=== PATIENT | male | born 1935 | race Caucasian/White ===

== ENCOUNTER 2020-04-08 16:01 | Inpatient (IN) ==
--- NOTE | 2020-04-08 16:33 | XRay Report ---
XR chest 1V portable CLINICAL HISTORY: tachycardia dyspnea COMPARISON STUDY: No previous studies for comparison. FINDINGS: Moderate cardiomegaly. Stent placement within the thoracic aorta. Prominent pulmonary vasculature. Diaphragms are smooth. IMPRESSION: Cardiomegaly with components of developing congestive heart failure. ACT 112: Negative or not required by law. The above report was generated using voice recognition software. It may contain grammatical, syntax or spelling errors. Electronically signed by: Juaquin Prince M.D. 04/08/2020 4:32 PM
[2020-04-08 16:35] LABS: Basophils # (auto) 0.02 K/uL (0-0.2); Basophils % (auto) 0.3 %; Eosinophils # (auto) 0.06 K/uL (0-0.5); Eosinophils % (auto) 0.8 %; Hematocrit (blood only) 44.4 % (42-52); Hemoglobin 14.3 g/dL (14.0-18.0); Immature Granulocytes # (auto) 0.01 K/uL (0.00-0.02); Immature Granulocytes % (auto) 0.1 %; Lymphocytes # (auto) 1.44 K/uL (1.2-3.4); Lymphocytes % (auto) 18.3 %; Mean Corpuscular Hemoglobin 32.9 pg (25-34); Mean Corpuscular Hgb Conc 32.2 g/dL (32-36); Mean Corpuscular Volume 102.1 fL (80-100); Mean Platelet Volume 11.4 fL (7.4-10.4); Monocytes # (auto) 0.68 K/uL (0.11-0.59); Monocytes % (auto) 8.6 %; Neutrophils # (auto) 5.68 K/uL (1.4-6.5); Neutrophils % (auto) 71.9 %; Platelet Count 195 K/uL (130-400); RDW Coefficient of Variation 13.9 % (11.5-14.5); RDW Standard Deviation 51.9 fL (36.4-46.3); Red Blood Count 4.35 M/uL (4.7-6.1); White Blood Count 7.89 K/uL (4.8-10.8)
[2020-04-08] MEDS ORDERED: METOPROLOL TARTRATE 1 MG/ML VIAL IV STA (16:52)
[2020-04-08 17:06] LABS: Alanine Aminotransferase 45 U/L (12-78); Albumin Level 3.6 gm/dl (3.4-5.0); BUN Creatinine Ratio 21.6 (10-20); Blood Urea Nitrogen 37 mg/dl (7-18); Calcium 8.9 mg/dl (8.5-10.1); Carbon Dioxide 22 mmol/L (21-32); Chloride 111 mmol/L (98-107); Est GFR (African American) 41.4; Est GFR (Non-African American) 35.7; Glucose 117 mg/dl (70-99)
[2020-04-08 17:10] LABS: Albumin Globulin Ratio 0.9 (0.9-2); Alkaline Phosphatase 102 U/L (45-117); Bilirubin,Total 1.5 mg/dl (0.2-1); Potassium 4.1 mmol/L (3.5-5.1); Sodium 144 mmol/L (136-145); Total Protein 7.6 gm/dl (6.4-8.2)
[2020-04-08 17:14] LABS: Aspartate Aminotransferase 27 U/L (15-37); Magnesium 2.3 mg/dl (1.8-2.4)
[2020-04-08 17:58] LABS: T4 Free Thyroxine 1.23 ng/dl (0.8-1.6)
[2020-04-08] MEDS ORDERED: METOPROLOL TARTRATE 25 MG TAB PO STA (18:13)
--- NOTE | 2020-04-08 18:49 | Emergency Department Note ---
Impression & Plan Atrial fibrillation with rapid ventricular response ED Provider Note NAME: SHANNON BURKS AGE: 84 SEX: M ARRIVES VIA: Walk-In INFORMANT: [Patient] patient's ED PROVIDER(S): Martin Malagon MD CHIEF COMPLAINT: Abnormal heartbeat PLAN: Disposition: Admitted Condition: [Good] MEDICAL DECISION MAKING: Patient presented from the cardiology office because of A. fib with RVR. He was found to have paroxysmal atrial fibrillation with rapid response frequently going up to 150 and then down into the 60s. He was given a gentle dose of IV Lopressor at 2.5 mg. This helped control the upper end of his heart rate. He did not become significantly bradycardic with this. Blood work was unremarkabl e. Chest x-ray shows some mild congestive change. I did consult cardiology who agreed with the IV Lopressor as needed but also recommended starting 12.5 with oral metoprolol. The patient will likely need a pacemaker and admission was recommended. [facility] The patient was admitted for further treatment. Triage Nursing notes reviewed and agree them. [Additional history obtained from] patient's [Prior medical records reviewed] office notes from last visit reviewed. Patient with extensive cardiac history. Vital Signs: reviewed and remarkable for significant tachycardia. Differential diagnosis: Premature contractions, electrolyte abnormality, cardiac dysrhythmia, thyroid dysfunction, pulmonary embolism, infection, gastrointestinal, as well as other pathologies. ER treatment provided: IV Lopressor Oral Lopressor 12.5 mg Diagnostics interpreted by me: ECG: Rate:137 Rhythm: Atrial fibrillation Girard: Left axis deviation QRS: Normal ST segements: Lateral ST segment depression Other: No PVCs Cardiac Monitoring: Cardiac monitoring ordered by me: The patient was placed on continuous cardiac monitoring and observed. It revealed atrial fibrillation with rapid ventricular response at 129 bpm. The patient would then have episodes of bradycardia with heart rates near 60 bpm. Laboratory studies: [See below] an unremarkable CBC and chemistry panel. Troponin negative. Imaging studies: Mild congestive change on chest x-ray. No infiltrates or pneumothorax. Consultation(s): Dr. Lencho Pino [facility] cardiology Adam Mello PA-C [facility] working with Dr. Fabián edwards HPI: 84/M arrives for evaluation of an abnormal heart rhythm. The patient was directed to the emergency department by [facility] cardiology after he was found to have A. fib with RVR. The patient is feeling generally tired and having some shortness of breath. That seems to be worse at night. He denies any palpitations or lightheadedness. He has had no new medication changes. He does note some mild leg swelling but states that is chronic. He does feel worse with exertion. No relieving factors noted. The medication was given prior to coming to the hospital. Pt denies LOC, headache, fevers, chills, diaphoresis, visual changes, neck pain, chest pain, nausea, vomiting, abdominal pain, back pain, melena, hematochezia, urinary symptoms, numbness, focal weakness, lymphadenopathy, rash, or other complaints. ROS: See above HPI for pertinent positives & negatives. A total of [10] systems reviewed and were otherwise negative. PAST MEDICAL HISTORY:[See Below] arthritis, coronary artery disease PAST SURGICAL HISTORY:[See Below]aortic stenting FAMILY HISTORY:[See Below] SOCIAL HISTORY:[See Below] HOME MEDICATIONS:[See Below] ALLERGIES:[See Below] VITALS:[See Below] PHYSICAL EXAMINATION: GENERAL: Awake, alert, tired-appearing, in no distress HENT: Normocephalic, atraumatic. Oropharynx unremarkable. EYES: Normal conjunctiva. Sclera non-icteric. NECK: Inspection normal. Non-tender. Supple. No nuchal rigidity. FROM. No masses. RESPIRATORY: Clear to auscultation. No wheezes. No rales. Normal respiratory effort. CARDIAC: Tachycardic rate. Irregular rhythm. No murmurs. No rubs. Extremities warm and well perfused. Pulses equal. No JVD. GI: Soft, non-distended. No tenderness to palpation. No rebound or guarding. No masses. RECTAL: Deferred. MUSCULOSKELETAL: Atraumatic. Chest examination reveals no tenderness. The back is symmetrical on inspection without obvious abnormality. There is no CVA tenderness to palpation. No joint edema. LOWER EXTREMITIES: Calves are equal size bilaterally and non-tender. 2+ edema. No discoloration. NEURO: Normal sensorium. No sensory or motor deficits noted. SKIN: No rash or jaundice noted. ED COURSE: [Critical Care:] I have personally spent greater than 30 minutes of critical care time in the direct management of this patient. This includes bedside care, interpretation of diagnostic studies, and testing, discussion with consultants, patient, and family members, and other required patient management activities. This 30 minutes is in excess of all separately billable procedures. Martin Malagon MD Past Med/Surg History Social History Feels Safe at Home: Yes Smoking Status: Never smoker Allergies Allergies Allergy/AdvReac Type Severity Reaction Status Date / Time No Known Allergies Allergy Verified 04/08/20 16:47 Home Meds Home Medications Medication Instructions Recorded Confirmed aspirin 81 mg PO QAM 04/08/20 04/08/20 atorvastatin 80 mg PO HS 04/08/20 04/08/20 calcium carbonate [Calcium 600] 600 mg PO QPM 04/08/20 04/08/20 clopidogrel [Plavix] 75 mg PO QAM 04/08/20 04/08/20 furosemide [Lasix] 40 mg PO QAM 04/08/20 04/08/20 lisinopril 10 mg PO HS 04/08/20 04/08/20 multivitamin 1 tab PO QPM 04/08/20 04/08/20 pantoprazole 40 mg PO QAM 04/08/20 04/08/20 vit C-E-zinc [id number]-[id number] 1 tab PO QPM 04/08/20 04/08/20 [facility] Results & Data (ED) Vital Signs Vital Signs - 24 hr 04/08/20 16:04 04/08/20 16:11 Temperature 36.5 C Temperature Source Oral Pulse Rate 150 H Respiratory Rate 18 Respiratory Effort / Characteristics Non-Labored Spontaneous Respiratory Depth Normal Blood Pressure 130/89 Blood Pressure Mean 102 Blood Pressure Position Sitting Pulse Oximetry 96 Oxygen Delivery Method Room Air Nasal Cannula Oxygen Flow Rate 2 Sepsis Recent Fever Within 48 Hours No Sepsis New/Unexplained Change in Mental Status No Sepsis Action Taken by Nursing No Action Required Laboratory Data Result diagrams: 04/08/20 16:25 04/08/20 16:25 Lab Results 04/08/20 04/08/20 Range/Units 16:25 16:25 WBC 7.89 (4.8-10.8) K/uL RBC 4.35 L (4.7-6.1) M/uL Hgb 14.3 (14.0-18.0) g/dL Hct 44.4 (42-52) % MCV 102.1 H (80-100) fL MCH 32.9 (25-34) pg MCHC 32.2 (32-36) g/dL RDW Std Deviation 51.9 H (36.4-46.3) fL RDW Coeff of Zakia 13.9 (11.5-14.5) % Plt Count 195 (130-400) K/uL MPV 11.4 H (7.4-10.4) fL Immature Gran % (Auto) 0.1 % Neut % (Auto) 71.9 % Lymph % (Auto) 18.3 % Glascock % (Auto) 8.6 % Eos % (Auto) 0.8 % Baso % (Auto) 0.3 % Immature Gran # (Auto) 0.01 (0.00-0.02) K/uL Neut # (Auto) 5.68 (1.4-6.5) K/uL Lymph # (Auto) 1.44 (1.2-3.4) K/uL Glascock # (Auto) 0.68 H (0.11-0.59) K/uL Eos # (Auto) 0.06 (0-0.5) K/uL Baso # (Auto) 0.02 (0-0.2) K/uL Sodium 144 (136-145) mmol/L Potassium 4.1 (3.5-5.1) mmol/L Chloride 111 H (98-107) mmol/L Carbon Dioxide 22 (21-32) mmol/L Anion Gap 11.0 (3-11) BUN 37 H (7-18) mg/dl Creatinine 1.72 H (0.6-1.4) mg/dl Est Cr Clr Drug Dosing Not Reportable Est GFR ( Amer) 41.4 Est GFR (Non-Af Amer) 35.7 BUN/Creatinine Ratio 21.6 H (10-20) Glucose 117 H (70-99) mg/dl Calcium 8.9 (8.5-10.1) mg/dl Magnesium 2.3 (1.8-2.4) mg/dl Total Bilirubin 1.5 H (0.2-1) mg/dl AST 27 (15-37) U/L ALT 45 (12-78) U/L Alkaline Phosphatase 102 (45-117) U/L Troponin I 0.020 (0-0.045) ng/ml Total Protein 7.6 (6.4-8.2) gm/dl Albumin 3.6 (3.4-5.0) gm/dl Globulin 4.0 (2.5-4.0) gm/dl Albumin/Globulin Ratio 0.9 (0.9-2) TSH 5.450 H (0.300-4.500) uIu/ml Free T4 1.23 (0.8-1.6) ng/dl Administered Medications Discontinued Medications Metoprolol Tartrate (Lopressor) 2.5 mg IV NOW STA Stop: 04/08/20 16:53 Last Admin: 04/08/20 16:56 Dose: 2.5 mg Documented by: [id number] Metoprolol Tartrate (Lopressor) 12.5 mg PO NOW STA Stop: 04/08/20 18:14 Last Admin: 04/08/20 18:27 Dose: 12.5 mg Documented by: [id number] Discharge Plan Visit Data Chief Complaint: Referred by Doctor Stated Complaint: SHORTNESS OF BREATH, WORRIED ABOUT STROKE ED Provider: Martin Malagon Discharge Problem: Atrial fibrillation with rapid ventricular response Forms Stand Alone Forms: [facility] Prescriptions Prescriptions: No Action multivitamin Tablet 1 tab PO QPM RF: 0 furosemide [Lasix] 40 mg Tablet 40 mg PO QAM RF: 0 atorvastatin 80 mg Tablet 80 mg PO HS RF: 0 clopidogrel [Plavix] 75 mg Tablet 75 mg PO QAM RF: 0 aspirin 81 mg Tablet,Delayed Release (Dr/Ec) 81 mg PO QAM RF: 0 calcium carbonate [Calcium 600] 600 mg calcium (1,500 mg) Tablet 600 mg PO QPM RF: 0 pantoprazole 40 mg Tablet,Delayed Release (Dr/Ec) 40 mg PO QAM RF: 0 lisinopril 10 mg Tablet 10 mg PO HS RF: 0 [facility] 50 mg-15 unit- 4.5 mg-2.5 mg Tablet,Chewable 1 tab PO QPM RF: 0
--- NOTE | 2020-04-08 19:45 | History & Physical Report ---
Date of Service April 08, 2020 Assessment & Plan (1) Tachy-manoj syndrome: This is an 84-year-old male with a PMH of ischemic cardiomyopathy, sinus bradycardia, CAD (s/p stent to LAD), PVD, aortic regurgitation, HTN, s/p repair of thoracic aortic aneurysm and other medical problems listed below who presents from clinic with dyspnea x1 week and was found to have A. fib with RVR with underlying sinus bradycardia as well as acute decompensated systolic CHF exacerbation. -Sent from cardiology clinic with concern for tachy-manoj syndrome. Known sinus bradycardia with pauses from outpatient monitoring. Had A Fib with RVR in clinic earlier today -Heart rate fluctuating from 70s-150s in ED. Given 2.5mg IV Lopressor with improvement of HR to 110s -ED provider discussed with Dr. Pino, on-call sports photographer, who recommended 12.5 mg p.o. Lopressor as well as small doses of PRN IV Lopressor overnight -Monitor on telemetry. N.p.o. after midnight for possible pacemaker placement tomorrow (2) Heart failure, systolic, with acute decompensation: -History of ischemic cardiomyopathy. Most recent echo from October 2019 with findings of an old SC with mildly reduced EF of 45-49%, moderate-severe AV regurgitation (unchanged) -Clinically appears overloaded. CXR with evidence of developing congestive heart failure -Took 20 mg p.o. Lasix this morning. Due to EDILSON on CKD, will only give another 20 mg Lasix p.o. now -Continue supplemental oxygen. Monitor on telemetry. Strict I&Os. (3) Acute kidney injury superimposed on CKD: Cr elevated at 1.7 (baseline 1.3-1.4) in setting of heart failure, on diuretics. Monitor daily BMP (4) CAD (coronary artery disease): H/o SC and PCI with bare metal stent to LAD. Continue aspirin, statin and plavix (5) Hypertension: Normotensive now. Holding PM dose of lisinopril while receiving Lopressor DVT Ppx: SCDs for now Code status: FULL per discussion with patient PCP: No PCP but follows with [facility] Dispo: Admitted to PCU. Discharge planning ordered. Patient seen in collaboration with Dr. Monreal. Please see addendum. History of Present Illness Chief Complaint: Shortness of breath Primary Care Provider: NO PCP This is an 84-year-old male with a PMH of ischemic cardiomyopathy, sinus adan ycardia, CAD (s/p stent to LAD), PVD, aortic regurgitation, HTN, s/p repair of thoracic aortic aneurysm and other medical problems listed below who presents from clinic with dyspnea x1 week. Patient states he has become short of breath with any type of movement for the past week and has become progressively more difficult to get a deep breath. Has been needing to sit upright in order to sleep. Denies weight gain and lower extremity edema. During clinic visit with [facility], patient was found to be in acute systolic heart failure exacerbation in the setting of A. fib with RVR. There is also concern for tachybradycardia syndrome due to underlying sinus bradycardia with pauses previously noted on outpatient monitor. Patient hesitant but ultimately agreeable to come to ED for further evaluation for possible pacemaker placement. Patient still feeling short of breath but improved on 2 L of nasal cannula oxygen. Does not require oxygen at baseline. Heart rates been fluctuating from 70s to 130s during time in ED. denies fever, chills, lightheadedness, headache, chest pain, palpitations, wheezing, nausea, vomiting, abdominal pain, dysuria, diarrhea or constipation. Most recent echo from October 2019 with findings of an old SC with mildly reduced EF of 45-49%, moderate-severe AV regurgitation (unchanged). Allergies Allergy/AdvReac Type Severity Reaction Status Date / Time No Known Allergies Allergy Verified 04/08/20 16:47 Home Medications Home Medications Medication Instructions Recorded Confirmed Type aspirin 81 mg PO QAM 04/08/20 04/08/20 History atorvastatin 80 mg PO HS 04/08/20 04/08/20 History calcium carbonate [Calcium 600] 600 mg PO QPM 04/08/20 04/08/20 History clopidogrel [Plavix] 75 mg PO QAM 04/08/20 04/08/20 History furosemide [Lasix] 20 mg PO QAM 04/08/20 04/08/20 History lisinopril 10 mg PO HS 04/08/20 04/08/20 History multivitamin 1 tab PO QPM 04/08/20 04/08/20 History pantoprazole 40 mg PO QAM 04/08/20 04/08/20 History vit C-E-zinc ppa-zjrwds-wxqrcq 1 tab PO QPM 04/08/20 04/08/20 History [[facility]] Past Med/Surg History Medical History (Updated 04/08/20 @ 20:37 by Nora Mello PA-C) Aortic valve regurgitation CAD (coronary artery disease) Degenerative arthritis of knee, bilateral GERD (gastroesophageal reflux disease) History of SC (myocardial infarction) Hypertension Ischemic cardiomyopathy Retinal disease Sinus bradycardia Surgical History History of heart artery stent History of thoracic aortic aneurysm repair Family History Other Heart disease Hypertension Stroke Social History Feels Safe at Home: Yes Smoking Status: Never smoker Hx Alcohol Use: No Hx Substance Use: No Review of Systems Review of Systems: At least ten systems reviewed and negative except as noted in the HPI. Physical Exam Physical Exam: General Appearance: WD/WN, vitals as above, NAD, sitting up in bed, pleasant, conversing easily Head: normocephalic, atraumatic Eyes: normal inspection, PERRL, conjunctivae normal, anicteric sclerae ENT: external ear and nose normal, oropharynx normal Neck: trachea midline, no thyromegaly, normal visual inspection Respiratory: normal respiratory effort, bibasilar crackles noted, no wheeze or rhonchi. Normal insp/exp effort, no accessory muscle use Cardiovascular: irregularly irregular, tachycardic, no murmur appreciated, normal peripheral pulses, 1+ BLE edema. Vessels: + JVD Chest: normal inspection of chest Abdomen/GI: normal bowel sounds, soft, nontender, no hepatosplenomegaly Extremities/Musculoskeletal: no cyanosis or clubbing, extremities motor strength 5/5 Neurologic: PERRL, EOMI, accommodation nl, no face palsy, no dysarthria, CN's II-XI intact bilaterally and moves all extremities Psychiatric: A+Ox3, euthymic affect Skin: no rashes, normal color, warm/dry Results & Data Results & Data ([facility]) Vital Signs (Past 12 Hours) Vital Signs Temp Pulse Resp BP Pulse Ox 04/08/20 18:45 135 H 21 122/94 04/08/20 18:40 134 H 25 H 127/93 06/04/20 18:35 128 H 29 H 126/98 96 04/08/20 18:30 80 24 125/92 97 04/08/20 18:25 127 H 18 124/98 96 04/08/20 18:20 124 H 25 H 118/93 96 04/08/20 18:15 122 H 21 120/92 97 04/08/20 18:10 125 H 23 121/93 96 04/08/20 18:05 125 H 25 H 118/91 97 04/08/20 18:00 73 22 130/84 97 04/08/20 17:55 123 H 26 H 119/92 97 04/08/20 17:50 122 H 29 H 126/98 96 04/08/20 17:45 124 H 19 111/77 97 04/08/20 17:40 68 24 113/84 96 04/08/20 17:35 124 H 22 112/79 96 04/08/20 17:30 85 22 116/86 96 04/08/20 17:25 124 H 24 108/80 96 04/08/20 17:20 74 20 116/84 96 04/08/20 17:15 70 21 115/91 97 04/08/20 17:10 73 25 H 116/88 97 04/08/20 17:05 76 27 H 114/89 97 04/08/20 17:00 128 H 31 H 126/88 96 04/08/20 16:59 128 H 27 H 123/92 97 04/08/20 16:58 136 H 24 117/98 98 04/08/20 16:33 134 H 26 H 137/101 H 97 04/08/20 16:30 142 H 29 H 137/101 H 99 04/08/20 16:04 36.5 C 150 H 18 130/89 96 Laboratory Results Short CBC 04/08/20 Range/Units 16:25 WBC 7.89 (4.8-10.8) K/uL Hgb 14.3 (14.0-18.0) g/dL Hct 44.4 (42-52) % Plt Count 195 (130-400) K/uL BMP 04/08/20 16:25 Sodium 144 Potassium 4.1 Chloride 111 H Carbon Dioxide 22 BUN 37 H Creatinine 1.72 H Glucose 117 H Calcium 8.9 Cardiac Enzymes 04/08/20 Range/Units 16:25 Troponin I 0.020 (0-0.045) ng/ml Liver Function 04/08/20 Range/Units 16:25 Total Bilirubin 1.5 H (0.2-1) mg/dl AST 27 (15-37) U/L ALT 45 (12-78) U/L Alkaline Phosphatase 102 (45-117) U/L Albumin 3.6 (3.4-5.0) gm/dl Diagnostic Findings CXR: IMPRESSION: Cardiomegaly with components of developing congestive heart failure. ECG Rhythm: atrial fibrillation Findings: + 1st degree AV block Supervising Physician Co-Signing Physician Notes Attending Addendum: care coordinated with ELYSSA Mello please refer to her notes for full details, I agree with her notes patient seen and examined, records reviewed by myself as well on exam, patient seen resting bed, comfortable, on 2 L of nasal cannula States he feels fine overall Denies shortness of breath, cough, fevers or chills No chest pain, palpitations, dizziness no other symptoms VS noted and reviewed oriented x 3not in distress, speaks in sentences with no effort nor accessory muscle use normal rate, regular rhythm, no murmurs Mild rales at the bases, no wheezing non distended, soft, nontender Lower extremity edema, erythema, warmth no neuro deficits WBC 7.8 Hg 14.3 Crea 1.7 ASSESSMENT AND PLAN Tachybradycardia syndrome Lopressor 2.5 mg IV every 6 hours as needed Plan for pacemaker in the morning Ischemic cardiomyopathy Positive mild volume overload noted Creatinine increased however at 1.7 usually 1.2-1.4 Lasix 20 mg p.o. given Continue to monitor other diagnoses and plan of care as per ELYSSA Mello's notes Fabián Monreal MD
[2020-04-08] MEDS ORDERED: FUROSEMIDE 20 MG TAB PO ONE (21:03)
[2020-04-08] MEDS ORDERED: METOPROLOL TARTRATE 1 MG/ML VIAL IV PRN (21:03)
[2020-04-08] MEDS ORDERED: POLYETHYLENE (MIRALAX) 17 GM PACK PO PRN (21:03)
[2020-04-08] MEDS ORDERED: ACETAMINOPHEN 325 MG TAB PO PRN (21:03)
[2020-04-08] MEDS: ATORVASTATIN 40 MG TAB PO SCH (22:11)
[2020-04-08] MEDS: CEROVITE ADV FORMULA TAB PO SCH (22:11)
[2020-04-08] MEDS: MULTIVITAMIN TAB PO SCH (22:11)
[2020-04-09 07:53] LABS: Basophils # (auto) 0.01 K/uL (0-0.2); Basophils % (auto) 0.1 %; Eosinophils # (auto) 0.02 K/uL (0-0.5); Eosinophils % (auto) 0.3 %; Hemoglobin 12.3 g/dL (14.0-18.0); Immature Granulocytes # (auto) 0.01 K/uL (0.00-0.02); Immature Granulocytes % (auto) 0.1 %; Lymphocytes # (auto) 1.15 K/uL (1.2-3.4); Lymphocytes % (auto) 16.9 %; Mean Corpuscular Hemoglobin 32.9 pg (25-34); Mean Corpuscular Hgb Conc 32.4 g/dL (32-36); Mean Corpuscular Volume 101.6 fL (80-100); Mean Platelet Volume 11.2 fL (7.4-10.4); Monocytes # (auto) 0.77 K/uL (0.11-0.59); Monocytes % (auto) 11.3 %; Neutrophils # (auto) 4.86 K/uL (1.4-6.5); Neutrophils % (auto) 71.3 %; Platelet Count 175 K/uL (130-400); RDW Standard Deviation 51.4 fL (36.4-46.3); Red Blood Count 3.74 M/uL (4.7-6.1); White Blood Count 6.82 K/uL (4.8-10.8)
[2020-04-09] MEDS: ASPIRIN 81 MG ECTAB PO SCH (08:28)
[2020-04-09] MEDS: PANTOprazole 40 MG TAB PO SCH (08:28)
[2020-04-09] MEDS: CLOPIDOGREL BISULFATE 75 MG TAB PO SCH (08:28)
[2020-04-09] MEDS ORDERED: METOPROLOL TARTRATE 25 MG TAB PO SCH ×2 (09:15→21:00)
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
--- NOTE | 2020-04-09 12:09 | Cardiology Consultation ---
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 It will be difficult to treat arrhythmia without bradycardia support with a pacemaker. I discussed the indications, procedure, risks alternatives of pacemaker implantation with him and he understands and agrees to proceed. Consent obtain ed. I also discussed sedation he agrees. Consent obtained. Will implant a dual-chamber device. (2) Atrial tachycardia: He has paroxysmal but very frequent episodes of atrial tachycardia. These will need to be treated due to their frequency and rate, despite relative lack of symptoms. Agree with the use of beta-blockade, if that does not work we can consider ablation although atrial arrhythmias are often difficult to ablate but it may be reasonable option if medications fail. (3) Ischemic cardiomyopathy: He has an ischemic cardiomyopathy, he does not have a lot of heart failure symptoms but should be on beta-blockade for his cardiomyopathy. Once the pacemaker is in place he can be started on beta-blockade which will serve the dual purpose of treating his arrhythmia and his cardiomyopathy. History of Present Illness Attending Physician: Abdi Sousa MD History of Present Illness This is an 84-year-old male with a history of coronary artery disease including stent placement in the past, and ischemic cardiomyopathy with ejection fraction which has been moderately reduced as well as a history of a thoracic aortic aneurysm repair from an accident. He has been struggling with tachybradycardia syndrome recently. He has very frequent episodes of atrial tachycardia with heart rates of 130 bpm and is outpatient, a little bit less her, but still in the 120 bpm range. Although relatively asymptomatic is in this rhythm the majority of the time and it needs to be treated. At the time of my evaluation he was feeling well, he has little awareness of his arrhythmia and denies lightheadedness, dizziness, presyncope or syncope. Allergies Allergy/AdvReac Type Severity Reaction Status Date / Time No Known Allergies Allergy Verified 04/08/20 16:47 Home Medications Home Medications Medication Instructions Recorded Confirmed Type aspirin 81 mg PO QAM 04/08/20 04/08/20 History atorvastatin 80 mg PO HS 04/08/20 04/08/20 History calcium carbonate [Calcium 600] 600 mg PO QPM 04/08/20 04/08/20 History clopidogrel [Plavix] 75 mg PO QAM 04/08/20 04/08/20 History furosemide [Lasix] 20 mg PO QAM 04/08/20 04/08/20 History lisinopril 10 mg PO HS 04/08/20 04/08/20 History multivitamin 1 tab PO QPM 04/08/20 04/08/20 History pantoprazole 40 mg PO QAM 04/08/20 04/08/20 History vit C-E-zinc [id number] 1 tab PO QPM 04/08/20 04/08/20 History [[facility]] Patient History Medical History Aortic valve regurgitation CAD (coronary artery disease) Degenerative arthritis of knee, bilateral GERD (gastroesophageal reflux disease) History of AR (myocardial infarction) Hypertension Ischemic cardiomyopathy Retinal disease Sinus bradycardia Surgical History History of heart artery stent History of thoracic aortic aneurysm repair Family History Other Heart disease Hypertension Stroke Social History Preferred Language: Macanese Communication Ability: Effective Client Operations Manager Required: No Beliefs That Will Affect Care: None Current Living Situation: Spouse Feels Safe at Home: Yes Smoking Status: Never smoker Hx Alcohol Use: No Hx Substance Use: No Physical Exam Physical Exam: Constitutional: Alert, cooperative and in no distress. HEENT: Unremarkable Neck: No jugular venous distention, carotid pulses are normal and equal bilaterally without bruits. Pulmonary: Clear to auscultation bilaterally. Cardiac: Regular rapid rhythm with no murmur, gallop or rub. Abdomen: Soft, nontender with normal bowel sounds. Extremities: No edema. Distal pulses intact. Neurologic: No focal findings. Gait is steady. Skin: No rash, ecchymoses or petechiae. Results & Data ([facility]) Vital Signs (Past 12 Hours) Vital Signs Temp Pulse Pulse Pulse Resp BP Pulse Ox 04/09/20 10:52 123 H 04/09/20 09:37 132 H 118/82 04/09/20 08:03 36.8 C 122 H 18 95/60 L 96 04/09/20 04:53 36.5 C 91 H 20 103/67 95 04/09/20 00:11 36.7 C 91 H 18 102/69 95 Diagnostic Findings Telemetry: Very frequent nonsustained runs of atrial tachycardia, he is in this rhythm perhaps the majority of the time, heart rates typically in the 120s. Evaluation of the onset and offset of these arrhythmias suggest that they are atrial tachycardia is not reentrant rhythms although that cannot be excluded. Electrocardiogram: His presenting electrocardiogram April 08, 2020 at 1613 shows a regular supraventricular rhythm, atrial activity is evident following the QRS and the RP interval is little bit shorter than the RI interval but longer than one would expect with typical AV joel reentry. There is also a slight irregularity suggesting if this is not AV joel reentry although it is possible. Another electrocardiogram done April 09, 2020 at 6:23 AM shows a very similar rhythm at 123 bpm. PG Care Time/CCT Total # of Minutes Spent Total Time Spent with Patient: Total time spent is greater than 50% in coordination of care (as documented) at patient's floor/unit and/or counseling patient: Coding Level of Care Code 71571 Initial Inpt Care Lvl 3 Diagnoses Tachycardia-bradycardia syndrome I49.5 Atrial tachycardia I47.1 Ischemic cardiomyopathy I25.5
[2020-04-09 12:45] LABS: BUN Creatinine Ratio 25.1 (10-20); Calcium 8.8 mg/dl (8.5-10.1); Creatinine Clr Calc Pharmacy 36.4 ml/min; Est GFR (African American) 48.5; Est GFR (Non-African American) 41.8
[2020-04-09] MEDS ORDERED: MIDAZOLAM HCL 5 MG/ML 1 ML VIAL ONE (14:55)
[2020-04-09] MEDS ORDERED: fentaNYL citrate 100 MCG/2 ML VIAL ONE (14:56)
[2020-04-09] MEDS ORDERED: CEFAZOLIN 250 MG/ML 1 GM VIAL ONE (14:56)
--- NOTE | 2020-04-09 15:10 | Pre Anesthesia Assessment ---
Date of Service April 09, 2020 Pre Sedation Assessment Vital Signs Temp Pulse Pulse Pulse Resp BP BP 04/09/20 12:11 36.5 C 118 H 18 118/85 04/09/20 10:52 123 H 04/09/20 09:37 132 H 118/82 04/09/20 08:03 36.8 C 122 H 18 95/60 L 04/09/20 04:53 36.5 C 91 H 20 103/67 04/09/20 00:11 36.7 C 91 H 18 102/69 04/08/20 23:30 36.6 C 104 H 128 H 16 127/94 04/08/20 21:05 127 H 04/08/20 19:55 118 H 18 122/95 04/08/20 18:45 135 H 21 122/94 04/08/20 18:40 134 H 25 H 127/93 04/08/20 18:35 128 H 29 H 126/98 04/08/20 18:30 80 24 125/92 04/08/20 18:25 127 H 18 124/98 04/08/20 18:20 124 H 25 H 118/93 04/08/20 18:15 122 H 21 120/92 04/08/20 18:10 125 H 23 121/93 04/08/20 18:05 125 H 25 H 118/91 04/08/20 18:00 73 22 130/84 04/08/20 17:55 123 H 26 H 119/92 04/08/20 17:50 122 H 29 H 126/98 04/08/20 17:45 124 H 19 111/77 04/08/20 17:40 68 24 113/84 04/08/20 17:35 124 H 22 112/79 04/08/20 17:30 85 22 116/86 04/08/20 17:25 124 H 24 108/80 04/08/20 17:20 74 20 116/84 04/08/20 17:15 70 21 115/91 04/08/20 17:10 73 25 H 116/88 04/08/20 17:05 76 27 H 114/89 04/08/20 17:00 128 H 31 H 126/88 04/08/20 16:59 128 H 27 H 123/92 04/08/20 16:58 136 H 24 117/98 04/08/20 16:33 134 H 26 H 137/101 H 04/08/20 16:30 142 H 29 H 137/101 H 04/08/20 16:04 36.5 C 150 H 18 130/89 Pulse Ox 04/09/20 12:11 96 04/09/20 10:52 04/09/20 09:37 04/09/20 08:03 96 04/09/20 04:53 95 04/09/20 00:11 95 04/08/20 23:30 94 04/08/20 21:05 04/08/20 19:55 96 04/08/20 18:45 04/08/20 18:40 04/08/20 18:35 96 04/08/20 18:30 97 04/08/20 18:25 96 04/08/20 18:20 96 04/08/20 18:15 97 04/08/20 18:10 96 04/08/20 18:05 97 04/08/20 18:00 97 04/08/20 17:55 97 04/08/20 17:50 96 04/08/20 17:45 97 04/08/20 17:40 96 04/08/20 17:35 96 04/08/20 17:30 96 04/08/20 17:25 96 04/08/20 17:20 96 04/08/20 17:15 97 04/08/20 17:10 97 04/08/20 17:05 97 04/08/20 17:00 96 04/08/20 16:59 97 04/08/20 16:58 98 04/08/20 16:33 97 04/08/20 16:30 99 04/08/20 16:04 96 Cardiovascular RRR, no murmur, no edema Respiratory normal respiratory effort, lungs clear to auscultation Pre-Sedation Airway Assessment Smoking Status: Never smoker Hx Sleep Apnea: No Hx Difficult Intubation: No Short, Thick Neck: No Thyromental Distance: > or= 3.5 Finger Breadths Oral Cavity: + Dentures Mallampati Class: III ASA: ASA3 NPO Status Date of Last Intake of Fluids: 04/08/20 Time of Last Intake of Fluids: 20:00 Date of Last Intake of Solid Food: 04/08/20 Time of Last Intake of Solid Foods: 20:00 Procedure Planning Contraindications for Sedation: none Current Medications Reviewed: Yes Notes The planned sedation has been discussed with the patient. Informed Consent was obtained. I have identified the patient, determined the appropriateness of sedation and have assessed the patient immediately prior to the procedure. All medicine(s) and interventions are by my order.
[2020-04-09] MEDS ORDERED: BACITRACIN INJ 50,000 UNIT VIAL ONE (15:13)
[2020-04-09] MEDS ORDERED: LIDOCAINE HCL 1% 20 ML VIAL ONE (15:13)
[2020-04-09] MEDS ORDERED: BACITRACIN OINT 0.9 GM PKT ONE ×2 (15:13→16:33)
[2020-04-09] MEDS ORDERED: METOPROLOL TARTRATE 1 MG/ML VIAL IV ONE (15:18)
[2020-04-09] MEDS ORDERED: ACETAMINOPHEN W/CODEINE #3 1 TAB PO PRN (16:33)
[2020-04-09] MEDS ORDERED: ACETAMINOPHEN 325 MG TAB PO PRN (16:33)
--- NOTE | 2020-04-09 16:33 | Electrophysiology Report ---
Date of Service April 09, 2020 Electrophysiology Procedure Electrophysiology Procedure Report Preoperative diagnosis: Tachybradycardia syndrome Postoperative diagnosis: Same Procedure: Dual-chamber pacemaker implantation Surgeon: Milton Hubbard MD Estimated blood loss: 30 cc Complications: None Disposition: Thermal Cutter Helper recovery Procedure details: After obtaining informed consent for the procedure, the patient was brought to the laboratory and prepped and draped in the standard s terile manner. The left prepectoral region was anesthetized with 1% lidocaine local anesthetic and left axillary venipuncture was performed by percutaneous technique and a guidewire placed through the left subclavian vein into the superior vena cava. The area was further infiltrated with 1% lidocaine local anesthetic and a 5 cm incision was made parallel to the left clavicle and 2 cm below it and carried down to the anterior pectoralis fascia. A pacemaker pocket was formed by blunt dissection anterior to the pectoralis fascia and a bacitracin-soaked sponge (50,000 units in 50 cc normal saline solution) was placed in the pocket. An 8 [place] Medtronic lead introducer was placed over the guidewire into the left subclavian vein, the dilator and guidewire were removed and a bipolar active fixation steroid tipped ventricular lead was advanced through the introducer into the superior vena cava. A guidewire was placed through the introducer and the introducer was stripped from the lead and guidewire. Another 8 [place] Medtronic lead introducer was placed over the guidewire into the left subclavian vein, the dilator and guidewire were removed and a bipolar active fixation steroid tipped atrial lead was advanced through the introducer into the superior vena cava. A guidewire was placed back through the introducer and the introducer was stripped from the lead and guidewire. Using a curved stylette the ventricular lead was advanced through the right ventricular outflow tract into the pulmonary artery and then using a straight stylette was positioned in the right ventricular apex. The screw was extended fixing the lead in position. Pacing and sensing thresholds were evaluated in bipolar configuration and are recorded on the implant data sheet. Using a curved stylette the atrial lead was positioned in the region of the atrial appendage and the screw extended fixing the lead in position. Pacing and sensing thresholds were evaluated in bipolar configuration and are recorded on the implant data sheet. Once the leads were in position they were attached to the anterior pectoralis fascia using 2 sutures of 2-0 silk around each lead collar. The bacitracin- soaked sponge was removed from the pocket, hemostasis was obtained, the pacemaker was attached to the leads and placed in the pocket with the leads coiled beneath it. The incision was closed with a running double subcutaneous closure of 3-0 Vicryl absorbable suture, followed by running subcuticular skin closure of 4-0 Vicryl absorbable suture. Bacitracin ointment was placed on the incision and a pressure dressing applied. [facility] [place]rophysiology codes Indication for Procedure (1) Tachycardia-bradycardia syndrome: Pacing Procedure 1: Pacin Insert/Replace Pacer A & V PG Moderate Sedation Codes Moderate Sedation Codes Procedure 1: Sedation/Anesthesia: 78409 Mod Sedation by the same physician;Init15 Min Child Age 5 & Up Procedure 2: Sedation/Anesthesia: 06875 Mod Sedation by the same physician; Ea [id number] Minutes
[2020-04-09] MEDS: MULTIVITAMIN TAB PO SCH (20:51)
[2020-04-09] MEDS: CALCIUM CARBONATE 1250MG TAB PO SCH (20:51)
[2020-04-09] MEDS: CEROVITE ADV FORMULA TAB PO SCH (20:51)
[2020-04-09] MEDS: ATORVASTATIN 40 MG TAB PO SCH (20:51)
--- NOTE | 2020-04-09 23:18 | Hospitalist Progress Note ---
Date of Service April 09, 2020 Assessment & Plan (1) Tachy-manoj syndrome: This is an 84-year-old male with a PMH of ischemic cardiomyopathy, sinus bradycardia, CAD (s/p stent to LAD), PVD, aortic regurgitation, HTN, s/p repair of thoracic aortic aneurysm and other medical problems listed below who presents from clinic with dyspnea x1 week and was found to have A. fib with RVR with underlying sinus bradycardia as well as acute decompensated systolic CHF exacerbation. -Sent from cardiology clinic with concern for tachy-manoj syndrome. Known sinus bradycardia with pauses from outpatient monitoring. Had A Fib with RVR in clinic earlier today -Heart rate fluctuating from 70s-150s in ED. Given 2.5mg IV Lopressor with improvement of HR to 110s -ED provider discussed with Dr. Pino, on-call sheriff sergeant, who recommended 12.5 mg p.o. Lopressor as well as small doses of PRN IV Lopressor overnight -Monitor on telemetry. Patient has been n.p.o. for possible pacemaker placement today Seen by Dr. Pino today 04/09, recommends metoprolol 12.5 mg twice a day -Plan for pacemaker placement later today 04/09 (2) Heart failure, systolic, with acute decompensation: -History of ischemic cardiomyopathy. Most recent echo from October 2019 with findings of an old CA with mildly reduced EF of 45-49%, moderate-severe AV regurgitation (unchanged) -Clinically appears overloaded. CXR with evidence of developing congestive heart failure -Took 20 mg p.o. Lasix this morning. Due to EDILSON on CKD, only received 20 mg Lasix p.o. on admission -Cardiology consulted, will defer to them for further management -Continue supplemental oxygen. Monitor on telemetry. Strict I&Os. (3) Acute kidney injury superimposed on CKD: Cr elevated at 1.7 (baseline 1.3-1.4) in setting of heart failure, on diuretics. Monitor daily BMP -Current creatinine down to 1.5 (4) CAD (coronary artery disease): H/o CA and PCI with bare metal stent to LAD. Continue aspirin, statin and plavix (5) Hypertension: Normotensive now. Holding PM dose of lisinopril while receiving Lopressor DVT Ppx: SCDs for now Code status: FULL per discussion with patient PCP: No PCP but follows with [facility] cardiolgy Dispo: Admitted to PCU. Discharge planning ordered. Admission and Anticipated Discharge Date Admission Date: April 08, 2020 Subjective Patient sitting in bed, in no acute distress, plan for pacemaker placement later today. Patient denies any fevers, chills, chest pain, shortness of breath, abdominal pain, nausea or vomiting. Update: Contacted by nursing staff, that patient had 15 beat of V. tach, patient asymptomatic. No complaints. Cardiology notified. Review of Systems Review of Systems: All systems reviewed & are unremarkable except as noted in HPI & below Constitutional: no fever and no chills Respiratory: no cough and no dyspnea Cardiovascular: no chest pain and no palpitations Gastrointestinal: no abdominal pain, no nausea and no vomiting Physical Exam Physical Exam: General Appearance: WD/WN, vitals as above, NAD, sitting up in bed, pleasant, conversing easily Head: normocephalic, atraumatic Eyes: normal inspection, PERRL, conjunctivae normal, anicteric sclerae ENT: external ear and nose normal, oropharynx normal Neck: trachea midline, no thyromegaly, normal visual inspection Respiratory: normal respiratory effort, mild bibasilar crackles noted, no wheeze or rhonchi. Normal insp/exp effort, no accessory muscle use Cardiovascular: irregularly irregular, tachycardic, no murmur appreciated, normal peripheral pulses, 1+ BLE edema Chest: normal inspection of chest Abdomen/GI: normal bowel sounds, soft, nontender, no hepatosplenomegaly Extremities/Musculoskeletal: no cyanosis or clubbing, extremities motor strength 5/5 Neurologic: PERRL, EOMI, accommodation nl, no face palsy, no dysarthria, CN's II-XI intact bilaterally and moves all extremities Psychiatric: A+Ox3, euthymic affect Skin: no rashes, normal color, warm/dry Results & Data Results & Data ([facility]) Vital Signs (Past 12 Hours) Vital Signs Temp Pulse Pulse Resp BP Pulse Ox 04/09/20 20:57 116 H 116/76 04/09/20 19:13 36.4 C L 114 H 22 94/65 L 94 04/09/20 18:30 115 H 16 111/88 94 04/09/20 18:18 120 H 17 107/71 95 04/09/20 17:48 123 H 17 115/83 95 04/09/20 17:47 113 H 04/09/20 17:18 114 H 16 113/70 95 04/09/20 17:03 113 H 18 111/68 94 04/09/20 16:50 36.4 C L 112 H 17 109/75 92 04/09/20 12:11 36.5 C 118 H 18 118/85 96 Laboratory Results 04/09/20 04/09/20 Range/Units 07:07 07:07 WBC 6.82 (4.8-10.8) K/uL RBC 3.74 L (4.7-6.1) M/uL Hgb 12.3 L (14.0-18.0) g/dL Hct 38.0 L (42-52) % MCV 101.6 H (80-100) fL MCH 32.9 (25-34) pg MCHC 32.4 (32-36) g/dL RDW Std Deviation 51.4 H (36.4-46.3) fL RDW Coeff of [place] 14.0 (11.5-14.5) % Plt Count 175 (130-400) K/uL MPV 11.2 H (7.4-10.4) fL Immature Gran % (Auto) 0.1 % Neut % (Auto) 71.3 % Lymph % (Auto) 16.9 % [place] % (Auto) 11.3 % Eos % (Auto) 0.3 % Baso % (Auto) 0.1 % Immature Gran # (Auto) 0.01 (0.00-0.02) K/uL Neut # (Auto) 4.86 (1.4-6.5) K/uL Lymph # (Auto) 1.15 L (1.2-3.4) K/uL [place] # (Auto) 0.77 H (0.11-0.59) K/uL Eos # (Auto) 0.02 (0-0.5) K/uL Baso # (Auto) 0.01 (0-0.2) K/uL Sodium 141 (136-145) mmol/L Potassium 4.0 (3.5-5.1) mmol/L Chloride 111 H (98-107) mmol/L Carbon Dioxide 25 (21-32) mmol/L Anion Gap 5.0 (3-11) BUN 38 H (7-18) mg/dl Creatinine 1.51 H (0.6-1.4) mg/dl Est Cr Clr Drug Dosing 36.4 ml/min Est GFR ( Amer) 48.5 Est GFR (Non-Af Amer) 41.8 BUN/Creatinine Ratio 25.1 H (10-20) Glucose 91 (70-99) mg/dl Calcium 8.8 (8.5-10.1) mg/dl Medications Administered Current Inpatient Medications Acetaminophen (Tylenol) 650 mg PO Q4H PRN PRN Reason: Pain or Fever Stop: 05/08/20 21:02 Acetaminophen/Codeine Phosphate (Tylenol W/Codeine #3) 1 - 2 tab PO Q4H PRN PRN Reason: Moderate-Severe Pain Stop: 05/09/20 16:32 Aspirin (Ecotrin Ectab) [facility] [place] Stop: 05/09/20 08:59 Last Admin: 04/09/20 08:28 Dose: 81 mg Documented by: Atorvastatin Calcium (Lipitor) 80 mg PO [facility] Stop: 05/08/20 21:02 Last Admin: 04/09/20 20:51 Dose: 80 mg Documented by: Calcium Carbonate (Os-Jan 500) 1,250 mg PO QPM [facility] Stop: 05/09/20 20:59 Last Admin: 04/09/20 20:51 Dose: 1,250 mg Documented by: Clopidogrel Bisulfate (Plavix) 75 mg PO QAM [facility] Stop: 05/09/20 08:59 Last Admin: 04/09/20 08:28 Dose: 75 mg Documented by: Metoprolol Tartrate (Lopressor) 25 mg PO TID [facility] Stop: 05/09/20 20:59 Last Admin: 04/09/20 20:53 Dose: 25 mg Documented by: Multivitamins (Multivitamin Tab) 1 tab PO QPM [facility] Stop: 05/08/20 21:02 Last Admin: 04/09/20 20:51 Dose: 1 tab Documented by: Multivitamins/Minerals (Multivitamin W/ Minerals Tab) 1 tab PO QPM [facility] Stop: 05/08/20 21:02 Last Admin: 04/09/20 20:51 Dose: 1 tab Documented by: Pantoprazole Sodium (Protonix) 40 [facility] [place] Stop: 05/09/20 08:59 Last Admin: 04/09/20 08:28 Dose: 40 mg Documented by: Polyethylene Glycol (Miralax Powder Packet) 17 gm PO DAILY PRN PRN Reason: Constipation Stop: 05/08/20 21:02
[2020-04-10 06:13] LABS: Basophils # (auto) 0.01 K/uL (0-0.2); Basophils % (auto) 0.1 %; Eosinophils # (auto) 0.02 K/uL (0-0.5); Eosinophils % (auto) 0.3 %; Hematocrit (blood only) 39.9 % (42-52); Hemoglobin 13.2 g/dL (14.0-18.0); Immature Granulocytes # (auto) 0.02 K/uL (0.00-0.02); Immature Granulocytes % (auto) 0.3 %; Lymphocytes # (auto) 1.01 K/uL (1.2-3.4); Mean Corpuscular Hemoglobin 33.6 pg (25-34); Mean Corpuscular Hgb Conc 33.1 g/dL (32-36); Mean Corpuscular Volume 101.5 fL (80-100); Mean Platelet Volume 11.2 fL (7.4-10.4); Monocytes # (auto) 0.84 K/uL (0.11-0.59); Monocytes % (auto) 10.9 %; Neutrophils # (auto) 5.84 K/uL (1.4-6.5); Neutrophils % (auto) 75.4 %; Platelet Count 174 K/uL (130-400); RDW Coefficient of Variation 14.1 % (11.5-14.5); RDW Standard Deviation 52.2 fL (36.4-46.3); Red Blood Count 3.93 M/uL (4.7-6.1); White Blood Count 7.74 K/uL (4.8-10.8)
[2020-04-10 06:44] LABS: BUN Creatinine Ratio 23.7 (10-20); Calcium 9.2 mg/dl (8.5-10.1); Creatinine Clr Calc Pharmacy 33.5 ml/min; Est GFR (African American) 43.9; Est GFR (Non-African American) 37.8; Magnesium 2.3 mg/dl (1.8-2.4); Phosphorus 3.6 mg/dl (2.5-4.9); Potassium 4.2 mmol/L (3.5-5.1)
[2020-04-10 06:45] LABS: Echinocytes 2+
--- NOTE | 2020-04-10 06:46 | Electrocardiogram Report ---
Test Reason : Blood Pressure : / mmHG Vent. Rate : 137 BPM Atrial Rate : 137 BPM P-R Int : 224 ms QRS Dur : 112 ms QT Int : 328 ms P-R-T Axes : 000 -38 176 degrees QTc Int : 495 ms Atrial tachycardia with 1st degree A-V block Left axis deviation Anterior infarct , age undetermined Abnormal ECG No previous ECGs available Confirmed by Milton Hubbard ([id number]) on 04/10/2020 6:46:00 AM Referred By: Confirmed By:Milton Hubbard
--- NOTE | 2020-04-10 06:54 | Electrocardiogram Report ---
Test Reason : Blood Pressure : / mmHG Vent. Rate : 123 BPM Atrial Rate : 123 BPM P-R Int : 000 ms QRS Dur : 106 ms QT Int : 380 ms P-R-T Axes : 000 -33 204 degrees QTc Int : 544 ms Probable atrial tachycardia with 1st degree AV block Left axis deviation Anteroseptal infarct (cited on or before 08-APR-2020) Abnormal ECG When compared with ECG of 08-APR-2020 16:13, (unconfirmed) T wave inversion now evident in Inferior leads T wave inversion less evident in Lateral leads Confirmed by Milton Hubbard ([id number]) on 04/10/2020 6:54:38 AM Referred By: Ramiro Castillo Confirmed By:Milton Hubbard
--- NOTE | 2020-04-10 08:08 | XRay Report ---
TWO VIEW CHEST CLINICAL HISTORY: Status post pacemaker placement. FINDINGS: PA and lateral chest radiographs are compared to study dated 04/08/2020. A 2-lead cardiac pac emaker partially obscures the left upper chest. Leads project over the right atrial appendage and the right ventricle. The heart is enlarged. A stent graft is noted in the thoracic aorta. There is mild pulmonary vascular congestion There are small pleural effusions with bibasilar consolidation. There i s no pneumothorax. The skeletal structures are osteopenic. The bony thorax appears intact. A stent is noted in the upper abdomen. IMPRESSION: 1. A 2-lead cardiac pacemaker has been implanted as above. No pneumothorax is seen post procedure. 2. Cardiomegaly with mild pulmonary vascular congestion. 3. There are small pleural effusions with bibasilar consolidation. This likely represents atelectasis and clinical correlation will be required. ACT 112: Negative or not required by law. Electronically signed by: Ba Peacock M.D. 04/10/2020 8:07 AM
--- NOTE | 2020-04-10 08:10 | Post Anesthesia Assessment ---
Date of Service April 09, 2020 Post Sedation Assessment Vital Signs Temp Pulse Pulse Resp BP Pulse Ox 04/10/20 07:49 36.5 C 74 18 120/87 93 04/10/20 03:55 36.5 C 129 H 20 120/88 92 04/10/20 00:09 108 H 04/09/20 23:45 36.5 C 75 20 108/63 95 04/09/20 20:57 116 H 116/76 04/09/20 19:13 36.4 C L 114 H 22 94/65 L 94 04/09/20 18:30 115 H 16 111/88 94 04/09/20 18:18 120 H 17 107/71 95 04/09/20 17:48 123 H 17 115/83 95 04/09/20 17:47 113 H 04/09/20 17:18 114 H 16 113/70 95 04/09/20 17:03 113 H 18 111/68 94 04/09/20 16:50 36.4 C L 112 H 17 109/75 92 04/09/20 12:11 36.5 C 118 H 18 118/85 96 04/09/20 10:52 123 H 04/09/20 09:37 132 H 118/82 Discharge Sedation Level of Care: Fast Track Phase II Post Sedation Plan On clinical assessment, the patient appears to have tolerated the sedation without complications. Patient is recovering as anticipated. Patient will continue to be monitored by nursing and may be discharged when sedation discharge criteria are met per below protocol. Upon Completions of procedure up to 15 minutes continue every 5 minute vital signs and the P.A.R. score; then discharge to a Phase I or Fast Track to Phase II per the following guidelines: * Discharge Patient to appropriate Phase II area if PAR is 8 or greater or return to pre- procedure baseline. The post - procedure orders will be as directed. * If PAR score is less than 8 or not return to pre-procedure baseline then patient will follow Phase I monitoring till PAR is reached for Phase II. The Phase I may be done in procedure room or may call to secure a Phase I area. * If naloxone or flumazenil are used for reversal, hold in Phase I for continued monitoring from when last reversal dose was given for a minimum of 60 minutes or longer pending the nurse and/or physician discretion of patient condition before discharge to Phase II. Please call the Sedation Physician to re-evaluate and complete post-note for discharge to Phase II area. Do NOT discharge from procedure sedation or Phase 1 until post- sedation evaluation note is complete by procedure /sedation MD Sedation Discharge Instructions to be given to the patient at discharge to home.
--- NOTE | 2020-04-10 08:12 | Cardiology Progress Note ---
Date of Service April 10, 2020 Assessment & Plan (1) Status post placement of cardiac pacemaker: He is doing well postop day #1. The pacemaker site looks good, chest x- ray shows good lead position, the device is working well. From the surgical standpoint he is stable for discharge although his rhythm may preclude it. 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 Now with the pacemaker we can treat his atrial arrhythmia, although currently that does not seem to be working very well. (3) Atrial tachycardia: He has paroxysmal but very frequent episodes of atrial tachycardia. These will need to be treated due to their frequency and rate, despite relative lack of symptoms. Agree with the use of beta-blockade, so far on relatively low-dose beta-blockade (metoprolol tartrate 25 mg 3 times daily) he has very frequent atrial tachycardia. I am going to increase the dose today, if that does not work we can consider antiarrhythmic therapy or ablation although atrial arrhythmias are often difficult to ablate but it may be reasonable option if me dications fail. (4) Ischemic cardiomyopathy: He has an ischemic cardiomyopathy, he does not have a lot of heart failure symptoms but should be on beta-blockade for his cardiomyopathy. He is now on metoprolol tartrate, this could be switched to a long-acting preparation when his rhythm stabilized, beta-blockade which serve the dual purpose of hopefully treating his arrhythmia and his cardiomyopathy. Admission and Anticipated Discharge Date Admission Date: April 08, 2020 Subjective He is feeling well today, he has no significant incisional discomfort, does not feel palpitations, has no chest discomfort or shortness of breath. Physical Exam Physical Exam: His incision is clean and dry, no bleeding or significant ecchymosis. No swelling or erythema. Dressing changed. Cardiac rhythm is regular with no rub Lungs have minor crackles, no tympany Results & Data ([facility]) Vital Signs (Past 12 Hours) Vital Signs Temp Pulse Pulse Resp BP Pulse Ox 04/10/20 07:49 36.5 C 74 18 120/87 93 04/10/20 03:55 36.5 C 129 H 20 120/88 92 04/10/20 00:09 108 H 04/09/20 23:45 36.5 C 75 20 108/63 95 04/09/20 20:57 116 H 116/76 Laboratory Results CBC 04/10/20 Range/Units 05:48 WBC 7.74 (4.8-10.8) K/uL RBC 3.93 L (4.7-6.1) M/uL Hgb 13.2 L (14.0-18.0) g/dL Hct 39.9 L (42-52) % Plt Count 174 (130-400) K/uL Neut # (Auto) 5.84 (1.4-6.5) K/uL Lymph # (Auto) 1.01 L (1.2-3.4) K/uL [place] # (Auto) 0.84 H (0.11-0.59) K/uL Eos # (Auto) 0.02 (0-0.5) K/uL Baso # (Auto) 0.01 (0-0.2) K/uL Comprehensive Metabolic Panel 04/09/20 04/10/20 Range/Units 07:07 05:48 Sodium 141 140 (136-145) mmol/L Potassium 4.0 4.2 (3.5-5.1) mmol/L Chloride 111 H 109 H (98-107) mmol/L Carbon Dioxide 25 23 (21-32) mmol/L BUN 38 H 39 H (7-18) mg/dl Creatinine 1.51 H 1.64 H (0.6-1.4) mg/dl Glucose 91 100 H (70-99) mg/dl Calcium 8.8 9.2 (8.5-10.1) mg/dl Intake and Output 04/09/20 04/10/20 04/10/20 22:59 06:59 14:59 Intake Total 100 / 100 240 / 240 Output Total 100 / 700 100 / 700 125 / 125 Balance 0 / -600 -100 / -600 115 / 115 Intake: Oral 100 / 100 240 / 240 Output: Urine 100 / 700 100 / 700 125 / 125 Other: Weight 74.4 kg Patient Weight 04/11/20 06:59 Weight 74.4 kg Diagnostic Findings His electrocardiogram this morning shows his atrial tachycardia at 130 bpm, no pacing. Telemetry: Atrial pacing to some extent, predominantly atrial tachycardia at a rate of about 120 to 130 bpm. Chest x-ray: Good lead position, no pneumothorax Pacemaker evaluation: Excellent pacing and sensing characteristics in both chambers. PG Care Time/CCT Total # of Minutes Spent Total Time Spent with Patient: Total time spent is greater than 50% in coordination of care (as documented) at patient's floor/unit and/or counseling patient: Coding Level of Care Code 08705 Post Operative Follow-Up Diagnoses Status post placement of cardiac pacemaker Z95.0 Tachycardia-bradycardia syndrome I49.5 Atrial tachycardia I47.1 Ischemic cardiomyopathy I25.5 CPT Codes Dual Lead Pacemaker System - [id number] ([id number])
[2020-04-10] MEDS: ASPIRIN 81 MG ECTAB PO SCH (09:16)
[2020-04-10] MEDS: PANTOprazole 40 MG TAB PO SCH (09:16)
[2020-04-10] MEDS: CLOPIDOGREL BISULFATE 75 MG TAB PO SCH (09:16)
[2020-04-10] MEDS: METOPROLOL TARTRATE 50 MG TAB PO SCH ×2 (09:16→20:36)
--- NOTE | 2020-04-10 10:37 | Hospitalist Progress Note ---
Date of Service April 10, 2020 Assessment & Plan (1) Tachy-manoj syndrome: This is an 84-year-old male with a PMH of ischemic cardiomyopathy, sinus bradycardia, CAD (s/p stent to LAD), PVD, aortic regurgitation, HTN, s/p repair of thoracic aortic aneurysm and other medical problems listed below who presents from clinic with dyspnea x1 week and was found to have A. fib with RVR with underlying sinus bradycardia as well as acute decompensated systolic CHF exacerbation. -Sent from cardiology clinic with concern for tachy-manoj syndrome. Known sinus bradycardia with pauses from outpatient monitoring. Had A Fib with RVR in clinic earlier today -Heart rate fluctuating from 70s-150s in ED. Given 2.5mg IV Lopressor with improvement of HR to 110s -ED provider discussed with Dr. Pino, on-call supervisor power reactor, who recommended 12.5 mg p.o. Lopressor as well as small doses of PRN IV Lopressor overnight -Monitor on telemetry. Patient has been n.p.o. for possible pacemaker placement Seen by Dr. Pino on 04/09, recommends metoprolol 12.5 mg twice a day -Now s/p pacemaker placement on 04/09 -Patient continues to be quite tachycardic (HR in 120s), cardiology plans to increase beta-joshua -Continue to monitor on telemetry (2) Heart failure, systolic, with acute decompensation: -History of ischemic cardiomyopathy. Most recent echo from October 2019 with findings of an old ND with mildly reduced EF of 45-49%, moderate-severe AV regurgitation (unchanged) -Clinically appears overloaded. CXR with evidence of developing congestive heart failure -Took 20 mg p.o. Lasix in the morning of admission. Due to EDILSON on CKD, only received 20 mg Lasix p.o. on admission -Cardiology consulted, will defer to them for further management --Now s/p pacemaker placement on 04/09 - Patient continues to be quite tachycardic, cardiology plans to increase beta- joshua -Continue to monitor on telemetry -Continue supplemental oxygen as needed. Strict I&Os. (3) Acute kidney injury superimposed on CKD: Cr elevated at 1.7 (baseline 1.3-1.4) in setting of heart failure, on diuretics. Monitor daily BMP - creatinine down to 1.5, now up to 1.6 - KARISHMA inhibitor held, continue to monitor (4) CAD (coronary artery disease): H/o ND and PCI with bare metal stent to LAD. Continue aspirin, statin and plavix (5) Hypertension: Normotensive now. Holding lisinopril while receiving Lopressor DVT Ppx: SCDs for now Code status: FULL per discussion with patient PCP: No PCP but follows with [facility] Dispo: Admitted to PCU. Discharge planning ordered. Admission and Anticipated Discharge Date Admission Date: April 08, 2020 Subjective Patient is postop pacemaker placement yesterday. Tolerated procedure well. However remains mostly tachycardic, heart rates in 110s- 120s. Plan to increase metoprolol by cardiology. Cr. 1.6 Patient reports occasionally getting short of breath, even when resting. Otherwise denies any fevers, chills, cough, chest pain, palpitations, abdominal pain, nausea or vomiting. Review of Systems Review of Systems: All systems reviewed & are unremarkable except as noted in HPI & below Constitutional: no fever and no chills Respiratory: + dyspnea (Occasionally patient becomes short of breath at rest); no cough Cardiovascular: + dyspnea at rest (Occasionally); no chest pain and no palpitations Gastrointestinal: no abdominal pain, no nausea and no vomiting Physical Exam Physical Exam: General Appearance: WD/WN, vitals as above, NAD, sitting up in bed, pleasant, conversing easily Head: normocephalic, atraumatic Eyes: normal inspection, PERRL, conjunctivae normal, anicteric sclerae ENT: external ear and nose normal, oropharynx normal Neck: trachea midline, no thyromegaly, normal visual inspection Respiratory: normal respiratory effort, mild bibasilar crackles noted, no wheeze or rhonchi. Normal insp/exp effort, no accessory muscle use Cardiovascular: tachycardic (HR 120s), no murmur appreciated, normal peripheral pulses,trace BLE edema Chest: normal inspection of chest Abdomen/GI: normal bowel sounds, soft, nontender, nondistended Extremities/Musculoskeletal: no cyanosis or clubbing, extremities motor strength 5/5, moves extremities spontaneously Neurologic: PERRL, EOMI, accommodation nl, no face palsy, no dysarthria, CN's II-XI intact bilaterally and moves all extremities Psychiatric: A+Ox3, euthymic affect Skin: no rashes, normal color, warm/dry Results & Data Results & Data ([facility]) Vital Signs (Past 12 Hours) Vital Signs Temp Pulse Pulse Resp BP Pulse Ox 04/10/20 07:49 36.5 C 74 18 120/87 93 04/10/20 03:55 36.5 C 129 H 20 120/88 92 04/10/20 00:09 108 H 04/09/20 23:45 36.5 C 75 20 108/63 95 Laboratory Results 04/10/20 04/10/20 04/09/20 Range/Units 05:48 05:48 07:07 WBC 7.74 (4.8-10.8) K/uL RBC 3.93 L (4.7-6.1) M/uL Hgb 13.2 L (14.0-18.0) g/dL Hct 39.9 L (42-52) % MCV 101.5 H (80-100) fL MCH 33.6 (25-34) pg MCHC 33.1 (32-36) g/dL RDW Std Deviation 52.2 H (36.4-46.3) fL RDW Coeff of [place] 14.1 (11.5-14.5) % Plt Count 174 (130-400) K/uL MPV 11.2 H (7.4-10.4) fL Immature Gran % (Auto) 0.3 % Neut % (Auto) 75.4 % Lymph % (Auto) 13.0 % [place] % (Auto) 10.9 % Eos % (Auto) 0.3 % Baso % (Auto) 0.1 % Immature Gran # (Auto) 0.02 (0.00-0.02) K/uL Neut # (Auto) 5.84 (1.4-6.5) K/uL Lymph # (Auto) 1.01 L (1.2-3.4) K/uL [place] # (Auto) 0.84 H (0.11-0.59) K/uL Eos # (Auto) 0.02 (0-0.5) K/uL Baso # (Auto) 0.01 (0-0.2) K/uL Echinocytes 2+ Sodium 140 141 (136-145) mmol/L Potassium 4.2 4.0 (3.5-5.1) mmol/L Chloride 109 H 111 H (98-107) mmol/L Carbon Dioxide 23 25 (21-32) mmol/L Anion Gap 7.0 5.0 (3-11) BUN 39 H 38 H (7-18) mg/dl Creatinine 1.64 H 1.51 H (0.6-1.4) mg/dl Est Cr Clr Drug Dosing 33.5 36.4 ml/min Est GFR ( Amer) 43.9 48.5 Est GFR (Non-Af Amer) 37.8 41.8 BUN/Creatinine Ratio 23.7 H 25.1 H (10-20) Glucose 100 H 91 (70-99) mg/dl Calcium 9.2 8.8 (8.5-10.1) mg/dl Phosphorus 3.6 (2.5-4.9) mg/dl Magnesium 2.3 (1.8-2.4) mg/dl
--- NOTE | 2020-04-10 11:03 | Cardiology Progress Note ---
Date of Service April 10, 2020 Assessment & Plan (1) Atrial tachycardia: Patient status post pacemaker insertion with pacemaker functioning appropriately. Patient is continuing to have runs of atrial tachycardia with relatively elevated heart rate response Metoprolol increased this morning. Would maintain telemetry additional 24 hours Anticipate change to metoprolol succinate in a.m. Continue all other therapy Gradually increase activity (2) Tachycardia-bradycardia syndrome: Pacemaker functioning appropriately (3) Ischemic cardiomyopathy: (4) Aortic valve regurgitation: (5) Acute kidney injury superimposed on CKD: Subjective Patient seen and examined, chart, medications, telemetry reviewed Patient without focal complaints this morning other than tenderness over pacemaker site Patient is anxious to be discharged however telemetry is continued demonstrated frequent runs of atrial tachycardia Appreciate EP input Physical Exam Constitutional: WD/WN, vitals as above Eyes: PERRL, conjunctivae normal, anicteric sclerae ENMT: external ear and nose normal, oropharynx normal Neck: trachea midline, no thyromegaly Respiratory: normal respiratory effort, lungs clear to auscultation Cardiovascular: Rate/Rhythm: regular rate and regular rhythm Heart Sounds: normal S1 and normal S2; no gallop and no murmur Palpation: normal PMI Vessels: normal carotid upstroke and radial pulses present; no JVD and no carotid bruit Extremities: no edema Chest (Breasts): Chest: + pacemaker (Site bandaged without hematoma) Gastrointestinal (Abdomen): normal bowel sounds, soft, nontender, no hepatosplenomegaly Musculoskeletal: no cyanosis or clubbing, extremities motor strength 5/5 Skin: no rashes, warm and dry Neurologic: PERRL, EOMI, accommodation nl, no face palsy, no dysarthria Psychiatric: A+Ox3, euthymic affect Results & Data Vital Signs (Past 12 Hours) Vital Signs Temp Pulse Pulse Resp BP Pulse Ox 04/10/20 10:27 123 H 04/10/20 07:49 36.5 C 74 18 120/87 93 04/10/20 03:55 36.5 C 129 H 20 120/88 92 04/10/20 00:09 108 H 04/09/20 23:45 36.5 C 75 20 108/63 95 Laboratory Results Laboratory Results - last 24 hr 04/09/20 04/10/20 04/10/20 07:07 05:48 05:48 WBC 7.74 RBC 3.93 L Hgb 13.2 L Hct 39.9 L MCV 101.5 H MCH 33.6 MCHC 33.1 RDW Std Deviation 52.2 H RDW Coeff of Zakia 14.1 Plt Count 174 MPV 11.2 H Immature Gran % (Auto) 0.3 Neut % (Auto) 75.4 Lymph % (Auto) 13.0 Preble % (Auto) 10.9 Eos % (Auto) 0.3 Baso % (Auto) 0.1 Immature Gran # (Auto) 0.02 Neut # (Auto) 5.84 Lymph # (Auto) 1.01 L Preble # (Auto) 0.84 H Eos # (Auto) 0.02 Baso # (Auto) 0.01 Echinocytes 2+ Sodium 141 140 Potassium 4.0 4.2 Chloride 111 H 109 H Carbon Dioxide 25 23 Anion Gap 5.0 7.0 BUN 38 H 39 H Creatinine 1.51 H 1.64 H Est Cr Clr Drug Dosing 36.4 33.5 Est GFR ( Amer) 48.5 43.9 Est GFR (Non-Af Amer) 41.8 37.8 BUN/Creatinine Ratio 25.1 H 23.7 H Glucose 91 100 H Calcium 8.8 9.2 Phosphorus 3.6 Magnesium 2.3 (1) Aortic valve regurgitation Cardiac valve disease etiology: nonrheumatic Qualified Code(s): I35.1 - Nonrheumatic aortic (valve) insufficiency
[2020-04-10] MEDS: ATORVASTATIN 40 MG TAB PO SCH (20:36)
[2020-04-10] MEDS: MULTIVITAMIN TAB PO SCH (20:37)
[2020-04-10] MEDS: CEROVITE ADV FORMULA TAB PO SCH (20:37)
[2020-04-10] MEDS: CALCIUM CARBONATE 1250MG TAB PO SCH (20:37)
--- NOTE | 2020-04-10 22:50 | Electrocardiogram Report ---
Test Reason : Blood Pressure : / mmHG Vent. Rate : 129 BPM Atrial Rate : 129 BPM P-R Int : 272 ms QRS Dur : 104 ms QT Int : 358 ms P-R-T Axes : 000 -29 230 degrees QTc Int : 524 ms Possible Atrial tachycardia Septal infarct (cited on or before 08-APR-2020) Prolonged QT Abnormal ECG When compared with ECG of 09-APR-2020 06:23, No significant change Confirmed by Jake iJ ([id number] on 04/10/2020 10:50:40 PM Referred By: Ramiro Castillo Confirmed By:Jake Ji
[2020-04-11 06:12] LABS: Hematocrit (blood only) 41.1 % (42-52); Hemoglobin 13.5 g/dL (14.0-18.0); Mean Corpuscular Hemoglobin 33.2 pg (25-34); Mean Corpuscular Hgb Conc 32.8 g/dL (32-36); Mean Platelet Volume 11.6 fL (7.4-10.4); Platelet Count 162 K/uL (130-400); RDW Coefficient of Variation 14.2 % (11.5-14.5); Red Blood Count 4.07 M/uL (4.7-6.1); White Blood Count 9.89 K/uL (4.8-10.8)
[2020-04-11 06:46] LABS: Calcium 8.8 mg/dl (8.5-10.1); Creatinine Clr Calc Pharmacy 32.2 ml/min; Est GFR (African American) 41.7; Magnesium 2.3 mg/dl (1.8-2.4); Potassium 4.1 mmol/L (3.5-5.1)
[2020-04-11 06:47] LABS: Phosphorus 3.5 mg/dl (2.5-4.9)
[2020-04-11] MEDS: PANTOprazole 40 MG TAB PO SCH (08:27)
[2020-04-11] MEDS: ASPIRIN 81 MG ECTAB PO SCH (08:27)
[2020-04-11] MEDS: CLOPIDOGREL BISULFATE 75 MG TAB PO SCH (08:28)
[2020-04-11] MEDS: METOPROLOL SUCC 25MG EXT REL TAB PO SCH ×3 (09:34→21:19)
--- NOTE | 2020-04-11 10:15 | Cardiology Progress Note ---
Date of Service April 11, 2020 Assessment & Plan (1) Atrial tachycardia: Patient status post pacemaker insertion with pacemaker functioning appropriately. Patient is continuing to have runs of atrial tachycardia with relatively elevated heart rate response Atrial arrhythmias continue to be uncontrolled. Metoprolol tartrate switched to metoprolol succinate today at increased dose of 75 mg twice per day If not controlled may need to consider ablation will maintain telemetry (2) Tachycardia-bradycardia syndrome: Pacemaker functioning appropriately (3) Ischemic cardiomyopathy: (4) Aortic valve regurgitation: (5) Acute kidney injury superimposed on CKD: Chronicity of renal insufficiency uncertain creatinines usually approximately 1.5. Lisinopril and furosemide currently on hold though likely need to be resumed Will follow renal insufficiency Subjective With elevated ventricular response rates Patient seen and examined, chart, medications, telemetry reviewed Patient without focal complaints this morning other than tenderness over pacemaker site Telemetry is continued demonstrated frequent runs of atrial tachycardia with elevated ventricular response rate Physical Exam Constitutional: WD/WN, vitals as above Eyes: PERRL, conjunctivae normal, anicteric sclerae ENMT: external ear and nose normal, oropharynx normal Neck: trachea midline, no thyromegaly Respiratory: normal respiratory effort, lungs clear to auscultation Cardiovascular: Rate/Rhythm: regular rate and regular rhythm Heart Sounds: normal S1 and normal S2; no gallop and no murmur Palpation: normal PMI Vessels: normal carotid upstroke and radial pulses present; no JVD and no carotid bruit Extremities: no edema Chest (Breasts): Chest: + pacemaker (Site bandaged without hematoma) Gastrointestinal (Abdomen): normal bowel sounds, soft, nontender, no hepatosplenomegaly Musculoskeletal: no cyanosis or clubbing, extremities motor strength 5/5 Skin: no rashes, warm and dry Neurologic: PERRL, EOMI, accommodation nl, no face palsy, no dysarthria Psychiatric: A+Ox3, euthymic affect Results & Data Vital Signs (Past 12 Hours) Vital Signs Temp Pulse Pulse Resp BP Pulse Ox 04/11/20 09:59 122 H 04/11/20 08:03 36.6 C 132 H 20 129/94 92 04/11/20 03:18 36.6 C 60 18 101/62 93 04/10/20 23:50 129 H 04/10/20 23:47 36.4 C L 112 H 19 108/76 93 Laboratory Results Laboratory Results - last 24 hr 04/11/20 04/11/20 05:39 05:39 WBC 9.89 RBC 4.07 L Hgb 13.5 L Hct 41.1 L MCV 101.0 H MCH 33.2 MCHC 32.8 RDW Std Deviation 52.0 H RDW Coeff of Zakia 14.2 Plt Count 162 MPV 11.6 H Sodium 140 Potassium 4.1 Chloride 109 H Carbon Dioxide 22 Anion Gap 9.0 BUN 43 H Creatinine 1.71 H Est Cr Clr Drug Dosing 32.2 Est GFR ( Amer) 41.7 Est GFR (Non-Af Amer) 36.0 BUN/Creatinine Ratio 25.0 H Glucose 104 H Calcium 8.8 Phosphorus 3.5 Magnesium 2.3 (1) Aortic valve regurgitation Cardiac valve disease etiology: nonrheumatic Qualified Code(s): I35.1 - Nonrheumatic aortic (valve) insufficiency
[2020-04-11] MEDS: CEROVITE ADV FORMULA TAB PO SCH (21:18)
[2020-04-11] MEDS: CALCIUM CARBONATE 1250MG TAB PO SCH (21:18)
[2020-04-11] MEDS: MULTIVITAMIN TAB PO SCH (21:18)
[2020-04-11] MEDS: ATORVASTATIN 40 MG TAB PO SCH (21:18)
[2020-04-12 06:43] LABS: BUN Creatinine Ratio 25.4 (10-20); Calcium 8.4 mg/dl (8.5-10.1); Creatinine Clr Calc Pharmacy 30.9 ml/min; Est GFR (African American) 39.7; Est GFR (Non-African American) 34.3; Potassium 4.1 mmol/L (3.5-5.1)
[2020-04-12 07:53] LABS: Magnesium 2.4 mg/dl (1.8-2.4); Phosphorus 3.6 mg/dl (2.5-4.9)
[2020-04-12] MEDS: METOPROLOL SUCC 25MG EXT REL TAB PO SCH (08:06)
[2020-04-12] MEDS: CLOPIDOGREL BISULFATE 75 MG TAB PO SCH (08:07)
[2020-04-12] MEDS: PANTOprazole 40 MG TAB PO SCH (08:07)
[2020-04-12] MEDS: ASPIRIN 81 MG ECTAB PO SCH (08:07)
--- NOTE | 2020-04-12 09:20 | Hospitalist Progress Note ---
Date of Service April 11, 2020 Assessment & Plan (1) Tachy-manoj syndrome: This is an 84-year-old male with a PMH of ischemic cardiomyopathy, sinus bradycardia, CAD (s/p stent to LAD), PVD, aortic regurgitation, HTN, s/p repair of thoracic aortic aneurysm and other medical problems listed below who presents from clinic with dyspnea x1 week and was found to have A. fib with RVR with underlying sinus bradycardia as well as acute decompensated systolic CHF exacerbation. -Sent from cardiology clinic with concern for tachy-manoj syndrome. Known sinus bradycardia with pauses from outpatient monitoring. Had A Fib with RVR in clinic earlier today -Heart rate fluctuating from 70s-150s in ED. Given 2.5mg IV Lopressor with improvement of HR to 110s -ED provider discussed with Dr. Pino, on-call odd jobs day worker, who recommended 12.5 mg p.o. Lopressor as well as small doses of PRN IV Lopressor overnight -Monitor on telemetry. Patient has been n.p.o. for possible pacemaker placement Seen by Dr. Pino on 04/09, recommended metoprolol 12.5 mg twice a day -Now s/p pacemaker placement on 04/09, pacemaker functioning appropriately -Patient continues to be quite tachycardic. Cardiology continues to follow for atrial tachycardia with elevated ventricular response, plan to switch metoprolol tartrate to metoprolol succinate at increased dose of 75 mg twice daily. If not controlled may need to consider ablation. -Continue to monitor on telemetry (2) Heart failure, systolic, with acute decompensation: -History of ischemic cardiomyopathy. Most recent echo from October 2019 with findings of an old [place] with mildly reduced EF of 45-49%, moderate-severe AV regurgitation (unchanged) -Clinically appears overloaded. CXR with evidence of developing congestive heart failure -Took 20 mg p.o. Lasix in the morning of admission. Due to EDILSON on CKD, only received 20 mg Lasix p.o. on admission -Cardiology consulted, will defer to them for further management --Now s/p pacemaker placement on 04/09 -Patient continues to be quite tachycardic. Cardiology continues to follow for atrial tachycardia with elevated ventricular response, plan to switch metoprolol tartrate to metoprolol succinate at increased dose of 75 mg twice daily. If not controlled may need to consider ablation. -Continue to monitor on telemetry -weaned off supplemental oxygen as needed. Strict I&Os. (3) Acute kidney injury superimposed on CKD: Cr elevated at 1.7 (baseline 1.3-1.4) in setting of heart failure, on diuretics. Monitor daily BMP - creatinine down to 1.5, now back up to 1.7 - KARISHMA inhibitor held, continue to monitor (4) CAD (coronary artery disease): H/o [place] and PCI with bare metal stent to LAD. Continue aspirin, statin and plavix (5) Hypertension: Normotensive now. Holding lisinopril while receiving Lopressor DVT Ppx: SCDs for now Code status: FULL per discussion with patient PCP: No PCP but follows with [facility] cardiolgy Dispo: Admitted to PCU. Discharge planning ordered. Admission and Anticipated Discharge Date Admission Date: April 08, 2020 Subjective Pt continues to remain mostly tachycardic, heart rates in 110s- 120s. Cardiology continues to follow for atrial tachycardia with elevated ventricular response, plan to switch metoprolol tartrate to metoprolol succinate at increased dose of 75 mg twice daily. If not controlled may need to consider ablation. Patient reports occasionally getting short of breath, even when only resting. Otherwise denies any fevers, chills, cough, chest pain, palpitations, abdominal pain, nausea or vomiting. Review of Systems Review of Systems: All systems reviewed & are unremarkable except as noted in HPI & below At least ten systems reviewed and negative except as noted in the HPI. Constitutional: no fever and no chills Respiratory: + dyspnea (Occasionally patient becomes short of breath at rest); no cough Cardiovascular: + dyspnea at rest (Occasionally); no chest pain and no palpitations Gastrointestinal: no abdominal pain, no nausea and no vomiting Physical Exam Physical Exam: General Appearance: WD/WN, vitals as above, NAD, sitting up in bed, pleasant, conversing easily Head: normocephalic, atraumatic Eyes: normal inspection, PERRL, conjunctivae normal, anicteric sclerae ENT: external ear and nose normal, oropharynx normal Neck: trachea midline, no thyromegaly, normal visual inspection Respiratory: normal respiratory effort, mild bibasilar crackles noted, no wheeze or rhonchi. Normal insp/exp effort, no accessory muscle use Cardiovascular: tachycardic, no murmur appreciated, normal peripheral pulses,trace BLE edema Chest: + pacemaker (dressings applied, no hematoma), only slight tenderness to palpation Abdomen/GI: normal bowel sounds, soft, nontender, nondistended Extremities/Musculoskeletal: no cyanosis or clubbing, extremities motor strength 5/5, moves extremities spontaneously Neurologic: PERRL, EOMI, accommodation nl, no face palsy, no dysarthria, CN's II-XI intact bilaterally and moves all extremities Psychiatric: A+Ox3, euthymic affect Skin: no rashes, normal color, warm/dry Results & Data Results & Data ([facility]) Vital Signs (Past 12 Hours) Vital Signs Temperature 36.4 C, pulse 112, respiratory rate 19, blood pressure 117/71, pulse ox 95% on room air
--- NOTE | 2020-04-12 09:43 | Hospitalist Progress Note ---
Date of Service April 12, 2020 Assessment & Plan (1) Tachy-manoj syndrome: This is an 84-year-old male with a PMH of ischemic cardiomyopathy, sinus bradycardia, CAD (s/p stent to LAD), PVD, aortic regurgitation, HTN, s/p repair of thoracic aortic aneurysm and other medical problems listed below who presents from clinic with dyspnea x1 week and was found to have A. fib with RVR with underlying sinus bradycardia -Sent from cardiology clinic with concern for tachy-manoj syndrome. Known sinus bradycardia with pauses from outpatient monitoring. Had A Fib with RVR in clinic earlier today -Heart rate fluctuating from 70s-150s in ED. Given 2.5mg IV Lopressor with imp rovement of HR to 110s -ED provider discussed with Dr. Pino, on-call heat engineering teacher, who recommended 12.5 mg p.o. Lopressor as well as small doses of PRN IV Lopressor overnight -Monitor on telemetry. Patient has been n.p.o. for possible pacemaker placement Seen by Dr. Pino on 04/09, recommended metoprolol 12.5 mg twice a day -Now s/p pacemaker placement on 04/09, pacemaker functioning appropriately -Patient continues to be quite tachycardic. Cardiology continues to follow for atrial tachycardia with elevated ventricular response, switched to metoprolol tartrate to metoprolol succinate at increased dose of 75 mg twice daily. However HR still not quite controlled. - Pt started on amiodarone by cardiology, metoprolol dose was decreased, Follow up w/ cardiology as outpt arranged. (2) Heart failure, systolic, with acute decompensation: -History of ischemic cardiomyopathy. Most recent echo from October 2019 with findings of an old PA with mildly reduced EF of 45-49%, moderate-severe AV regurgitation (unchanged) -Clinically appears overloaded. CXR with evidence of developing congestive heart failure -Took 20 mg p.o. Lasix in the morning of admission. Due to EDILSON on CKD, only received 20 mg Lasix p.o. on admission -Cardiology consulted, will defer to them for further management --Now s/p pacemaker placement on 04/09 -Patient continues to be quite tachycardic. Cardiology continues to follow for atrial tachycardia with elevated ventricular response -weaned off supplemental oxygen as needed. Strict I&Os. -Pt was started on amiodarone by cardiology, metoprolol dose was decreased. Plan to follow up as outpt. - Cont. to hold diuretics d/t EDILSON (3) Acute kidney injury superimposed on CKD: Cr elevated at 1.7 (baseline 1.3-1.4) in setting of heart failure, on diuretics. Monitor daily BMP - creatinine down to 1.5, now back up to 1.7 - KARISHMA inhibitor held, continue to monitor - follow up as outpt (4) CAD (coronary artery disease): H/o [place] and PCI with bare metal stent to LAD. Continue aspirin, statin and plavix (5) Hypertension: Normotensive now. Holding lisinopril DVT Ppx: SCDs for now Code status: FULL per discussion with patient PCP: No PCP but follows with [facility] cardi[facility]gy. Will arrange new PCP follow up. Dispo: Admitted to PCU. Plan to discharge home. Admission and Anticipated Discharge Date Admission Date: April 08, 2020 Subjective Heart rate now much better controlled, yesterday metoprolol tartrate was switched to metoprolol succinate at increased dose of 75 mg twice daily. Cr now 1.78 Blood pressure on the lower side, had episode of hypotension with systolic blood pressure below 100 last evening. Seen by cardiology, started on amiodarone. Plan for cardiology follow up as outpt. Review of Systems Review of Systems: All systems reviewed & are unremarkable except as noted in HPI & below Constitutional: no fever and no chills Respiratory: no cough and no dyspnea Cardiovascular: no chest pain and no palpitations Gastrointestinal: no abdominal pain, no nausea and no vomiting Physical Exam Physical Exam: General Appearance: WD/WN, vitals as above, NAD, sitting up in bed, pleasant, conversing easily Head: normocephalic, atraumatic Eyes: normal inspection, PERRL, conjunctivae normal, anicteric sclerae ENT: external ear and nose normal, oropharynx normal Neck: trachea midline, no thyromegaly, normal visual inspection Respiratory: normal respiratory effort, mild bibasilar crackles noted, no wheeze or rhonchi. Normal insp/exp effort, no accessory muscle use Cardiovascular: RRR, no murmur appreciated, normal peripheral pulses,trace BLE edema Chest: + pacemaker (dressings applied, no hematoma), only slight tenderness to palpation Abdomen/GI: normal bowel sounds, soft, nontender, nondistended Extremities/Musculoskeletal: no cyanosis or clubbing, extremities motor strength 5/5, moves extremities spontaneously Neurologic: PERRL, EOMI, accommodation nl, no face palsy, no dysarthria, CN's II-XI intact bilaterally and moves all extremities Psychiatric: A+Ox3, euthymic affect Skin: no rashes, normal color, warm/dry Results & Data Results & Data ([facility]) Vital Signs (Past 12 Hours) Vital Signs Temp Pulse Pulse Resp BP Pulse Ox 04/12/20 06:48 36.4 C L 60 20 113/74 96 04/12/20 04:20 36.5 C 68 18 108/68 95 04/12/20 00:00 64 04/11/20 22:50 36.6 C 64 16 106/70 96 Laboratory Results 04/12/20 04/12/20 Range/Units 05:38 05:38 Sodium 140 (136-145) mmol/L Potassium 4.1 (3.5-5.1) mmol/L Chloride 110 H (98-107) mmol/L Carbon Dioxide 22 (21-32) mmol/L Anion Gap 8.0 (3-11) BUN 45 H (7-18) mg/dl Creatinine 1.78 H (0.6-1.4) mg/dl Est Cr Clr Drug Dosing 30.9 ml/min Est GFR ( Amer) 39.7 Est GFR (Non-Af Amer) 34.3 BUN/Creatinine Ratio 25.4 H (10-20) Glucose 103 H (70-99) mg/dl Calcium 8.4 L (8.5-10.1) mg/dl Phosphorus 3.6 (2.5-4.9) mg/dl Magnesium 2.4 (1.8-2.4) mg/dl Medications Administered Current Inpatient Medications Acetaminophen (Tylenol) 650 mg PO Q4H PRN PRN Reason: Pain or Fever Stop: 05/08/20 21:02 Acetaminophen/Codeine Phosphate (Tylenol W/Codeine #3) 1 - 2 tab PO Q4H PRN PRN Reason: Moderate-Severe Pain Stop: 05/09/20 16:32 Aspirin (Ecotrin Ectab) 81 mg PO [facility] Stop: 05/09/20 08:59 Last Admin: 04/12/20 08:07 Dose: 81 mg Documented by: Atorvastatin Calcium (Lipitor) 80 mg PO HS [facility] Stop: 05/08/20 21:02 Last Admin: 04/11/20 21:18 Dose: 80 mg Documented by: Calcium Carbonate (Os-Jan 500) 1,250 mg PO QPM [facility] Stop: 05/09/20 20:59 Last Admin: 04/11/20 21:18 Dose: 1,250 mg Documented by: Clopidogrel Bisulfate (Plavix) 75 mg PO QAM [facility] Stop: 05/09/20 08:59 Last Admin: 04/12/20 08:07 Dose: 75 mg Documented by: Metoprolol Succinate (Toprol Xl) 75 mg PO BID [facility] Stop: 05/11/20 08:59 Last Admin: 04/12/20 08:06 Dose: 75 mg Documented by: Multivitamins (Multivitamin Tab) 1 tab PO QPM [facility] Stop: 05/08/20 21:02 Last Admin: 04/11/20 21:18 Dose: 1 tab Documented by: Multivitamins/Minerals (Multivitamin W/ Minerals Tab) 1 tab PO QPM [facility] Stop: 05/08/20 21:02 Last Admin: 04/11/20 21:18 Dose: 1 tab Documented by: Pantoprazole Sodium (Protonix) 40 mg PO QAM [facility] Stop: 05/09/20 08:59 Last Admin: 04/12/20 08:07 Dose: 40 mg Documented by: Polyethylene Glycol (Miralax Powder Packet) 17 gm PO DAILY PRN PRN Reason: Constipation Stop: 05/08/20 21:02
[2020-04-12] MEDS ORDERED: 0.2 MICRON FILTER SET 1 EA IV ONE (10:25)
[2020-04-12] MEDS ORDERED: AMIODARONE / D5W 150 MG/100 ML BAG IV ONE (10:25)
[2020-04-12] MEDS: AMIODARONE 200 MG TAB PO SCH ×2 (11:15→17:13)
--- NOTE | 2020-04-12 14:16 | Discharge Summary ---
Date of Service April 12, 2020 Admission HPI Per Admitting Provider This is an 84-year-old male with a PMH of ischemic cardiomyopathy, sinus bradycardia, CAD (s/p stent to LAD), PVD, aortic regurgitation, HTN, s/p repair of thoracic aortic aneurysm and other medical problems listed below who presents from clinic with dyspnea x1 week. Patient states he has become short of breath with any type of movement for the past week and has become progressively more difficult to get a deep breath. Has been needing to sit upright in order to sleep. Denies weight gain and lower extremity edema. During clinic visit with PARK Miranda, patient was found to be in acute systolic heart failure exacerbation in the setting of A. fib with RVR. There is also concern for tachybradycardia syndrome due to underlying sinus bradycardia with pauses previously noted on outpatient monitor. Patient hesitant but ultimately agreeable to come to ED for further evaluation for possible pacemaker placement. Patient still feeling short of breath but improved on 2 L of nasal cannula oxygen. Does not require oxygen at baseline. Heart rates been fluctuating from 70s to 130s during time in ED. denies fever, chills, lightheadedness, headache, chest pain, palpitations, wheezing, nausea, vomiting, abdominal pain, dysuria, diarrhea or constipation. Most recent echo from October 2019 with findings of an old SC with mildly reduced EF of 45-49%, moderate-severe AV regurgitation (unchanged). Admission Exam Per Admitting Provider General Appearance: WD/WN, vitals as above, NAD, sitting up in bed, pleasant, conversing easily Head: normocephalic, atraumatic Eyes: normal inspection, PERRL, conjunctivae normal, anicteric sclerae ENT: external ear and nose normal, oropharynx normal Neck: trachea midline, no thyromegaly, normal visual inspection Respiratory: normal respiratory effort, bibasilar crackles noted, no wheeze or rhonchi. Normal insp/exp effort, no accessory muscle use Cardiovascular: irregularly irregular, tachycardic, no murmur appreciated, normal peripheral pulses, 1+ BLE edema. 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 Normal insp/exp effort, no accessory muscle use Cardiovascular: RRR, no murmur appreciated, normal peripheral pulses,trace BLE edema Chest: + pacemaker (dressings applied, no hematoma), only slight tenderness to palpation Abdomen/GI: normal bowel sounds, soft, nontender, nondistended Extremities/Musculoskeletal: no cyanosis or clubbing, extremities motor strength 5/5, moves extremities spontaneously Neurologic: PERRL, EOMI, accommodation nl, no face palsy, no dysarthria, CN's II-XI intact bilaterally and moves all extremities Psychiatric: A+Ox3, euthymic affect Skin: no rashes, normal color, warm/dry Discharge Data Allergies Allergy/AdvReac Type Severity Reaction Status Date / Time No Known Allergies Allergy Verified 04/08/20 16:47 Consultations 04/08/20 18:01 ED Decision to Admit Stat 04/08/20 21:03 Consult Cardiology Routine 04/09/20 08:53 Consult Cardiac Electrophysiology Routine Procedures Performed Operation Date: 04/09/20 14:30 Actual Procedures p Pacer with A/V Leads (Dual) - Milton Hubbard MD Ordered Studies 04/09/20 14:56 CL Cath Imgs for PACS use only Routine Hospital Course (1) Tachy-manoj syndrome: This is an 84-year-old male with a PMH of ischemic cardiomyopathy, sinus bradycardia, CAD (s/p stent to LAD), PVD, aortic regurgitation, HTN, s/p repair of thoracic aortic aneurysm and other medical problems listed below who presents from clinic with dyspnea x1 week and was found to have A. fib with RVR with underlying sinus bradycardia -Sent from cardiology clinic with concern for tachy-manoj syndrome. Known sinus bradycardia with pauses from outpatient monitoring. Had A Fib with RVR in clinic earlier today -Heart rate fluctuating from 70s-150s in ED. Given 2.5mg IV Lopressor with improvement of HR to 110s -ED provider discussed with Dr. Pino, on-call metal inspector, who recommended 12.5 mg p.o. Lopressor as well as small doses of PRN IV Lopressor overnight -Monitor on telemetry. Patient has been n.p.o. for possible pacemaker placement Seen by Dr. Pino on 04/09, recommended metoprolol 12.5 mg twice a day -Now s/p pacemaker placement on 04/09, pacemaker functioning appropriately -Patient continued to be quite tachycardic. Cardiology continued to follow for atrial tachycardia with elevated ventricular response. - Pt started on amiodarone by cardiology, metoprolol dose was decreased. - Now on amiodarone 200 mg 3 times a day and metoprolol succinate 25 mg twice a day. - Follow up w/ cardiology as outpt arranged. (2) Heart failure, systolic, with acute decompensation: -History of ischemic cardiomyopathy. Most recent echo from October 2019 with findings of an old SC with mildly reduced EF of 45-49%, moderate-severe AV regurgitation (unchanged) -Clinically appears overloaded. CXR with evidence of developing congestive heart failure -Took 20 mg p.o. Lasix in the morning of admission. Due to EDILSON on CKD, only received 20 mg Lasix p.o. on admission -Cardiology consulted, will defer to them for further management --Now s/p pacemaker placement on 04/09 -Patient continued to be quite tachycardic. Cardiology continued to follow for atrial tachycardia with elevated ventricular response -weaned off supplemental oxygen as needed. Strict I&Os. -Pt was started on amiodarone by cardiology, metoprolol dose was decreased. Plan to follow up as outpt. - Cont. to hold diuretics d/t EDILSON (3) Acute kidney injury superimposed on CKD: Cr elevated at 1.7 (baseline 1.3-1.4) in setting of heart failure, on diuretics. Monitor daily BMP - creatinine down to 1.5, now back up to 1.7 - KARISHMA inhibitor held, continue to monitor - cont. to hold diuretics until seen by PCP/ or cardiology - follow up BMP as outpt (4) CAD (coronary artery disease): H/o SC and PCI with bare metal stent to LAD. Continue aspirin, statin and plavix (5) Hypertension: Normotensive now. Holding lisinopril PCP: No PCP but follows with Karen cardiolgy. Will arrange new PCP follow up. Dispo: Admitted to PCU. Plan to discharge home. 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 Atrial tachycardia EDILSON on CKD Activity: Per Instructions section Non-emergency contact: Primary Care Provider and Machine Set Up Operator [employer] Call non-emergency contact if: you have any medication questions and your symptoms worsen Follow-up/Referrals: Moises Carter MD [Outside Practitioners] - 04/16/20 10:40 am (04/16/2020 10:40 AM Provider Moises Carter MD Department [facility] ) PCP,NO [Primary Care Provider] - Diet: Heart Healthy Addtl Attending Provider Instructions: You will need to follow-up with primary care doctor and metal inspector. We will set you up with new primary care physician as you currently do not have one. You need to obtain blood work, BMP, at that time to check on your kidney function. Do not take your furosemide/Lasix, or lisinopril until you are seen by your PCP doctor this week/or your metal inspector. You were also started on new medication while in the hospital, called amiodarone, please take it as prescribed, 200 mg 3 times a day. You also need to take metoprolol succinate 25 mg twice a day. You will need to see cardiology/hand printed circuit board assembler, in about 1 week. You will be contacted about this appointment. Pending Studies at Discharge: No Stand-Alone Forms: My [employer]Us, Smoking Cessation Medications and DC Order Prescriptions: New amiodarone 200 mg Tablet 200 mg PO TIDM 30 Days Qty: 30 RF: 0 metoprolol succinate 25 mg Tablet Extended Release 24 Hr 25 mg PO BID 30 Days Qty: 60 RF: 0 Continued multivitamin Tablet 1 tab PO QPM RF: 0 atorvastatin 80 mg Tablet 80 mg PO HS RF: 0 clopidogrel [Plavix] 75 mg Tablet 75 mg PO QAM RF: 0 aspirin 81 mg Tablet,Delayed Release (Dr/Ec) 81 mg PO QAM RF: 0 calcium carbonate [Calcium 600] 600 mg calcium (1,500 mg) Tablet 600 mg PO QPM RF: 0 pantoprazole 40 mg Tablet,Delayed Release (Dr/Ec) 40 mg PO QAM RF: 0 Ocuvite Eye Health 50 mg-15 unit- 4.5 mg-2.5 mg Tablet,Chewable 1 tab PO QPM RF: 0 Discontinued furosemide [Lasix] 40 mg Tablet 20 mg PO QAM RF: 0 lisinopril 10 mg Tablet 10 mg PO HS RF: 0 Discharge Orders: Discharge Order (Routine); Ordered 04/12/20 Ordered By: Abdi Sousa Admission Data Admit Date/Time: 04/08/20 18:52 Attending Provider: Abdi Souas Admit Provider: Fabián Monreal Primary Care Provider: PCP,NO Other Providers: Fabián Monreal ; Milton Hubbard ; Lencho Pino Other Interventions: Discharge Summary Assessment (RN) Last Done: 04/12/20 17:01 DC Date/Time DO NOT enter until pt leaves facility: 04/12/20 17:54
--- NOTE | 2020-04-12 15:06 | Cardiology Progress Note ---
Date of Service April 12, 2020 Assessment & Plan (1) Atrial tachycardia: Patient status post pacemaker insertion with pacemaker functioning appropriately. Patient is continuing to have runs of atrial tachycardia despite adequate dose [id number] Plan: Add amiodarone with IV infusion 150 mg then 200 mg 3 times daily. Reduce Toprol-XL to 25 mg twice per day If ambulatory and clinically stable may be discharged later this afternoon anticipated follow-up in cardiology clinic/EP next week Lab work reflects mild hypothyroidism and likely warrant treatment after amiodarone begun (2) Tachycardia-bradycardia syndrome: Pacemaker functioning appropriately (3) Ischemic cardiomyopathy: (4) Aortic valve regurgitation: (5) Acute kidney injury superimposed on CKD: Chronicity of renal insufficiency uncertain creatinines usually approximately 1.5. Lisinopril and furosemide currently on hold Will not resume lisinopril on discharge Restart furosemide 20 mg every other day basis Subjective Patient seen and examined, chart, medications, telemetry reviewed. No focal complaints with patient ambulating in the hallway however remains in intermittent atrial tachycardia No signs or symptoms of heart failure No bleeding or tenderness at pacemaker site healing well Physical Exam Constitutional: WD/WN, vitals as above Eyes: PERRL, conjunctivae normal, anicteric sclerae ENMT: external ear and nose normal, oropharynx normal Neck: trachea midline, no thyromegaly Respiratory: normal respiratory effort, lungs clear to auscultation Cardiovascular: Rate/Rhythm: regular rate and regular rhythm Heart Sounds: normal S1 and normal S2; no gallop and no murmur Palpation: normal PMI Vessels: normal carotid upstroke and radial pulses present; no JVD and no carotid bruit Extremities: no edema Chest (Breasts): Chest: + pacemaker (Site bandaged without hematoma) Gastrointestinal (Abdomen): normal bowel sounds, soft, nontender, no hepatosplenomegaly Musculoskeletal: no cyanosis or clubbing, extremities motor strength 5/5 Skin: no rashes, warm and dry Neurologic: PERRL, EOMI, accommodation nl, no face palsy, no dysarthria Psychiatric: A+Ox3, euthymic affect Results & Data Vital Signs (Past 12 Hours) Vital Signs Temp Pulse Pulse Resp BP Pulse Ox 04/12/20 14:20 114/82 04/12/20 11:52 36.4 C L 61 17 98/66 L 95 04/12/20 06:48 36.4 C L 60 20 113/74 96 04/12/20 04:20 36.5 C 68 18 108/68 95 Laboratory Results Laboratory Results - last 24 hr 04/12/20 04/12/20 05:38 05:38 Sodium 140 Potassium 4.1 Chloride 110 H Carbon Dioxide 22 Anion Gap 8.0 BUN 45 H Creatinine 1.78 H Est Cr Clr Drug Dosing 30.9 Est GFR ( Amer) 39.7 Est GFR (Non-Af Amer) 34.3 BUN/Creatinine Ratio 25.4 H Glucose 103 H Calcium 8.4 L Phosphorus 3.6 Magnesium 2.4 (1) Aortic valve regurgitation Cardiac valve disease etiology: nonrheumatic Qualified Code(s): I35.1 - Nonrheumatic aortic (valve) insufficiency
[2020-04-12] MEDS ORDERED: METOPROLOL SUCC 25MG EXT REL TAB PO SCH (21:00)
== END 2020-04-12 17:54 | disposition home or self-care (01) | DRG 242 ==
LOC: ED 16:01 → 2S 18:52 → SUATTDRO 18:52 → 2S 19:55

== ENCOUNTER 2020-04-21 14:10 | Observation (INO) ==
--- NOTE | 2020-04-21 15:43 | Emergency Department Note ---
Impression & Plan CHF (congestive heart failure), Cardiac volume overload, EDILSON (acute kidney injury) ED Provider Note NAME: SHANNON BURKS AGE: 84 SEX: M : 1935 ARRIVES VIA: Walk-In INFORMANT: Patient, ED PROVIDER(S): Kris Silverman MD Chief Complaint: Shortness of breath, abnormal labs HPI: Patient does relate that he has had worsening shortness of breath and associated dyspnea on exertion. The patient has noticed swelling in his legs as well as weight gain. The patient recently underwent pacemaker placement and had been off his diuretic for approximately 1 week and time. The patient does not complain of any cough. Non-smoker. No history of DVT or PE. The patient denies any chest pains or nausea or vomiting. Patient does not present with cough, fevers, chills, coronavirus contacts, coronavirus testing, or recent travel. Patient states rest does improve his symptoms somewhat. The patient also does relate that his recent seen his cardiology office yesterday and he did have repeat blood work and his repeat blood work showed a change in his kidney function and so he was referred here by his family intervention specialist. The patient's primary family intervention specialist is Dr. Castillo. ROS: See HPI for pertinent positives and negatives. A total of 10 systems were reviewed and otherwise negative. Past medical history: See below Surgical history: See below Social history: See below Physical Exam: GENERAL: Mild distress, tachypnea noted. EYE EXAM: Normal conjunctiva. PERRL, no anisocoria and EOM's grossly intact w/o pain. NECK: Supple, no nuchal rigidity, no adenopathy, non-tender. No signs of meningismus. Chest: Bruising to the left chest without crepitus, device in left chest noted. LUNGS: Tachypnea noted. No obvious wheezing. HEART: NSR, no MRG. ABDOMEN: Abdomen soft, non-tender, normo-active bowel sounds, no masses, no rebound or guarding. BACK: No CVA TTP. SKIN: No rashes and no bruising. UPPER EXTREMITIES: Upper extremities are grossly normal. LOWER EXTREMITIES: Grossly normal, 3+ bilateral lower extremity edema bilaterally. NEURO EXAM: A&O x3, cranial nerves II-XII grossly intact, normal speech, moves all 4 extremities on command w/o issue. Differential diagnoses: Reactive airway disease, pneumonia, pneumothorax, COPD, CHF, infections, cardiac ischemia, pulmonary embolism, musculoskeletal, gastr ointestinal, as well as other pathologies. Course: Patient was seen and evaluated the bedside. Full history physical exam was performed. EKG: Indication: Shortness of breath Sinus versus paced rhythm ventricular rate of 89, wide QRS, left bundle branch block pattern, T wave inversions in the high lateral leads and Q waves anteriorly. Imaging Studies: Radiology results as stated below per my review in the radiologist's interpretation: XR chest 1V portable CLINICAL HISTORY: weakness COMPARISON STUDY: Chest radiograph April 10, 2020. FINDINGS: Dual lead left clavicle pacemaker is in place. Moderate cardiomegaly is noted. There is a trace right pleural effusion. There is no pneumothorax. There is pulmonary vascular congestion with possible mild pulmonary edema. Stent graft within the thoracic aorta is noted. Mediastinal contours are stable. IMPRESSION: 1. Pulmonary vascular congestion with possible mild pulmonary edema. 2. Trace right pleural effusion. ACT 112: Negative or not required by law. Electronically signed by: Dmitriy Joseph M.D. 04/21/2020 4:34 PM Dictated: 04/21/20 1625 Transcribed: 04/21/20 1625 Cardiac monitoring: An order was placed for continuous cardiac monitoring. The monitor shows a rate of 93 with regular rhythm. MDM: Patient does present with concern for shortness of breath. The patient is noticed that he is not been on his diuretic with associated weight gain and lower extremity swelling. Patient did have a recent pacemaker placement. The patient was also told that he had some kidney dysfunction. The patient states that he has been urinating well does take a baby aspirin but no NSAIDs. The patient's blood work does show an elevated BNP with pulmonary vascular congestion was chest x-ray. Given this along with his recent pacemaker placement I believe he would benefit from inpatient treatment. Patient does have a normal white count H&H. The patient does have some worsening kidney dysfunction with a creatinine of 3. I did order some additional Lasix as I believe his congestion and is associated AK I is likely related to volume overload. BNP is elevated troponin is detectable but not elevated. Patient was admitted to the medicine service. I did speak the on-call hospitalist who agreed to further evaluate and treat the patient. Upon reassessment the patient does look more comfortable and is no longer tachypneic. Past Med/Surg History Medical History Aortic valve regurgitation CAD (coronary artery disease) Degenerative arthritis of knee, bilateral GERD (gastroesophageal reflux disease) History of LA (myocardial infarction) Hypertension Ischemic cardiomyopathy Retinal disease Sinus bradycardia Surgical History History of heart artery stent 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 Family History Other Heart disease Hypertension Stroke Social History Preferred Language: Korean Communication Ability: Effective Copy Manager Required: No Beliefs That Will Affect Care: None Current Living Situation: Spouse Other Information That Helps Us Care for You: No Feels Safe at Home: Yes Smoking Status: Never smoker Hx Alcohol Use: No Hx Substance Use: No Allergies Allergies Allergy/AdvReac Type Severity Reaction Status Date / Time No Known Allergies Allergy Verified 04/21/20 16:24 Home Meds Home Medications Medication Instructions Recorded Confirmed Ocuvite Eye Health 1 tab PO QPM 04/08/20 04/21/20 aspirin 81 mg PO QAM 04/08/20 04/21/20 atorvastatin 80 mg PO HS 04/08/20 04/21/20 calcium carbonate [Calcium 600] 600 mg PO QPM 04/08/20 04/21/20 clopidogrel [Plavix] 75 mg PO QAM 04/08/20 04/21/20 multivitamin 1 tab PO QPM 04/08/20 04/21/20 pantoprazole 40 mg PO QAM 04/08/20 04/21/20 amiodarone 200 mg PO BID 04/21/20 04/21/20 furosemide [Lasix] 20 mg PO DAILY 04/21/20 04/21/20 Previous Rx's Medication Instructions Recorded metoprolol succinate 25 mg PO BID 30 Days #60 tab 04/12/20 Results & Data (ED) Vital Signs Vital Signs - 24 hr 04/21/20 14:35 04/21/20 16:20 04/21/20 16:29 Temperature 37 C Temperature Source Oral Pulse Rate 89 87 87 Pulse Rate [Apical] Pulse Rate from SpO2 Sensor 87 87 Pulse Rhythm Regular Pulse Strength Normal Respiratory Rate 17 Respiratory Effort / Characteristics Non-Labored Spontaneous Respiratory Depth Normal Respiratory Pattern Regular Blood Pressure 118/82 121/89 Blood Pressure [Left Arm] Blood Pressure Mean 94 103 Blood Pressure Mean [Left Arm] Blood Pressure Position Sitting Pulse Oximetry 98 96 96 Oxygen Delivery Method Room Air Sepsis Recent Fever Within 48 Hours No Sepsis Action Taken by Nursing No Action Required 04/21/20 16:30 04/21/20 16:40 04/21/20 16:50 Temperature Temperature Source Pulse Rate 87 86 86 Pulse Rate [Apical] 88 Pulse Rate from SpO2 Sensor 87 86 86 Pulse Rhythm Pulse Strength Respiratory Rate 17 24 19 Respiratory Effort / Characteristics Respiratory Depth Respiratory Pattern Blood Pressure Blood Pressure [Left Arm] 120/88 Blood Pressure Mean Blood Pressure Mean [Left Arm] 98 Blood Pressure Position Pulse Oximetry 95 97 97 Oxygen Delivery Method Room Air Sepsis Recent Fever Within 48 Hours Sepsis Action Taken by Nursing 04/21/20 17:00 04/21/20 17:01 04/21/20 17:10 Temperature Temperature Source Pulse Rate 86 86 88 Pulse Rate [Apical] Pulse Rate from SpO2 Sensor 86 87 88 Pulse Rhythm Pulse Strength Respiratory Rate 22 20 27 H Respiratory Effort / Characteristics Respiratory Depth Respiratory Pattern Blood Pressure 120/88 Blood Pressure [Left Arm] Blood Pressure Mean 99 Blood Pressure Mean [Left Arm] Blood Pressure Position Pulse Oximetry 97 96 97 Oxygen Delivery Method Sepsis Recent Fever Within 48 Hours Sepsis Action Taken by Nursing 04/21/20 17:20 Temperature Temperature Source Pulse Rate 90 Pulse Rate [Apical] Pulse Rate from SpO2 Sensor 90 Pulse Rhythm Pulse Strength Respiratory Rate 30 H Respiratory Effort / Characteristics Respiratory Depth Respiratory Pattern Blood Pressure Blood Pressure [Left Arm] Blood Pressure Mean Blood Pressure Mean [Left Arm] Blood Pressure Position Pulse Oximetry 97 Oxygen Delivery Method Sepsis Recent Fever Within 48 Hours Sepsis Action Taken by Correction Medications Current Medication List: was personally reviewed by me Laboratory Data Attestation: I reviewed the patient's lab results. Result diagrams: 04/21/20 15:58 04/21/20 15:58 Lab Results 04/21/20 04/21/20 Range/Units 15:58 15:58 WBC 8.78 (4.8-10.8) K/uL RBC 4.19 L (4.7-6.1) M/uL Hgb 14.0 (14.0-18.0) g/dL Hct 42.5 (42-52) % MCV 101.4 H (80-100) fL MCH 33.4 (25-34) pg MCHC 32.9 (32-36) g/dL RDW Std Deviation 53.1 H (36.4-46.3) fL RDW Coeff of Z[place] 14.6 H (11.5-14.5) % Plt Count 177 (130-400) K/uL MPV 11.1 H (7.4-10.4) fL Immature Gran % (Auto) 0.2 % Neut % (Auto) 80.6 % Lymph % (Auto) 9.6 % [place] % (Auto) 9.2 % Eos % (Auto) 0.3 % Baso % (Auto) 0.1 % Immature Gran # (Auto) 0.02 (0.00-0.02) K/uL Neut # (Auto) 7.07 H (1.4-6.5) K/uL Lymph # (Auto) 0.84 L (1.2-3.4) K/uL [place] # (Auto) 0.81 H (0.11-0.59) K/uL Eos # (Auto) 0.03 (0-0.5) K/uL Baso # (Auto) 0.01 (0-0.2) K/uL Sodium 137 (136-145) mmol/L Potassium 4.9 (3.5-5.1) mmol/L Chloride 105 (98-107) mmol/L Carbon Dioxide 20 L (21-32) mmol/L Anion Gap 12.0 H (3-11) BUN 81 H (7-18) mg/dl Creatinine 3.04 H (0.6-1.4) mg/dl Est Cr Clr Drug Dosing 18.4 ml/min Est GFR ( Amer) 20.8 Est GFR (Non-Af Amer) 17.9 BUN/Creatinine Ratio 26.6 H (10-20) Glucose 108 H (70-99) mg/dl Calcium 9.0 (8.5-10.1) mg/dl Magnesium 2.9 H (1.8-2.4) mg/dl Total Bilirubin 1.7 H (0.2-1) mg/dl AST 38 H (15-37) U/L ALT 62 (12-78) U/L Alkaline Phosphatase 135 H (45-117) U/L Troponin I 0.033 (0-0.045) ng/ml NT-Pro-B Natriuret Pep 43597 H (0-1800) pg/ml Total Protein 7.3 (6.4-8.2) gm/dl Albumin 3.8 (3.4-5.0) gm/dl Globulin 3.5 (2.5-4.0) gm/dl Albumin/Globulin Ratio 1.1 (0.9-2) TSH 6.880 H (0.300-4.500) uIu/ml Free T4 1.43 (0.8-1.6) ng/dl Administered Medications Discontinued Medications Furosemide (Lasix) 20 mg IV NOW STA Stop: 04/21/20 16:50 Last Admin: 04/21/20 17:10 Dose: 20 mg Documented by: [id number] Discharge Plan Visit Data *Final* Discharge Date/Time: 04/21/20 18:15 Chief Complaint: Abnormal Labs/Diagnostic Testing Stated Complaint: ABNORMAL KIDNEY FUNCTION,SWELLING ED Provider: Kris Silverman Discharge Problem: CHF (congestive heart failure), Cardiac volume overload, EDILSON (acute kidney injury) Patient Disposition: Admitted As Inpatient Discharge Instructions Interventions: ED Discharge Assessment Last Done: 04/21/20 18:15 Discharge Problem: CHF (congestive heart failure) Qualifiers: Heart failure type: unspecified Heart failure chronicity: acute Qualified Cod e(s): I50.9 - Heart failure, unspecified
[2020-04-21 16:08] LABS: Basophils # (auto) 0.01 K/uL (0-0.2); Basophils % (auto) 0.1 %; Eosinophils # (auto) 0.03 K/uL (0-0.5); Eosinophils % (auto) 0.3 %; Hematocrit (blood only) 42.5 % (42-52); Immature Granulocytes # (auto) 0.02 K/uL (0.00-0.02); Immature Granulocytes % (auto) 0.2 %; Lymphocytes # (auto) 0.84 K/uL (1.2-3.4); Lymphocytes % (auto) 9.6 %; Mean Corpuscular Hemoglobin 33.4 pg (25-34); Mean Corpuscular Hgb Conc 32.9 g/dL (32-36); Mean Corpuscular Volume 101.4 fL (80-100); Mean Platelet Volume 11.1 fL (7.4-10.4); Monocytes # (auto) 0.81 K/uL (0.11-0.59); Monocytes % (auto) 9.2 %; Neutrophils # (auto) 7.07 K/uL (1.4-6.5); Neutrophils % (auto) 80.6 %; Platelet Count 177 K/uL (130-400); RDW Coefficient of Variation 14.6 % (11.5-14.5); RDW Standard Deviation 53.1 fL (36.4-46.3); Red Blood Count 4.19 M/uL (4.7-6.1); White Blood Count 8.78 K/uL (4.8-10.8)
[2020-04-21 16:34] LABS: Albumin Level 3.8 gm/dl (3.4-5.0); BUN Creatinine Ratio 26.6 (10-20); Creatinine Clr Calc Pharmacy 18.4 ml/min; Est GFR (African American) 20.8; Est GFR (Non-African American) 17.9; Magnesium 2.9 mg/dl (1.8-2.4); Potassium 4.9 mmol/L (3.5-5.1)
--- NOTE | 2020-04-21 16:35 | XRay Report ---
XR chest 1V portable CLINICAL HISTORY: weakness COMPARISON STUDY: Chest radiograph April 10, 2020. FINDINGS: Dual lead left clavicle pacemaker is in place. Moderate cardiomegaly is noted. There is a t race right pleural effusion. There is no pneumothorax. There is pulmonary vascular congestion with po ssible mild pulmonary edema. Stent graft within the thoracic aorta is noted. Mediastinal contours are stable. IMPRESSION: 1. Pulmonary vascular congestion with possible mild pulmonary edema. 2. Trace right pleural effusion. ACT 112: Negative or not required by law. Electronically signed by: Dmitriy Joseph M.D. 04/21/2020 4:34 PM
[2020-04-21 16:44] LABS: Albumin Globulin Ratio 1.1 (0.9-2); Bilirubin,Total 1.7 mg/dl (0.2-1); Globulin 3.5 gm/dl (2.5-4.0); Thyroid Stimulating Hormone 6.88 uIu/ml (0.300-4.500); Total Protein 7.3 gm/dl (6.4-8.2); Troponin I 0.033 ng/ml (0-0.045)
[2020-04-21] MEDS ORDERED: FUROSEMIDE 40 MG/4 ML VIAL IV STA (16:49)
[2020-04-21 17:13] LABS: T4 Free Thyroxine 1.43 ng/dl (0.8-1.6)
--- NOTE | 2020-04-21 17:35 | History & Physical Report ---
Date of Service April 21, 2020 Assessment & Plan (1) Ischemic cardiomyopathy: (2) Acute systolic (congestive) heart failure: Patient presents after worsening dyspnea, weight gain, lower extremity edema. BNP elevated in the ED and chest x-ray suggestive of pulmonary congestion. 20 mg IV Lasix given in ED Follow weight closely, standing weights Closely follow I's and O's Fluid restricted and sodium restricted diet Will reassess in the morning Follow BMP Routine cardiology consult (3) CAD (coronary artery disease): H/o NC and PCI with bare metal stent to LAD. 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 during last admission Pacemaker was recently checked in cardiology clinic, seems to be working appropriately While inpatient patient was treated for atrial tachycardia and started on amiodarone Amiodarone decreased to 200 mg twice a day per cardiology (outpt), metoprolol 25 twice daily continued Appreciate cardiology input DVT ppx : SCDs Code: Full History of Present Illness Chief Complaint: abnormal labs, dyspnea Primary Care Provider: Moises Carter MD This is an 84-year-old male with a PMH of ischemic cardiomyopathy, sinus bradycardia, CAD (s/p stent to LAD), PVD, aortic regurgitation, HTN, s/p repair of thoracic aortic aneurysm who was recently admitted to the hospital for tachycardiabradycardia syndrome and underwent pacemaker placement. At that time he was also treated for atrial tachycardia, and started on amiodarone. He was also treated for EDILSON on CKD, creatinine on discharge was 1.7. Patient at that time did not have a PCP, and therefore new PCP appointment was arranged for the patient, patient also followed up with cardiology. Due to low blood pressures and EDILSON, diuretics were held during last admission, and were supposed to be restarted per PCP/cardiology. Patient followed-up with cardiology and had his BMP rechecked, and found to have creatinine elevated at 3. Patient also continues to have dyspnea, and somewhat increased lower extremity edema. Due to abnormal labs he was sent to emergency room for further evaluation and treatment. In ED, BNP was elevated and chest x- ray suggestive of pulmonary congestion, patient received 20 mg of IV Lasix. Patient has been having dyspnea for past several weeks however since he left the hospital, he says that he was having trouble sleeping as well. Seems as laying down was more difficult for the patient/having orthopnea symptoms. When I asked him about checking his weight, patient says that he does not check his weight on daily basis. Patient did have his pacemaker checked as outpt, and that seems to be working properly. Currently patient is sitting up in bed, in no acute distress, breathing on room air. Denies any chest pain, fevers, chills, cough, abdominal pain, nausea or vomiting. He also denies any headache, dizziness or lightheadedness. Allergies Allergy/AdvReac Type Severity Reaction Status Date / Time No Known Allergies Allergy Verified 04/21/20 16:24 Home Medications Home Medications Medication Instructions Recorded Confirmed Type Ocuvite Eye Health 1 tab PO QPM 04/08/20 04/21/20 History aspirin 81 mg PO QAM 04/08/20 04/21/20 History atorvastatin 80 mg PO HS 04/08/20 04/21/20 History calcium carbonate [Calcium 600] 600 mg PO QPM 04/08/20 04/21/20 History clopidogrel [Plavix] 75 mg PO QAM 04/08/20 04/21/20 History multivitamin 1 tab PO QPM 04/08/20 04/21/20 History pantoprazole 40 mg PO QAM 04/08/20 04/21/20 History metoprolol succinate 25 mg PO BID 30 Days #60 tab 04/12/20 04/21/20 Rx amiodarone 200 mg PO BID 04/21/20 04/21/20 History furosemide [Lasix] 20 mg PO DAILY 04/21/20 04/21/20 History Past Med/Surg History Medical History Aortic valve regurgitation CAD (coronary artery disease) Degenerative arthritis of knee, bilateral GERD (gastroesophageal reflux disease) History of NC (myocardial infarction) Hypertension Ischemic cardiomyopathy Retinal disease Sinus bradycardia Surgical History History of heart artery stent 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 Family History Other Heart disease Hypertension Stroke Social History Preferred Language: [place] Communication Ability: Effective Hearing Consultant Required: No Beliefs That Will Affect Care: None Current Living Situation: Spouse Other Information That Helps Us Care for You: No Feels Safe at Home: Yes Smoking Status: Never smoker Hx Alcohol Use: No Hx Substance Use: No Review of Systems Review of Systems: All systems reviewed & are unremarkable except as noted in HPI & below Constitutional: no fever and no chills Respiratory: + dyspnea; no cough Cardiovascular: + edema (1+ b/l LE ); no chest pain and no palpitations Gastrointestinal: no abdominal pain, no nausea and no vomiting Physical Exam Physical Exam: General Appearance: WD/WN, vitals as above, NAD, sitting up in bed, pleasant, conversing easily Head: normocephalic, atraumatic Eyes: normal inspection, PERRL, EOMI, conjunctivae normal, anicteric sclerae ENT: external ear and nose normal, oropharynx normal Neck: trachea midline, no thyromegaly, normal visual inspection Respiratory: normal respiratory effort, mild bibasilar crackles noted, no wheeze or rhonchi. Normal insp/exp effort, no accessory muscle use Cardiovascular: RRR, no murmur appreciated, normal peripheral pulses,1-2+ b/l LE edema Chest: + pacemaker (incision is clean and dry) Abdomen/GI: normal bowel sounds, soft, nontender, nondistended Extremities/Musculoskeletal: no cyanosis or clubbing, extremities motor strength 5/5, moves extremities spontaneously Neurologic: PERRL, EOMI,no face palsy, no dysarthria, CN's II-XI intact bilaterally and moves all extremities Psychiatric: A+Ox3, euthymic affect Skin: no rashes, normal color, warm/dry Results & Data Results & Data ([facility]) Vital Signs (Past 12 Hours) Vital Signs Temp Pulse Pulse Resp BP BP Pulse Ox 04/21/20 16:30 88 18 120/88 100 04/21/20 14:35 37 C 89 20 118/82 98 Laboratory Results 04/21/20 04/21/20 Range/Units 15:58 15:58 WBC 8.78 (4.8-10.8) K/uL RBC 4.19 L (4.7-6.1) M/uL Hgb 14.0 (14.0-18.0) g/dL Hct 42.5 (42-52) % MCV 101.4 H (80-100) fL MCH 33.4 (25-34) pg MCHC 32.9 (32-36) g/dL RDW Std Deviation 53.1 H (36.4-46.3) fL RDW Coeff of [place] 14.6 H (11.5-14.5) % Plt Count 177 (130-400) K/uL MPV 11.1 H (7.4-10.4) fL Immature Gran % (Auto) 0.2 % Neut % (Auto) 80.6 % Lymph % (Auto) 9.6 % [place] % (Auto) 9.2 % Eos % (Auto) 0.3 % Baso % (Auto) 0.1 % Immature Gran # (Auto) 0.02 (0.00-0.02) K/uL Neut # (Auto) 7.07 H (1.4-6.5) K/uL Lymph # (Auto) 0.84 L (1.2-3.4) K/uL [place] # (Auto) 0.81 H (0.11-0.59) K/uL Eos # (Auto) 0.03 (0-0.5) K/uL Baso # (Auto) 0.01 (0-0.2) K/uL Sodium 137 (136-145) mmol/L Potassium 4.9 (3.5-5.1) mmol/L Chloride 105 (98-107) mmol/L Carbon Dioxide 20 L (21-32) mmol/L Anion Gap 12.0 H (3-11) BUN 81 H (7-18) mg/dl Creatinine 3.04 H (0.6-1.4) mg/dl Est Cr Clr Drug Dosing 18.4 ml/min Est GFR ( Amer) 20.8 Est GFR (Non-Af Amer) 17.9 BUN/Creatinine Ratio 26.6 H (10-20) Glucose 108 H (70-99) mg/dl Calcium 9.0 (8.5-10.1) mg/dl Magnesium 2.9 H (1.8-2.4) mg/dl Total Bilirubin 1.7 H (0.2-1) mg/dl AST 38 H (15-37) U/L ALT 62 (12-78) U/L Alkaline Phosphatase 135 H (45-117) U/L Troponin I 0.033 (0-0.045) ng/ml NT-Pro-B Natriuret Pep 07038 H (0-1800) pg/ml Total Protein 7.3 (6.4-8.2) gm/dl Albumin 3.8 (3.4-5.0) gm/dl Globulin 3.5 (2.5-4.0) gm/dl Albumin/Globulin Ratio 1.1 (0.9-2) TSH 6.880 H (0.300-4.500) uIu/ml Free T4 1.43 (0.8-1.6) ng/dl Diagnostic Findings CXR 04/21/20 IMPRESSION: 1. Pulmonary vascular congestion with possible mild pulmonary edema. 2. Trace right pleural effusion. Code Status & VTE Plan VTE Prophylaxis Plan VTE Prophylaxis will be ordered: Yes
[2020-04-21] MEDS: ATORVASTATIN 40 MG TAB PO SCH (20:23)
[2020-04-21] MEDS: AMIODARONE 200 MG TAB PO SCH (20:23)
[2020-04-21] MEDS: METOPROLOL SUCC 25MG EXT REL TAB PO SCH (20:24)
[2020-04-21] MEDS: CALCIUM CARBONATE 1250MG TAB PO SCH (20:24)
[2020-04-21] MEDS: CEROVITE ADV FORMULA TAB PO SCH (20:24)
[2020-04-21] MEDS ORDERED: MULTIVITAMIN TAB PO SCH (21:00)
[2020-04-22 06:58] LABS: Hematocrit (blood only) 37.7 % (42-52); Hemoglobin 12.2 g/dL (14.0-18.0); Mean Corpuscular Hemoglobin 32.9 pg (25-34); Mean Corpuscular Hgb Conc 32.4 g/dL (32-36); Mean Corpuscular Volume 101.6 fL (80-100); Mean Platelet Volume 11.2 fL (7.4-10.4); Platelet Count 163 K/uL (130-400); RDW Coefficient of Variation 14.7 % (11.5-14.5); RDW Standard Deviation 53.6 fL (36.4-46.3); Red Blood Count 3.71 M/uL (4.7-6.1); White Blood Count 7.41 K/uL (4.8-10.8)
--- NOTE | 2020-04-22 07:22 | Hospitalist Progress Note ---
Date of Service April 22, 2020 Assessment & Plan (1) Ischemic cardiomyopathy: (2) Acute systolic (congestive) heart failure: Patient presents after worsening dyspnea, weight gain, lower extremity edema. BNP elevated in the ED and chest x-ray suggestive of pulmonary congestion. 20 mg IV Lasix given in ED Follow weight closely, standing weights Closely follow I's and O's Fluid restricted and sodium restricted diet Start lasix 80 IV bid Follow BMP Cardiology input appreciated (3) CAD (coronary artery disease): H/o MA and PCI with bare metal stent to LAD. 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 Patient is sitting up in bed, in no acute distress. Breathing comfortably on room air. Says that he feels better than yesterday. He states that he continues to have troubles sleeping/orthopnea. Denies any fevers, chills, chest pain, abdominal pain, cough, nausea or vomiting. Review of Systems Review of Systems: All systems reviewed & are unremarkable except as noted in HPI & below Constitutional: no fever and no chills Respiratory: + dyspnea (improved); no cough Cardiovascular: + edema (1+ b/l LE (slightly improved)); no chest pain and no palpitations Gastrointestinal: no abdominal pain, no nausea and no vomiting Physical Exam Physical Exam: General Appearance: WD/WN, vitals as above, NAD, sitting up in bed, pleasant, conversing easily Head: normocephalic, atraumatic Eyes: normal inspection, PERRL, EOMI, conjunctivae normal, anicteric sclerae ENT: external ear and nose normal, oropharynx normal Neck: trachea midline, no thyromegaly, normal visual inspection Respiratory: normal respiratory effort, mild bibasilar crackles noted, no wheeze or rhonchi. Normal insp/exp effort, no accessory muscle use Cardiovascular: RRR, soft murmur appreciated, normal peripheral pulses,1+ b/l LE edema Chest: + pacemaker (incision is clean and dry) Abdomen/GI: normal bowel sounds, soft, nontender, nondistended Extremities/Musculoskeletal: no cyanosis or clubbing, extremities motor strength 5/5, moves extremities spontaneously Neurologic: PERRL, EOMI,no face palsy, no dysarthria, CN's II-XI intact bilaterally and moves all extremities Psychiatric: A+Ox3, euthymic affect Skin: no rashes, normal color, warm/dry Results & Data Results & Data ([facility]) Vital Signs (Past 12 Hours) Vital Signs Temp Pulse Pulse Resp BP BP Pulse Ox 04/22/20 07:13 36.4 C L 85 18 102/67 95 04/22/20 04:05 86 04/22/20 03:13 36.4 C L 85 20 114/80 96 04/21/20 23:54 36.4 C L 16 110/75 95 04/21/20 21:33 90 Laboratory Results 04/22/20 04/22/20 04/21/20 Range/Units 06:24 06:24 15:58 WBC 7.41 (4.8-10.8) K/uL RBC 3.71 L (4.7-6.1) M/uL Hgb 12.2 L (14.0-18.0) g/dL Hct 37.7 L (42-52) % MCV 101.6 H (80-100) fL MCH 32.9 (25-34) pg MCHC 32.4 (32-36) g/dL RDW Std Deviation 53.6 H (36.4-46.3) fL RDW Coeff of [place] 14.7 H (11.5-14.5) % Plt Count 163 (130-400) K/uL MPV 11.2 H (7.4-10.4) fL Immature Gran % (Auto) % Neut % (Auto) % Lymph % (Auto) % [place] % (Auto) % Eos % (Auto) % Baso % (Auto) % Immature Gran # (Auto) (0.00-0.02) K/uL Neut # (Auto) (1.4-6.5) K/uL Lymph # (Auto) (1.2-3.4) K/uL [place] # (Auto) (0.11-0.59) K/uL Eos # (Auto) (0-0.5) K/uL Baso # (Auto) (0-0.2) K/uL Sodium 139 137 (136-145) mmol/L Potassium 4.6 4.9 (3.5-5.1) mmol/L Chloride 108 H 105 (98-107) mmol/L Carbon Dioxide 22 20 L (21-32) mmol/L Anion Gap 10.0 12.0 H (3-11) BUN 85 H 81 H (7-18) mg/dl Creatinine 3.13 H 3.04 H (0.6-1.4) mg/dl Est Cr Clr Drug Dosing 17.9 18.4 ml/min Est GFR ( Amer) 20.1 20.8 Est GFR (Non-Af Amer) 17.3 17.9 BUN/Creatinine Ratio 27.1 H 26.6 H (10-20) Glucose 95 108 H (70-99) mg/dl Calcium 8.5 9.0 (8.5-10.1) mg/dl Phosphorus 4.9 (2.5-4.9) mg/dl Magnesium 2.7 H 2.9 H (1.8-2.4) mg/dl Total Bilirubin 1.7 H (0.2-1) mg/dl AST 38 H (15-37) U/L ALT 62 (12-78) U/L Alkaline Phosphatase 135 H (45-117) U/L Troponin I 0.033 (0-0.045) ng/ml NT-Pro-B Natriuret Pep 66002 H (0-1800) pg/ml Total Protein 7.3 (6.4-8.2) gm/dl Albumin 3.8 (3.4-5.0) gm/dl Globulin 3.5 (2.5-4.0) gm/dl Albumin/Globulin Ratio 1.1 (0.9-2) TSH 6.880 H (0.300-4.500) uIu/ml Free T4 1.43 (0.8-1.6) ng/dl 04/21/20 Range/Units 15:58 WBC 8.78 (4.8-10.8) K/uL RBC 4.19 L (4.7-6.1) M/uL Hgb 14.0 (14.0-18.0) g/dL Hct 42.5 (42-52) % MCV 101.4 H (80-100) fL MCH 33.4 (25-34) pg MCHC 32.9 (32-36) g/dL RDW Std Deviation 53.1 H (36.4-46.3) fL RDW Coeff of [place] 14.6 H (11.5-14.5) % Plt Count 177 (130-400) K/uL MPV 11.1 H (7.4-10.4) fL Immature Gran % (Auto) 0.2 % Neut % (Auto) 80.6 % Lymph % (Auto) 9.6 % [place] % (Auto) 9.2 % Eos % (Auto) 0.3 % Baso % (Auto) 0.1 % Immature Gran # (Auto) 0.02 (0.00-0.02) K/uL Neut # (Auto) 7.07 H (1.4-6.5) K/uL Lymph # (Auto) 0.84 L (1.2-3.4) K/uL [place] # (Auto) 0.81 H (0.11-0.59) K/uL Eos # (Auto) 0.03 (0-0.5) K/uL Baso # (Auto) 0.01 (0-0.2) K/uL Sodium (136-145) mmol/L Potassium (3.5-5.1) mmol/L Chloride (98-107) mmol/L Carbon Dioxide (21-32) mmol/L Anion Gap (3-11) BUN (7-18) mg/dl Creatinine (0.6-1.4) mg/dl Est Cr Clr Drug Dosing ml/min Est GFR ( Amer) Est GFR (Non-Af Amer) BUN/Creatinine Ratio (10-20) Glucose (70-99) mg/dl Calcium (8.5-10.1) mg/dl Phosphorus (2.5-4.9) mg/dl Magnesium (1.8-2.4) mg/dl Total Bilirubin (0.2-1) mg/dl AST (15-37) U/L ALT (12-78) U/L Alkaline Phosphatase (45-117) U/L Troponin I (0-0.045) ng/ml NT-Pro-B Natriuret Pep (0-1800) pg/ml Total Protein (6.4-8.2) gm/dl Albumin (3.4-5.0) gm/dl Globulin (2.5-4.0) gm/dl Albumin/Globulin Ratio (0.9-2) TSH (0.300-4.500) uIu/ml Free T4 (0.8-1.6) ng/dl Medications Administered Current Inpatient Medications Amiodarone HCl (Cordarone) 200 mg PO BID [facility] Stop: 05/21/20 20:59 Last Admin: 04/21/20 20:23 Dose: 200 mg Documented by: Aspirin (Ecotrin Ectab) 81 mg PO QAM [facility] Stop: 05/22/20 08:59 Atorvastatin Calcium (Lipitor) 80 mg PO HS [facility] Stop: 05/21/20 20:59 Last Admin: 04/21/20 20:23 Dose: 80 mg Documented by: Calcium Carbonate (Os-Jan 500) 1,250 mg PO QPM [facility] Stop: 05/21/20 20:59 Last Admin: 04/21/20 20:24 Dose: 1,250 mg Documented by: Clopidogrel Bisulfate (Plavix) 75 mg PO QAM [facility] Stop: 05/22/20 08:59 Metoprolol Succinate (Toprol Xl) 25 mg PO BID [facility] Stop: 05/21/20 20:59 Last Admin: 04/21/20 20:24 Dose: 25 mg Documented by: Multivitamins/Minerals (Multivitamin W/ Minerals Tab) 1 tab PO QPM [facility] Stop: 05/21/20 20:59 Last Admin: 04/21/20 20:24 Dose: 1 tab Documented by: Pantoprazole Sodium (Protonix) 40 mg PO QAM [facility] Stop: 05/22/20 08:59
[2020-04-22 07:30] LABS: BUN Creatinine Ratio 27.1 (10-20); Calcium 8.5 mg/dl (8.5-10.1); Creatinine Clr Calc Pharmacy 17.9 ml/min; Est GFR (African American) 20.1; Est GFR (Non-African American) 17.3; Magnesium 2.7 mg/dl (1.8-2.4); Phosphorus 4.9 mg/dl (2.5-4.9); Potassium 4.6 mmol/L (3.5-5.1)
[2020-04-22] MEDS: AMIODARONE 200 MG TAB PO SCH ×2 (08:32→20:20)
[2020-04-22] MEDS: PANTOprazole 40 MG TAB PO SCH (08:32)
[2020-04-22] MEDS: METOPROLOL SUCC 25MG EXT REL TAB PO SCH ×2 (08:32→20:20)
[2020-04-22] MEDS: ASPIRIN 81 MG ECTAB PO SCH (08:32)
[2020-04-22] MEDS: CLOPIDOGREL BISULFATE 75 MG TAB PO SCH (08:32)
[2020-04-22] MEDS ORDERED: FUROSEMIDE 80 MG in SYRINGE 0 ML IV SCH (13:15)
--- NOTE | 2020-04-22 13:17 | Cardiology Consultation ---
Date of Consultation April 22, 2020 Assessment & Plan (1) Acute systolic (congestive) heart failure: (2) Status post placement of cardiac pacemaker: (3) Ischemic cardiomyopathy: (4) Tachycardia-bradycardia syndrome: (5) Atrial tachycardia: (6) Acute kidney injury superimposed on CKD: (7) Aortic valve regurgitation: (8) CAD (coronary artery disease): Mr. Padilla is significantly volume overloaded on presentation with reported 8 pound weight gain since discharge. His kidney function is significantly impaired, however, on questioning whether or not this might be his new baseline. We will diurese with Lasix 80 mg twice daily and follow renal function closely. If there is no improvement with his renal function then consideration may be given to evaluation by our nephrology colleagues but again, this may be his new baseline Electrolytes should be followed and repleted as necessary. Continue outpatient doses of amiodarone, metoprolol, atorvastatin, aspirin and Plavix. History of Present Illness Reason for Consultation: Acute decompensated systolic heart failure Requesting Physician: Dr. Sousa Attending Physician: Abdi Sousa MD History of Present Illness It was my pleasure to see Mr. Padilla in consultation today April 22, 2020. He is a very pleasant 84-year-old gentleman who is very well-known to our cardiology practice. He presents to [facility] emergency department at the direction of our office after he presented for hospital follow-up and found to be volume overloaded. Patient was recently mid to [facility] where he underwent permanent pacemaker placement for treatment of tachybradycardia syndrome. During that hospitalization his renal function declined and he was discharged with instructions by the cardiology service for him to resume lower dose diuretics, unfortunately, his discharge paperwork indicated for him to stop the Lasix.. Unfortunately he started becoming short of breath and developing lower extremity edema. Upon evaluation his weight was up 8 pounds and he was dyspneic walking in to the office from the waiting room. Past medical history as per most recent outpatient office note: 1. Ischemic cardiomyopathy, EF 40-49% 2. EDILSON during recent hospitalization with creatinine at 1.7. Lisinopril and diuretics held on discharge 3. Atrial tachycardia - now on amiodarone. Prolonged QT noted on EKG today. Maintaining NSR per device check and EKG today 4. Tachybrady syndrome s/p dual chamber pacemaker implantation. Stable findings. 5. Chronic coronary heart disease, ischemic cardiomyopathy, remote LAD territory [place] with history of CAD, non-STEMI presenting with cardiac arrest in May 2012 secondary to acute anterior/atypical wall OK receive CPR, bare metal stent to LAD 6. Moderate to severe aortic valve regurgitation 7. Mild aortic root, proximal ascending aorta dilatation 8. 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, 01/28/2009, left subclavian artery to left carotid artery transposition 01/2009 Allergies Allergy/AdvReac Type Severity Reaction Status Date / Time No Known Allergies Allergy Verified 04/21/20 16:24 Home Medications Home Medications Medication Instructions Recorded Confirmed Type [facility] 1 tab PO QPM 04/08/20 04/21/20 History aspirin 81 mg PO QAM 04/08/20 04/21/20 History atorvastatin 80 mg PO HS 04/08/20 04/21/20 History calcium carbonate [Calcium 600] 600 mg PO QPM 04/08/20 04/21/20 History clopidogrel [Plavix] 75 mg PO QAM 04/08/20 04/21/20 History multivitamin 1 tab PO QPM 04/08/20 04/21/20 History pantoprazole 40 mg PO QAM 04/08/20 04/21/20 History metoprolol succinate 25 mg PO BID 30 Days #60 tab 04/12/20 04/21/20 Rx amiodarone 200 mg PO BID 04/21/20 04/21/20 History furosemide [Lasix] 20 mg PO DAILY 04/21/20 04/21/20 History Patient History Medical History Aortic valve regurgitation CAD (coronary artery disease) Degenerative arthritis of knee, bilateral GERD (gastroesophageal reflux disease) History of [place] (myocardial infarction) Hypertension Ischemic cardiomyopathy Retinal disease Sinus bradycardia Surgical History History of heart artery stent 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 Family History Other Heart disease Hypertension Stroke Social History Preferred Language: Ethiopian Communication Ability: Effective Design Draftsman Required: No Beliefs That Will Affect Care: None marital status: Current Living Situation: Spouse Other Information That Helps Us Care for You: No Feels Safe at Home: Yes Smoking Status: Never smoker Hx Alcohol Use: No Hx Substance Use: No Review of Systems Review of Systems: All systems reviewed & are unremarkable except as noted in HPI & below Physical Exam Physical Exam: General: Awake, alert and oriented x 3. No acute distress. HEENT: Normocephalic, atraumatic. Pupils equal, round and reactive to light and accommodation. Extraocular muscles are intact. Anicteric sclera. Moist mucous membranes. Neck: No JVD. No bruit. Cardiovascular: Regular. Positive S-4. Normal S-1 and S-2. No S-3. 3/6 diastolic murmur, left sternal border, mid-clavicular line with radiation to the axilla. No rubs. Pulmonary: Diffuse crackles in the bilateral bases. Abdomen: Bowel sounds x 4, soft. No rebound, guarding or tenderness. No organomegaly. Extremities: No clubbing, cyanosis. +1 bilateral lower extremity pitting edema. +2 pedal pulses bilaterally. Skin: Warm and dry. Results & Data ([facility]) Vital Signs (Past 12 Hours) Vital Signs Temp Pulse Pulse Resp BP BP Pulse Ox 04/22/20 11:21 36.3 C L 88 18 120/81 94 04/22/20 11:11 60 04/22/20 07:13 36.4 C L 85 18 102/67 95 04/22/20 04:05 86 04/22/20 03:13 36.4 C L 85 20 114/80 96 Laboratory Results Laboratory Results - last 24 hr 04/21/20 04/21/20 04/22/20 15:58 15:58 06:24 WBC 8.78 7.41 RBC 4.19 L 3.71 L Hgb 14.0 12.2 L Hct 42.5 37.7 L MCV 101.4 H 101.6 H MCH 33.4 32.9 MCHC 32.9 32.4 RDW Std Deviation 53.1 H 53.6 H RDW Coeff of [place] 14.6 H 14.7 H Plt Count 177 163 MPV 11.1 H 11.2 H Immature Gran % (Auto) 0.2 Neut % (Auto) 80.6 Lymph % (Auto) 9.6 Bailey % (Auto) 9.2 Eos % (Auto) 0.3 Baso % (Auto) 0.1 Immature Gran # (Auto) 0.02 Neut # (Auto) 7.07 H Lymph # (Auto) 0.84 L Bailey # (Auto) 0.81 H Eos # (Auto) 0.03 Baso # (Auto) 0.01 Sodium 137 Potassium 4.9 Chloride 105 Carbon Dioxide 20 L Anion Gap 12.0 H BUN 81 H Creatinine 3.04 H Est Cr Clr Drug Dosing 18.4 Est GFR ( Amer) 20.8 Est GFR (Non-Af Amer) 17.9 BUN/Creatinine Ratio 26.6 H Glucose 108 H Calcium 9.0 Phosphorus Magnesium 2.9 H Total Bilirubin 1.7 H AST 38 H ALT 62 Alkaline Phosphatase 135 H Troponin I 0.033 NT-Pro-B Natriuret Pep 33346 H Total Protein 7.3 Albumin 3.8 Globulin 3.5 Albumin/Globulin Ratio 1.1 TSH 6.880 H Free T4 1.43 04/22/20 04/22/20 06:24 06:24 WBC RBC Hgb Hct MCV MCH MCHC RDW Std Deviation RDW Coeff of [place] Plt Count MPV Immature Gran % (Auto) Neut % (Auto) Lymph % (Auto) Bailey % (Auto) Eos % (Auto) Baso % (Auto) Immature Gran # (Auto) Neut # (Auto) Lymph # (Auto) Bailey # (Auto) Eos # (Auto) Baso # (Auto) Sodium 139 Potassium 4.6 Chloride 108 H Carbon Dioxide 22 Anion Gap 10.0 BUN 85 H Creatinine 3.13 H Est Cr Clr Drug Dosing 17.9 Est GFR ( Amer) 20.1 Est GFR (Non-Af Amer) 17.3 BUN/Creatinine Ratio 27.1 H Glucose 95 Calcium 8.5 Phosphorus 4.9 Magnesium 2.7 H Total Bilirubin AST ALT Alkaline Phosphatase Troponin I NT-Pro-B Natriuret Pep 97731 H Total Protein Albumin Globulin Albumin/Globulin Ratio TSH Free T4 Medications Administered Current Inpatient Medications Amiodarone HCl (Cordarone) 200 mg PO BID DEBBY Stop: 05/21/20 20:59 Last Admin: 04/22/20 08:32 Dose: 200 mg Documented by: Aspirin (Ecotrin Ectab) 81 mg PO QAM DEBBY Stop: 05/22/20 08:59 Last Admin: 04/22/20 08:32 Dose: 81 mg Documented by: Atorvastatin Calcium (Lipitor) 80 mg PO HS DEBBY Stop: 05/21/20 20:59 Last Admin: 04/21/20 20:23 Dose: 80 mg Documented by: Calcium Carbonate (Os-Jan 500) 1,250 mg PO QPM DEBBY Stop: 05/21/20 20:59 Last Admin: 04/21/20 20:24 Dose: 1,250 mg Documented by: Clopidogrel Bisulfate (Plavix) 75 mg PO QAM DEBBY Stop: 05/22/20 08:59 Last Admin: 04/22/20 08:32 Dose: 75 mg Documented by: Furosemide 80 mg/ Syringe 8 mls @ 4 mls/min IV BID DEBBY Stop: 05/22/20 13:14 Metoprolol Succinate (Toprol Xl) 25 mg PO BID DEBBY Stop: 05/21/20 20:59 Last Admin: 04/22/20 08:32 Dose: 25 mg Documented by: Multivitamins/Minerals (Multivitamin W/ Minerals Tab) 1 tab PO QPM DEBBY Stop: 05/21/20 20:59 Last Admin: 04/21/20 20:24 Dose: 1 tab Documented by: Pantoprazole Sodium (Protonix) 40 mg PO QAM DEBBY Stop: 05/22/20 08:59 Last Admin: 04/22/20 08:32 Dose: 40 mg Documented by: (1) Aortic valve regurgitation Cardiac valve disease etiology: nonrheumatic Qualified Code(s): I35.1 - Nonrheumatic aortic (valve) insufficiency
--- NOTE | 2020-04-22 16:01 | Nephrology Consultation ---
Date of Consultation April 22, 2020 Assessment & Plan (1) Acute kidney injury superimposed on CKD: His baseline creatinine prior to early April admission was 1.4, last known value 08/2019. Creatinine during earlier April admission ran 1.5 through 1.7. Now presenting with creatinine 3.0 on April 21 after a few weeks with no diuretics and no KARISHMA inhibitor's and with florid volume overload. Standing weight April 22 is 81.2 kg. -Agree with Lasix 80 mg IV twice daily to start > retimed evening dose to 1845; starting tomorrow will be bid17 per my order Continue 1.8 L fluid restriction, may need to tighten this depending on progress Continue low-sodium diet and daily standing weights -Urinalysis ordered as well as renal u/s, latter mostly for completeness Present on Admission?: Yes (2) Cardiac volume overload: Now on standing Lasix along with fluid and sodium limits, daily standing weight -Monitor Present on Admission?: Yes History of Present Illness Reason for Consultation: Acute on chronic renal failure Requesting Physician: Dr Sousa Attending Physician: Abdi Sousa MD History of Present Illness 84-year-old male whom I am asked to evaluate for acute on chronic renal failure after he was admitted today from cardiology clinic for management of volume overload and acute decompensated systolic heart failure. History includes hemic cardiomyopathy with an ejection fraction mid 40s, tachybradycardia syndrome status post pacemaker, status post remote cardiac arrest, moderate to severe aortic regurgitation status post 2009 Endo vascular repair thoracic aortic aneurysm dissection with subclavian involvement. He was admitted here from April 08 through April 12 for tachybradycardia syndrome and underwent pacemaker placement. His baseline creatinine prior to that admission was reported at 1.3- 1.4. Creatinine during earlier April admission ran 1.5 through 1.7. Diuretics and lisinopril were held at hospital discharge and had not been resumed. He was sent yesterday from clinic after presenting with 8 pound weight gain and p ronounced exertional dyspnea. He had 20 mg IV Lasix in the ER yesterday. His presenting creatinine was 3.0, up to 3.1 today. Potassium has been running in the high fours. He tolerated 80 mg IV Lasix twice daily this afternoon. He is on a low-sodium diet with a 1.8 L fluid restriction. His standing weight this morning was 81.2 kg. 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 Allergies Allergy/AdvReac Type Severity Reaction Status Date / Time No Known Allergies Allergy Verified 04/21/20 16:24 Home Medications Home Medications Medication Instructions Recorded Confirmed Type [facility] 1 tab PO QPM 04/08/20 04/21/20 History aspirin 81 mg PO QAM 04/08/20 04/21/20 History atorvastatin 80 mg PO HS 04/08/20 04/21/20 History calcium carbonate [Calcium 600] 600 mg PO QPM 04/08/20 04/21/20 History clopidogrel [Plavix] 75 mg PO QAM 04/08/20 04/21/20 History multivitamin 1 tab PO QPM 04/08/20 04/21/20 History pantoprazole 40 mg PO QAM 04/08/20 04/21/20 History metoprolol succinate 25 mg PO BID 30 Days #60 tab 04/12/20 04/21/20 Rx amiodarone 200 mg PO BID 04/21/20 04/21/20 History furosemide [Lasix] 20 mg PO DAILY 04/21/20 04/21/20 History Patient History Medical History Aortic valve regurgitation CAD (coronary artery disease) Degenerative arthritis of knee, bilateral GERD (gastroesophageal reflux disease) History of [place] (myocardial infarction) Hypertension Ischemic cardiomyopathy Retinal disease Sinus bradycardia Surgical History History of heart artery stent 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 Family History Other Heart disease Hypertension Stroke Social History Preferred Language: Malay Communication Ability: Effective Account Manager B2B Required: No Beliefs That Will Affect Care: None marital status: Current Living Situation: Spouse Other Information That Helps Us Care for You: No Feels Safe at Home: Yes Smoking Status: Never smoker Hx Alcohol Use: No Hx Substance Use: No Review of Systems Review of Systems: All systems reviewed & are unremarkable except as noted in HPI & below Cardiovascular: + dyspnea on exertion, + paroxysmal nocturnal dyspnea and + edema Physical Exam Constitutional: well developed, well nourished and cooperative; no acute distress on RA; relatively muscular build for his age Eyes: EOM intact bilaterally ENMT: Ears: no external ear abnormality Nose: no external nose abnormality Mouth: + dry oral mucous membranes Neck: no nuchal rigidity Respiratory: normal respiratory effort, + labored breathing (slight) and able to speak in complete sentences (but not much more); does not use accessory muscles, no cough and expiratory phase not prolonged Auscultation: + diminished lung sounds and + crackles (bilateral posterior maria > R) Cardiovascular: Rate/Rhythm: regular rate and regular rhythm Extremities: + edema (2+ pretibial) Gastrointestinal (Abdomen): Inspection/Auscultation: normal bowel sounds Percussion/Palpation: abdomen soft; abdomen nontender Musculoskeletal: Extremities: strength 5/5 throughout Skin: no rashes, warm and dry Neurologic: rosa, fluent speech, no tremor Psychiatric: A+Ox3, euthymic affect Genitourinary: no mims Results & Data Vital Signs (Past 12 Hours) Vital Signs Temp Pulse Pulse Resp BP Pulse Ox 04/22/20 15:29 76 04/22/20 15:09 36.5 C 87 13 120/78 95 04/22/20 11:21 36.3 C L 88 18 120/81 94 04/22/20 11:11 60 04/22/20 07:13 36.4 C L 85 18 102/67 95 04/22/20 04:05 86 Laboratory Results 04/22/20 06:24 04/22/20 06:24 Diagnostic Findings Chest x-ray 1. Pulmonary vascular congestion with possible mild pulmonary edema. 2. Trace right pleural effusion. no renal imaging on file
--- NOTE | 2020-04-22 17:00 | Electrocardiogram Report ---
Test Reason : Blood Pressure : / mmHG Vent. Rate : 089 BPM Atrial Rate : 089 BPM P-R Int : 000 ms QRS Dur : 130 ms QT Int : 422 ms P-R-T Axes : 000 -37 145 degrees QTc Int : 513 ms Wide QRS rhythm Left axis deviation Non-specific intra-ventricular conduction block Poor R wave progression, consider anterior PR vs. lead placement vs. LVH T wave abnormality, consider lateral ischemia Abnormal ECG Confirmed by Mina Castañeda ([id number]) on 04/22/2020 5:00:14 PM Referred By: REFERRED SELF Confirmed By:Jm Castañeda
[2020-04-22 17:52] LABS: Appearance Urine Clear (Clear); Bilirubin Urine Negative (Negative); Blood Urine Negative (Negative); Color Urine Yellow; Glucose Urine UA Negative (Negative); Ketones Urine Negative (Negative); Leukocyte Esterase Urine Negative (Negative); Nitrite Urine Negative (Negative); Protein Urine Negative (Negative); Specific Gravity Urine 1.014 (1.000-1.030); Urobilinogen Urine Negative (Negative)
--- NOTE | 2020-04-22 18:18 | Ultrasound Report ---
US renal/blad retro comp HISTORY: Renal insufficiency acute on chronic renal failure COMPARISON: None. FINDINGS: Right kidney: Maximum dimension 8.6 cm. No evidence for hydronephrosis. Mild renal cortical scarring. Left kidney: Maximum linear dimension is 9.0 cm. No evidence for hydronephrosis. Mild cortical scarr ing Bladder: No bladder wall thickening. The bilateral ureteral jets were identified. IMPRESSION: 1. No evidence for hydronephrosis. 2. Mild renal cortical scarring bilaterally. ACT 112: Negative or not required by law. The above report was generated using voice recognition software. It may contain grammatical, syntax or spelling errors. Electronically signed by: Juaquin Prince M.D. 04/22/2020 6:17 PM
[2020-04-22] MEDS ORDERED: FUROSEMIDE 80 MG in SYRINGE 0 ML IV ONE (19:30)
[2020-04-22] MEDS: CEROVITE ADV FORMULA TAB PO SCH (20:19)
[2020-04-22] MEDS: CALCIUM CARBONATE 1250MG TAB PO SCH (20:20)
[2020-04-22] MEDS: ATORVASTATIN 40 MG TAB PO SCH (20:20)
[2020-04-23 08:01] LABS: Hematocrit (blood only) 37.1 % (42-52); Hemoglobin 12.2 g/dL (14.0-18.0); Mean Corpuscular Hemoglobin 33.1 pg (25-34); Mean Corpuscular Hgb Conc 32.9 g/dL (32-36); Mean Corpuscular Volume 100.5 fL (80-100); Mean Platelet Volume 11.1 fL (7.4-10.4); Platelet Count 154 K/uL (130-400); RDW Coefficient of Variation 14.8 % (11.5-14.5); RDW Standard Deviation 52.9 fL (36.4-46.3); Red Blood Count 3.69 M/uL (4.7-6.1); White Blood Count 8.07 K/uL (4.8-10.8)
[2020-04-23] MEDS: ASPIRIN 81 MG ECTAB PO SCH (08:07)
[2020-04-23] MEDS: METOPROLOL SUCC 25MG EXT REL TAB PO SCH ×2 (08:07→20:09)
[2020-04-23] MEDS: AMIODARONE 200 MG TAB PO SCH ×2 (08:07→20:09)
[2020-04-23] MEDS: CLOPIDOGREL BISULFATE 75 MG TAB PO SCH (08:08)
[2020-04-23 08:35] LABS: BUN Creatinine Ratio 28.2 (10-20); Calcium 8.4 mg/dl (8.5-10.1); Creatinine Clr Calc Pharmacy 19.2 ml/min; Est GFR (African American) 24.2; Est GFR (Non-African American) 20.9; Magnesium 2.3 mg/dl (1.8-2.4); Potassium 3.5 mmol/L (3.5-5.1)
[2020-04-23] MEDS ORDERED: FUROSEMIDE 80 MG in SYRINGE 0 ML IV SCH (09:00)
[2020-04-23] MEDS: PANTOprazole 40 MG TAB PO SCH (09:14)
[2020-04-23] MEDS ORDERED: POTASSIUM CHLORIDE 20 MEQ TABCR PO STA (09:30)
--- NOTE | 2020-04-23 09:33 | Hospitalist Progress Note ---
Date of Service April 23, 2020 Assessment & Plan (1) Ischemic cardiomyopathy: (2) Acute systolic (congestive) heart failure: Patient presents after worsening dyspnea, weight gain, lower extremity edema. BNP elevated in the ED and chest x-ray suggestive of pulmonary congestion. 20 mg IV Lasix given in ED Follow weight closely, standing weights Closely follow I's and O's Fluid restricted and sodium restricted diet Started lasix 80 IV bid, patient diuresed well, and clinically much improved. Will decrease Lasix to 40 IV twice daily. Follow BMP Replete electrolytes as needed Cardiology and nephrology input appreciated (3) CAD (coronary artery disease): H/o MT and PCI with bare metal stent to LAD. 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 Currently he is sitting up in bed, in no acute distress, breathing is much improved. Continues to have lower extremity edema. Plan to decrease diuretic to 40 mg IV twice daily. Creatinine improved today. Patient says that he has been eating salty [employer] sandwiches, and is wondering if that could trigger this. Discussed in detail sodium and fluid intake. Discussed in detail to monitor weight at home daily. Patient understands. Patient denies any fevers, chills, chest pain, shortness of breath, abdominal pain, nausea or vomiting. Review of Systems Review of Systems: All systems reviewed & are unremarkable except as noted in HPI & below Constitutional: no fever and no chills Respiratory: + dyspnea (much improved); no cough Cardiovascular: + edema (1+ b/l LE (improved)); no chest pain and no palpitations Gastrointestinal: no abdominal pain, no nausea and no vomiting Physical Exam Physical Exam: General Appearance: WD/WN, vitals as above, NAD, sitting up in bed, pleasant, conversing easily Head: normocephalic, atraumatic Eyes: normal inspection, PERRL, EOMI, conjunctivae normal, anicteric sclerae ENT: external ear and nose normal, oropharynx normal Neck: trachea midline, no thyromegaly, normal visual inspection Respiratory: normal respiratory effort, mild bibasilar crackles noted, no wheeze or rhonchi. Normal insp/exp effort, no accessory muscle use Cardiovascular: RRR, soft murmur appreciated, normal peripheral pulses,1+ b/l LE edema Chest: + pacemaker (incision is clean and dry) Abdomen/GI: normal bowel sounds, soft, nontender, nondistended Extremities/Musculoskeletal: no cyanosis or clubbing, extremities motor strength 5/5, moves extremities spontaneously Neurologic: PERRL, EOMI,no face palsy, no dysarthria, CN's II-XI intact bilaterally and moves all extremities Psychiatric: A+Ox3, euthymic affect Skin: no rashes, normal color, warm/dry Results & Data Results & Data ([facility]) Vital Signs (Past 12 Hours) Vital Signs Temp Pulse Pulse Resp BP BP Pulse Ox 04/23/20 07:25 36.4 C L 63 18 102/60 92 04/23/20 03:03 36.4 C L 60 18 96/61 L 94 04/22/20 23:47 61 04/22/20 23:31 36.3 C L 87 18 108/67 96 Laboratory Results 04/23/20 04/23/20 04/22/20 Range/Units 07:02 07:02 Unknown WBC 8.07 (4.8-10.8) K/uL RBC 3.69 L (4.7-6.1) M/uL Hgb 12.2 L (14.0-18.0) g/dL Hct 37.1 L (42-52) % MCV 100.5 H (80-100) fL MCH 33.1 (25-34) pg MCHC 32.9 (32-36) g/dL RDW Std Deviation 52.9 H (36.4-46.3) fL RDW Coeff of Zakia 14.8 H (11.5-14.5) % Plt Count 154 (130-400) K/uL MPV 11.1 H (7.4-10.4) fL Sodium 143 (136-145) mmol/L Potassium 3.5 D (3.5-5.1) mmol/L Chloride 110 H (98-107) mmol/L Carbon Dioxide 22 (21-32) mmol/L Anion Gap 11.0 (3-11) BUN 76 H (7-18) mg/dl Creatinine 2.68 H D (0.6-1.4) mg/dl Est Cr Clr Drug Dosing 19.2 ml/min Est GFR ( Amer) 24.2 Est GFR (Non-Af Amer) 20.9 BUN/Creatinine Ratio 28.2 H (10-20) Glucose 90 (70-99) mg/dl Calcium 8.4 L (8.5-10.1) mg/dl Magnesium 2.3 (1.8-2.4) mg/dl Urine Color Yellow Urine Appearance Clear (Clear) Urine pH 5.0 (4.5-7.5) Ur Specific [place] 1.014 (1.000-1.030) Urine Protein Negative (Negative) Urine Glucose (UA) Negative (Negative) Urine Ketones Negative (Negative) Urine Blood Negative (Negative) Urine Nitrite Negative (Negative) Urine Bilirubin Negative (Negative) Urine Urobilinogen Negative (Negative) Ur Leukocyte Esterase Negative (Negative) Medications Administered Current Inpatient Medications Amiodarone HCl (Cordarone) 200 mg PO BID [facility] Stop: 05/21/20 20:59 Last Admin: 04/23/20 08:07 Dose: 200 mg Documented by: Aspirin (Ecotrin Ectab) 81 mg PO QAM DEBBY Stop: 05/22/20 08:59 Last Admin: 04/23/20 08:07 Dose: 81 mg Documented by: Atorvastatin Calcium (Lipitor) 80 mg PO HS [facility] Stop: 05/21/20 20:59 Last Admin: 04/22/20 20:20 Dose: 80 mg Documented by: Calcium Carbonate (Os-Jan 500) 1,250 mg PO QPM DEBBY Stop: 05/21/20 20:59 Last Admin: 04/22/20 20:20 Dose: 1,250 mg Documented by: Clopidogrel Bisulfate (Plavix) 75 mg PO QAM DEBBY Stop: 05/22/20 08:59 Last Admin: 04/23/20 08:08 Dose: 75 mg Documented by: Furosemide 80 mg/ Syringe 8 mls @ 4 mls/min IV BID17 DEBBY Stop: 05/23/20 08:59 Last Admin: 04/23/20 09:14 Dose: 4 mls/min Documented by: Metoprolol Succinate (Toprol Xl) 25 mg PO BID [facility] Stop: 05/21/20 20:59 Last Admin: 04/23/20 08:07 Dose: 25 mg Documented by: Multivitamins/Minerals (Multivitamin W/ Minerals Tab) 1 tab PO QPM DEBBY Stop: 05/21/20 20:59 Last Admin: 04/22/20 20:19 Dose: 1 tab Documented by: Pantoprazole Sodium (Protonix) 40 mg PO QAM DEBBY Stop: 05/22/20 08:59 Last Admin: 04/23/20 09:14 Dose: 40 mg Documented by: Potassium Chloride (Klor-Con M20) 40 meq PO NOW STA Stop: 04/23/20 09:31
--- NOTE | 2020-04-23 14:28 | Nephrology Progress Note ---
Date of Service April 23, 2020 Assessment & Plan (1) Acute kidney injury superimposed on CKD: His baseline creatinine prior to early April admission was 1.4, last known value 08/2019. Creatinine during earlier April admission ran 1.5 through 1.7. Now presenting with creatinine 3.0 on April 21 after a few weeks with no diuretics and no KARISHMA inhibitor's and with florid volume overload. Standing weight April 22 is 79.7 kg. Down to 76.7 kg on April 23. -Agree with Lasix 80 mg IV twice daily to start: He had 3 doses of this. Today I lowered for evening dose to 40 mg IV twice daily 17 Continue 1.8 L fluid restriction Continue low-sodium diet and daily standing weights -Urinalysis bland; renal u/s with mild bilateral cortical scarring and no hydronephrosis (2) Cardiac volume overload: Now on standing Lasix along with fluid and sodium limits, daily standing weight -Monitor; clinically improving Care coordinated with Doctors Jaya and Merry Admission and Anticipated Discharge Date Admission Date: April 21, 2020 Subjective Thinks he is breathing better and that edema is improved. Voiding without issue. No p.o. intake worries Review of Systems Review of Systems: All systems reviewed & are unremarkable except as noted in HPI & below Physical Exam Constitutional: well developed, well nourished and cooperative; no acute distress On room air, maneuvers readily for exam Eyes: EOM intact bilaterally ENMT: Ears: no external ear abnormality Nose: no external nose abnormality Mouth: + dry oral mucous membranes Neck: no nuchal rigidity Respiratory: normal respiratory effort and able to speak in complete sentences; no labored breathing, does not use accessory muscles, no cough and expiratory phase not prolonged Auscultation: lungs clear to auscultation bilaterally and + diminished lung sounds Cardiovascular: Rate/Rhythm: regular rate and regular rhythm Extremities: + edema (2+ pretibial) Gastrointestinal (Abdomen): Inspection/Auscultation: normal bowel sounds Percussion/Palpation: abdomen soft; abdomen nontender Musculoskeletal: Extremities: strength 5/5 throughout Skin: no rashes, warm and dry Neurologic: Moves all extremities, fluent speech, no tremor Psychiatric: A+Ox3, euthymic affect Results & Data ([facility]) Vital Signs (Past 12 Hours) Vital Signs Temp Pulse Resp BP BP Pulse Ox 04/23/20 07:25 36.4 C L 63 18 102/60 92 04/23/20 03:03 36.4 C L 60 18 96/61 L 94 Laboratory Results 04/23/20 07:02 04/23/20 07:02
--- NOTE | 2020-04-23 16:04 | Cardiology Progress Note ---
Date of Service April 23, 2020 Assessment & Plan (1) Acute systolic (congestive) heart failure: (2) Status post placement of cardiac pacemaker: (3) Ischemic cardiomyopathy: (4) Tachycardia-bradycardia syndrome: (5) Atrial tachycardia: (6) Acute kidney injury superimposed on CKD: (7) Aortic valve regurgitation: (8) CAD (coronary artery disease): At this point, I could not be happier with his progress. He has diuresed over 4 L and his renal function is actually improved. Will defer further diuretic management to our nephrology colleagues. Electrolytes should be followed and repleted as necessary. Continue outpatient doses of amiodarone, metoprolol, atorvastatin, aspirin and Plavix. Okay to DC telemetry from a cardiac standpoint. Subjective Patient seen and examined, chart reviewed. He states he is feeling better today. He notes that his breathing has improved and his lower extremity edema has improved as well. Denies any chest pain, palpitations, lightheadedness, dizziness or syncope. Has diuresed over 4 L at this point. Review of Systems Review of Systems: All systems reviewed & are unremarkable except as noted in HPI & below Physical Exam Physical Exam: General: Awake, alert and oriented x 3. No acute distress. HEENT: Normocephalic, atraumatic. Pupils equal, round and reactive to light and accommodation. Extraocular muscles are intact. Anicteric sclera. Moist mucous membranes. Neck: No JVD. No bruit. Cardiovascular: Regular. Positive S-4. Normal S-1 and S-2. No S-3. 3/6 mid to late systolic ejection murmur, greatest at the right sternal border, second intercostal space with radiation to the bilateral carotids. No rubs. Pulmonary: Clear to auscultation bilaterally. No rales, rhonchi, or wheezing. Abdomen: Bowel sounds x 4, soft. No rebound, guarding or tenderness. No organomegaly. Extremities: No clubbing, cyanosis or edema. +2 pedal pulses bilaterally. Skin: Warm and dry. Results & Data Vital Signs (Past 12 Hours) Vital Signs Temp Pulse Pulse Resp BP Pulse Ox 04/23/20 15:53 60 04/23/20 07:25 36.4 C L 63 18 102/60 92 (1) Aortic valve regurgitation Cardiac valve disease etiology: nonrheumatic Qualified Code(s): I35.1 - Nonrheumatic aortic (valve) insufficiency
[2020-04-23] MEDS: FUROSEMIDE 40 MG in SYRINGE 0 ML IV SCH (17:58)
[2020-04-23 19:13] LABS: BUN Creatinine Ratio 26.2 (10-20); Calcium 8.3 mg/dl (8.5-10.1); Creatinine Clr Calc Pharmacy 18.8 ml/min; Est GFR (African American) 23.6; Est GFR (Non-African American) 20.3; Potassium 3.8 mmol/L (3.5-5.1)
[2020-04-23] MEDS: CALCIUM CARBONATE 1250MG TAB PO SCH (20:08)
[2020-04-23] MEDS: ATORVASTATIN 40 MG TAB PO SCH (20:08)
[2020-04-23] MEDS: CEROVITE ADV FORMULA TAB PO SCH (20:09)
--- NOTE | 2020-04-24 06:50 | Hospitalist Progress Note ---
Date of Service April 24, 2020 Assessment & Plan (1) Ischemic cardiomyopathy: (2) Acute systolic (congestive) heart failure: Patient presents after worsening dyspnea, weight gain, lower extremity edema. BNP elevated in the ED and chest x-ray suggestive of pulmonary congestion. 20 mg IV Lasix given in ED Follow weight closely, standing weights Closely follow I's and O's Fluid restricted and sodium restricted diet Started lasix 80 IV bid, patient diuresed well, and clinically much improved. Now decreased to Lasix to 40 IV twice daily. Follow BMP Patient diuresing well, current weight 74 kg, clinically much improved Replete electrolytes as needed Cardiology and nephrology input appreciated (3) CAD (coronary artery disease): H/o DC and PCI with bare metal stent to LAD. 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 Diuresing well. Creatinine down. Shortness of breath significantly improved. Patient continues to have some lower extremity edema. Denies fevers, chills, chest pain, abdominal pain, nausea or vomiting. He is inquiring about going home for Father's Day. Review of Systems Review of Systems: All systems reviewed & are unremarkable except as noted in HPI & below Constitutional: no fever and no chills Respiratory: no cough and no dyspnea Cardiovascular: + edema (LE b/l 1+ edema); no chest pain and no palpitations Gastrointestinal: no abdominal pain, no nausea and no vomiting Physical Exam Physical Exam: General Appearance: WD/WN, vitals as above, NAD, sitting up in bed, pleasant, conversing easily Head: normocephalic, atraumatic Eyes: normal inspection, PERRL, EOMI, conjunctivae normal, anicteric sclerae ENT: external ear and nose normal, oropharynx normal Neck: trachea midline, no thyromegaly, normal visual inspection Respiratory: normal respiratory effort, mild bibasilar crackles noted, no wheeze or rhonchi. Normal insp/exp effort, no accessory muscle use Cardiovascular: RRR, soft murmur appreciated, normal peripheral pulses,1+ b/l LE edema Chest: + pacemaker (incision is clean and dry) Abdomen/GI: normal bowel sounds, soft, nontender, nondistended Extremities/Musculoskeletal: no cyanosis or clubbing, extremities motor strength 5/5, moves extremities spontaneously Neurologic: PERRL, EOMI,no face palsy, no dysarthria, CN's II-XI intact bilaterally and moves all extremities Psychiatric: A+Ox3, euthymic affect Skin: no rashes, normal color, warm/dry Results & Data Results & Data ([facility]) Vital Signs (Past 12 Hours) Vital Signs Temp Pulse Pulse Pulse Resp BP BP 04/24/20 04:07 36.4 C L 66 18 104/60 04/24/20 00:00 63 04/23/20 23:43 36.5 C 63 19 112/72 Pulse Ox 04/24/20 04:07 91 04/24/20 00:00 04/23/20 23:43 93 Laboratory Results 04/24/20 04/23/20 Range/Units 06:20 18:25 Sodium 144 140 (136-145) mmol/L Potassium 3.5 3.8 (3.5-5.1) mmol/L Chloride 109 H 109 H (98-107) mmol/L Carbon Dioxide 28 22 (21-32) mmol/L Anion Gap 7.0 9.0 (3-11) BUN 72 H 72 H (7-18) mg/dl Creatinine 2.45 H 2.74 H (0.6-1.4) mg/dl Est Cr Clr Drug Dosing 21.0 18.8 ml/min Est GFR ( Amer) 27.0 23.6 Est GFR (Non-Af Amer) 23.3 20.3 BUN/Creatinine Ratio 29.3 H 26.2 H (10-20) Glucose 91 136 H (70-99) mg/dl Calcium 8.3 L 8.3 L (8.5-10.1) mg/dl Phosphorus 3.9 D (2.5-4.9) mg/dl Magnesium 2.4 (1.8-2.4) mg/dl NT-Pro-B Natriuret Pep 8019 H (0-1800) pg/ml Medications Administered Current Inpatient Medications Amiodarone HCl (Cordarone) 200 mg PO BID [facility] Stop: 05/21/20 20:59 Last Admin: 04/24/20 08:09 Dose: 200 mg Documented by: Aspirin (Ecotrin Ectab) 81 mg PO QAM [facility] Stop: 05/22/20 08:59 Last Admin: 04/24/20 08:10 Dose: 81 mg Documented by: Atorvastatin Calcium (Lipitor) 80 mg PO HS [facility] Stop: 05/21/20 20:59 Last Admin: 04/23/20 20:08 Dose: 80 mg Documented by: Calcium Carbonate (Os-Jan 500) 1,250 mg PO QPM [facility] Stop: 05/21/20 20:59 Last Admin: 04/23/20 20:08 Dose: 1,250 mg Documented by: Clopidogrel Bisulfate (Plavix) 75 mg PO QAM [facility] Stop: 05/22/20 08:59 Last Admin: 04/24/20 08:10 Dose: 75 mg Documented by: Furosemide 40 mg/ Syringe 4 mls @ 4 mls/min IV BID17 [facility] Stop: 05/23/20 16:59 Last Admin: 04/23/20 17:58 Dose: 4 mls/min Documented by: Metoprolol Succinate (Toprol Xl) 25 mg PO BID [facility] Stop: 05/21/20 20:59 Last Admin: 04/24/20 08:09 Dose: 25 mg Documented by: Multivitamins/Minerals (Multivitamin W/ Minerals Tab) 1 tab PO QPM [facility] Stop: 05/21/20 20:59 Last Admin: 04/23/20 20:09 Dose: 1 tab Documented by: Pantoprazole Sodium (Protonix) 40 mg PO QAM [facility] Stop: 05/22/20 08:59 Last Admin: 04/24/20 08:10 Dose: 40 mg Documented by: Potassium Chloride (Klor-Con M20) 40 meq PO NOW STA Stop: 04/24/20 09:30
[2020-04-24 07:22] LABS: BUN Creatinine Ratio 29.3 (10-20); Calcium 8.3 mg/dl (8.5-10.1); Est GFR (Non-African American) 23.3; Magnesium 2.4 mg/dl (1.8-2.4); Potassium 3.5 mmol/L (3.5-5.1)
[2020-04-24 07:29] LABS: Phosphorus 3.9 mg/dl (2.5-4.9)
[2020-04-24] MEDS: AMIODARONE 200 MG TAB PO SCH ×2 (08:09→21:37)
[2020-04-24] MEDS: METOPROLOL SUCC 25MG EXT REL TAB PO SCH ×2 (08:09→21:35)
[2020-04-24] MEDS: CLOPIDOGREL BISULFATE 75 MG TAB PO SCH (08:10)
[2020-04-24] MEDS: PANTOprazole 40 MG TAB PO SCH (08:10)
[2020-04-24] MEDS: ASPIRIN 81 MG ECTAB PO SCH (08:10)
--- NOTE | 2020-04-24 08:54 | Nephrology Progress Note ---
Date of Service April 24, 2020 Assessment & Plan (1) Acute kidney injury superimposed on CKD: His baseline creatinine prior to early April admission was 1.4, last known value 08/2019. Creatinine during earlier April admission ran 1.5 through 1.7. Presented 04/22 w/ creatinine 3.0 on April 21 after a few weeks with no diuretics and no KARISHMA inhibitor's and with florid volume overload. Standing weight April 22 is 79.7 kg. Down to 74 kg on April 24 w/ continued improvement in creatinine to 2.5. Urinalysis bland; renal u/s with mild bilateral cortical scarring and no hydronephrosis -continue 40 mg IV twice daily 17 -started bid K 20 mEq as well -daily bmp -would continue diuresis/in house monitoring until sCreat at least at about 2 if feasible Continue 1.8 L fluid restriction Continue low-sodium diet and daily standing weights (2) Cardiac volume overload: Now on standing Lasix along with fluid and sodium limits, daily standing weight -Monitor; clinically improving Admission and Anticipated Discharge Date Admission Date: April 21, 2020 Subjective feels a bit improved >> edema less tight; breathing unchanged but slept better; eating well; no voiding c/o; Review of Systems Review of Systems: All systems reviewed & are unremarkable except as noted in HPI & below Physical Exam Constitutional: well developed, well nourished and cooperative; no acute distress sitting in bed eating on Ra Eyes: EOM intact bilaterally ENMT: Ears: no external ear abnormality Nose: no external nose abnormality Mouth: + dry oral mucous membranes Neck: no nuchal rigidity Respiratory: normal respiratory effort and able to speak in complete sentences; no labored breathing, does not use accessory muscles, no cough and expiratory phase not prolonged Auscultation: + diminished lung sounds and + crackles (R basilar) Cardiovascular: Rate/Rhythm: regular rate and regular rhythm Extremities: + edema (2+ pretibial) Gastrointestinal (Abdomen): Inspection/Auscultation: normal bowel sounds Percussion/Palpation: abdomen soft; abdomen nontender Musculoskeletal: Extremities: strength 5/5 throughout Skin: no rashes, warm and dry Neurologic: rosa, fluent speech, no tremor Psychiatric: A+Ox3, euthymic affect Results & Data ([facility]) Vital Signs (Past 12 Hours) Vital Signs Temp Pulse Pulse Pulse Resp BP BP 06/20/20 08:24 60 04/24/20 07:33 36.9 C 60 18 104/62 04/24/20 04:07 36.4 C L 66 18 104/60 04/24/20 00:00 63 04/23/20 23:43 36.5 C 63 19 112/72 Pulse Ox 04/24/20 08:24 04/24/20 07:33 91 04/24/20 04:07 91 04/24/20 00:00 04/23/20 23:43 93 Laboratory Results 04/23/20 07:02 04/24/20 06:20
[2020-04-24] MEDS ORDERED: POTASSIUM CHLORIDE 20 MEQ TABCR PO STA (09:29)
[2020-04-24] MEDS: FUROSEMIDE 40 MG in SYRINGE 0 ML IV SCH ×2 (09:35→16:37)
--- NOTE | 2020-04-24 12:44 | Cardiology Progress Note ---
Date of Service April 24, 2020 Assessment & Plan (1) Acute systolic (congestive) heart failure: (2) Status post placement of cardiac pacemaker: (3) Ischemic cardiomyopathy: (4) Tachycardia-bradycardia syndrome: (5) Atrial tachycardia: (6) Acute kidney injury superimposed on CKD: (7) Aortic valve regurgitation: (8) CAD (coronary artery disease): The patient continues to do well. Still has some fluid on board and needs additional diuresis. Subjective No new cardiac complaints today. Review of Systems Review of Systems: All systems reviewed & are unremarkable except as noted in HPI & below Nothing additional to add. Physical Exam Physical Exam: General: no acute distress and stated age Head: normocephalic, no masses, lesions, tenderness or abnormalities Eyes: conjunctiva are pink and non-injected, sclera clear Neck: supple, no adenopathy, no bruits, normal jugular venous pulse, no hepatojugular reflux Chest: normal shape and normal respiratory effort Lungs: clear to auscultation and percussion Cardiac Exam: - regular rate & rhythm, no murmurs gallops or rubs - normal S1, normal S2 Pulses: 2(+) throughout Abdomen: abdomen soft, non-tender, no abnormal masses and no hepatosplenomegaly Musculoskeletal: no gait disturbance, no joint inflammation, no deforming arthritis Extremities: Still has some edema of the calves bilaterally. Neuro: grossly normal exam Results & Data Vital Signs (Past 12 Hours) Vital Signs Temp Pulse Pulse Resp BP BP Pulse Ox 04/24/20 11:22 36.6 C 90 18 104/71 92 04/24/20 08:24 60 04/24/20 07:33 36.9 C 60 18 104/62 91 04/24/20 04:07 36.4 C L 66 18 104/60 91 Laboratory Results Laboratory Results - last 24 hr 04/23/20 04/24/20 18:25 06:20 Sodium 140 144 Potassium 3.8 3.5 Chloride 109 H 109 H Carbon Dioxide 22 28 Anion Gap 9.0 7.0 BUN 72 H 72 H Creatinine 2.74 H 2.45 H Est Cr Clr Drug Dosing 18.8 21.0 Est GFR ( Amer) 23.6 27.0 Est GFR (Non-Af Amer) 20.3 23.3 BUN/Creatinine Ratio 26.2 H 29.3 H Glucose 136 H 91 Calcium 8.3 L 8.3 L Phosphorus 3.9 D Magnesium 2.4 NT-Pro-B Natriuret Pep 8019 H Medications Administered Current Inpatient Medications Amiodarone HCl (Cordarone) 200 mg PO BID [facility] Stop: 05/21/20 20:59 Last Admin: 04/24/20 08:09 Dose: 200 mg Documented by: Aspirin (Ecotrin Ectab) 81 mg PO QAM [facility] Stop: 05/22/20 08:59 Last Admin: 04/24/20 08:10 Dose: 81 mg Documented by: Atorvastatin Calcium (Lipitor) [address] [facility] Stop: 05/21/20 20:59 Last Admin: 04/23/20 20:08 Dose: 80 mg Documented by: Calcium Carbonate (Os-Jan 500) 1,250 mg PO QPM [facility] Stop: 05/21/20 20:59 Last Admin: 04/23/20 20:08 Dose: 1,250 mg Documented by: Clopidogrel Bisulfate (Plavix) [address] [facility] Stop: 05/22/20 08:59 Last Admin: 04/24/20 08:10 Dose: 75 mg Documented by: Furosemide 40 mg/ Syringe 4 mls @ 4 mls/min IV BID17 [facility] Stop: 05/23/20 16:59 Last Admin: 04/24/20 09:35 Dose: 4 mls/min Documented by: Metoprolol Succinate (Toprol Xl) 25 mg PO BID [facility] Stop: 05/21/20 20:59 Last Admin: 04/24/20 08:09 Dose: 25 mg Documented by: Multivitamins/Minerals (Multivitamin W/ Minerals Tab) 1 tab PO QPM [facility] Stop: 05/21/20 20:59 Last Admin: 04/23/20 20:09 Dose: 1 tab Documented by: Pantoprazole Sodium (Protonix) [address] [facility] Stop: 05/22/20 08:59 Last Admin: 04/24/20 08:10 Dose: 40 mg Documented by: (1) Aortic valve regurgitation Cardiac valve disease etiology: nonrheumatic Qualified Code(s): I35.1 - Nonrheumatic aortic (valve) insufficiency
[2020-04-24] MEDS: POTASSIUM CHLORIDE 20 MEQ TABCR PO SCH (21:34)
[2020-04-24] MEDS: CEROVITE ADV FORMULA TAB PO SCH (21:35)
[2020-04-24] MEDS: ATORVASTATIN 40 MG TAB PO SCH (21:36)
[2020-04-24] MEDS: CALCIUM CARBONATE 1250MG TAB PO SCH (21:36)
[2020-04-25 07:20] LABS: BUN Creatinine Ratio 27.6 (10-20); Calcium 8.5 mg/dl (8.5-10.1); Creatinine Clr Calc Pharmacy 23.3 ml/min; Est GFR (African American) 30.6; Est GFR (Non-African American) 26.4; Magnesium 2.2 mg/dl (1.8-2.4); Potassium 3.8 mmol/L (3.5-5.1)
[2020-04-25 07:21] LABS: Phosphorus 3.7 mg/dl (2.5-4.9)
[2020-04-25] MEDS ORDERED: POTASSIUM CHLORIDE 20 MEQ TABCR PO STA (08:01)
--- NOTE | 2020-04-25 08:03 | Hospitalist Progress Note ---
Date of Service April 25, 2020 Assessment & Plan (1) Ischemic cardiomyopathy: (2) Acute systolic (congestive) heart failure: Patient presents after worsening dyspnea, weight gain, lower extremity edema. BNP elevated in the ED and chest x-ray suggestive of pulmonary congestion. 20 mg IV Lasix given in ED Follow weight closely, standing weights Closely follow I's and O's Fluid restricted and sodium restricted diet Started lasix 80 IV bid, patient diuresed well, and clinically much improved. Now decreased to Lasix to 40 IV twice daily. Patient continues to respond well to diuresis. Will continue for now, plan to switch to p.o. diuresis in the next 24 to 48 hours. Follow BMP Replete electrolytes as needed Cardiology and nephrology input appreciated (3) CAD (coronary artery disease): H/o [place] and PCI with bare metal stent to LAD. 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 Diuresing well. Creatinine down. Shortness of breath resolved. Patient continues to have some lower extremity edema. Denies fevers, chills, chest pain, abdominal pain, nausea or vomiting. Review of Systems Review of Systems: All systems reviewed & are unremarkable except as noted in HPI & below Constitutional: no fever and no chills Respiratory: no cough and no dyspnea Cardiovascular: + edema (LE b/l trace + edema); no chest pain and no palpitations Gastrointestinal: no abdominal pain, no nausea and no vomiting Physical Exam Physical Exam: General Appearance: WD/WN, vitals as above, NAD, sitting up in bed, pleasant, conversing easily Head: normocephalic, atraumatic Eyes: normal inspection, PERRL, EOMI, conjunctivae normal, anicteric sclerae ENT: external ear and nose normal, oropharynx normal Neck: trachea midline, no thyromegaly, normal visual inspection Respiratory: normal respiratory effort, mild bibasilar crackles noted, no wheeze or rhonchi. Normal insp/exp effort, no accessory muscle use Cardiovascular: RRR, soft murmur appreciated, normal peripheral pulses, + trace b/l LE edema Chest: + pacemaker (incision is clean and dry) Abdomen/GI: normal bowel sounds, soft, nontender, nondistended Extremities/Musculoskeletal: no cyanosis or clubbing, extremities motor strength 5/5, moves extremities spontaneously Neurologic: PERRL, EOMI,no face palsy, no dysarthria, CN's II-XI intact bilaterally and moves all extremities Psychiatric: A+Ox3, euthymic affect Skin: no rashes, normal color, warm/dry Results & Data Results & Data ([facility]) Vital Signs (Past 12 Hours) Vital Signs Temp Pulse Resp BP BP Pulse Ox 04/25/20 07:24 37.0 C 78 18 117/73 94 04/25/20 03:34 36.8 C 64 18 118/77 95 04/25/20 00:25 36.5 C 62 18 94/57 L 93 Laboratory Results 04/25/20 Range/Units 06:13 Sodium 144 (136-145) mmol/L Potassium 3.8 (3.5-5.1) mmol/L Chloride 108 H (98-107) mmol/L Carbon Dioxide 29 (21-32) mmol/L Anion Gap 6.0 (3-11) BUN 61 H (7-18) mg/dl Creatinine 2.21 H (0.6-1.4) mg/dl Est Cr Clr Drug Dosing 23.3 ml/min Est GFR ( Amer) 30.6 Est GFR (Non-Af Amer) 26.4 BUN/Creatinine Ratio 27.6 H (10-20) Glucose 95 (70-99) mg/dl Calcium 8.5 (8.5-10.1) mg/dl Phosphorus 3.7 (2.5-4.9) mg/dl Magnesium 2.2 (1.8-2.4) mg/dl Medications Administered Current Inpatient Medications Amiodarone HCl (Cordarone) 200 mg PO BID [facility] Stop: 05/21/20 20:59 Last Admin: 04/24/20 21:37 Dose: 200 mg Documented by: Aspirin (Ecotrin Ectab) 81 mg PO QAM [facility] Stop: 05/22/20 08:59 Last Admin: 04/24/20 08:10 Dose: 81 mg Documented by: Atorvastatin Calcium (Lipitor) 80 mg PO HS [facility] Stop: 05/21/20 20:59 Last Admin: 04/24/20 21:36 Dose: 80 mg Documented by: Calcium Carbonate (Os-Jan 500) 1,250 mg PO QPM [facility] Stop: 05/21/20 20:59 Last Admin: 04/24/20 21:36 Dose: 1,250 mg Documented by: Clopidogrel Bisulfate (Plavix) 75 mg PO QAM [facility] Stop: 05/22/20 08:59 Last Admin: 04/24/20 08:10 Dose: 75 mg Documented by: Furosemide 40 mg/ Syringe 4 mls @ 4 mls/min IV BID17 [facility] Stop: 05/24/20 16:59 Last Admin: 04/24/20 16:37 Dose: 4 mls/min Documented by: Metoprolol Succinate (Toprol Xl) 25 mg PO BID [facility] Stop: 05/21/20 20:59 Last Admin: 04/24/20 21:35 Dose: 25 mg Documented by: Multivitamins/Minerals (Multivitamin W/ Minerals Tab) 1 tab PO QPM [facility] Stop: 05/21/20 20:59 Last Admin: 04/24/20 21:35 Dose: 1 tab Documented by: Pantoprazole Sodium (Protonix) 40 mg PO QAM [facility] Stop: 05/22/20 08:59 Last Admin: 04/24/20 08:10 Dose: 40 mg Documented by: Potassium Chloride (Klor-Con M20) 20 meq PO BID [facility] Stop: 05/24/20 20:59 Last Admin: 04/24/20 21:34 Dose: 20 meq Documented by:
[2020-04-25] MEDS: CLOPIDOGREL BISULFATE 75 MG TAB PO SCH (08:24)
[2020-04-25] MEDS: ASPIRIN 81 MG ECTAB PO SCH (08:24)
[2020-04-25] MEDS: FUROSEMIDE 40 MG in SYRINGE 0 ML IV SCH ×2 (08:25→16:26)
[2020-04-25] MEDS: AMIODARONE 200 MG TAB PO SCH ×2 (08:25→20:36)
[2020-04-25] MEDS: PANTOprazole 40 MG TAB PO SCH (08:25)
[2020-04-25] MEDS: METOPROLOL SUCC 25MG EXT REL TAB PO SCH ×2 (08:25→20:37)
[2020-04-25] MEDS: POTASSIUM CHLORIDE 20 MEQ TABCR PO SCH ×2 (08:25→20:37)
--- NOTE | 2020-04-25 11:22 | Nephrology Progress Note ---
Date of Service April 25, 2020 Assessment & Plan (1) Acute kidney injury superimposed on CKD: His baseline creatinine prior to early April admission was 1.4, last known value 08/2019. Creatinine during earlier April admission ran 1.5 through 1.7. Presented 04/22 w/ creatinine 3.0 on April 21 after a few weeks with no diuretics and no KARISHMA inhibitor's and with florid volume overload. Standing weight April 22 is 79.7 kg. Down to 73.4 kg on April 25 w/ continued improvement in creatinine to 2.2. Urinalysis bland; renal u/s with mild bilateral cortical scarring and no hydronephrosis -continue 40 mg IV twice daily 17 > may be able to transition to po diuretics next 24-48 hr >> recommend trial at that time of torsemide 10 mg daily if cardiology agrees -started bid K 20 mEq as well -daily bmp -would continue IV diuresis/in house monitoring until sCreat at least at about 2 if feasible Continue 1.8 L fluid restriction Continue low-sodium diet and daily standing weights (2) Cardiac volume overload: Now on standing Lasix along with fluid and sodium limits, daily standing weight -Monitor; clinically improving Care coordinated w/ Dr Sousa Admission and Anticipated Discharge Date Admission Date: April 21, 2020 Subjective eating well; edema furthe rimproved; no voiding c/o; anxious for d/c and for family update Review of Systems Review of Systems: All systems reviewed & are unremarkable except as noted in HPI & below Physical Exam Constitutional: well developed, well nourished and cooperative; no acute distress on RA maneuvers readily for exam Eyes: EOM intact bilaterally ENMT: Ears: no external ear abnormality Nose: no external nose abnormality Mouth: + dry oral mucous membranes Neck: no nuchal rigidity Respiratory: normal respiratory effort and able to speak in complete sentences; no labored breathing, does not use accessory muscles, no cough and expiratory phase not prolonged Auscultation: lungs clear to auscultation bilaterally and + diminished lung sounds Cardiovascular: Rate/Rhythm: regular rate and regular rhythm Extremities: + edema (2+ pretibial but less taut) Gastrointestinal (Abdomen): Inspection/Auscultation: normal bowel sounds Percussion/Palpation: abdomen soft; abdomen nontender Musculoskeletal: Extremities: strength 5/5 throughout Skin: no rashes, warm and dry Neurologic: rosa, fluent speech, no tremor Psychiatric: A+Ox3, euthymic affect Results & Data ([facility]) Vital Signs (Past 12 Hours) Vital Signs Temp Pulse Pulse Resp BP BP Pulse Ox 04/25/20 08:45 62 04/25/20 07:24 37.0 C 78 18 117/73 94 04/25/20 03:34 36.8 C 64 18 118/77 95 04/25/20 00:25 36.5 C 62 18 94/57 L 93 Laboratory Results 04/23/20 07:02 04/25/20 06:13
[2020-04-25] MEDS: ATORVASTATIN 40 MG TAB PO SCH (20:38)
[2020-04-25] MEDS: CEROVITE ADV FORMULA TAB PO SCH (20:38)
[2020-04-25] MEDS: CALCIUM CARBONATE 1250MG TAB PO SCH (20:39)
[2020-04-26] MEDS: CLOPIDOGREL BISULFATE 75 MG TAB PO SCH (08:20)
[2020-04-26] MEDS: ASPIRIN 81 MG ECTAB PO SCH (08:20)
[2020-04-26] MEDS: FUROSEMIDE 40 MG in SYRINGE 0 ML IV SCH ×2 (08:20→16:53)
[2020-04-26] MEDS: PANTOprazole 40 MG TAB PO SCH (08:21)
[2020-04-26] MEDS: POTASSIUM CHLORIDE 20 MEQ TABCR PO SCH ×2 (08:21→20:14)
[2020-04-26] MEDS: METOPROLOL SUCC 25MG EXT REL TAB PO SCH ×2 (08:21→20:14)
[2020-04-26] MEDS: AMIODARONE 200 MG TAB PO SCH ×2 (08:21→20:14)
[2020-04-26 08:36] LABS: BUN Creatinine Ratio 25.3 (10-20); Calcium 8.7 mg/dl (8.5-10.1); Creatinine Clr Calc Pharmacy 24.4 ml/min; Est GFR (African American) 32.3; Est GFR (Non-African American) 27.9; Magnesium 2.4 mg/dl (1.8-2.4); Potassium 4.1 mmol/L (3.5-5.1)
--- NOTE | 2020-04-26 09:46 | Hospitalist Progress Note ---
Date of Service April 26, 2020 Assessment & Plan (1) Ischemic cardiomyopathy: (2) Acute systolic (congestive) heart failure: Patient presents after worsening dyspnea, weight gain, lower extremity edema. BNP elevated in the ED and chest x-ray suggestive of pulmonary congestion. 20 mg IV Lasix given in ED Follow weight closely, standing weights Closely follow I's and O's Fluid restricted and sodium restricted diet Started lasix 80 IV bid, patient diuresed well, and clinically much improved. Now decreased to Lasix to 40 IV twice daily. Patient continues to respond well to diuresis. Will continue for now, plan to switch to p.o. diuresis in the next 24 to 48 hours. Follow BMP Replete electrolytes as needed Cardiology and nephrology input appreciated (3) CAD (coronary artery disease): H/o [place] and PCI with bare metal stent to LAD. 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 Diuresing well. Creatinine continues to improve. Shortness of breath resolved. Patient continues to have only trace lower extremity edema, improved. Denies fevers, chills, chest pain, abdominal pain, nausea or vomiting. Patient ambulating in hallways, PT eval recommends return to home. Review of Systems Review of Systems: All systems reviewed & are unremarkable except as noted in HPI & below Constitutional: no fever and no chills Respiratory: no cough and no dyspnea Cardiovascular: + edema (LE b/l trace + edema (much improved)); no chest pain and no palpitations Gastrointestinal: no abdominal pain, no nausea and no vomiting Physical Exam Physical Exam: General Appearance: Elderly male, WD/WN, vitals as above, NAD, sitting up in bed, pleasant, conversing easily Head: normocephalic, atraumatic Eyes: normal inspection, PERRL, EOMI, conjunctivae normal, anicteric sclerae ENT: external ear and nose normal, oropharynx normal Neck: trachea midline, no thyromegaly, normal visual inspection Respiratory: normal respiratory effort, good air movement, mild bibasilar crackles noted, no wheeze or rhonchi. Normal insp/exp effort, no accessory muscle use Cardiovascular: RRR, soft murmur appreciated, normal peripheral pulses, + trace b/l LE edema (much improved) Chest: + pacemaker (incision is clean and dry) Abdomen/GI: normal bowel sounds, soft, nontender, nondistended Extremities/Musculoskeletal: no cyanosis or clubbing, extremities motor strength 5/5, moves extremities spontaneously Neurologic: PERRL, EOMI,no face palsy, no dysarthria, CN's II-XI intact bilaterally and moves all extremities Psychiatric: A+Ox3, euthymic affect Skin: no rashes, normal color, warm/dry Results & Data Results & Data ([facility]) Vital Signs (Past 12 Hours) Vital Signs Temp Pulse Pulse Resp BP Pulse Ox 04/26/20 07:54 60 04/26/20 07:13 36.7 C 58 L 18 112/69 94 04/26/20 03:05 36.7 C 62 18 99/65 L 94 04/25/20 23:38 36.4 C L 65 20 103/68 94 Laboratory Results 04/26/20 Range/Units 07:59 Sodium 143 (136-145) mmol/L Potassium 4.1 (3.5-5.1) mmol/L Chloride 109 H (98-107) mmol/L Carbon Dioxide 27 (21-32) mmol/L Anion Gap 6.0 (3-11) BUN 53 H (7-18) mg/dl Creatinine 2.11 H (0.6-1.4) mg/dl Est Cr Clr Drug Dosing 24.4 ml/min Est GFR ( Amer) 32.3 Est GFR (Non-Af Amer) 27.9 BUN/Creatinine Ratio 25.3 H (10-20) Glucose 99 (70-99) mg/dl Calcium 8.7 (8.5-10.1) mg/dl Magnesium 2.4 (1.8-2.4) mg/dl NT-Pro-B Natriuret Pep 7453 H (0-1800) pg/ml Medications Administered Current Inpatient Medications Amiodarone HCl (Cordarone) 200 mg PO BID [facility] Stop: 05/21/20 20:59 Last Admin: 04/26/20 08:21 Dose: 200 mg Documented by: Aspirin (Ecotrin Ectab) 81 mg PO QAM [facility] Stop: 05/22/20 08:59 Last Admin: 04/26/20 08:20 Dose: 81 mg Documented by: Atorvastatin Calcium (Lipitor) 80 mg PO HS [facility] Stop: 05/21/20 20:59 Last Admin: 04/25/20 20:38 Dose: 80 mg Documented by: Calcium Carbonate (Os-Jan 500) 1,250 mg PO QPM [facility] Stop: 05/21/20 20:59 Last Admin: 04/25/20 20:39 Dose: 1,250 mg Documented by: Clopidogrel Bisulfate (Plavix) 75 mg PO QAM [facility] Stop: 05/22/20 08:59 Last Admin: 04/26/20 08:20 Dose: 75 mg Documented by: Furosemide 40 mg/ Syringe 4 mls @ 4 mls/min IV BID17 [facility] Stop: 05/24/20 16:59 Last Admin: 04/26/20 08:20 Dose: 4 mls/min Documented by: Metoprolol Succinate (Toprol Xl) 25 mg PO BID [facility] Stop: 05/21/20 20:59 Last Admin: 04/26/20 08:21 Dose: 25 mg Documented by: Multivitamins/Minerals (Multivitamin W/ Minerals Tab) 1 tab PO QPM [facility] Stop: 05/21/20 20:59 Last Admin: 04/25/20 20:38 Dose: 1 tab Documented by: Pantoprazole Sodium (Protonix) 40 mg PO QAM [facility] Stop: 05/22/20 08:59 Last Admin: 04/26/20 08:21 Dose: 40 mg Documented by: Potassium Chloride (Klor-Con M20) 20 meq PO BID [facility] Stop: 05/24/20 20:59 Last Admin: 04/26/20 08:21 Dose: 20 meq Documented by:
--- NOTE | 2020-04-26 12:50 | Progress Notes ---
DATE: 04/26/2020 NEPHROLOGY PROGRESS NOTE SUBJECTIVE: Overnight, the patient continues to diurese well. His breathing is improving, but he still has some edema. Urine output was 2800 mL yesterday. No other symptoms noted. PHYSICAL EXAMINATION: GENERAL: Elderly white male who actually looks fairly good for his age and looks younger than his age. VITAL SIGNS: Blood pressure 102/66, pulse rate 57, temperature 36.4, 90% on room air. HEENT: Mucous membranes moist. NECK: Supple. No jugular venous distention. CHEST: Bilaterally clear to auscultation. CARDIOVASCULAR: S1, S2 regular. ABDOMEN: Soft, nontender. EXTREMITIES: Show 1+ edema, pitting type. LABORATORY TEST: From this morning was reviewed in detail. Sodium 143, potassium 4.1, chloride 109, BUN 53, creatinine is 2.11, calcium 8.7, magnesium 2.4. BNP 7453. ASSESSMENT AND PLAN: Acute kidney injury on superimposed chronic kidney disease. His baseline creatinine prior to few months ago was 1.4 but that was almost a year ago. He may have a new baseline at this time. The goal of the treatment going forward should be strictly to make him edema free, which I think can be achieved. Renal function has remained stable to slightly better despite very good diuresis. We can continue the IV Lasix today and change to Lasix 40 twice daily from tomorrow and can be continued as an outpatient. I would rather see him with a slightly higher creatinine and better volume status than otherwise. Thank you very much. Case was discussed with primary team.
[2020-04-26] MEDS: ATORVASTATIN 40 MG TAB PO SCH (20:14)
[2020-04-26] MEDS: CALCIUM CARBONATE 1250MG TAB PO SCH (20:14)
[2020-04-26] MEDS: CEROVITE ADV FORMULA TAB PO SCH (20:14)
[2020-04-27 07:30] LABS: BUN Creatinine Ratio 24.3 (10-20); Calcium 8.3 mg/dl (8.5-10.1); Creatinine Clr Calc Pharmacy 25.8 ml/min; Est GFR (African American) 34.7; Est GFR (Non-African American) 29.9; Potassium 4.1 mmol/L (3.5-5.1)
--- NOTE | 2020-04-27 07:37 | Hospitalist Progress Note ---
Date of Service April 27, 2020 Assessment & Plan (1) Ischemic cardiomyopathy: (2) Acute systolic (congestive) heart failure: Patient presents after worsening dyspnea, weight gain, lower extremity edema. BNP elevated in the ED and chest x-ray suggestive of pulmonary congestion. 20 mg IV Lasix given in ED Follow weight closely, standing weights Closely follow I's and O's Fluid restricted and sodium restricted diet Started lasix 80 IV bid, patient diuresed well, and clinically much improved. Now decreased to Lasix to 40 IV twice daily. Patient continues to respond well to diuresis. Will continue for now, plan to switch to p.o. diuretics -discharged on 40 mg twice a day. Follow BMP Replete electrolytes as needed Cardiology and nephrology input appreciated We will discharge patient on 40 mg of furosemide twice a day. Cardiology appointment rescheduled to May 04. Patient should follow-up with PCP on April 30, at that time BMP should be obtained. Cardiology PA ordered BMP for the patient. (3) CAD (coronary artery disease): H/o [place] and PCI with bare metal stent to LAD. 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 Diuresing well. Creatinine continues to improve. Shortness of breath resolved. Patient continues to have only trace lower extremity edema, improved. Denies fevers, chills, chest pain, abdominal pain, nausea or vomiting. Patient ambulating in hallways, PT eval recommends return to home. Review of Systems Review of Systems: All systems reviewed & are unremarkable except as noted in HPI & below Constitutional: no fever and no chills Respiratory: no cough and no dyspnea Cardiovascular: + edema (LE b/l trace + edema (much improved)); no chest pain and no palpitations Gastrointestinal: no abdominal pain, no nausea and no vomiting Physical Exam Physical Exam: General Appearance: Elderly male, WD/WN, vitals as above, NAD, sitting up in bed, pleasant, conversing easily Head: normocephalic, atraumatic Eyes: normal inspection, PERRL, EOMI, conjunctivae normal, anicteric sclerae ENT: external ear and nose normal, oropharynx normal Neck: trachea midline, no thyromegaly, normal visual inspection Respiratory: normal respiratory effort, good air movement, mild bibasilar crackles noted, no wheeze or rhonchi. Normal insp/exp effort, no accessory muscle use Cardiovascular: RRR, soft murmur appreciated, normal peripheral pulses, + trace b/l LE edema (much improved) Chest: + pacemaker (incision is clean and dry) Abdomen/GI: normal bowel sounds, soft, nontender, nondistended Extremities/Musculoskeletal: no cyanosis or clubbing, extremities motor strength 5/5, moves extremities spontaneously Neurologic: PERRL, EOMI,no face palsy, no dysarthria, CN's II-XI intact bilaterally and moves all extremities Psychiatric: A+Ox3, euthymic affect Skin: no rashes, normal color, warm/dry Results & Data Results & Data ([facility]) Vital Signs (Past 12 Hours) Vital Signs Temp Pulse Pulse Resp BP BP Pulse Ox 04/27/20 07:27 60 04/27/20 07:05 36.5 C 62 20 119/65 95 04/27/20 03:09 36.5 C 73 18 116/64 95 04/26/20 23:51 91 H 04/26/20 23:21 36.4 C L 94 H 18 112/75 96 04/26/20 19:37 36.5 C 66 19 110/65 91 Laboratory Results 04/27/20 04/26/20 Range/Units 06:48 07:59 Sodium 145 143 (136-145) mmol/L Potassium 4.1 4.1 (3.5-5.1) mmol/L Chloride 109 H 109 H (98-107) mmol/L Carbon Dioxide 30 27 (21-32) mmol/L Anion Gap 5.0 6.0 (3-11) BUN 48 H 53 H (7-18) mg/dl Creatinine 1.99 H 2.11 H (0.6-1.4) mg/dl Est Cr Clr Drug Dosing 25.8 24.4 ml/min Est GFR ( Amer) 34.7 32.3 Est GFR (Non-Af Amer) 29.9 27.9 BUN/Creatinine Ratio 24.3 H 25.3 H (10-20) Glucose 92 99 (70-99) mg/dl Calcium 8.3 L 8.7 (8.5-10.1) mg/dl Magnesium 2.4 (1.8-2.4) mg/dl NT-Pro-B Natriuret Pep 7453 H (0-1800) pg/ml Medications Administered Current Inpatient Medications Amiodarone HCl (Cordarone) 200 mg PO BID [facility] Stop: 05/21/20 20:59 Last Admin: 04/26/20 20:14 Dose: 200 mg Documented by: Aspirin (Ecotrin Ectab) 81 mg PO QAM [facility] Stop: 05/22/20 08:59 Last Admin: 04/26/20 08:20 Dose: 81 mg Documented by: Atorvastatin Calcium (Lipitor) 80 mg PO [facility] Stop: 05/21/20 20:59 Last Admin: 04/26/20 20:14 Dose: 80 mg Documented by: Calcium Carbonate (Os-Jan 500) 1,250 mg PO QPM [facility] Stop: 05/21/20 20:59 Last Admin: 04/26/20 20:14 Dose: 1,250 mg Documented by: Clopidogrel Bisulfate (Plavix) 75 mg PO QAM [facility] Stop: 05/22/20 08:59 Last Admin: 04/26/20 08:20 Dose: 75 mg Documented by: Furosemide 40 mg/ Syringe 4 mls @ 4 mls/min IV BID17 [facility] Stop: 05/24/20 16:59 Last Admin: 04/26/20 16:53 Dose: 4 mls/min Documented by: Metoprolol Succinate (Toprol Xl) 25 mg PO BID [facility] Stop: 05/21/20 20:59 Last Admin: 04/26/20 20:14 Dose: 25 mg Documented by: Multivitamins/Minerals (Multivitamin W/ Minerals Tab) 1 tab PO QPM [facility] Stop: 05/21/20 20:59 Last Admin: 04/26/20 20:14 Dose: 1 tab Documented by: Pantoprazole Sodium (Protonix) 40 mg PO QAM [facility] Stop: 05/22/20 08:59 Last Admin: 04/26/20 08:21 Dose: 40 mg Documented by: Potassium Chloride (Klor-Con M20) 20 meq PO BID [facility] Stop: 05/24/20 20:59 Last Admin: 04/26/20 20:14 Dose: 20 meq Documented by:
[2020-04-27] MEDS: FUROSEMIDE 40 MG in SYRINGE 0 ML IV SCH ×2 (09:18→16:18)
[2020-04-27] MEDS: ASPIRIN 81 MG ECTAB PO SCH (09:19)
[2020-04-27] MEDS: AMIODARONE 200 MG TAB PO SCH (09:19)
[2020-04-27] MEDS: POTASSIUM CHLORIDE 20 MEQ TABCR PO SCH (09:19)
[2020-04-27] MEDS: PANTOprazole 40 MG TAB PO SCH (09:19)
[2020-04-27] MEDS: METOPROLOL SUCC 25MG EXT REL TAB PO SCH (09:19)
[2020-04-27] MEDS: CLOPIDOGREL BISULFATE 75 MG TAB PO SCH (09:19)
--- NOTE | 2020-04-27 11:31 | Progress Notes ---
DATE: 04/27/2020 SUBJECTIVE: The patient continues to get better. His edema is even less than yesterday. He is making urine and very eager to go home. OBJECTIVE: VITAL SIGNS: Blood pressure 119/65, temperature 36.5 degrees Celsius, 95% on room air, pulse rate 60. HEENT: Mucous membrane moist. NECK: Supple. No jugular venous distention. CHEST: Bilateral clear to auscultation. CARDIOVASCULAR: S1, S2, regular. ABDOMEN: Soft, nontender. EXTREMITIES: Shows trace edema. LABORATORY TESTS: From this morning was reviewed in detail. Creatinine is even better than yesterday and is now down to 1.99, BUN is down to 48. Sodium 145, potassium 4.1. Hemoglobin was 12.2. ASSESSMENT AND PLAN: Acute kidney injury on superimposed chronic kidney disease. His baseline creatinine few months ago was 1.4, but that was almost a year ago. He may have a new baseline at this time. Given that creatinine is still trending down, we do not know how much improvement he will have in the coming days. He has had good diuresis and with that he feels dramatically better. We can stop the IV Lasix today and change to Lasix 40 mg twice daily oral and this can be continued for discharge. He will need to be seen by PCP/Cardiology/Nephrology and should have a blood work done within the next few days to further adjust the dose of diuretics. I would rather see him on the dry side even at the expense of slightly higher creatinine.
--- NOTE | 2020-04-27 15:49 | Discharge Summary ---
Date of Service April 27, 2020 Admission HPI Per Admitting Provider This is an 84-year-old male with a PMH of ischemic cardiomyopathy, sinus bradycardia, CAD (s/p stent to LAD), PVD, aortic regurgitation, HTN, s/p repair of thoracic aortic aneurysm who was recently admitted to the hospital for tachycardiabradycardia syndrome and underwent pacemaker placement. At that time he was also treated for atrial tachycardia, and started on amiodarone. He was also treated for EDILSON on CKD, creatinine on discharge was 1.7. Patient at that time did not have a PCP, and therefore new PCP appointment was arranged for the patient, patient also followed up with cardiology. Due to low blood pres sures and EDILSON, diuretics were held during last admission, and were supposed to be restarted per PCP/cardiology. Patient followed-up with cardiology and had his BMP rechecked, and found to have creatinine elevated at 3. Patient also continues to have dyspnea, and somewhat increased lower extremity edema. Due to abnormal labs he was sent to emergency room for further evaluation and treatment. In ED, BNP was elevated and chest x- ray suggestive of pulmonary congestion, patient received 20 mg of IV Lasix. Patient has been having dyspnea for past several weeks however since he left the hospital, he says that he was having trouble sleeping as well. Seems as laying down was more difficult for the patient/having orthopnea symptoms. When I asked him about checking his weight, patient says that he does not check his weight on daily basis. Patient did have his pacemaker checked as outpt, and that seems to be working properly. Currently patient is sitting up in bed, in no acute distress, breathing on room air. Denies any chest pain, fevers, chills, cough, abdominal pain, nausea or vomiting. He also denies any headache, dizziness or lightheadedness. Admission Exam Per Admitting Provider General Appearance: WD/WN, vitals as above, NAD, sitting up in bed, pleasant, conversing easily Head: normocephalic, atraumatic Eyes: normal inspection, PERRL, EOMI, conjunctivae normal, anicteric sclerae ENT: external ear and nose normal, oropharynx normal Neck: trachea midline, no thyromegaly, normal visual inspection Respiratory: normal respiratory effort, mild bibasilar crackles noted, no wheeze or rhonchi. Normal insp/exp effort, no accessory muscle use Cardiovascular: RRR, no murmur appreciated, normal peripheral pulses,1-2+ b/l LE edema Chest: + pacemaker (incision is clean and dry) Abdomen/GI: normal bowel sounds, soft, nontender, nondistended Extremities/Musculoskeletal: no cyanosis or clubbing, extremities motor strength 5/5, moves extremities spontaneously Neurologic: PERRL, EOMI,no face palsy, no dysarthria, CN's II-XI intact bilaterally and moves all extremities Psychiatric: A+Ox3, euthymic affect Skin: no rashes, normal color, warm/dry Principal Diagnosis Acute systolic congestive heart failure Ischemic cardiomyopathy EDILSON on CKD Discharge Exam General Appearance: Elderly male, WD/WN, vitals as above, NAD, sitting up in bed, pleasant, conversing easily Head: normocephalic, atraumatic Eyes: normal inspection, PERRL, EOMI, conjunctivae normal, anicteric sclerae ENT: external ear and nose normal, oropharynx normal Neck: trachea midline, no thyromegaly, normal visual inspection Respiratory: normal respiratory effort, good air movement (much improved), mild bibasilar crackles noted, no wheeze or rhonchi. Normal insp/exp effort, no accessory muscle use Cardiovascular: RRR, soft murmur appreciated, normal peripheral pulses, + trace b/l LE edema (much improved) Chest: + pacemaker (incision is clean and dry) Abdomen/GI: normal bowel sounds, soft, nontender, nondistended Extremities/Musculoskeletal: no cyanosis or clubbing, extremities motor strength 5/5, moves extremities spontaneously Neurologic: PERRL, EOMI,no face palsy, no dysarthria, CN's II-XI intact bilaterally and moves all extremities Psychiatric: A+Ox3, euthymic affect Skin: no rashes, normal color, warm/dry Discharge Data Allergies Allergy/AdvReac Type Severity Reaction Status Date / Time No Known Allergies Allergy Verified 04/21/20 16:24 Consultations 04/21/20 17:23 ED Decision to Admit Stat 04/22/20 08:00 Consult Cardiology Routine 04/23/20 08:00 Consult Nephrology Routine Ordered Studies 04/22/20 16:23 US renal/blad retro comp Routine IMPRESSION: 1. No evidence for hydronephrosis. 2. Mild renal cortical scarring bilaterally. Hospital Course (1) Ischemic cardiomyopathy: (2) Acute systolic (congestive) heart failure: Patient presents after worsening dyspnea, weight gain, lower extremity edema. BNP elevated in the ED and chest x-ray suggestive of pulmonary congestion. 20 mg IV Lasix given in ED Follow weight closely, standing weights Closely follow I's and O's Fluid restricted and sodium restricted diet Started lasix 80 IV bid, patient diuresed well, and clinically much improved. Now decreased to Lasix to 40 IV twice daily. Patient continues to respond well to diuresis. Will continue for now, plan to switch to p.o. diuretics -discharged on 40 mg twice a day. Follow BMP Replete electrolytes as needed Cardiology and nephrology input appreciated We will discharge patient on 40 mg of furosemide twice a day. Cardiology appointment rescheduled to May 04. Patient should follow-up with PCP on April 30, at that time BMP should be obtained. Cardiology PA ordered BMP for the patient. (3) CAD (coronary artery disease): H/o MD and PCI with bare metal stent to LAD. Continue aspirin, statin and plavix (4) Acute kidney injury superimposed on CKD: CKD stage 3 Patient has history of CKD, recently discharged with creatinine elevated at 1.7 Now presents with creatinine of 3 Likely secondary to acute systolic heart failure, and progressing CKD We will follow closely BMP during diuresis Creatinine down to 1.99 Nephrology consulted, appreciate their input (5) Hypertension: Monitor blood pressure closely during diuresis (6) Atrial tachycardia: (7) Status post placement of cardiac pacemaker: (8) Tachycardia-bradycardia syndrome: Status post cardiac pacemaker placement during last admission Pacemaker was recently checked in cardiology clinic, seems to be working appropriately While inpatient patient was treated for atrial tachycardia and started on amiodarone Amiodarone decreased to 200 mg twice a day per cardiology (outpt), metoprolol 25 twice daily continued Appreciate cardiology input Total Time Total Time Spent Total Time Spent (In Minutes): 40 Total Time Includes: Examination of the Patient, Discharge Planning, Medication Reconciliation and Communication With Other Providers Discharge Plan Discharge Items Patient Disposition: Home - Self-Care Reason For Visit: CHF Discharge Diagnosis: Acute systolic congestive heart failure Ischemic cardiomyopathy EDILSON on CKD Activity: Per Instructions section Non-emergency contact: Primary Care Provider and [employer]ographer[employer] Model Call non-emergency contact if: you have any medication questions and your symptoms worsen Follow-up/Referrals: Jaimee Miranda PA-C [Physician National Business Director] - 05/04/20 11:00 am (05/04/2020 11:00 AM Provider Jaimee Miranda PA-C Department Cardiology, [facility] ) Moises Carter MD [Primary Care Provider] - 04/30/20 11:00 am (04/30/2020 11:00 AM Provider Moises Carter MD Department Family Practice [facility] ) Diet: Low Sodium (2gm) Fluids: 1800ml (7 cups) Addtl Attending Provider Instructions: Follow-up with primary care doctor on April 30. At that time have a blood work done, BMP. Follow-up with cardiology, on May 04. Take furosemide/Lasix 40 mg twice a day. Also take potassium supplement 20 mEq twice a day. You should not have high fluid intake, max 1800 mL a day. You should also stay away from salt. Max sodium amount a day should be no more than 2 g / 2000 mg. Make sure to check your weight every morning and write down your numbers. Discuss these numbers with your primary care doctor and vp customer service at your appointments. It was a pleasure taking care of you! Wishing you a speedy recovery. Rand Sousa MD Addtl [employer] Provider Instructions: Call your Primary Care doctor if any of the following symptoms or problems start or get worse: * Shortness of breath or difficulty breathing * Wake up at night short of breath * Chest pain * Cough * Swelling of your hands, feet, or legs * More fatigued or tired with your normal activity * Palpitations - sudden fast heart beats WEIGHT * Weigh yourself every morning after using the bathroom. * Use the same scale. * Wear the same amount of clothing. * Write your weight down on a chart. * Call your Primary Care doctor if you gain more than 2-3 pounds in 1-2 days. MEDICATIONS * Use this discharge instruction sheet for medication instructions. * Take your medications at the time your doctor ordered. * Do not skip a dose of your medicines. * If you miss a dose of medicine, take it as soon as possible, but DO NOT DOUBLE A DOSE. * Read your medicine information when you get home. * Know all of the side effects of your medicine. If in doubt, ask your pharmacist * Call your Primary Care doctor's office if you have any side effects. * Be sure all of your doctors know what medicine and herbs you take (including cold, flu, and herbal medicine). Take the following with you to your follow-up doctor appointments: * Weight Chart * Medication List * List of questions Do not drink excessive alcohol, beer or wine. Pending Studies at Discharge: No Stand-Alone Forms: [facility], Smoking Cessation Medications and DC Order Prescriptions: New potassium chloride [Klor-Con M20] 20 mEq Tablet,Er Particles/Crystals 20 meq PO BID 30 Days Qty: 60 RF: 0 furosemide 40 mg tablet 40 mg PO BID Qty: 60 RF: 0 Continued multivitamin Tablet 1 tab PO QPM RF: 0 atorvastatin 80 mg Tablet 80 mg PO HS RF: 0 clopidogrel [Plavix] 75 mg Tablet 75 mg PO QAM RF: 0 aspirin 81 mg Tablet,Delayed Release (Dr/Ec) 81 mg PO QAM RF: 0 calcium carbonate [Calcium 600] 600 mg calcium (1,500 mg) Tablet 600 mg PO QPM RF: 0 pantoprazole 40 mg Tablet,Delayed Release (Dr/Ec) 40 mg PO QAM RF: 0 [facility] 50 mg-15 unit- 4.5 mg-2.5 mg Tablet,Chewable 1 tab PO QPM RF: 0 metoprolol succinate 25 mg Tablet Extended Release 24 Hr 25 mg PO BID 30 Days Qty: 60 RF: 0 amiodarone 200 mg tablet 200 mg PO BID RF: 0 Changed furosemide [Lasix] 40 mg tablet 40 mg PO BID Qty: 0 RF: 0 Discharge Orders: Discharge Order (Routine); Ordered 04/27/20 Ordered By: Abdi Flood/Other Patient Handouts: What Is Heart Failure, Low-Salt Choices, Heart Failure Signs of Flare-Up, Heart Failure: Tracking Your Weight, Heart Failure: Being Active, Coping with Heart Failure, Heart Failure Making Changes to Your Diet, Acute Kidney Injury Dc, Heart Failure Dc, Heart Failure: Know Your Baselines, Heart Failure Admission Data Admit Date/Time: 04/21/20 17:25 Attending Provider: Abdi Sousa Admit Provider: Abdi Sousa Primary Care Provider: Moises Carter Other Providers: Abdi Sousa ; Boni Lake ; Shilpa Almazan
== END 2020-04-27 16:47 | disposition home or self-care (01) ==
LOC: ED 14:10 → 2N 17:25 → INTOOBSV 17:25 → 2N 18:15

== ENCOUNTER 2020-08-19 16:28 | Inpatient (IN) ==
[2020-08-19] MEDS ORDERED: FUROSEMIDE 40 MG/4 ML VIAL IV STA (16:36)
--- NOTE | 2020-08-19 17:42 | Emergency Department Note ---
Impression & Plan Pulmonary edema, Ischemic cardiomyopathy ED Provider Note NAME: SHANNON BURKS AGE: 84 SEX: M : 1935 ARRIVES VIA: Walk-In INFORMANT: Patient, ED PROVIDER(S): Mo Licea DO CHIEF COMPLAINT: Difficulty breathing HPI: The patient is an 84-year-old male who presented to the emergency department with difficulty breathing. The patient has a history of coronary artery disease. He also has valvular heart disease. He also has chronic renal insufficiency. The patient normally has an ejection fraction around 45%. He was seen by his primary combat systems operator mine warfare today. At that time he had an echo which showed the patient's ejection fraction was between 15 and 20%. She was also noted to have worsening valvular heart disease and increase of her regurgitation. He was having worsening shortness of breath as well as edema. For this reason he was sent to the emergency department for further evaluation. The patient's combat systems operator mine warfare, Dr. Lake did call and discussed the case with me. He does recommend the patient be admitted and also recommended IV Lasix. The patient denies any chest pain. He denies having any abdominal pain. He has no cough or fever. He denies any exposure to COVID-19. The patient states that he has been compliant with his outpatient medication regimen. ROS: See above HPI for pertinent positives & negatives. A total of 10 systems reviewed and were otherwise negative. PAST MEDICAL HISTORY: See Below PAST SURGICAL HISTORY: See Below FAMILY HISTORY: See Below SOCIAL HISTORY: See Below HOME MEDICATIONS: See Below ALLERGIES: See Below VITALS: See Below PHYSICAL EXAMINATION: GENERAL: Patient is awake alert in no acute distress patient is resting comfortably and showing no signs of anxiety EYES: The conjunctivae are clear. The pupils are round and reactive. EARS, NOSE, MOUTH AND THROAT: The nose is without any evidence of any deformity. NECK: The neck is nontender and supple. RESPIRATORY: Diminished breath sounds are noted at the left lung field. There were rales throughout the right lung field. There was mild pursed lip breathing. CARDIOVASCULAR: Regular rate and rhythm noted there no murmurs rubs or gallops normal S1 normal S2. GASTROINTESTINAL: The abdomen is soft. Abdomen is nontender. MUSCULOSKELETAL/EXTREMITIES: There is no evidence of gross deformity full range of motion is noted in the hips and shoulders. SKIN: Pedal edema was noted bilaterally. Skin was warm and dry. NEUROLOGIC: Patient is awake alert and oriented x3. MEDICAL DECISION MAKING: The patient is an 84-year-old male who has a history of ischemic cardiomyopathy as well as valvular heart disease. He presents to the emergency department today for an evaluation of worsening shortness of breath as well as weight gain. The patient was evaluated by his primary cardiology group. An outpatient echo revealed worsening ejection fraction. The patient was referred to the emergency department for further evaluation. He was treated with Lasix. He was reevaluated multiple times. He appeared comfortable at rest. I discussed the patient[facility] They have agreed to evaluate the patient in the emergency department for further management and disposition. Triage Nursing notes reviewed. Prior medical records reviewed Vital Signs: reviewed and remarkable for no significant abnormalities Differential diagnosis: Reactive airway disease, pneumonia, pneumothorax, COPD, CHF, infections, cardiac ischemia, pulmonary embolism, musculoskeletal, gastrointestinal, as well as other pathologies. ER treatment provided: See below Diagnostics interpreted by me: ECG: EKG was obtained in the emergency department. My interpretation is atrial paced rhythm. Ventricular beats appear to be [place]. PVCs were noted. Left bundle branch block pattern was favored. This was compared to a tracing from April 21, 2020. Atrial fibrillation has been replaced with paced rhythm. Otherwise no specific changes were noted. Cardiac Monitoring: An order was placed for continuous cardiac monitoring. The monitor shows a rate of 95 bpm with paced rhythm. Laboratory studies: As stated above and show below. Imaging studies: See below Consultation(s): 1900: I discussed this case with Mahsa who is [facility]. Past Med/Surg History Medical History Aortic valve regurgitation Bilateral primary osteoarthritis of knee CAD (coronary artery disease) Degenerative arthritis of knee, bilateral GERD (gastroesophageal reflux disease) History of [place] (myocardial infarction) Hypertension Ischemic cardiomyopathy Retinal disease Sinus bradycardia Surgical History History of heart artery stent 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 Family History Other Heart disease Hypertension Stroke Social History Smoking Status: Never smoker Hx Alcohol Use: No Hx Substance Use: No Preferred Language: Croatian Communication Ability: Effective 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 Beliefs That Will Affect Care: None marital status: Current Living Situation: Spouse Feels Safe at Home: Yes Assistive Devices: Glasses Allergies Allergies Allergy/AdvReac Type Severity Reaction Status Date / Time No Known Allergies Allergy Verified 08/19/20 19:26 Home Meds Home Medications Medication Instructions Recorded Confirmed Ocuvite Eye Health 1 tab PO QPM 04/08/20 08/19/20 aspirin 81 mg PO QAM 04/08/20 08/19/20 atorvastatin 80 mg PO HS 04/08/20 08/19/20 calcium carbonate [Calcium 600] 600 mg PO QPM 04/08/20 08/19/20 clopidogrel [Plavix] 75 mg PO QAM 04/08/20 08/19/20 multivitamin 1 tab PO QPM 04/08/20 08/19/20 pantoprazole 40 mg PO QAM 04/08/20 08/19/20 amiodarone [Pacerone] 200 mg PO DAILY 08/19/20 08/19/20 fluticasone propionate [Flonase 2 spray INTRANASAL DAILY 08/19/20 08/19/20 Allergy Relief] metoprolol succinate [Toprol XL] 25 mg PO BID 08/19/20 08/19/20 potassium chloride [K-Tab] 20 meq PO DAILY 08/19/20 08/19/20 torsemide 20 mg PO DAILY 08/19/20 08/19/20 torsemide 20 mg PO DAILY PRN 08/19/20 08/19/20 Results & Data (ED) Vital Signs Vital Signs - 24 hr 08/19/20 16:59 08/19/20 18:30 08/19/20 19:07 Temperature 36.8 C Temperature Source Oral Pulse Rate 95 H Pulse Rate [Left Finger] 92 H 96 H Pulse Rhythm [Left Finger] Regular Pulse Strength [Left Finger] Normal Respiratory Rate 20 22 22 Respiratory Effort / Characteristics Non-Labored Spontaneous Respiratory Depth Normal Blood Pressure 120/84 Blood Pressure [Left Arm] 129/86 129/87 Blood Pressure Mean 96 Blood Pressure Mean [Left Arm] 100 101 Pulse Oximetry 95 96 96 Oxygen Delivery Method Room Air Room Air Sepsis Recent Fever Within 48 Hours No Sepsis New/Unexplained Change in Mental Status No Sepsis Action Taken by Nursing No Action Required 08/19/20 19:08 08/19/20 20:01 08/19/20 20:30 Temperature Temperature Source Pulse Rate Pulse Rate [Left Finger] 99 H 99 H Pulse Rhythm [Left Finger] Regular Regular Pulse Strength [Left Finger] Normal Normal Respiratory Rate 20 20 Respiratory Effort / Characteristics Non-Labored Spontaneous Respiratory Depth Normal Blood Pressure Blood Pressure [Left Arm] 127/94 112/83 Blood Pressure Mean Blood Pressure Mean [Left Arm] 105 92 Pulse Oximetry 96 96 93 Oxygen Delivery Method Room Air Room Air Sepsis Recent Fever Within 48 Hours Sepsis New/Unexplained Change in Mental Status Sepsis Action Taken by [facility] Medications Current Medication List: was personally reviewed by me Laboratory Data Attestation: I reviewed the patient's lab results. Result diagrams: 08/19/20 17:27 08/19/20 17:27 Lab Results 08/19/20 08/19/20 08/19/20 Range/Units 17:27 17:27 17:27 WBC 7.23 (4.8-10.8) K/uL RBC 3.98 L (4.7-6.1) M/uL Hgb 13.4 L (14.0-18.0) g/dL Hct 41.0 L (42-52) % MCV 103.0 H (80-100) fL MCH 33.7 (25-34) pg MCHC 32.7 (32-36) g/dL RDW Std Deviation 61.1 H (36.4-46.3) fL RDW Coeff of Z[place] 16.2 H (11.5-14.5) % Plt Count 216 (130-400) K/uL MPV 10.1 (7.4-10.4) fL Immature Gran % (Auto) 0.3 % Neut % (Auto) 79.6 % Lymph % (Auto) 9.7 % Noble % (Auto) 9.3 % Eos % (Auto) 0.8 % Baso % (Auto) 0.3 % Neut # (Auto) 5.76 (1.4-6.5) K/uL Lymph # (Auto) 0.70 L (1.2-3.4) K/uL Noble # (Auto) 0.67 H (0.11-0.59) K/uL Eos # (Auto) 0.06 (0-0.5) K/uL Baso # (Auto) 0.02 (0-0.2) K/uL Immature Gran # (Auto) 0.02 (0.00-0.02) K/uL PT 12.0 (9.0-12.0) Seconds INR 1.1 (0.9-1.1) APTT 26.2 (21.0-31.0) Seconds PTT Ratio 0.9 Sodium 138 (136-145) mmol/L Potassium 4.1 (3.5-5.1) mmol/L Chloride 103 (98-107) mmol/L Carbon Dioxide 26 (21-32) mmol/L Anion Gap 9.0 (3-11) BUN 60 H (7-18) mg/dl Creatinine 2.48 H (0.6-1.4) mg/dl Est Cr Clr Drug Dosing 21.5 ml/min Est GFR ( Amer) 26.6 Est GFR (Non-Af Amer) 22.9 BUN/Creatinine Ratio 24.3 H (10-20) Glucose 121 H (70-99) mg/dl Calcium 9.7 (8.5-10.1) mg/dl Total Bilirubin 1.5 H (0.2-1) mg/dl AST 28 (15-37) U/L ALT 36 (12-78) U/L Alkaline Phosphatase 125 H (45-117) U/L Troponin I 0.015 (0-0.045) ng/ml NT-Pro-B Natriuret Pep 79330 H (0-1800) pg/ml Total Protein 7.3 (6.4-8.2) gm/dl Albumin 3.3 L (3.4-5.0) gm/dl Globulin 4.0 (2.5-4.0) gm/dl Albumin/Globulin Ratio 0.8 L (0.9-2) Urine Color Urine Appearance (Clear) Urine pH (4.5-7.5) Ur Specific Lancing (1.000-1.030) Urine Protein (Negative) Urine Glucose (UA) (Negative) Urine Ketones (Negative) Urine Blood (Negative) Urine Nitrite (Negative) Urine Bilirubin (Negative) Urine Urobilinogen (Negative) Ur Leukocyte Esterase (Negative) 10/15/20 Range/Units 18:15 WBC (4.8-10.8) K/uL RBC (4.7-6.1) M/uL Hgb (14.0-18.0) g/dL Hct (42-52) % MCV (80-100) fL MCH (25-34) pg MCHC (32-36) g/dL RDW Std Deviation (36.4-46.3) fL RDW Coeff of Zakia (11.5-14.5) % Plt Count (130-400) K/uL MPV (7.4-10.4) fL Immature Gran % (Auto) % Neut % (Auto) % Lymph % (Auto) % Noble % (Auto) % Eos % (Auto) % Baso % (Auto) % Neut # (Auto) (1.4-6.5) K/uL Lymph # (Auto) (1.2-3.4) K/uL Noble # (Auto) (0.11-0.59) K/uL Eos # (Auto) (0-0.5) K/uL Baso # (Auto) (0-0.2) K/uL Immature Gran # (Auto) (0.00-0.02) K/uL PT (9.0-12.0) Seconds INR (0.9-1.1) APTT (21.0-31.0) Seconds PTT Ratio Sodium (136-145) mmol/L Potassium (3.5-5.1) mmol/L Chloride (98-107) mmol/L Carbon Dioxide (21-32) mmol/L Anion Gap (3-11) BUN (7-18) mg/dl Creatinine (0.6-1.4) mg/dl Est Cr Clr Drug Dosing ml/min Est GFR ( Amer) Est GFR (Non-Af Amer) BUN/Creatinine Ratio (10-20) Glucose (70-99) mg/dl Calcium (8.5-10.1) mg/dl Total Bilirubin (0.2-1) mg/dl AST (15-37) U/L ALT (12-78) U/L Alkaline Phosphatase (45-117) U/L Troponin I (0-0.045) ng/ml NT-Pro-B Natriuret Pep (0-1800) pg/ml Total Protein (6.4-8.2) gm/dl Albumin (3.4-5.0) gm/dl Globulin (2.5-4.0) gm/dl Albumin/Globulin Ratio (0.9-2) Urine Color Yellow Urine Appearance Clear (Clear) Urine pH 7.5 (4.5-7.5) Ur Specific Lancing 1.010 (1.000-1.030) Urine Protein Negative (Negative) Urine Glucose (UA) Negative (Negative) Urine Ketones Negative (Negative) Urine Blood Negative (Negative) Urine Nitrite Negative (Negative) Urine Bilirubin Negative (Negative) Urine Urobilinogen Negative (Negative) Ur Leukocyte Esterase Negative (Negative) Administered Medications Discontinued Medications Furosemide (Furosemide 40 Mg/4 Ml Vial) 80 mg IV NOW STA Stop: 08/19/20 16:37 Last Admin: 08/19/20 17:35 Dose: 80 mg Documented by: [id number] Imaging Data Radiologist's Impression: Patient: SHANNON BURKS Admit Date: 08/19/20 MR#: [id number] Address1: [address] MAGALLANES Acct ID:[id number] Address2: Date: 1935 [facility] Zip: [place] [address] Age: 84 Location: ED Sex: M Room/Bed: Att Phy: Diagnosis: sob, abnormal ekg [place] Phy: Moises Carter MD Service Date: 08/19/20 [facility] Phy: Moises Carter MD Interpreting Phy: Олег Kurtz MD Admit Phy: Ordering Phy: Mo Licea DO cc: ~ XR chest 1V portable HISTORY: Dyspnea COMPARISON: Chest 04/21/2020. FINDINGS: There is left-sided dual-chamber pacemaker. The heart remains mode rately enlarged. There is diffuse interstitial and vascular thickening which is slightly progressed. This suggests mild developing pulmonary edema. No pleural effusions. No pneumothorax. No new focal lung consolidations. A thoracic aortic stent remains unchanged in position. IMPRESSION: Cardiomegaly with interval development of mild interstitial pulmonary edema. ACT 112: Negative or not required by law. Electronically signed by: Олег Kurtz M.D. 08/19/2020 6:04 PM Dictated: 08/19/201802 Transcribed: 08/19/201802 Blood Pressure Blood Pressure Findings: Normal blood pressure Discharge Plan Visit Data Chief Complaint: Abnormal Labs/Diagnostic Testing Stated Complaint: sob, abnormal ekg ED Provider: Mo Licea Discharge Problem: Pulmonary edema, Ischemic cardiomyopathy Patient Disposition: Being Evaluated by Hospitalist Condition: Good Forms Stand Alone Forms: [facility] Prescriptions Prescriptions: No Action multivitamin Tablet 1 tab PO QPM RF: 0 atorvastatin 80 mg Tablet 80 mg PO HS RF: 0 clopidogrel [Plavix] 75 mg Tablet 75 mg PO QAM RF: 0 aspirin 81 mg Tablet,Delayed Release (Dr/Ec) 81 mg PO QAM RF: 0 calcium carbonate [Calcium 600] 600 mg calcium (1,500 mg) Tablet 600 mg PO QPM RF: 0 pantoprazole 40 mg Tablet,Delayed Release (Dr/Ec) 40 mg PO QAM RF: 0 Ocuvite Eye Health 50 mg-15 unit- 4.5 mg-2.5 mg Tablet,Chewable 1 tab PO QPM RF: 0 torsemide 20 mg tablet 20 mg PO DAILY RF: 0 torsemide 20 mg tablet 20 mg PO DAILY PRN (Reason: SWELLING) RF: 0 amiodarone [Pacerone] 200 mg tablet 200 mg PO DAILY RF: 0 metoprolol succinate [Toprol XL] 25 mg tablet extended release 24 hr 25 mg PO BID RF: 0 fluticasone propionate [Flonase Allergy Relief] 50 mcg/actuation spray,suspension 2 spray INTRANASAL DAILY RF: 0 potassium chloride [K-Tab] 20 mEq tablet extended release 20 meq PO DAILY RF: 0 Referrals Referrals: Moises Carter MD [Primary Care Provider] -
[2020-08-19 17:43] LABS: Basophils # (auto) 0.02 K/uL (0-0.2); Basophils % (auto) 0.3 %; Eosinophils # (auto) 0.06 K/uL (0-0.5); Eosinophils % (auto) 0.8 %; Hemoglobin 13.4 g/dL (14.0-18.0); Immature Granulocytes # (auto) 0.02 K/uL (0.00-0.02); Immature Granulocytes % (auto) 0.3 %; Lymphocytes % (auto) 9.7 %; Mean Corpuscular Hemoglobin 33.7 pg (25-34); Mean Corpuscular Hgb Conc 32.7 g/dL (32-36); Mean Platelet Volume 10.1 fL (7.4-10.4); Monocytes # (auto) 0.67 K/uL (0.11-0.59); Monocytes % (auto) 9.3 %; Neutrophils # (auto) 5.76 K/uL (1.4-6.5); Neutrophils % (auto) 79.6 %; Platelet Count 216 K/uL (130-400); RDW Coefficient of Variation 16.2 % (11.5-14.5); RDW Standard Deviation 61.1 fL (36.4-46.3); Red Blood Count 3.98 M/uL (4.7-6.1); White Blood Count 7.23 K/uL (4.8-10.8)
[2020-08-19 17:56] LABS: INR 1.1 (0.9-1.1); Partial Thromboplastin Ratio 0.9; Partial Thromboplastin Time 26.2 Seconds (21.0-31.0)
[2020-08-19 18:00] LABS: Albumin Level 3.3 gm/dl (3.4-5.0); BUN Creatinine Ratio 24.3 (10-20); Calcium 9.7 mg/dl (8.5-10.1); Creatinine Clr Calc Pharmacy 21.5 ml/min; Est GFR (African American) 26.6; Est GFR (Non-African American) 22.9; Potassium 4.1 mmol/L (3.5-5.1)
[2020-08-19 18:05] LABS: Albumin Globulin Ratio 0.8 (0.9-2); Bilirubin,Total 1.5 mg/dl (0.2-1); Total Protein 7.3 gm/dl (6.4-8.2); Troponin I 0.015 ng/ml (0-0.045)
--- NOTE | 2020-08-19 18:05 | XRay Report ---
XR chest 1V portable HISTORY: Dyspnea COMPARISON: Chest 04/21/2020. FINDINGS: There is left-sided dual-chamber pacemaker. The heart remains moderately enlarged. There is diffuse interstitial and vascular thickening which is slightly progressed. This suggests mild develo ping pulmonary edema. No pleural effusions. No pneumothorax. No new focal lung consolidations. A thor acic aortic stent remains unchanged in position. IMPRESSION: Cardiomegaly with interval development of mild interstitial pulmonary edema. ACT 112: Negative or not required by law. Electronically signed by: Олег Kurtz M.D. 08/19/2020 6:04 PM
[2020-08-19 18:47] LABS: Appearance Urine Clear (Clear); Bilirubin Urine Negative (Negative); Blood Urine Negative (Negative); Color Urine Yellow; Glucose Urine UA Negative (Negative); Ketones Urine Negative (Negative); Leukocyte Esterase Urine Negative (Negative); Nitrite Urine Negative (Negative); Protein Urine Negative (Negative); Urobilinogen Urine Negative (Negative); pH Urine 7.5 (4.5-7.5)
[2020-08-19] MEDS ORDERED: ACETAMINOPHEN 325 MG TAB PO PRN (21:45)
[2020-08-19] MEDS ORDERED: NITROGLYCERIN SL 0.4 MG/TAB TAB SL PRN (21:45)
[2020-08-19] MEDS ORDERED: ONDANSETRON INJ 2 MG/ML 2 ML VIAL IV PRN (21:45)
--- NOTE | 2020-08-19 22:11 | History and Physical Report ---
DATE OF ADMISSION: 08/19/2020 CHIEF COMPLAINT: Shortness of breath. HISTORY OF PRESENT ILLNESS: This is an 84-year-old male with past medical history significant for tachybrady syndrome, status post pacemaker; Atrial tachycardia hypertension; CAD; GERD; chronic kidney disease stage III; macular degeneration; hyperlipidemia; chronic systolic CHF. Was sent in by cardiology because of low EF. The patient says his lower extremity edema is slightly worse, but he checks his weight and his weight is almost same, 1 pound here and there, but almost remains stable. Before he used to have difficulty lying flat, but he is able to lie flat okay now. He says he is ambulating okay, but once in a while with no reason he feels short of breath. Denies any chest pain. No nausea, no vomiting, no cough, no dysphagia. No fever, chills. Appetite is okay. No headache, no blurred vision. Somewhat hard of hearing. Has runny nose from his sinusitis. No sore throat. No fevers, no nausea, no abdominal pain. Normal bowel and bladder movements. Denies any blood in the stool or black stools. He was in the cardiology office today. An echo was done. His EF previously was around 40%, today his EF is 17%. Also severe aortic regurgitation and also severe mitral and tricuspid regurgitation with grade 3 diastolic congestive heart failure and he was advised to come to the ER and he was given a dose of IV Lasix 80 mg in the ER . Currently resting comfortably. He is hemodynamically stable, saturating 96% on room air. ALLERGIES: No known drug allergies. PAST MEDICAL HISTORY: As mentioned above. PAST SURGICAL HISTORY: Injection of the left thigh, status post left renal artery stenting, left lasering of the cataract surgery, tonsillectomy, bilateral cataract surgery, endovascular repair of the thoracic aortic aneurysm involving the left subclavian artery in 2008, left subclavian artery to left carotid artery transposition in 2008. MEDICATIONS: The patient is on torsemide 20 mg daily with extra tablet as needed, potassium chloride 20 mEq p.o. daily, metoprolol succinate 25 mg p.o. b.i.d., amiodarone 200 mg p.o. daily, Flonase 2 sprays into each nostril daily, atorvastatin 80 mg p.o. daily, Protonix 40 mg p.o. daily, calcium citrate 630 mg daily, Plavix 75 mg p.o. daily, Ocuvite Lutein 1 tablet daily, multivitamins 1 tablet daily, aspirin 81 mg p.o. daily. FAMILY HISTORY: Significant for father of AR in 60s, mother of CVA in 70s, sister had sudden cardiac at age of 62. SOCIAL HISTORY: and lives with his . No smoking. Alcohol occasional. No drug use. REVIEW OF SYSTEMS: As per HPI. Rest of the review of systems negative. PHYSICAL EXAMINATION: GENERAL: The patient is of moderate build, not in acute distress. VITAL SIGNS: Temperature 36.8, pulse 99, respiratory rate 20, blood pressure 127/94, oxygen 96% on room air. HEENT: No pallor, no icterus. Pupils equal, round, and reactive to light. Extraocular muscles intact. Oral mucosa moist. NECK: No JVD, no neck masses. CARDIOVASCULAR: S1, S2 heard, regular rate and rhythm. No murmur, no gallop. RESPIRATORY SYSTEM: Normal AP diameter. No accessory muscle use. Bilateral fine crackles heard. No wheezing. ABDOMEN: Soft, bowel sounds present, nontender. No distention. CENTRAL NERVOUS SYSTEM: Cranial nerves II-XII grossly intact. Nonfocal. EXTREMITIES: Bilateral lower extremity +2 edema present, no erythema seen. LABORATORY DATA: WBC 7.2, hemoglobin 13.4, hematocrit 41, platelets 216. PT 12, INR 1.1, APTT 26.2. Sodium 138, potassium 4.1, chloride 103, bicarbonate 26, BUN 60, creatinine 2.4, serum glucose 121, calcium 9.7, total bilirubin 1.5, AST 28, ALT 36, alkaline phosphatase 125. BNP 11,285. Urinalysis negative. IMAGING DATA: Chest x-ray shows cardiomegaly with interval development of mild interstitial pulmonary edema. EKG: Atrial paced rhythm with prolonged AV conduction at 95, left ventricular hypertrophy, QT prolongation of 510. T-wave abnormality seen. ASSESSMENT AND PLAN: This is an 84-year-old male who presents with on and off shortness of breath and echo done in cardiology office shows EF of 17%, which is new, which was 40% in the previous, and also significant valvular disease. 1. [id number] systolic and diastolic congestive heart failure. New change in echocardiogram with EF of 17%, down from 40% in the past and also some severe aortic regurgitation and severe mitral and tricuspid regurgitation, and grade 3 diastolic congestive heart failure, The patient says at home he is on 20 mg of torsemide daily and to takes 20 extra, but over the last more than 1 week he is taking 20 mg b.i.d., but his lower extremity swelling is not getting better. Received a dose of IV Lasix 80 mg in the ER. Will continue with IV Lasix 40 b.i.d. Daily weights, I's and O's. Closely monitor in the tele floor. Cardiology consult in the a.m. for further recommendations. 2. chronic kidney disease stage III. Presents with a creatinine of 2.4, but seems to be this is new baseline as per the outpatient records. We will follow the labs while on IV diuretics.Nephrology consult. 3. History of tachybrady syndrome, history of atrial tachycardia, status post pacemaker, on amiodarone and Toprol-XL. We will monitor. 4. History of coronary artery disease, on aspirin, Plavix, statin, and beta joshua. 5. History of hyperlipidemia, on statin. 6. Gastroesophageal reflux disease, on Protonix. 7. Deep venous thrombosis prophylaxis. Heparin subQ. DISPOSITION: Closely monitor in the tele floor. Level 1 full code as per my discussion with the patient. PT and OT prior to discharge. Social service to help with discharge planning. Expect to discharge home and follow with his family doctor and cardiology. AYESHA
[2020-08-19] MEDS: MULTIVITAMIN TAB PO SCH (22:27)
[2020-08-19] MEDS: ATORVASTATIN 40 MG TAB PO SCH (22:27)
[2020-08-19] MEDS: CEROVITE ADV FORMULA TAB PO SCH (22:28)
[2020-08-19] MEDS: CALCIUM 600MG + VIT D 400 IU TAB PO SCH (22:28)
[2020-08-19] MEDS: METOPROLOL SUCC 25MG EXT REL TAB PO SCH (22:28)
[2020-08-19] MEDS: HEPARIN SOD 5,000 UNIT/0.5 ML VIAL SQ SCH (22:29)
[2020-08-20 04:55] LABS: Basophils # (auto) 0.01 K/uL (0-0.2); Basophils % (auto) 0.2 %; Eosinophils # (auto) 0.06 K/uL (0-0.5); Hematocrit (blood only) 37.6 % (42-52); Hemoglobin 12.1 g/dL (14.0-18.0); Immature Granulocytes # (auto) 0.02 K/uL (0.00-0.02); Immature Granulocytes % (auto) 0.3 %; Lymphocytes # (auto) 0.84 K/uL (1.2-3.4); Lymphocytes % (auto) 13.7 %; Mean Corpuscular Hemoglobin 32.9 pg (25-34); Mean Corpuscular Hgb Conc 32.2 g/dL (32-36); Mean Corpuscular Volume 102.2 fL (80-100); Monocytes # (auto) 0.63 K/uL (0.11-0.59); Monocytes % (auto) 10.3 %; Neutrophils # (auto) 4.57 K/uL (1.4-6.5); Neutrophils % (auto) 74.5 %; Platelet Count 196 K/uL (130-400); RDW Coefficient of Variation 16.2 % (11.5-14.5); RDW Standard Deviation 59.7 fL (36.4-46.3); Red Blood Count 3.68 M/uL (4.7-6.1); White Blood Count 6.13 K/uL (4.8-10.8)
[2020-08-20] MEDS: HEPARIN SOD 5,000 UNIT/0.5 ML VIAL SQ SCH ×3 (05:40→21:11)
[2020-08-20 05:54] LABS: BUN Creatinine Ratio 23.4 (10-20); Calcium 8.5 mg/dl (8.5-10.1); Creatinine Clr Calc Pharmacy 23.4 ml/min; Est GFR (African American) 29.6; Est GFR (Non-African American) 25.5; Magnesium 2.7 mg/dl (1.8-2.4); Potassium 3.4 mmol/L (3.5-5.1)
[2020-08-20] MEDS: FUROSEMIDE 40 MG in SYRINGE 0 ML IV SCH ×2 (08:52→19:18)
[2020-08-20] MEDS: PANTOprazole 40 MG TAB PO SCH (08:53)
[2020-08-20] MEDS: ASPIRIN 81 MG ECTAB PO SCH (08:53)
[2020-08-20] MEDS: CLOPIDOGREL BISULFATE 75 MG TAB PO SCH (08:53)
[2020-08-20] MEDS: POTASSIUM CHLORIDE 20 MEQ TABCR PO SCH (08:53)
[2020-08-20] MEDS: AMIODARONE 200 MG TAB PO SCH (08:53)
[2020-08-20] MEDS: METOPROLOL SUCC 25MG EXT REL TAB PO SCH ×2 (08:53→21:11)
[2020-08-20] MEDS: FLUTICASONE PROPIONATE NA SPR 16 GM BTL SCH (08:54)
[2020-08-20] MEDS ORDERED: FUROSEMIDE 40 MG/4 ML VIAL IV SCH (09:00)
--- NOTE | 2020-08-20 10:04 | Nephrology Consultation ---
Date of Consultation August 20, 2020 Assessment & Plan (1) Chronic kidney disease (CKD) stage G4/A1, severely decreased glomerular filtration rate (GFR) between 15-29 mL/min/1.73 square meter and albuminuria creatinine ratio less than 30 mg/g: new baseline creatinien summer 2019 is low to mid 2's, last one 2.5 late June 2020. no EDILSON at this time -no indication for acute dialysis -cont current diuresis -follow up cardiology recs >agree with plan for metolazone 2.5 mg daily -check proteinuria status formally with restrictive HF and edema; likelihood of nephrotic syndrome low though given dipstick ff and clinical hx -recheck renal u/s given change in function ordered Present on Admission?: Yes (2) Pulmonary edema: agree w/ lasix 40 mg IV bid Present on Admission?: Yes (3) Cardiac volume overload: presumed; though worsened renal function can easily make him more prone to OL >gave 20 mEq K x 1; else cont standing K dose currently >ordered 1.5L FR, <2 gm daily Na diet Present on Admission?: Yes History of Present Illness Reason for Consultation: EDILSON on CKD Requesting Physician: Dr Ye Attending Physician: Martin Galindo MD History of Present Illness 84 y/o M whom I'm asked to see for EDILSON on CKD3 after he was sent for admission after acute cardiology eval b/c TTE yesterday showed worsening valvular and systolic HF. EF from 40% > 17% and severe aortic rgg, severe mitral and tricuspid rgg w/ restrictive HF. 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 Pt endorsed at admission worsened LE edema but stable OP wts and per him to me this am rare exertional dyspnea w/ occasional sudden OTTO exacerbation and no PND like he'd been having prior to last admission. denies new/worsening voiding sx though expresses passing concern that he voids less w/ torsemide than lasix po. he had a dose of 80 mg IV lasix in ER then started on 40 mg IV bid; presenting creatinine 2.4, unchanged this am. Creatinine has been running low to mid 2s, a new baseline since second April 2020 [facility] discharge. Last seen in CKD clinic early May >> planned Jul follow up not scheduled on chart review. Followed closely by cardiology; lasix transitioned to torsemide late June. Admitted early 04/2020 [facility] for pacer placement. Creatinine ran 1.5-1.7 that admission. D/c home w/o acei or diuretic d/t improved BP and concern for worsened renal function w/ plans for close f/u by PCP, cardiology. Presented to cardiology clinic 04/21 w/ vol OL: Admitted [facility] 04/21-04/27 for IV diuresis and EDILSON. Presenting creatinine 3.0; d/c creatinine 2.0. Weighed 81.2 kg on presen tation (about 187 lb). Wt in clinic [facility] late Jul 162-164 lb. Allergies Allergy/AdvReac Type Severity Reaction Status Date / Time No Known Allergies Allergy Verified 08/19/20 19:26 Home Medications Home Medications Medication Instructions Recorded Confirmed Type [facility] 1 tab PO QPM 04/08/20 08/19/20 History aspirin 81 mg PO QAM 04/08/20 08/19/20 History atorvastatin 80 mg PO HS 04/08/20 08/19/20 History calcium carbonate [Calcium 600] 600 mg PO QPM 04/08/20 08/19/20 History clopidogrel [Plavix] 75 mg PO QAM 04/08/20 08/19/20 History multivitamin 1 tab PO QPM 04/08/20 08/19/20 History pantoprazole 40 mg PO QAM 04/08/20 08/19/20 History amiodarone [Pacerone] 200 mg PO DAILY 08/19/20 08/19/20 History fluticasone propionate [Flonase 2 spray INTRANASAL DAILY 08/19/20 08/19/20 History Allergy Relief] metoprolol succinate [Toprol XL] 25 mg PO BID 08/19/20 08/19/20 History potassium chloride [K-Tab] 20 meq PO DAILY 08/19/20 08/19/20 History torsemide 20 mg PO DAILY 08/19/20 08/19/20 History torsemide 20 mg PO DAILY PRN 08/19/20 08/19/20 History Patient History Medical History Aortic valve regurgitation Bilateral primary osteoarthritis of knee CAD (coronary artery disease) Chronic kidney disease (CKD) stage G4/A1, severely decreased glomerular filtration rate (GFR) between 15-29 mL/min/1.73 square meter and albuminuria creatinine ratio less than 30 mg/g Degenerative arthritis of knee, bilateral GERD (gastroesophageal reflux disease) History of [place] (myocardial infarction) Hypertension Ischemic cardiomyopathy Retinal disease Sinus bradycardia Surgical History History of heart artery stent 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 Family History Other Heart disease Hypertension Stroke Social History Smoking Status: Never smoker Second Hand Exposure: No; Do You Dip or Chew Tobacco: No; Hx Alcohol Use: Yes Alcohol type: wine Hx Substance Use: No Preferred Language: Kazakh Communication Ability: Effective Cardiothoracic Icu Rn Required: No Beliefs That Will Affect Care: None marital status: Current Living Situation: Spouse Other Information That Helps Us Care for You: No Feels Safe at Home: Yes Safety Concerns: Feels Safe At This Time Assistive Devices: None Review of Systems Review of Systems: All systems reviewed & are unremarkable except as noted in HPI & below Physical Exam Constitutional: well developed and well nourished; no acute distress sitting in bed HOB elevated on RA Eyes: EOM intact bilaterally ENMT: Ears: no external ear abnormality Nose: no external nose abnormality Mouth: + dry oral mucous membranes Neck: no nuchal rigidity Respiratory: normal respiratory effort Auscultation: + diminished lung sounds and + crackles (bibasilar) Cardiovascular: Rate/Rhythm: regular rate and regular rhythm Extremities: + edema (2+ BL pitting) Gastrointestinal (Abdomen): Inspection/Auscultation: normal bowel sounds Percussion/Palpation: abdomen soft; abdomen nontender Musculoskeletal: Extremities: strength 5/5 throughout Skin: no rashes, warm and dry Neurologic: rosa, fluent speech, no tremor Psychiatric: A+Ox3, euthymic affect Speech: normal rate/rhythm/volume of speech Results & Data ([facility]) Vital Signs (Past 12 Hours) Vital Signs Temp Pulse Pulse Resp BP Pulse Ox 08/20/20 07:12 36.4 C L 69 18 118/74 92 08/20/20 03:58 36.6 C 76 18 114/68 96 08/20/20 00:07 36.9 C 88 18 103/70 95 08/20/20 00:00 105 H Laboratory Results 08/20/20 04:26 08/20/20 04:26 UA dipstick in April, > bland; sg 1010 in August Diagnostic Findings CXR Cardiomegaly with interval development of mild interstitial pulmonary edema. Renal u/s April 2020 Right kidney: Maximum dimension 8.6 cm. No evidence for hydronephrosis. Mild renal cortical scarring. Left kidney: Maximum linear dimension is 9.0 cm. No evidence for hy dronephrosis. Mild cortical scarring Bladder: No bladder wall thickening. The bilateral ureteral jets were identified. IMPRESSION: 1. No evidence for hydronephrosis. 2. Mild renal cortical scarring bilaterally. TTE 08/19/20 Moderately dilated LV chamber size with mild concentric LVH. Severely reduced LV systolic function with abnormal septal wall motion consistent with RV pacemaker activation, otherwise, severe hypokinesis Calculated LV ejection Fraction = 17% (bi-plane method of discs). Grade 3 diastolic dysfunction consistent with restrictive physiology. Severe aortic valve regurgitation is present. Mildly dilated mitral annulus with severe mitral regurgitation. Severe tricuspid regurgitation. Pulmonary hypertension is present with a dilated IVC assuming a RA pressure of 15 mm of mercury. The estimated pulmonary artery systolic pressure is 51mm Hg. Severe biatrial enlargement. Mild enlargement of the ascending aorta. (1) Pulmonary edema Chronicity: acute Qualified Code(s): J81.0 - Acute pulmonary edema
--- NOTE | 2020-08-20 10:13 | Electrocardiogram Report ---
Test Reason : Blood Pressure : / mmHG Vent. Rate : 095 BPM Atrial Rate : 093 BPM P-R Int : 308 ms QRS Dur : 120 ms QT Int : 406 ms P-R-T Axes : 000 -39 142 degrees QTc Int : 510 ms Atrial-paced rhythm with prolonged AV conduction Left axis deviation T wave abnormality, consider lateral ischemia Abnormal ECG When compared with ECG of 21-APR-2020 15:55, Electronic atrial pacemaker has replaced Sinus rhythm Confirmed by Mo Moore ([id number]) on 08/20/2020 10:12:57 AM Referred By: Boni [place] Confirmed By:Mo Moore
[2020-08-20] MEDS ORDERED: POTASSIUM CHLORIDE 20 MEQ TABCR PO ONE ×2 (11:00)
[2020-08-20 13:01] LABS: Creatinine Urine Random 46.2 mg/dl; Protein Creatinine Ratio Urine 0.2 (0-0.2); Total Protein Urine Random 10.8 mg/dl (0-11.9)
--- NOTE | 2020-08-20 15:10 | Ultrasound Report ---
ULTRASOUND KIDNEYS AND BLADDER CLINICAL HISTORY: Acute on chronic renal insufficiency. COMPARISON STUDY: Renal ultrasound dated 04/22/2020. TECHNIQUE: Real-time, grayscale, and color flow sonography of the kidneys and bladder is performed. I mages are reviewed in the transverse and longitudinal planes. FINDINGS: Kidneys: The kidneys demonstrate cortical atrophy and slightly increased cortical echotexture. The ri ght kidney measures 8.6 cm in length and the left kidney measures 8.4 cm in length. There is no hydro nephrosis. No shadowing renal calculi are identified. There is no sonographic evidence of contour def orming renal mass lesion. No perinephric fluid is identified. Bladder: The bladder is normal in appearance. Ureteral jets were not seen. IMPRESSION: 1. The kidneys demonstrate cortical atrophy and there is evidence of medical renal disease. 2. There is no hydronephrosis. 3. The bladder is normal as visualized. ACT 112: Negative or not required by law. Electronically signed by: Ba Peacock M.D. 08/20/2020 3:08 PM
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
[2020-08-20] MEDS: MULTIVITAMIN TAB PO SCH (21:12)
[2020-08-20] MEDS: ATORVASTATIN 40 MG TAB PO SCH (21:12)
[2020-08-20] MEDS: CEROVITE ADV FORMULA TAB PO SCH (21:12)
[2020-08-20] MEDS: CALCIUM 600MG + VIT D 400 IU TAB PO SCH (21:13)
--- NOTE | 2020-08-20 22:34 | Hospitalist Progress Note ---
Date of Service August 20, 2020 Assessment & Plan (1) CHF (congestive heart failure): History of chronic left ventricular systolic heart failure. Worsening CHF. Echo in clinic showed LVEF of 17%, significantly worse than previous determination of 40%. Acute on chronic left ventricular systolic heart failure. Cardiology consulted. Management of CHF per protocol. 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 Creatinine at time of admission 2.48. Acute kidney injury superimposed on CKD IV. Nephrology consulted. Creatinine today = 2.27. Follow. (3) Hypokalemia: Replace. Follow. (4) CAD (coronary artery disease): S/P PCI. No anginal symptoms. Continue ASA, clopidogrel, metoprolol, statin. (5) Hypertension: Continue metoprolol and diuretics. (6) Chronic kidney disease (CKD) stage G4/A1, severely decreased glomerular filtration rate (GFR) between 15-29 mL/min/1.73 square meter and albuminuria creatinine ratio less than 30 mg/g: As noted above. (7) DVT prophylaxis: SQ heparin. Ambulate. (8) Discharge planning issues: Anticipated discharge to home. Family Medicine follow-up with Dr. Carter. Admission and Anticipated Discharge Date Admission Date: August 19, 2020 Subjective Recheck for CHF and other problems. Patient seen in their room around 1630. Intermittent SOB. Less dependent edema. No chest pain. Review of Systems: Constitutional- no fever. Cardiac- as noted above. Pulmonary- no cough or SOB. GI- no nausea, vomiting, diarrhea, melena, hematochezia. - no urinary symptoms. Otherwise, as noted above. Physical Exam Constitutional: no acute distress Respiratory: no respiratory distress Auscultation: + rales Cardiovascular: Rate/Rhythm: regular rate and regular rhythm Heart Sounds: + gallop (S3) Vessels: + JVD Extremities: + edema (2+); no calf tenderness Gastrointestinal (Abdomen): normal bowel sounds, soft, nontender, no hepatosplenomegaly Musculoskeletal: Extremities: no cyanosis Skin: no rashes, warm and dry Psychiatric: Orientation: alert and oriented x 3 Results & Data Results & Data ([facility]) Vital Signs (Past 12 Hours) Vital Signs Temp Pulse Resp BP Pulse Ox 08/20/20 20:00 36.3 C L 77 18 100/71 92 08/20/20 15:39 36.5 C 90 18 106/75 97 08/20/20 11:51 36.5 C 90 19 113/76 91 Diagnostic Findings 08/20/20 04:26 08/20/20 04:26 (1) CHF (congestive heart failure) Heart failure chronicity: acute Heart failure type: unspecified Qualified Code(s): I50.9 - Heart failure, unspecified
[2020-08-21] MEDS: HEPARIN SOD 5,000 UNIT/0.5 ML VIAL SQ SCH ×3 (06:34→20:43)
[2020-08-21 07:53] LABS: BUN Creatinine Ratio 22.5 (10-20); Calcium 9.3 mg/dl (8.5-10.1); Creatinine Clr Calc Pharmacy 21.7 ml/min; Est GFR (Non-African American) 23.3; Potassium 3.8 mmol/L (3.5-5.1)
[2020-08-21] MEDS: FUROSEMIDE 40 MG in SYRINGE 0 ML IV SCH ×2 (08:28→16:24)
[2020-08-21] MEDS: FLUTICASONE PROPIONATE NA SPR 16 GM BTL SCH (08:28)
[2020-08-21] MEDS: CLOPIDOGREL BISULFATE 75 MG TAB PO SCH (08:29)
[2020-08-21] MEDS: AMIODARONE 200 MG TAB PO SCH (08:29)
[2020-08-21] MEDS: METOPROLOL SUCC 25MG EXT REL TAB PO SCH ×2 (08:29→20:42)
[2020-08-21] MEDS: ASPIRIN 81 MG ECTAB PO SCH (08:29)
[2020-08-21] MEDS: POTASSIUM CHLORIDE 20 MEQ TABCR PO SCH (08:29)
[2020-08-21] MEDS: PANTOprazole 40 MG TAB PO SCH (08:29)
[2020-08-21] MEDS ORDERED: metOLazone 2.5 MG TABLET PO ONE (09:00)
--- NOTE | 2020-08-21 11:51 | Cardiology Progress Note ---
Date of Service August 21, 2020 Assessment & Plan (1) Acute systolic (congestive) heart failure: (2) Ischemic cardiomyopathy: (3) Status post placement of cardiac pacemaker: (4) Chronic kidney disease (CKD) stage G4/A1, severely decreased glomerular filtration rate (GFR) between 15-29 mL/min/1.73 square meter and albuminuria creatinine ratio less than 30 mg/g: (5) Aortic regurgitation: (6) Tricuspid regurgitation: 84-year-old male with acute on chronic decompensated systolic heart failure. Recent echocardiogram demonstrating significant decline of LV systolic function and progression of aortic and tricuspid insufficiency. Known ischemic cardiomyopathy with large infarct involving anterior, anterior lateral, and apical segments on prior nuclear stress test. Worsening cardiomyopathy possibly related to progression of underlying CAD and or valvular heart disease. Ventricular pacing burden is low therefore, I doubt his pacemaker is contributing to the current situation. Creatinine trending upward slightly. Trial of metolazone plus Lasix ordered today with reassessment of renal function in a.m. Continue to follow fluid balance, daily weight, GFR and electrolytes. Other cardiovascular medications will be continued as previously ordered. Admission and Anticipated Discharge Date Admission Date: August 19, 2020 Subjective Patient seen and examined at the bedside. Respiratory status improved. Fluid balance -1.6 L. Creatinine stable at 2.45 today. He has not received a.m. metolazone plus Lasix. Awaiting delivery from pharmacy. Patient denies chest pain, palpitations, or shortness of breath. Telemetry reveals atrial paced rhythm and sinus rhythm with a first-degree AV block. Tolerating medications at this time. Offers no concerns/complaints. Review of Systems Review of Systems: All systems reviewed & are unremarkable except as noted in HPI & below Physical Exam Constitutional: + ill appearing Respiratory: Auscultation: + diminished lung sounds (Bases bilateral); no crackles, no rales, no rhonchi and no wheezes Cardiovascular: Rate/Rhythm: regular rate Heart Sounds: normal S1, normal S2 and + murmur (1/6 midsystolic murmur heard best at the base.) Vessels: + JVD Extremities: + edema (2+ bilateral pretibial edema) Gastrointestinal (Abdomen): Inspection/Auscultation: abdomen normal to inspection and normal bowel sounds; abdomen not distended Percussion/Palpation: abdomen soft; abdomen nontender, no guarding and abdomen not rigid Skin: no rashes, warm and dry Neurologic: CN's II-XI intact bilaterally and moves all extremities; no focal motor deficits Speech / Cognition: normal speech Motor/Sensory: no tremor Psychiatric: A+Ox3, euthymic affect Results & Data ([facility]) Vital Signs (Past 12 Hours) Vital Signs Temp Pulse Pulse Resp BP Pulse Ox 08/21/20 08:30 37 C 96 H 16 111/76 91 08/21/20 08:00 96 H 08/21/20 04:00 36.7 C 71 18 114/76 95 08/21/20 00:00 36.9 C 96 H 18 113/81 94
--- NOTE | 2020-08-21 12:38 | Nephrology Progress Note ---
Date of Service August 21, 2020 Assessment & Plan (1) Chronic kidney disease (CKD) stage G4/A1, severely decreased glomerular filtration rate (GFR) between 15-29 mL/min/1.73 square meter and albuminuria creatinine ratio less than 30 mg/g: new baseline creatinine summer 2019 is low to mid 2's, last one 2.5 late June 2020. no EDILSON at this time. cardiorenal etiology -no indication for acute dialysis -cont current diuresis > lasix 40 mg IV bid and had one metolazone 2.5 mg dose today; metolazone being given after eval -200 mg proteinuria > not even remotely nephrotic and bland urine sediment; renal u/s unchanged, unremarkable (2) Pulmonary edema: agree w/ lasix 40 mg IV bid and low dose metolazone (3) Cardiac volume overload: from acute on chronic systolic HF and progression of aortic and tricuspid insufficiency. standing weights rather labile >> 74.4 kg on admission 08/19 > 79.1 kg 08/20 >> 72.8 08/21. by I/O he is 2.5L negative so far this admission >cont standing K dose currently 20 mEq daily >cont 1.5L FR, <2 gm daily Na diet Admission and Anticipated Discharge Date Admission Date: August 19, 2020 Subjective seen at about 1100; edema not much changed; breathing stable. denies voiding concerns, worsening fatigue, or chest pain. Review of Systems Review of Systems: All systems reviewed & are unremarkable except as noted in HPI & below Physical Exam Constitutional: well developed and well nourished; no acute distress (on RA) Eyes: EOM intact bilaterally ENMT: Ears: no external ear abnormality Nose: no external nose abnormality Mouth: + dry oral mucous membranes Neck: no nuchal rigidity Respiratory: normal respiratory effort Auscultation: + diminished lung sounds and + crackles (bibasilar) Cardiovascular: Rate/Rhythm: regular rate and regular rhythm Extremities: + edema (2+ BL pitting) Gastrointestinal (Abdomen): Inspection/Auscultation: normal bowel sounds Percussion/Palpation: abdomen soft; abdomen nontender Musculoskeletal: Extremities: strength 5/5 throughout Skin: no rashes, warm and dry Neurologic: rosa, fluent speech, no tremor Psychiatric: A+Ox3, euthymic affect Speech: normal rate/rhythm/volume of s peech Results & Data ([facility]) Vital Signs (Past 12 Hours) Vital Signs Temp Pulse Pulse Resp BP Pulse Ox 08/21/20 12:07 36.6 C 68 16 104/65 92 08/21/20 08:30 37 C 96 H 16 111/76 91 08/21/20 08:00 96 H 08/21/20 04:00 36.7 C 71 18 114/76 95 Laboratory Results 08/20/20 04:26 08/21/20 07:02 renal u/s and urine studies reviewed (1) Pulmonary edema Chronicity: acute Qualified Code(s): J81.0 - Acute pulmonary edema
[2020-08-21] MEDS: CEROVITE ADV FORMULA TAB PO SCH (20:42)
[2020-08-21] MEDS: MULTIVITAMIN TAB PO SCH (20:42)
[2020-08-21] MEDS: ATORVASTATIN 40 MG TAB PO SCH (20:43)
[2020-08-21] MEDS: CALCIUM 600MG + VIT D 400 IU TAB PO SCH (20:43)
--- NOTE | 2020-08-21 21:16 | Hospitalist Progress Note ---
Date of Service August 21, 2020 Assessment & Plan (1) CHF (congestive heart failure): History of chronic left ventricular systolic heart failure. Worsening CHF. Echo in clinic showed LVEF of 17%, significantly worse than previous determination of 40%. Pro-BNP was 11,285. Acute on chronic left ventricular systolic heart failure. Cardiology consulted. Management of CHF per protocol. Continue metoprolol succinate. No KARISHMA or ARB due to CKD. Receiving IV furosemide; also received metolazone today. Wt down & symptom improved. 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 Creatinine at time of admission 2.48. Acute kidney injury superimposed on CKD IV. Nephrology consulted. Creatinine today = 2.45. Follow. (3) Hypokalemia: K as low as 3.4. Receiving replacement. K today = 3.8. Follow. (4) CAD (coronary artery disease): S/P PCI. No anginal symptoms. Continue ASA, clopidogrel, metoprolol, statin. (5) Hypertension: Continue metoprolol and diuretics. (6) Chronic kidney disease (CKD) stage G4/A1, severely decreased glomerular filtration rate (GFR) between 15-29 mL/min/1.73 square meter and albuminuria creatinine ratio less than 30 mg/g: As noted above. (7) DVT prophylaxis: SQ heparin. Ambulate. (8) Discharge planning issues: Anticipated discharge to home. Family Medicine follow-up with Dr. Carter. Admission and Anticipated Discharge Date Admission Date: August 19, 2020 Subjective Recheck for CHF and other problems. Patient seen in their room around 1420. Diuresing well. Wt 76.8 kg >> 72.8 kg. Intermittent mild SOB. Less dependent edema. No chest pain. Review of Systems: Constitutional- no fever. Cardiac- as noted above. Pulmonary- no cough or SOB. GI- no nausea, vomiting, diarrhea, melena, hematochezia. - no urinary symptoms. Otherwise, as noted above. Physical Exam Constitutional: no acute distress Respiratory: no respiratory distress Auscultation: + rales Cardiovascular: Rate/Rhythm: regular rate and regular rhythm Heart Sounds: + gallop (S3) Vessels: + JVD Extremities: + edema (2+); no calf tenderness Gastrointestinal (Abdomen): normal bowel sounds, soft, nontender, no hepatosplenomegaly Musculoskeletal: Extremities: no cyanosis Skin: no rashes, warm and dry Psychiatric: Orientation: alert and oriented x 3 Results & Data Results & Data ([facility]) Vital Signs (Past 12 Hours) Vital Signs Temp Pulse Pulse Resp BP BP Pulse Ox 08/21/20 19:25 36.6 C 91 H 16 112/77 94 08/21/20 16:19 36.3 C L 90 20 108/74 96 08/21/20 15:33 87 08/21/20 12:07 36.6 C 68 16 104/65 92 Laboratory Results Laboratory Results - last 24 hr 08/21/20 07:02 Sodium 143 Potassium 3.8 Chloride 108 H Carbon Dioxide 29 Anion Gap 6.0 BUN 55 H Creatinine 2.45 H Est Cr Clr Drug Dosing 21.7 Est GFR ( Amer) 27.0 Est GFR (Non-Af Amer) 23.3 BUN/Creatinine Ratio 22.5 H Glucose 94 Calcium 9.3 (1) CHF (congestive heart failure) Heart failure chronicity: acute Heart failure type: unspecified Qualified Code(s): I50.9 - Heart failure, unspecified
[2020-08-22] MEDS: HEPARIN SOD 5,000 UNIT/0.5 ML VIAL SQ SCH ×3 (06:03→20:16)
[2020-08-22 08:06] LABS: BUN Creatinine Ratio 23.5 (10-20); Calcium 9.4 mg/dl (8.5-10.1); Est GFR (Non-African American) 22.4; Potassium 3.3 mmol/L (3.5-5.1)
[2020-08-22] MEDS ORDERED: POTASSIUM CHLORIDE 20 MEQ TABCR PO ONE ×2 (08:13→14:15)
[2020-08-22] MEDS: AMIODARONE 200 MG TAB PO SCH (08:27)
[2020-08-22] MEDS: POTASSIUM CHLORIDE 20 MEQ TABCR PO SCH (08:27)
[2020-08-22] MEDS: ASPIRIN 81 MG ECTAB PO SCH (08:27)
[2020-08-22] MEDS: FLUTICASONE PROPIONATE NA SPR 16 GM BTL SCH (08:27)
[2020-08-22] MEDS: CLOPIDOGREL BISULFATE 75 MG TAB PO SCH (08:28)
[2020-08-22] MEDS: FUROSEMIDE 40 MG in SYRINGE 0 ML IV SCH ×2 (08:28→17:09)
[2020-08-22] MEDS: PANTOprazole 40 MG TAB PO SCH (08:28)
[2020-08-22] MEDS: METOPROLOL SUCC 25MG EXT REL TAB PO SCH ×2 (08:28→20:18)
--- NOTE | 2020-08-22 13:15 | Cardiology Progress Note ---
Date of Service August 22, 2020 Assessment & Plan (1) Acute systolic (congestive) heart failure: (2) Ischemic cardiomyopathy: (3) Status post placement of cardiac pacemaker: (4) Chronic kidney disease (CKD) stage G4/A1, severely decreased glomerular filtration rate (GFR) between 15-29 mL/min/1.73 square meter and albuminuria creatinine ratio less than 30 mg/g: (5) Aortic regurgitation: (6) Tricuspid regurgitation: 84-year-old male with acute on chronic decompensated systolic heart failure. Recent echocardiogram demonstrating significant decline of LV systolic function and progression of aortic and tricuspid insufficiency. Known ischemic cardiomyopathy with large infarct involving anterior, anterior lateral, and apical segments on prior nuclear stress test. Worsening cardiomyopathy possibly related to progression of underlying CAD and or valvular heart disease. Ventricular pacing burden is low therefore, I doubt his pacemaker is contributing to the current situation. Significant diuresis noted with addition of metolazone 08/21/2020. Continue IV Lasix today. Will dose additional 5 mg of metolazone in a.m. 08/23/20 approximately 30 minutes prior to IV Lasix. Follow daily weight, fluid balance, GFR, and electrolytes. Other cardiovascular medications will be continued as previously ordered. Admission and Anticipated Discharge Date Admission Date: August 19, 2020 Subjective Patient seen and examined at the bedside. Fluid balance negative approximately 3 L overnight. Edema improving. Telemetry demonstrates sinus rhythm with dem and ventricular pacing. Creatinine relatively stable overnight. Review of Systems Review of Systems: All systems reviewed & are unremarkable except as noted in HPI & below Physical Exam Constitutional: + ill appearing Respiratory: Auscultation: + diminished lung sounds (Bases bilateral); no crackles, no rales, no rhonchi and no wheezes Cardiovascular: Rate/Rhythm: regular rate Heart Sounds: normal S1, normal S2 and + murmur (1/6 midsystolic murmur heard best at the base.) Vessels: + JVD Extremities: + edema (2+ bilateral pretibial and posterior above the knee edema) Gastrointestinal (Abdomen): Inspection/Auscultation: abdomen normal to inspection and normal bowel sounds; abdomen not distended Percussion/Palpation: abdomen soft; abdomen nontender, no guarding and abdomen not rigid Skin: no rashes, warm and dry Neurologic: CN's II-XI intact bilaterally and moves all extremities; no focal motor deficits Speech / Cognition: normal speech Motor/Sensory: no tremor Psychiatric: A+Ox3, euthymic affect Results & Data ([facility]) Vital Signs (Past 12 Hours) Vital Signs Temp Pulse Pulse Resp BP BP Pulse Ox 08/22/20 09:46 98 H 08/22/20 09:41 36.5 C 102 H 18 114/78 94 08/22/20 04:19 36.9 C 98 H 18 110/75 94
--- NOTE | 2020-08-22 13:55 | Nephrology Progress Note ---
Date of Service August 22, 2020 Assessment & Plan (1) Chronic kidney disease (CKD) stage G4/A1, severely decreased glomerular filtration rate (GFR) between 15-29 mL/min/1.73 square meter and albuminuria creatinine ratio less than 30 mg/g: new baseline creatinine summer 2019 is low to mid 2's, last one 2.5 late June 2020. no EDILSON at this time. cardiorenal etiology -no indication for acute dialysis -cont current diuresis > lasix 40 mg IV bid and had one metolazone 2.5 mg dose 08/22; another 5 mg metolazone planned for am which seems reasonable -200 mg proteinuria > not even remotely nephrotic and bland urine sediment; renal u/s unchanged, unremarkable -need to ensure f/u in CKD clinic after d/c > he lives in [facility] so suggest w/ Dr Barros (2) Pulmonary edema: agree w/ lasix 40 mg IV bid and low dose metolazone (3) Cardiac volume overload: from acute on chronic systolic HF and progression of aortic and tricuspid insufficiency. standing weights rather labile >> 74.4 kg on admission 08/19 > 79.1 kg 08/20 >> 72.8 08/21. by I/O he is 2.5L negative so far this admission >cont standing K dose currently 20 mEq daily > had 20 mEq extra and will give another 2o mEq for 40 extra mEq today -daily bmp >cont 1.5L FR, <2 gm daily Na diet Admission and Anticipated Discharge Date Admission Date: August 19, 2020 Subjective ambulated; feels tightness popliteal area improving w/ further diuresis; he has diuresed 9.4lb according to standing wts; stable mild exertional dyspnea, no n/v; no voiding c/o; no CP/palpitations Review of Systems Review of Systems: All systems reviewed & are unremarkable except as noted in HPI & below Physical Exam Constitutional: well developed and well nourished; no acute distress (on RA) sittign in bed; maneuvers readily for exam Eyes: EOM intact bilaterally ENMT: Ears: no external ear abnormality Nose: no external nose abnormality Mouth: + dry oral mucous membranes Neck: no nuchal rigidity Respiratory: normal respiratory effort Auscultation: lungs clear to auscultation bilaterally and + diminished lung sounds Cardiovascular: Rate/Rhythm: regular rate and regular rhythm Extremities: + edema (2+ BL pitting but less tight) Gastrointestinal (Abdomen): Inspection/Auscultation: normal bowel sounds Percussion/Palpation: abdomen soft; abdomen nontender Musculoskeletal: Extremities: strength 5/5 throughout Skin: no rashes, warm and dry Neurologic: rosa, fluent speech, no tremor Psychiatric: A+Ox3, euthymic affect Speech: normal rate/rhythm/volume of speech Results & Data ([facility]) Vital Signs (Past 12 Hours) Vital Signs Temp Pulse Pulse Resp BP BP Pulse Ox 08/22/20 09:46 98 H 08/22/20 09:41 36.5 C 102 H 18 114/78 94 08/22/20 04:19 36.9 C 98 H 18 110/75 94 Laboratory Results 08/20/20 04:26 08/22/20 07:00 (1) Pulmonary edema Chronicity: acute Qualified Code(s): J81.0 - Acute pulmonary edema
[2020-08-22] MEDS: CALCIUM 600MG + VIT D 400 IU TAB PO SCH (20:16)
[2020-08-22] MEDS: CEROVITE ADV FORMULA TAB PO SCH (20:17)
[2020-08-22] MEDS: MULTIVITAMIN TAB PO SCH (20:17)
[2020-08-22] MEDS: ATORVASTATIN 40 MG TAB PO SCH (20:17)
--- NOTE | 2020-08-22 22:10 | Hospitalist Progress Note ---
Date of Service August 22, 2020 Assessment & Plan (1) CHF (congestive heart failure): History of chronic left ventricular systolic heart failure. Worsening CHF. Echo in clinic showed LVEF of 17%, significantly worse than previous determination of 40%. Pro-BNP was 11,285. Acute on chronic left ventricular systolic heart failure. Cardiology consulted. Management of CHF per protocol. Continue metoprolol succinate. No KARISHMA or ARB due to CKD. Receiving IV furosemide. Wt down & symptom improved. 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 Creatinine at time of admission 2.48. Acute kidney injury superimposed on CKD IV. Nephrology consulted. Creatinine today = 2.53. Follow. (3) Hypokalemia: Hypokalemia secondary to diuretic therapy. Receiving replacement. K today = 3.3. Follow. (4) CAD (coronary artery disease): S/P PCI. No anginal symptoms. Continue ASA, clopidogrel, metoprolol, statin. (5) Hypertension: Continue metoprolol and diuretics. (6) Chronic kidney disease (CKD) stage G4/A1, severely decreased glomerular filtration rate (GFR) between 15-29 mL/min/1.73 square meter and albuminuria creatinine ratio less than 30 mg/g: As noted above. (7) DVT prophylaxis: SQ heparin. Ambulate. (8) Discharge planning issues: Anticipated discharge to home. Family Medicine follow-up with Dr. Carter. Admission and Anticipated Discharge Date Admission Date: August 19, 2020 Subjective Recheck for CHF and other problems. Patient seen in their room around 1120. Wt 76.8 kg >> 70.1 kg. Less SOB. Less dependent edema. No chest pain. Review of Systems: Constitutional- no fever. Cardiac- as noted above. Pulmonary- no cough or SOB. GI- no nausea, vomiting, diarrhea, melena, hematochezia. - no urinary symptoms. Otherwise, as noted above. Physical Exam Constitutional: no acute distress Respiratory: no respiratory distress Auscultation: + rales Cardiovascular: Rate/Rhythm: regular rate and regular rhythm Heart Sounds: + gallop (S3) and + murmur (II/ sys murmur LSB & base) Vessels: + JVD Extremities: + edema (2+); no calf tenderness Gastrointestinal (Abdomen): normal bowel sounds, soft, nontender, no hepatosplenomegaly Musculoskeletal: Extremities: no cyanosis Skin: no rashes, warm and dry Psychiatric: Orientation: alert and oriented x 3 Results & Data Results & Data ([facility]) Vital Signs (Past 12 Hours) Vital Signs Temp Pulse Resp BP BP Pulse Ox 08/22/20 19:33 36.3 C L 93 H 14 110/78 98 08/22/20 15:57 36.8 C 88 18 97/67 L 92 08/22/20 12:00 36.2 C L 69 18 114/69 95 Laboratory Results 08/22/20 07:00 (1) CHF (congestive heart failure) Heart failure chronicity: acute Heart failure type: unspecified Qualified Code(s): I50.9 - Heart failure, unspecified
[2020-08-23] MEDS: HEPARIN SOD 5,000 UNIT/0.5 ML VIAL SQ SCH ×3 (05:46→21:18)
[2020-08-23 07:52] LABS: BUN Creatinine Ratio 22.2 (10-20); Calcium 8.9 mg/dl (8.5-10.1); Creatinine Clr Calc Pharmacy 21.6 ml/min; Est GFR (African American) 27.1; Est GFR (Non-African American) 23.4; Potassium 3.5 mmol/L (3.5-5.1)
[2020-08-23] MEDS: FLUTICASONE PROPIONATE NA SPR 16 GM BTL SCH (08:44)
[2020-08-23] MEDS: ASPIRIN 81 MG ECTAB PO SCH (08:44)
[2020-08-23] MEDS: METOPROLOL SUCC 25MG EXT REL TAB PO SCH ×2 (08:45→21:18)
[2020-08-23] MEDS: CLOPIDOGREL BISULFATE 75 MG TAB PO SCH (08:45)
[2020-08-23] MEDS: PANTOprazole 40 MG TAB PO SCH (08:46)
[2020-08-23] MEDS: metOLazone 5 MG TABLET PO SCH (08:46)
[2020-08-23] MEDS: AMIODARONE 200 MG TAB PO SCH (08:46)
[2020-08-23] MEDS: POTASSIUM CHLORIDE 20 MEQ TABCR PO SCH (08:47)
[2020-08-23] MEDS: FUROSEMIDE 40 MG in SYRINGE 0 ML IV SCH ×2 (09:16→16:09)
--- NOTE | 2020-08-23 10:29 | Cardiology Progress Note ---
Date of Service August 23, 2020 Assessment & Plan (1) Tricuspid regurgitation: (2) Aortic regurgitation: (3) Chronic kidney disease (CKD) stage G4/A1, severely decreased glomerular filtration rate (GFR) between 15-29 mL/min/1.73 square meter and albuminuria creatinine ratio less than 30 mg/g: (4) Ischemic cardiomyopathy: (5) Tachycardia-bradycardia syndrome: (6) Heart failure, systolic, with acute decompensation: (7) Hypokalemia: 84-year-old male with improving evidence of acute on chronic decompensated end stage systolic congestive heart failure. Continue IV Lasix and oral metolazone, reassessing volume status and renal dysfunction in AM. Supplement potassium orally. Conservative medical management Admission and Anticipated Discharge Date Admission Date: August 19, 2020 Supervising Physician Co-Signing Physician Notes Patient seen and examined the bedside. Edema improving. Fluid balance remains negative. Creatinine trending upward slightly, however, near baseline. Scheduled to receive dose of metolazone this a.m. prior to Lasix. Respiratory status stable. Ambulating in the garcia without restriction. PE: VSS. Gen: NAD, AAO x3. Heart: Regular, normal S1, S2, 2/6 midsystolic murmur heard best at left sternal border. Lungs: Diminished breath sounds at the bases bilaterally, no rales, rhonchi, or wheeze. Extremities: 1+ bilateral pretibial, and posterior above-knee edema. Neurologic: Moves all extremities, no focal deficit. A/P: Agree with above PA-C history, physical exam, assessment and plan. Con tinue IV diuretic therapy with addition of metolazone today. Reassess renal function/electrolytes in a.m. Follow fluid balance, daily weight, edema. Increase activity as tolerated. Subjective Patient seen and examined. Chart, medications, and telemetry reviewed. Notes ambulating four laps around the hallway this morning without much difficulty. No chest pain. No palpitations. No cough or chest congestion. Edema continues to improve but has not resolved. Fluid balance negative 1,211 ml overnight, negative 6,751 mL's overall. Telemetry: Sinus, sinus tachycardia with occasional PVC's and demand pacing. Creatinine relatively stable. Review of Systems Review of Systems: All systems reviewed & are unremarkable except as noted in HPI & below Constitutional: no fever and no chills Respiratory: no cough, no chest congestion, no hemoptysis and no pain on inspiration Cardiovascular: + orthopnea; no chest pain, no dyspnea at rest and no syncope Gastrointestinal: no blood in stools Genitourinary: no hematuria Neurologic: no falls Physical Exam Physical Exam: General: A&Ox3. NAD. HEENT: Normocephalic. Atraumatic. PER. Conjunctiva pink, sclera clear. Neck: + JVD. Heart: Irregular with an occasional ectopic beat. + Systolic murmur. + Diastolic murmur. No rub. PMI is displaced. Lungs: Faint bibasilar rales. Abdomen: +BS. Soft. Nontender. No masses or organomegaly. Extremities: 1+ edema. No clubbing. No cyanosis. Limited neurological examination is without focal deficits. Results & Data ([facility]) Vital Signs (Past 12 Hours) Vital Signs Temp Pulse Resp BP BP Pulse Ox 08/23/20 08:35 36.4 C L 100 H 20 102/70 94 08/23/20 03:57 36.7 C 67 16 93/48 L 95 08/22/20 23:20 36.3 C L 96 H 16 110/78 93 Laboratory Results Laboratory Results - last 24 hr 08/23/20 06:56 Sodium 146 H Potassium 3.5 Chloride 105 Carbon Dioxide 32 Anion Gap 9.0 BUN 54 H Creatinine 2.44 H Est Cr Clr Drug Dosing 21.6 Est GFR ( Amer) 27.1 Est GFR (Non-Af Amer) 23.4 BUN/Creatinine Ratio 22.2 H Glucose 85 Calcium 8.9
[2020-08-23] MEDS ORDERED: POTASSIUM CHLORIDE 20 MEQ TABCR PO ONE (10:41)
--- NOTE | 2020-08-23 13:02 | Progress Notes ---
DATE: 08/23/2020 NEPHROLOGY PROGRESS NOTE SUBJECTIVE: Overnight, he feels somewhat better from breathing standpoint, lower extremity edema is trending down. OBJECTIVE: VITAL SIGNS: Blood pressure is 92/63, pulse rate 69, temperature 36.4, 92% on room air. HEENT: Mucous membranes moist. NECK: Supple. No jugular venous distention. CHEST: Bilateral decreased breath sounds, occasional crackles. CARDIOVASCULAR: S1 and S2, irregular, tachycardic. ABDOMEN: Soft, nontender. EXTREMITIES: Still show 1+ edema, more in the left lower extremity. Urine output in the last 24-hour time period yesterday was 2150 mL. ASSESSMENT AND PLAN: An 84-year-old male with pulmonary edema/congestive heart failure with chronic kidney disease III to stage IV and longstanding cardiac issue from [id number] systolic heart failure as well as valvular heart disease. Chronic kidney disease: Renal function seems stable with his current BUN and creatinine similar to his outpatient blood work. Sodium is starting to trend up from IV Lasix. For today, we can continue current dose of Lasix and metolazone as he still has edema. The patient seems very concerned about his outpatient diuretics and feels we need to use a higher dose, and I agree with that. Consider doubling his outpatient Demadex dose to 40 daily.
--- NOTE | 2020-08-23 15:46 | Hospitalist Progress Note ---
Date of Service August 23, 2020 Assessment & Plan (1) CHF (congestive heart failure): History of chronic left ventricular systolic heart failure. Worsening CHF. Echo in clinic showed LVEF of 17%, significantly worse than previous determination of 40%. Pro-BNP was 11,285. Acute on chronic left ventricular systolic heart failure. Cardiology consulted. Management of CHF per protocol. Continue metoprolol succinate. No KARISHMA or ARB due to CKD. Receiving IV furosemide. Wt down & symptoms improved. (2) CAD (coronary artery disease): S/P PCI. No anginal symptoms. Continue ASA, clopidogrel, metoprolol, statin. (3) Hypertension: Continue metoprolol and diuretics. (4) Chronic kidney disease (CKD) stage G4/A1, severely decreased glomerular filtration rate (GFR) between 15-29 mL/min/1.73 square meter and albuminuria creatinine ratio less than 30 mg/g: CKD IV with baseline creatinine 2.0 - 2.5. Creatinine at time of admission 2.48. Nephrology consulted. Creatinine today = 2.44. Follow. (5) Hypokalemia: Hypokalemia secondary to diuretic therapy. Receiving replacement. K today = 3.5. Follow. (6) DVT prophylaxis: SQ heparin. Ambulate. (7) Discharge planning issues: Anticipated discharge to home. Family Medicine follow-up with Dr. Carter. Admission and Anticipated Discharge Date Admission Date: August 19, 2020 Subjective Recheck for CHF and other problems. Patient seen in their room around 1400. Wt 76.8 kg >> 67.9 kg. Less SOB. Less dependent edema. No chest pain. Ambulating. Review of Systems: Constitutional- no fever. Cardiac- as noted above. Pulmonary- no cough or SOB. GI- no nausea, vomiting, diarrhea, melena, hematochezia. - no urinary symptoms. Otherwise, as noted above. Physical Exam Constitutional: no acute distress Respiratory: no respiratory distress Auscultation: + rales Cardiovascular: Rate/Rhythm: regular rate and regular rhythm Heart Sounds: + gallop (S3) and + murmur (II/ sys murmur LSB & base) Vessels: + JVD Extremities: + edema (2+); no calf tenderness Gastrointestinal (Abdomen): normal bowel sounds, soft, nontender, no hepatosplenomegaly Musculoskeletal: Extremities: no cyanosis Skin: no rashes, warm and dry Psychiatric: Orientation: alert and oriented x 3 Results & Data Results & Data ([facility]) Vital Signs (Past 12 Hours) Vital Signs Temp Pulse Resp BP BP Pulse Ox 08/23/20 15:09 36.3 C L 90 19 93/61 L 93 08/23/20 12:00 36.4 C L 69 18 92/63 L 92 08/23/20 08:35 36.4 C L 100 H 20 102/70 94 08/23/20 03:57 36.7 C 67 16 93/48 L 95 Laboratory Results 08/20/20 04:26 08/23/20 06:56 (1) CHF (congestive heart failure) Heart failure chronicity: acute Heart failure type: unspecified Qualified Code(s): I50.9 - Heart failure, unspecified
[2020-08-23] MEDS: CEROVITE ADV FORMULA TAB PO SCH (21:17)
[2020-08-23] MEDS: MULTIVITAMIN TAB PO SCH (21:17)
[2020-08-23] MEDS: ATORVASTATIN 40 MG TAB PO SCH (21:18)
[2020-08-23] MEDS: CALCIUM 600MG + VIT D 400 IU TAB PO SCH (21:18)
[2020-08-24] MEDS: HEPARIN SOD 5,000 UNIT/0.5 ML VIAL SQ SCH ×2 (06:23→14:24)
[2020-08-24 08:21] LABS: BUN Creatinine Ratio 23.6 (10-20); Calcium 9.2 mg/dl (8.5-10.1); Creatinine Clr Calc Pharmacy 20.6 ml/min; Est GFR (African American) 26.3; Est GFR (Non-African American) 22.7; Potassium 3.6 mmol/L (3.5-5.1)
[2020-08-24] MEDS: metOLazone 5 MG TABLET PO SCH (08:44)
[2020-08-24] MEDS: METOPROLOL SUCC 25MG EXT REL TAB PO SCH (08:44)
[2020-08-24] MEDS: PANTOprazole 40 MG TAB PO SCH (08:44)
[2020-08-24] MEDS: FLUTICASONE PROPIONATE NA SPR 16 GM BTL SCH (08:44)
[2020-08-24] MEDS: FUROSEMIDE 40 MG in SYRINGE 0 ML IV SCH (08:44)
[2020-08-24] MEDS: POTASSIUM CHLORIDE 20 MEQ TABCR PO SCH (08:45)
[2020-08-24] MEDS: AMIODARONE 200 MG TAB PO SCH (08:45)
[2020-08-24] MEDS: CLOPIDOGREL BISULFATE 75 MG TAB PO SCH (08:45)
[2020-08-24] MEDS: ASPIRIN 81 MG ECTAB PO SCH (08:45)
--- NOTE | 2020-08-24 10:44 | Progress Notes ---
DATE: 08/24/2020 SUBJECTIVE: Overnight, he feels slightly better. Less short of breath. No longer has edema. OBJECTIVE: VITAL SIGNS: Blood pressure is starting to run somewhat low 107/69, pulse rate 70, temperature 36.4, 94% on room air. HEENT: Mucous membrane is moist. NECK: Supple. No jugular venous distention. CHEST: Bilateral clear to auscultation. Occasional rhonchi at the bases. CARDIOVASCULAR: Irregular with an soft systolic murmur heard. EXTREMITIES: Shows only trace edema which is even better than yesterday. LABORATORY TESTS: From this morning was reviewed and shows creatinine of 2.5. BUN 59. Sodium 142, potassium 3.6, bicarbonate 32, chloride 104. ASSESSMENT AND PLAN: An 84-year-old male admitted with pulmonary edema/congestive heart failure with chronic kidney disease stage III to stage IV and longstanding cardiac issue from acute on chronic systolic heart failure as well as valvular heart disease. Chronic kidney disease: Renal function seems fairly stable with a creatinine of around 2.5 for the last few days. His edema is significantly better. Shortness of breath is better. From renal standpoint, he is stable for discharge, if agreeable to the rest of the team. 1. Consider using Demadex 40 daily. 2. Consider no metolazone. 3. Set up outpatient followup with me in [facility] at the [facility]. AYESHA
--- NOTE | 2020-08-24 11:00 | Cardiology Progress Note ---
Date of Service August 24, 2020 Assessment & Plan (1) Tricuspid regurgitation: (2) Aortic regurgitation: (3) Hypokalemia: (4) Chronic kidney disease (CKD) stage G4/A1, severely decreased glomerular filtration rate (GFR) between 15-29 mL/min/1.73 square meter and albuminuria creatinine ratio less than 30 mg/g: (5) Tachycardia-bradycardia syndrome: (6) Ischemic cardiomyopathy: (7) Heart failure, systolic, with acute decompensation: 84-year-old male with acute on chronic decompensated end-stage systolic congestive heart failure. Volume status continues to improve, now near normovolemic. Recommend transitioning IV furosemide and oral metolazone to oral torsemide. Recommend utilizing torsemide 40 mg in the morning and 20 mg in early afternoon post discharge, holding metolazone (5 mg) for now though he may require utilization of metolazone 1 to 2 days/week along with supplemental potassium. Recommend close, weekly, outpatient cardiology follow-up post discharge at [facility]. Patient typically followed by Dr. Ramiro Castillo DO and Mrs. Jaimee Miranda PA-C. Admission and Anticipated Discharge Date Admission Date: August 19, 2020 Supervising Physician Co-Signing Physician Notes Patient seen and examined the bedside. Edema improving. Fluid balance remains negative. Creatinine stable. Feeling better from a cardiovascular perspective. Requesting discharge. Ambulating in the garcia without restriction. PE: VSS. Gen: NAD, AAO x3. Heart: Regular, normal S1, S2, 2/6 midsystolic murmur heard best at left sternal border. Lungs: Diminished breath sounds at the bases bilaterally, no rales, rhonchi, or wheeze. Extremities: 1+ bilateral pretibial, and posterior above-knee edema. Neurologic: Moves all extremities, no focal deficit. A/P: Agree with above PARK history, physical exam, assessment and plan. Transition to oral diuretic therapy, torsemide 40 mg in a.m., 20 mg in the evening. Discontinue metolazone for the time being, however, may require metolazone as needed in future to maintain euvolemic status. No further inpatient cardiac testing or intervention at this time. Close outpatient, CHF clinic follow-up in 1 week. Subjective Patient seen and examined. Chart, medications, and telemetry reviewed. Notes ambulating four laps around the hallway this morning without much difficulty. No chest pain. No palpitations. No cough or chest congestion. Edema continues to improve but has not resolved. I/O's negative 3,280 mLs over the last 24 hours, down 10,031 mL's overall. Telemetry: Paced in the 70's. Creatinine relatively stable. Review of Systems Review of Systems: All systems reviewed & are unremarkable except as noted in HPI & below Physical Exam Physical Exam: General: A&Ox3. NAD. HEENT: Normocephalic. Atraumatic. PER. Conjunctiva pink, sclera clear. Neck: Normal JVP. Heart: Regular at 70, paced. Soft systolic murmur. No rub. PMI is displaced. Lungs: Clear. Abdomen: +BS. Soft. Nontender. No masses or organomegaly. Extremities: Trace to 1+ pretibial edema. No clubbing. No cyanosis. Limited neurological examination is without focal deficits. Results & Data ([facility]) Vital Signs (Past 12 Hours) Vital Signs Temp Pulse Resp BP BP Pulse Ox 08/24/20 07:14 36.4 C L 70 16 107/69 94 08/24/20 03:45 36.7 C 72 19 109/65 93 08/23/20 23:47 36.5 C 90 18 107/68 96 Laboratory Results Laboratory Results - last 24 hr 08/24/20 07:43 Sodium 142 Potassium 3.6 Chloride 104 Carbon Dioxide 32 Anion Gap 6.0 BUN 59 H Creatinine 2.50 H Est Cr Clr Drug Dosing 20.6 Est GFR ( Amer) 26.3 Est GFR (Non-Af Amer) 22.7 BUN/Creatinine Ratio 23.6 H Glucose 93 Calcium 9.2 (1) Aortic regurgitation Cardiac valve disease etiology: nonrheumatic Qualified Code(s): I35.1 - Nonrheumatic aortic (valve) insufficiency (2) Tricuspid regurgitation Cardiac valve disease etiology: nonrheumatic Qualified Code(s): I36.1 - Nonrheumatic tricuspid (valve) insufficiency
--- NOTE | 2020-08-24 14:34 | Hospitalist Progress Note ---
Date of Service August 24, 2020 Assessment & Plan (1) CHF (congestive heart failure): History of chronic left ventricular systolic heart failure. Worsening CHF. Echo in clinic showed LVEF of 17%, significantly worse than previous determination of 40%. Pro-BNP was 11,285. Acute on chronic left ventricular systolic heart failure. Cardiology consulted. Management of CHF per protocol. Continue metoprolol succinate. No KARISHMA or ARB due to CKD. Received IV furosemide. Wt 76.8 kg >> 66.3 kg. Symptoms improved. Discharge on torsemide 40 mg morning + 20 mg afternoon. Increase KCl to 20 mEq morning + 10 mEq afternoon. (2) CAD (coronary artery disease): S/P PCI. No anginal symptoms. Continue ASA, clopidogrel, metoprolol, statin. (3) Hypertension: Continue metoprolol and diuretics. (4) Chronic kidney disease (CKD) stage G4/A1, severely decreased glomerular filtration rate (GFR) between 15-29 mL/min/1.73 square meter and albuminuria creatinine ratio less than 30 mg/g: CKD IV with baseline creatinine 2.0 - 2.5. Creatinine at time of admission 2.48. Nephrology consulted. Creatinine today = 2.50. Follow. (5) Hypokalemia: Hypokalemia secondary to diuretic therapy. K as low as 3.3. Receiving replacement. K today = 3.6. Increase outpatient KCl to 20 mEq morning + 10 mEq afternoon. Follow. (6) DVT prophylaxis: SQ heparin. Ambulating. (7) Discharge planning issues: Discharge to home. Family Medicine follow-up with Dr. Carter. Cardiology follow-up with Jaimee Miranda PA-C and Dr. Castillo. Admission and Anticipated Discharge Date Admission Date: August 19, 2020 Subjective Recheck for CHF and other problems. Patient seen in their room around 1340. Wt 76.8 kg >> 66.3 kg. Less SOB. Less dependent edema. No chest pain. Ambulating. Review of Systems: Constitutional- no fever. Cardiac- as noted above. Pulmonary- no cough or SOB. GI- no nausea, vomiting, diarrhea, melena, hematochezia. - no urinary symptoms. Otherwise, as noted above. Physical Exam Constitutional: no acute distress Respiratory: no respiratory distress Auscultation: + rales Cardiovascular: Rate/Rhythm: regular rate and regular rhythm Heart Sounds: + gallop (S3) and + murmur (II/ sys murmur LSB & base) Vessels: + JVD Extremities: + edema (2+); no calf tenderness Gastrointestinal (Abdomen): normal bowel sounds, soft, nontender, no hepatosplenomegaly Musculoskeletal: Extremities: no cyanosis Skin: no rashes, warm and dry Psychiatric: Orientation: alert and oriented x 3 Results & Data Results & Data ([facility]) Vital Signs (Past 12 Hours) Vital Signs Temp Pulse Resp BP BP Pulse Ox 08/24/20 11:26 36.2 C L 70 16 99/62 L 93 08/24/20 07:14 36.4 C L 70 16 107/69 94 08/24/20 03:45 36.7 C 72 19 109/65 93 Laboratory Results 08/24/20 07:43 (1) CHF (congestive heart failure) Heart failure chronicity: acute Heart failure type: unspecified Qualified Code(s): I50.9 - Heart failure, unspecified
[2020-08-24] MEDS ORDERED: TORSEMIDE 10 MG TAB PO SCH (16:00)
--- NOTE | 2020-08-25 08:21 | Discharge Summary ---
Date of Service Date of Admission: 08/19/20 Date of Discharge: 08/24/20 Admission HPI Per Admitting Provider This is an 84-year-old male with past medical history significant for tachybrady syndrome, status post pacemaker; Atrial tachycardia hypertension; CAD; GERD; chronic kidney disease stage III; macular degeneration; hyperlipidemia; chronic systolic CHF. Was sent in by cardiology because of low EF. The patient says his lower extremity edema is slightly worse, but he checks his weight and his weight is almost same, 1 pound here and there, but almost remains stable. Before he used to have difficulty lying flat, but he is able to lie flat okay now. He says he is ambulating okay, but once in a while with no reason he feels short of breath. Denies any chest pain. No nausea, no vomiting, no cough, no dysphagia. No fever, chills. Appetite is okay. No headache, no blurred vision. Somewhat hard of hearing. Has runny nose from his sinusitis. No sore throat. No fevers, no nausea, no abdominal pain. Normal bowel and bladder movements. Denies any blood in the stool or black stools. He was in the cardiology office today. An echo was done. His EF previously was around 40%, today his EF is 17%. Also severe aortic regurgitation and also severe mitral and tricuspid regurgitation with grade 3 diastolic congestive heart failure and he was advised to come to the ER and he was given a dose of IV Lasix 80 mg in the ER . Currently resting comfortably. He is hemodynamically stable, saturating 96% on room air. Principal Diagnosis acute on chronic left ventricular systolic heart failure Discharge Data Allergies Allergy/AdvReac Type Severity Reaction Status Date / Time No Known Allergies Allergy Verified 08/19/20 19:26 Consultations 08/19/20 18:51 ED Decision to Admit Stat 08/19/20 21:45 Consult Case Management - Discharge Planning Routine Consult Nephrology Routine 08/20/20 08:00 Consult Cardiology Routine Ordered Studies 08/20/20 14:00 US renal/blad retro comp Routine Hospital Course (1) CHF (congestive heart failure): History of chronic left ventricular systolic heart failure. Worsening CHF. Echo in clinic showed LVEF of 17%, significantly worse than previous determination of 40%. Pro-BNP was 11,285. Acute on chronic left ventricular systolic heart failure. Cardiology consulted. Management of CHF per protocol. Continue metoprolol succinate. No KARISHMA or ARB due to CKD. Received IV furosemide. Wt 76.8 kg >> 66.3 kg. Symptoms improved. Discharge on torsemide 40 mg morning + 20 mg afternoon. Increase KCl to 20 mEq morning + 10 mEq afternoon. (2) CAD (coronary artery disease): S/P PCI. No anginal symptoms. Continue ASA, clopidogrel, metoprolol, statin. (3) Hypertension: Continue metoprolol and diuretics. (4) Chronic kidney disease (CKD) stage G4/A1, severely decreased glomerular filt ration rate (GFR) between 15-29 mL/min/1.73 square meter and albuminuria creatinine ratio less than 30 mg/g: CKD IV with baseline creatinine 2.0 - 2.5. Creatinine at time of admission 2.48. Nephrology consulted. Creatinine day of discharge was 2.50. Follow. (5) Hypokalemia: Hypokalemia secondary to diuretic therapy. K as low as 3.3. Receiving replacement. K day of discharge was 3.6. Increase outpatient KCl to 20 mEq morning + 10 mEq afternoon. Follow. (6) DVT prophylaxis: SQ heparin. Ambulating. (7) Discharge planning issues: Discharge to home. Family Medicine follow-up with Dr. Carter. Cardiology follow-up with Jaimee Miranda PA-C and Dr. Castillo. Total Time Total Time Spent Total Time Spent (In Minutes): 40 Discharge Plan Discharge Items Patient Disposition: Home - Self-Care Reason For Visit: congestive heart failure Discharge Diagnosis: congestive heart failure Condition on Discharge: Good Activity: Resume your previous activity Non-emergency contact: Primary Care Provider, Hospitalist and Pedicurist Call non-emergency contact if: you have any medication questions and your symptoms worsen Follow-up/Referrals: Jaimee Miranda PA-C [Physician [employer]] - (08/25/2020 2:00 PM Jaimee Miranda PA-C Cardiology, [facility]) Moises Carter MD [Primary Care Provider] - (Date & Time 08/27/2020 11:40 AM Moises Carter MD Family Practice [facility] ) Diet: Heart Healthy Addtl Attending Provider Instructions: MEDICATION CHANGES: Change torsemide to: 40 mg (2 pills) in the morning 20 mg (1 pill) in the late afternoon Change potassium chloride to: 20 mEq (1 pill) in the morning 10 mEq ( 1/2 pill) in the late afternoon OTHER INSTRUCTIONS: Seek medical attention if you have: * temperature above 101 * chest pain or trouble breathing * abdominal pain, nausea, vomiting * diarrhea, dark stools or bloody stools * any unanswered questions or concerns Call 911 if symptoms are severe. Please take good care of yourself. Call if you have any questions or problems. You can reach a [facility] hospitalist on duty at [facility] 24 hours a day by calling [phone]. My cell # is [phone]. INSTRUCTIONS FOR CONGESTIVE HEART FAILURE: Call 911 and go to the Emergency Room if: * You have tightness or pain in your chest that does not go away with rest or Nitroglycerin * You are very short of breath even with rest Call your doctor if any of the following symptoms or problems start or get worse: * Shortness of breath or difficulty breathing * Wake up at night short of breath * Chest pain * Cough * Swelling of your hands, fee, or legs * More fatigued or tired with your normal activity * Palpitations - sudden fast heart beats WEIGHT * Weigh yourself every morning after using the bathroom. * Use the same scale. * Wear the same amount of clothing. * Write your weight down on your chart. * Call your doctor if you gain more than 2-3 pounds in 1-2 days. MEDICATIONS * Use this discharge instruction sheet for instructions. * Take your medications at the time your doctor ordered. * Do not skip a dose of your medicines. * If you miss a dose of medicine, take as soon as possible, but DO NOT DOUBLE A DOSE. * Read your medicine information when you get home. * Know all of the side effects of your medicine. * Call your doctor's office if you have any side effects. * Be sure all of your doctors know what medicine and herbs you take (including cold, flu, and herbal medicine). * Pain Medicine: If you do not get relief from your pain, please call your doctor for help. Take the following with you to your follow-up doctor appointments: * Weight Chart * Medication List * List of questions Do not drink excessive alcohol, beer or wine. Pending Studies at Discharge: No Stand-Alone Forms: My [facility], Smoking Cessation Medications and DC Order Prescriptions: New torsemide 20 mg tablet See Rx Instructions .ROUTE .COMPLEX Qty: 90 RF: 5 potassium chloride 20 mEq tablet extended release See Rx Instructions .ROUTE .COMPLEX Qty: 45 RF: 5 Continued multivitamin Tablet 1 tab PO QPM RF: 0 atorvastatin 80 mg Tablet 80 mg PO HS RF: 0 clopidogrel [Plavix] 75 mg Tablet 75 mg PO QAM RF: 0 aspirin 81 mg Tablet,Delayed Release (Dr/Ec) 81 mg PO QAM RF: 0 calcium carbonate [Calcium 600] 600 mg calcium (1,500 mg) Tablet 600 mg PO QPM RF: 0 pantoprazole 40 mg Tablet,Delayed Release (Dr/Ec) 40 mg PO QAM RF: 0 Ocuvite Eye Health 50 mg-15 unit- 4.5 mg-2.5 mg Tablet,Chewable 1 tab PO QPM RF: 0 amiodarone [Pacerone] 200 mg tablet 200 mg PO DAILY RF: 0 metoprolol succinate [Toprol XL] 25 mg tablet extended release 24 hr 25 mg PO BID RF: 0 fluticasone propionate [Flonase Allergy Relief] 50 mcg/actuation spray,suspension 2 spray INTRANASAL DAILY RF: 0 Discontinued torsemide 20 mg tablet 20 mg PO DAILY RF: 0 torsemide 20 mg tablet 20 mg PO DAILY PRN (Reason: SWELLING) RF: 0 potassium chloride [K-Tab] 20 mEq tablet extended release 20 meq PO DAILY RF: 0 Discharge Orders: Discharge Order (Routine); Ordered 08/24/20 Ordered By: Martin Galindo Admission Data Admit Date/Time: 08/19/20 20:21 Attending Provider: Martin Galindo Admit Provider: Isai Ye Primary Care Provider: Moises Carter Other Providers: Isai Ye ; Shilpa Almazan ; Harley Barros ; Mariana Hrat ; Dania Wall ; Sam Desai ; Martha Curry ; Ramiro Castillo Other Interventions: Discharge Summary Assessment (RN) Last Done: 08/24/20 15:35
[2020-08-25] MEDS ORDERED: TORSEMIDE 10 MG TAB PO SCH (09:00)
== END 2020-08-24 16:10 | disposition home or self-care (01) | DRG 291 ==
LOC: ED 16:28 → SUATTDRO 20:21 → 2S 20:21

== ENCOUNTER 2021-07-02 22:57 | Inpatient (IN) ==
[2021-07-02] MEDS ORDERED: RAPID SEQUENCE INDUCTION BAG ONE (23:01)
[2021-07-02] MEDS ORDERED: PROPOFOL IV EMULSION 10 MG/ML 100 ML VIAL IV ONE (23:11)
--- NOTE | 2021-07-02 23:32 | Emergency Department Note ---
Impression & Plan Multiple organ failure, Acute hyperkalemia, Respiratory failure ED Provider Note Name: SHANNON BURKS Age: 85 Sex: M Arrives Via: Ambulance Informant: , Family, EMS ED Provider: Paco Fox MD Chief Complaint: Altered Mental Status Impression: Multiple Organ Failure Respiratory Failure Hyperkalemia Medical Decision Makin yr old chronically unwell male with history CHF, CKD, CAD, Afib, who reportedly had chest pain this evening followed by rapidly deteriorating mental status. EMS contacted and on arrival patient hypotensive and respiratory a rrest. IO obtained and givan IV epi along with IV fluids. BVM en route. On arrival patient obtunded though periodically moving arms. Minimal respiratory drive thus BVM continued and plan for intubation. Noted sine wave on monitor when hooked up. This is concerning for acute hyperkalemia. Given IV bicarb, iveth multiple rounds. RSI intubation with uriel and etomidate without difficulty. Sats remain quite low on pulse ox. CXR unremarkable though, good pulses and color of patient much improved. CCM down to evaluate as well. ABG with 100% O2 sats. 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 Extensive abnormal labs. Findings consistent with multi organ failure. He is in acute renal failure and K is elevated on labs. Repeat EKG does show some improvement in sine wave. Kept sedated on Propofol for comfort. Family at bedside. They make clear he would not want to be kept alive buttermaker on ventilator. They do not want patient to have dialysis and do not wish to have his transferred. They wish to see how some fluids work over next few hours with plan to terminally extubate in morning if no clear evidence of improvement. Prior Medical Record and Triage/Nursing Notes reviewed by Me Additional history obtained from chart Differentials:Infection, hypoglycemia, electrolyte abnormalities, overdose, toxicologic, cardiac sources, intracerebral event, neurologic, trauma, as well as other pathologies. Vital Signs: reviewed and remarkable for hypotension, hypoxia Interventions: saline lock, bicarb x 6, calcium x 4, nss bolus, etomidate, propo fol iv, rocuronium Labs:Reviewed and remarkable for hyperK, renal failure, lactic acidosis Imaging:X ray results are stated below per my interpretation: Chest: 1 view: Large heart border, no acute failure appreciated, et tube in good position, no pneumonia EKG:Per My Interpretation: Indication Respiratory failure: Sine wave pathology consistent with hyperkalemia. Occasional pacer spikes noted. 60. Compared to EKG 08/19/20 this is an acute chage Cardiac/Tele Monitoring: Cardiac Monitoring: An Order was placed for continuous cardiac monitoring. The monitor shows a rate of 80 with a paced rhythm periodically flipping to sine wave Consults:Dr Andreia Jones Hospitalist, [facility] FROST Plan: Disposition:Hospitalization. Condition: Poor History of Present Illness:85 yr old male arrives for evaluation of unresponsiveness. Patient with extensive cardiac history including renal insufficiency, tachy manoj, cad, afib, htn, cardiomyopathy, and aortic thoracic endograph. He has been feeling well last few days per his . This evening around 9 pm started having chest pains and wanted to call 911 though he refused. Rapidly worsening weakness and confusion until obtunded and called 911. EMS arrived and obtained right leg IO and given IV epi as he was hypotensive. He was so unresponsive that they placed nasal trumpet and were b agging him. He recieved IV fluids en route to ED> ROS: Patient unresponsive and unable to review Past Medical History:See Below Past Surgical History:See Below Family History:See Below Social History:See Below Home Medications:See Below Allergies:NKDA Vitals:Blood Pressure: 86/15, Pulse 70, RR 20, T 34.2C, O2 40% on RA Physical Exam: GENERAL: Patient is ill appearing and obtunded EYES: No scleral icterus, unremarkable pupils. ENT: Mucous membranes moist, no nasal congestion. NECK: No masses appreciated, nomeningismus, trachea is midline. RESPIRATORY: Respiratory failure with agonal respirations. lungs are clear which can be appreciated CARDIOVASCULAR: Regular rate and rhythm.No murmurs, rubs, gallops appreciated. GASTROINTESTINAL: Abdomen soft, non-tender, no peritonitis.Bowel sounds positive.Large liver palpated. BACK: No midline tenderness, no CVA tenderness EXTREMITIES: bilateral lower leg edema, mottled and poor pulses. NEUROLOGIC: Obtunded, periodically flailing arms against pressure. SKIN: Petechia of upper chest, mottled with blue throughout GCS: 5 ED Course: Times/Reassessments: Patient intubated on arrival with rocuronium. Continued hypoxia though patient with much better coloration and looks improved. BP improved with fluids and bicarb/ca. Sine wave resolved with multiple rounds bicarb/calcium. Multiple extensive conversations with family makes clear patient would not want [facility] mechanical ventilation, does not want dialysis and decision made to n ot escalate care further. Procedures: Endotracheal Intubation Indication: Respiratory Failure The patient was being bagged by respiratory with BVM. Suction, airway equipment, RSI drugs, respiratory equipment, and appropriate personnel were prepared prior to the initiation of the procedure. A time out was taken. Induction was performed with Rocuronium and Etomidate. After observing the clinical benefit of the medications, the airway was easily visualized utilizing a Glidescope #4 blade. A 7.5 size ETT tube was placed atraumatically to 25 cm using standard technique. The cuff inflated without signs of malfunction. There were bilateral breath sounds, positive colormetric change, no gastric sounds, a good capnography waveform, and post procedure pulse oximetry was 60%. Post intubation sedation and paralysis was administered using propofol. There were no complications. Critical Care: I have personally spent 110 minutes of critical care time in the direct management of this patient. Respiratory failure secondary to acute hyperkalemia, renal failure amongst multiorgan failure. This was a life/limb threatening e vent. This 110 minutes is in excess of all separately billable procedures. Paco Fox MD Past Med/Surg History Medical History Bilateral primary osteoarthritis of knee CAD (coronary artery disease) CHF (congestive heart failure) Chronic kidney disease (CKD) stage G4/A1, severely decreased glomerular filtration rate (GFR) between 15-29 mL/min/1.73 square meter and albuminuria creatinine ratio less than 30 mg/g Degenerative arthritis of knee, bilateral GERD (gastroesophageal reflux disease) Hypertension Ischemic cardiomyopathy Retinal disease Sinus bradycardia Surgical History History of heart artery stent 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 Family History Other Heart disease Hypertension Stroke Social History Smoking Status: Unknown if ever smoked Second Hand Exposure: No; Hx Substance Use: No Preferred Language: Cook Islander Communication Ability: Effective Supervisor General Required: No Beliefs That Will Affect Care: None marital status: Current Living Situation: Spouse Feels Safe at Home: Yes Assistive Devices: None Allergies Allergies Allergy/AdvReac Type Severity Reaction Status Date / Time No Known Allergies Allergy Verified 07/03/21 01:47 Home Meds Home Medications Medication Instructions Recorded Confirmed aspirin 81 mg tablet,delayed 81 mg PO QAM 04/08/20 07/03/21 release atorvastatin 80 mg tablet 80 mg PO HS 04/08/20 07/03/21 calcium carbonate 600 mg calcium 600 mg PO QPM 04/08/20 07/03/21 (1,500 mg) tablet (Calcium) clopidogrel 75 mg tablet (Plavix) 75 mg PO QAM 04/08/20 07/03/21 multivitamin 1 tab PO QPM 04/08/20 07/03/21 pantoprazole 40 mg tablet,delayed 40 mg PO QAM 04/08/20 07/03/21 release vit C 50 mg-E 15 unit-zinc cit 4.5 1 tab PO QPM 04/08/20 07/03/21 mg-lutein 2.5 mg-zeaxan chew tablet ([facility]herion [facility]) amiodarone 200 mg tablet (Pacerone) 200 mg PO DAILY 08/19/20 07/03/21 metoprolol succinate 25 mg 25 mg PO BID 08/19/20 07/03/21 tablet,extended release 24 hr (Toprol XL) levothyroxine 25 mcg tablet 25 mcg PO DAILY 07/03/21 07/03/21 torsemide 20 mg tablet 20 mg PO QPM PRN 07/03/21 07/03/21 torsemide 20 mg tablet 40 mg PO QAM 07/03/21 07/03/21 Previous Rx's Medication Instructions Recorded potassium chloride 20 mEq See Rx Instructions .ROUTE 08/24/20 tablet,extended release .COMPLEX #45 tab Results & Data (ED) Vital Signs Vital Signs - 24 hr 07/02/21 23:00 07/02/21 23:01 07/02/21 23:08 Temperature 34.6 C L Temperature Source Rectal Pulse Rate 74 103 H Pulse Rate from SpO2 Sensor 71 Respiratory Rate 15 20 Blood Pressure 143/95 H Blood Pressure Mean 111 Pulse Oximetry 68 L 67 L Fraction of Inspired Oxygen 100 Sepsis Recent Fever Within 48 Hours No Sepsis New/Unexplained Change in Mental Status Yes Sepsis Action Taken by Nursing Physician Notified 07/02/21 23:10 07/02/21 23:20 07/02/21 23:31 Temperature Temperature Source Pulse Rate 82 70 103 H Pulse Rate from SpO2 Sensor 82 Respiratory Rate 12 11 L 27 H Blood Pressure Blood Pressure Mean Pulse Oximetry 81 L 68 L 75 L Fraction of Inspired Oxygen Sepsis Recent Fever Within 48 Hours Sepsis New/Unexplained Change in Mental Status Sepsis Action Taken by Nursing 07/02/21 23:45 07/03/21 00:10 07/03/21 00:30 Temperature 34.7 C L Temperature Source Pulse Rate 92 H 80 77 Pulse Rate from SpO2 Sensor Respiratory Rate 15 18 20 Blood Pressure 119/87 107/78 109/75 Blood Pressure Mean 97 87 86 Pulse Oximetry 72 L 67 L 66 L Fraction of Inspired Oxygen 100 Sepsis Recent Fever Within 48 Hours Sepsis New/Unexplained Change in Mental Status Sepsis Action Taken by Nursing 07/03/21 00:40 07/03/21 00:45 07/03/21 00:50 Temperature 34.5 C L Temperature Source Pulse Rate 75 Pulse Rate from SpO2 Sensor Respiratory Rate 20 Blood Pressure 108/75 Blood Pressure Mean 86 Pulse Oximetry 67 L Fraction of Inspired Oxygen 40 30 Sepsis Recent Fever Within 48 Hours Sepsis New/Unexplained Change in Mental Status Sepsis Action Taken by Nursing 07/03/21 01:00 Temperature 34.4 C L Temperature Source Pulse Rate 77 Pulse Rate from SpO2 Sensor Respiratory Rate 20 Blood Pressure 105/71 Blood Pressure Mean 82 Pulse Oximetry 65 L Fraction of Inspired Oxygen Sepsis Recent Fever Within 48 Hours Sepsis New/Unexplained Change in Mental Status Sepsis Action Taken by Nursing Laboratory Data Result diagrams: 07/02/21 23:35 07/02/21 23:35 Lab Results 07/02/21 07/02/21 07/02/21 Range/Units 23:35 23:35 23:35 WBC 5.92 (4.8-10.8) K/uL RBC 3.46 L (4.7-6.1) M/uL Hgb 12.5 L (14.0-18.0) g/dL POC Hgb (14.0-18.0) g/dl Hct 38.6 L (42-52) % POC Hct (42-52) % MCV 111.6 H (80-100) fL MCH 36.1 H (25-34) pg MCHC 32.4 (32-36) g/dL RDW Std Deviation 62.8 H (36.4-46.3) fL RDW Coeff of Zakia 15.9 H (11.5-14.5) % Plt Count 19 L* (130-400) K/uL Immature Gran % (Auto) 1.9 % Neut % (Auto) 79.5 % Lymph % (Auto) 10.5 % Kingfisher % (Auto) 7.6 % Eos % (Auto) 0.2 % Baso % (Auto) 0.3 % Neut # (Auto) 4.71 (1.4-6.5) K/uL Lymph # (Auto) 0.62 L (1.2-3.4) K/uL Kingfisher # (Auto) 0.45 (0.11-0.59) K/uL Eos # (Auto) 0.01 (0-0.5) K/uL Baso # (Auto) 0.02 (0-0.2) K/uL Immature Gran # (Auto) 0.11 H (0.00-0.02) K/uL Absolute Nucleated RBC 0.11 H (0-0) K/uL Nucleated RBC % (auto) 1.8 % Platelet Estimate SIGNIFIC DECREASED (Normal) Macrocytosis Present Echinocytes 3+ Acanthocytes (Spur) 1+ PT Cancelled INR Cancelled POC pH (7.35-7.45) POC pCO2 (35-46) mmHg POC pO2 (80-95) mmHg POC HCO3 (19-24) ej/L POC Total CO2 (24-31) mmol/L POC Base Excess (-9-1.8) je/L ABG pH (7.35-7.45) ABG pCO2 (35-46) mmHg ABG pO2 (80-95) mmHg ABG HCO3 (19-24) mmol/L POC ABG O2 Sat (90-95) % ABG O2 Saturation (90-95) % ABG Base Excess (-9-1.8) mEq/L José Test (Pos) Barometric Pressure mm/Hg Oxygen Given POC Sodium (135-144) mmol/L Sodium (136-145) mmol/L POC Potassium (3.3-5.0) mmol/L Potassium (3.5-5.1) mmol/L Chloride (98-107) mmol/L Carbon Dioxide (21-32) mmol/L Anion Gap (3-11) BUN (7-18) mg/dl Creatinine (0.6-1.4) mg/dl Est Cr Clr Drug Dosing ml/min Est GFR ( Amer) ml/min Est GFR (Non-Af Amer) ml/min BUN/Creatinine Ratio (10-20) Glucose (70-99) mg/dl Lactate 10.2 H* (0.4-2.0) mmol/L Calcium (8.5-10.1) mg/dl Magnesium (1.8-2.4) mg/dl Total Bilirubin (0.2-1) mg/dl Direct Bilirubin (0-0.2) mg/dl AST (15-37) U/L ALT (12-78) U/L Alkaline Phosphatase (45-117) U/L Ammonia (11-32) umol/L Troponin I (0-0.045) ng/ml Total Protein (6.4-8.2) gm/dl Albumin (3.4-5.0) gm/dl Lipase (73-393) U/L Procalcitonin (0-0.5) ng/ml TSH (0.300-4.500) uIu/ml Free T4 (0.8-1.6) ng/dl COVID-19 Eval Order SARS-CoV-2 (PCR) (Negative) 07/02/21 07/02/21 07/02/21 Range/Units 23:35 23:35 23:35 WBC (4.8-10.8) K/uL RBC (4.7-6.1) M/uL Hgb (14.0-18.0) g/dL POC Hgb (14.0-18.0) g/dl Hct (42-52) % POC Hct (42-52) % MCV (80-100) fL MCH (25-34) pg MCHC (32-36) g/dL RDW Std Deviation (36.4-46.3) fL RDW Coeff of Zakia (11.5-14.5) % Plt Count (130-400) K/uL Immature Gran % (Auto) % Neut % (Auto) % Lymph % (Auto) % Kingfisher % (Auto) % Eos % (Auto) % Baso % (Auto) % Neut # (Auto) (1.4-6.5) K/uL Lymph # (Auto) (1.2-3.4) K/uL King[place]isher # (Auto) (0.11-0.59) K/uL Eos # (Auto) (0-0.5) K/uL Baso # (Auto) (0-0.2) K/uL Immature Gran # (Auto) (0.00-0.02) K/uL Absolute Nucleated RBC (0-0) K/uL Nucleated RBC % (auto) % Platelet Estimate (Normal) Macrocytosis Echinocytes Acanthocytes (Spur) PT INR POC pH (7.35-7.45) POC pCO2 (35-46) mmHg POC pO2 (80-95) mmHg POC HCO3 (19-24) ej/L POC Total CO2 (24-31) mmol/L POC Base Excess (-9-1.8) ej/L ABG pH (7.35-7.45) ABG pCO2 (35-46) mmHg ABG pO2 (80-95) mmHg ABG HCO3 (19-24) mmol/L POC ABG O2 Sat (90-95) % ABG O2 Saturation (90-95) % ABG Base Excess (-9-1.8) mEq/L José Test (Pos) Barometric Pressure mm/Hg Oxygen Given POC Sodium (135-144) mmol/L Sodium 143 (136-145) mmol/L POC Potassium (3.3-5.0) mmol/L Potassium 6.2 H* (3.5-5.1) mmol/L Chloride 114 H (98-107) mmol/L Carbon Dioxide 16 L (21-32) mmol/L Anion Gap 14.0 H (3-11) BUN 124 H (7-18) mg/dl Creatinine 5.82 H* (0.6-1.4) mg/dl Est Cr Clr Drug Dosing 9.0 ml/min Est GFR ( Amer) 9.4 ml/min Est GFR (Non-Af Amer) 8.1 ml/min BUN/Creatinine Ratio 21.5 H (10-20) Glucose 92 (70-99) mg/dl Lactate (0.4-2.0) mmol/L Calcium > 20.0 H* (8.5-10.1) mg/dl Magnesium 3.0 H (1.8-2.4) mg/dl Total Bilirubin 1.8 H (0.2-1) mg/dl Direct Bilirubin (0-0.2) mg/dl AST 373 H (15-37) U/L ALT 337 H (12-78) U/L Alkaline Phosphatase 135 H (45-117) U/L Ammonia 64.2 H (11-32) umol/L Troponin I 0.176 H* (0-0.045) ng/ml Total Protein 6.4 (6.4-8.2) gm/dl Albumin 3.2 L (3.4-5.0) gm/dl Lipase 212 (73-393) U/L Procalcitonin < 0.05 (0-0.5) ng/ml TSH 126.000 H (0.300-4.500) uIu/ml Free T4 0.56 L (0.8-1.6) ng/dl COVID-19 Eval Order SARS-CoV-2 (PCR) (Negative) 07/02/21 07/02/21 07/02/21 Range/Units 23:35 23:40 23:40 WBC (4.8-10.8) K/uL RBC (4.7-6.1) M/uL Hgb (14.0-18.0) g/dL POC Hgb (14.0-18.0) g/dl Hct (42-52) % POC Hct (42-52) % MCV (80-100) fL MCH (25-34) pg MCHC (32-36) g/dL RDW Std Deviation (36.4-46.3) fL RDW Coeff of Zakia (11.5-14.5) % Plt Count (130-400) K/uL Immature Gran % (Auto) % Neut % (Auto) % Lymph % (Auto) % Kingfisher % (Auto) % Eos % (Auto) % Baso % (Auto) % Neut # (Auto) (1.4-6.5) K/uL Lymph # (Auto) (1.2-3.4) K/uL Kingfisher # (Auto) (0.11-0.59) K/uL Eos # (Auto) (0-0.5) K/uL Baso # (Auto) (0-0.2) K/uL Immature Gran # (Auto) (0.00-0.02) K/uL Absolute Nucleated RBC (0-0) K/uL Nucleated RBC % (auto) % Platelet Estimate (Normal) Macrocytosis Echinocytes Acanthocytes (Spur) PT INR POC pH (7.35-7.45) POC pCO2 (35-46) mmHg POC pO2 (80-95) mmHg POC HCO3 (19-24) ej/L POC Total CO2 (24-31) mmol/L POC Base Excess (-9-1.8) ej/L ABG pH 7.35 (7.35-7.45) ABG pCO2 35 (35-46) mmHg ABG pO2 524 H (80-95) mmHg ABG HCO3 19 (19-24) mmol/L POC ABG O2 Sat (90-95) % ABG O2 Saturation 99.9 H (90-95) % ABG Base Excess -5.7 (-9-1.8) mEq/L José Test POS (Pos) Barometric Pressure 737.9 mm/Hg Oxygen Given 100% POC Sodium (135-144) mmol/L Sodium (136-145) mmol/L POC Potassium (3.3-5.0) mmol/L Potassium (3.5-5.1) mmol/L Chloride (98-107) mmol/L Carbon Dioxide (21-32) mmol/L Anion Gap (3-11) BUN (7-18) mg/dl Creatinine (0.6-1.4) mg/dl Est Cr Clr Drug Dosing ml/min Est GFR ( Amer) ml/min Est GFR (Non-Af Amer) ml/min BUN/Creatinine Ratio (10-20) Glucose (70-99) mg/dl Lactate (0.4-2.0) mmol/L Calcium (8.5-10.1) mg/dl Magnesium (1.8-2.4) mg/dl Total Bilirubin (0.2-1) mg/dl Direct Bilirubin (0-0.2) mg/dl AST (15-37) U/L ALT (12-78) U/L Alkaline Phosphatase (45-117) U/L Ammonia (11-32) umol/L Troponin I (0-0.045) ng/ml Total Protein (6.4-8.2) gm/dl Albumin (3.4-5.0) gm/dl Lipase (73-393) U/L Procalcitonin (0-0.5) ng/ml TSH (0.300-4.500) uIu/ml Free T4 (0.8-1.6) ng/dl COVID-19 Eval Order Covid19 at [facility] SARS-CoV-2 (PCR) NEGATIVE (Negative) 07/03/21 Range/Units 00:20 WBC (4.8-10.8) K/uL RBC (4.7-6.1) M/uL Hgb (14.0-18.0) g/dL POC Hgb 12.9 L (14.0-18.0) g/dl Hct (42-52) % POC Hct 38 L (42-52) % MCV (80-100) fL MCH (25-34) pg MCHC (32-36) g/dL RDW Std Deviation (36.4-46.3) fL RDW Coeff of Zakia (11.5-14.5) % Plt Count (130-400) K/uL Immature Gran % (Auto) % Neut % (Auto) % Lymph % (Auto) % Kingfisher % (Auto) % Eos % (Auto) % Baso % (Auto) % Neut # (Auto) (1.4-6.5) K/uL Lymph # (Auto) (1.2-3.4) K/uL Kingfisher # (Auto) (0.11-0.59) K/uL Eos # (Auto) (0-0.5) K/uL Baso # (Auto) (0-0.2) K/uL Immature Gran # (Auto) (0.00-0.02) K/uL Absolute Nucleated RBC (0-0) K/uL Nucleated RBC % (auto) % Platelet Estimate (Normal) Macrocytosis Echinocytes Acanthocytes (Spur) PT INR POC pH 7.22 L (7.35-7.45) POC pCO2 46 (35-46) mmHg POC pO2 > 420 H (80-95) mmHg POC HCO3 19 (19-24) ej/L POC Total CO2 20 L (24-31) mmol/L POC Base Excess -9.0 (-9-1.8) ej/L ABG pH (7.35-7.45) ABG pCO2 (35-46) mmHg ABG pO2 (80-95) mmHg ABG HCO3 (19-24) mmol/L POC ABG O2 Sat 100.0 H (90-95) % ABG O2 Saturation (90-95) % ABG Base Excess (-9-1.8) mEq/L José Test (Pos) Barometric Pressure mm/Hg Oxygen Given POC Sodium 138 (135-144) mmol/L Sodium (136-145) mmol/L POC Potassium 6.4 H* (3.3-5.0) mmol/L Potassium (3.5-5.1) mmol/L Chloride (98-107) mmol/L Carbon Dioxide (21-32) mmol/L Anion Gap (3-11) BUN (7-18) mg/dl Creatinine (0.6-1.4) mg/dl Est Cr Clr Drug Dosing ml/min Est GFR ( Amer) ml/min Est GFR (Non-Af Amer) ml/min BUN/Creatinine Ratio (10-20) Glucose (70-99) mg/dl Lactate (0.4-2.0) mmol/L Calcium (8.5-10.1) mg/dl Magnesium (1.8-2.4) mg/dl Total Bilirubin (0.2-1) mg/dl Direct Bilirubin (0-0.2) mg/dl AST (15-37) U/L ALT (12-78) U/L Alkaline Phosphatase (45-117) U/L Ammonia (11-32) umol/L Troponin I (0-0.045) ng/ml Total Protein (6.4-8.2) gm/dl Albumin (3.4-5.0) gm/dl Lipase (73-393) U/L Procalcitonin (0-0.5) ng/ml TSH (0.300-4.500) uIu/ml Free T4 (0.8-1.6) ng/dl COVID-19 Eval Order SARS-CoV-2 (PCR) (Negative) Administered Medications Propofol (Diprivan) 1,000 mg in 100 mls @ 0 mls/hr IV .Q0M [facility]; Protocol Stop: 07/06/21 00:44 Last Titration: 07/03/21 02:35 Dose: 0 mcg/kg/min, 0 mls/hr Documented by: [id number] Admin: 07/03/21 00:41 Dose: 5 mcg/kg/min, 2.4 mls/hr Documented by: [id number] Discontinued Medications Miscellaneous (Rapid Sequence Induction Bag) Confirm Administered Dose 1 ea .ROUTE .STK-MED ONE Stop: 07/02/21 23:02 Last Admin: 07/02/21 23:00 Dose: 1 ea Documented by: [id number] Miscellaneous (Stat Iv Infusion Titration Per Protocol) 1 ea N/A NOW STA Stop: 07/03/21 00:37 Last Admin: 07/03/21 00:45 Dose: Not Given Documented by: [id number] Propofol (Propofol Iv Emulsion 10 Mg/Ml 100 Ml Vial) Confirm Administered Dose 1,000 mg IV .STK-MED ONE Stop: 07/02/21 23:12 Last Admin: 07/03/21 00:44 Dose: Not Given Documented by: [id number] Imaging Data Radiologist's Impression: Chest X-Ray 07/02/21 23:22 SINGLE VIEW CHEST CLINICAL HISTORY: Respiratory arrest. FINDINGS: An AP, portable, supine chest radiograph is compared to study dated 08/19/2020. An endotracheal tube has been placed. The tip projects 3 cm above the kimberlee. A 2-lead cardiac pacemaker is unchanged in position. The heart is enlarged. The pulmonary vasculature is noncongested. A stent graft is noted in the thoracic aorta. Chronic interstitial thickening is similar to previous. No airspace consolidation or large pleural effusion is identified. There is no pneumothorax. The skeletal structures are osteopenic. The bony thorax is grossly intact. IMPRESSION: 1. An endotracheal tube has been placed as above. 2. Cardiomegaly and cardiac pacemaker. There is no radiographic evidence of congestive failure. 3. No airspace consolidation or large pleural effusion is identified. ACT 112: Negative or not required by law. Electronically signed by: Ba Peacock M.D. 07/02/2021 11:[address] 07/02/21 23:23 CT SCAN OF THE BRAIN WITHOUT IV CONTRAST CLINICAL HISTORY: Fall. Change in mental status. COMPARISON STUDY: No priors. TECHNIQUE: Unenhanced axial CT scan of the brain is performed from the vertex to the skull base. A dose lowering technique was utilized adhering to the principles of ALARA. FINDINGS: An endotracheal tube is noted on the fundraiser tomogram. Brain parenchyma: There are age-related involutional changes noting moderate subcortical and periventricular microangiopathic change. There is no hemorrhage, mass effect, or evidence of acute territorial ischemia by CT criteria. Lopez- white matter differentiation is preserved. No extra-axial fluid collection is seen. Ventricles, sulci, cisterns: Prominent secondary to involutional change. Intracranial vasculature: There is atherosclerotic calcification of the cathie nous carotid and vertebral arteries. Calvarium: The skeletal structures are osteopenic. No depressed calvarial fracture is identified. Sinuses and mastoids: The visualized paranasal sinuses are clear. The mastoid air cells are well pneumatized. Orbits: The bony orbits are grossly intact. There are bilateral ocular lens i mplants. IMPRESSION: There is no hemorrhage, mass effect, or evidence of acute territorial ischemia by CT criteria. ACT 112: Negative or not required by law. Electronically signed by: Ba Peacock M.D. 07/03/2021 12:07 AM Abdomen/Pelvis CT 07/02/21 23:47 CT SCAN OF THE CHEST, ABDOMEN, AND PELVIS WITHOUT IV CONTRAST CLINICAL HISTORY: Fall. Cardiac arrest. Change in mental status. COMPARISON STUDY: Chest x-ray dated 07/02/2021. Renal ultrasound dated 08/20/2020. TECHNIQUE: Unenhanced CT scan of the chest, abdomen, and pelvis was performed from the thoracic inlet to the proximal femora. Images are reviewed in the axial, sagittal, and coronal planes. IV contrast was not administered for this examination. Note that the examination is suboptimal without IV contrast. A dose lowering technique was utilized adhering to the principles of ALARA. Examination is degraded by motion artifact, as well as by streak artifact from the arms which could not be related above the chest or abdomen. CT DOSE: 1815.60 mGy.cm FINDINGS: CHEST: Thyroid: Imaged portions of the thyroid gland are normal in size and att enuation. Thoracic aorta: There is atherosclerotic calcification of the thoracic aorta. There is aneurysmal dilatation of the ascending thoracic aorta which measures up to 4.4 cm diameter. A stent graft is present from the level of the aortic arch to the distal descending thoracic aorta. The arch demonstrates standard 3-vessel anatomy. 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 Heart: A cardiac pacemaker is present in the left chest wall. The heart is markedly enlarged and without pericardial effusion. The coronary arteries and mitral annulus are densely calcified. There is diminished attenuation of the cardiac blood pool as compared to the myocardium suggesting anemia. The main pulmonary arteries are dilated suggesting pulmonary artery hypertension. Lungs and pleural spaces: An endotracheal tube is in place and terminates above the kimberlee. There are trace pleural effusions, right larger than left. No lobar consolidation is identified. A 2 cm groundglass focus is seen in the anterior l eft upper lobe on image #130. Minimal secretions are noted in the trachea. The central airways appear clear. Scarring/atelectasis is noted at the lung bases. There is no pneumothorax. Mediastinum: There are scattered subcentimeter mediastinal lymph nodes. No mediastinal hematoma is identified. Maida: Not well assessed without IV contrast. Axillae: There is no axillary lymphadenopathy. Bony thorax: The skeletal structures are osteopenic. There are chronic appearing bilateral rib fractures. No acute/displaced rib fracture is clearly seen. Arthritic changes noted in the shoulders. There is a mild chronic appearing inferior endplate compression deformity of T4. No lytic or blastic lesions are identified. Soft tissues: There is body wall edema. Scattered foci of intravenous gas are likely related to IV placement. ABDOMEN AND PELVIS: Liver: The unenhanced liver is cirrhotic in morphology and heterogeneous in attenuation. There is nodularity of the hepatic surface contour. There is no intra- or extrahepatic biliary ductal dilatation. Gallbladder: Contracted. Spleen: Normal in size and attenuation. Pancreas: The unenhanced pancreas is moderately atrophic and grossly unremarkable. Adrenal glands: Unremarkable. Kidneys: The kidneys are not well assessed due to streak and motion artifact. The unenhanced kidneys are atrophic and without hydronephrosis. A left renal artery stent is in place. Abdominal vasculature: The abdominal aorta is normal in course and caliber noting advanced atherosclerotic calcification. Bowel: There is no bowel obstruction. Mild fecal retention is seen throughout the colon. The appendix is not visualized. Peritoneum: There is a small volume of abdominopelvic ascites. No intraperitoneal free air is seen. Lymphadenopathy: None. Pelvic viscera: The bladder is decompressed around a Vidal catheter and not well evaluated. The prostate gland is enlarged and heterogeneous. There is a fat and ascitic fluid containing right inguinal hernia. Skeletal structures: The skeletal structures are osteopenic. The lumbosacral spine, bony pelvis, and proximal femora appear intact. There is moderate to advanced lumbosacral spondylosis. No lytic or blastic lesions are seen. Soft tissues: There is body wall edema. IMPRESSION: 1. An endotracheal tube is in place. 2. Marked cardiomegaly and cardiac pacemaker. 3. Trace pleural effusions, right larger than left. 4. There is no lobar consolidation or pneumothorax. 5. 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 6. There is no evidence of solid organ injury in the abdomen or pelvis on this unenhanced examination. 7. Cirrhotic liver morphology. 8. Small volume of abdominopelvic ascites. 9. There is a 2 cm groundglass focus in the left upper lobe. This is likely on an inflammatory basis. A follow-up chest CT in 3-4 months time is recommended to resolution. 10. Anasarca of the body wall. 11. There are numerous chronic appearing bilateral rib fractures. No definite acute/displaced rib fracture is seen. 12. Additional findings as above. ACT 112: Negative or not required by law. Electronically signed by: Ba Peacock M.D. 07/03/2021 12:[address] 07/02/21 23:[address] SCAN OF THE CERVICAL SPINE CLINICAL HISTORY: Fall. Change in mental status. COMPARISON STUDY: No priors. TECHNIQUE: CT scan of the cervical spine is performed from the skull base to the upper thoracic spine. Images are reviewed in the axial, sagittal, and coronal planes. IV contrast was not administered for this examination. A dose lowering technique was utilized adhering to the principles of ALARA. FINDINGS: Skeletal structures: The skeletal structures are osteopenic. There is no evidence of fracture or subluxation involving the cervical spine. Vertebral body height and alignment are maintained. There is minimal anterolisthesis at C7-T1. There is mild hyperlordosis. Small anterior osteophytes are seen throughout. The odontoid process and lateral masses are intact. The atlantoaxial articulation is preserved noting productive degenerative change. The spinous processes appear intact. There is mild to moderate multilevel cervical spondylosis. Uncovertebral and facet arthropathy contribute to neural foraminal stenosis at several levels. Intervertebral discs: There is moderate disc space narrowing at all cervical levels between C3-C4 and C6-C7. Central canal: Small posterior disc osteophyte complexes are seen at all levels between C3-C4 and C6-C7. This likely contributes to mild multilevel acquired compromise of the central canal. Soft tissues: The prevertebral and paraspinous soft tissues are within normal limits. There is atherosclerotic calcification of the carotid bulbs. Calvarium: The visualized calvarium at the skull base appears intact. Brain parenchyma: Partially visualized brain parenchyma at the skull base is within normal limits. Sinuses and mastoids: The visualized paranasal sinuses are clear. The mastoid air cells are well pneumatized. Lung apices: An endotracheal tube is in place. Clear as visualized. IMPRESSION: 1. There is no evidence of fracture or subluxation involving the cervical spine. 2. Osteopenia and spondylotic change as above. ACT 112: Negative or not required by law. Electronically signed by: Ba Peacock M.D. 07/03/2021 12:[address] 07/02/21 23:47 CT SCAN OF THE CHEST, ABDOMEN, AND PELVIS WITHOUT IV CONTRAST CLINICAL HISTORY: Fall. Cardiac arrest. Change in mental status. COMPARISON STUDY: Chest x-ray dated 07/02/2021. Renal ultrasound dated 08/20/2020. TECHNIQUE: Unenhanced CT scan of the chest, abdomen, and pelvis was performed from the thoracic inlet to the proximal femora. Images are reviewed in the axial, sagittal, and coronal planes. IV contrast was not administered for this examination. Note that the examination is suboptimal without IV contrast. A dose lowering technique was utilized adhering to the principles of ALARA. Examination is degraded by motion artifact, as well as by streak artifact from the arms which could not be related above the chest or abdomen. CT DOSE: 1815.60 mGy.cm FINDINGS: CHEST: Thyroid: Imaged portions of the thyroid gland are normal in size and attenuation. Thoracic aorta: There is atherosclerotic calcification of the thoracic aorta. There is aneurysmal dilatation of the ascending thoracic aorta which measures up to 4.4 cm diameter. A stent graft is present from the level of the aortic arch to the distal descending thoracic aorta. The arch demonstrates standard 3-vessel anatomy. 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 Heart: A cardiac pacemaker is present in the left chest wall. The heart is markedly enlarged and without pericardial effusion. The coronary arteries and mitral annulus are densely calcified. There is diminished attenuation of the car diac blood pool as compared to the myocardium suggesting anemia. The main pulmonary arteries are dilated suggesting pulmonary artery hypertension. Lungs and pleural spaces: An endotracheal tube is in place and terminates above the kimberlee. There are trace pleural effusions, right larger than left. No lobar consolidation is identified. A 2 cm groundglass focus is seen in the anterior left upper lobe on image #130. Minimal secretions are noted in the trachea. The central airways appear clear. Scarring/atelectasis is noted at the lung bases. There is no pneumothorax. Mediastinum: There are scattered subcentimeter mediastinal lymph nodes. No med iastinal hematoma is identified. Maida: Not well assessed without IV contrast. Axillae: There is no axillary lymphadenopathy. Bony thorax: The skeletal structures are osteopenic. There are chronic appearing bilateral rib fractures. No acute/displaced rib fracture is clearly seen. Arthritic changes noted in the shoulders. There is a mild chronic appearing inferior endplate compression deformity of T4. No lytic or blastic lesions are identified. Soft tissues: There is body wall edema. Scattered foci of intravenous gas are likely related to IV placement. ABDOMEN AND PELVIS: Liver: The unenhanced liver is cirrhotic in morphology and heterogeneous in attenuation. There is nodularity of the hepatic surface contour. There is no intra- or extrahepatic biliary ductal dilatation. Gallbladder: Contracted. Spleen: Normal in size and attenuation. Pancreas: The unenhanced pancreas is moderately atrophic and grossly unremarkable. Adrenal glands: Unremarkable. Kidneys: The kidneys are not well assessed due to streak and motion artifact. The unenhanced kidneys are atrophic and without hydronephrosis. A left renal artery stent is in place. Abdominal vasculature: The abdominal aorta is normal in course and caliber noting advanced atherosclerotic calcification. Bowel: There is no bowel obstruction. Mild fecal retention is seen throughout the colon. The appendix is not visualized. Peritoneum: There is a small volume of abdominopelvic ascites. No intraperitoneal free air is seen. Lymphadenopathy: None. Pelvic viscera: The bladder is decompressed around a Vidal catheter and not well evaluated. The prostate gland is enlarged and heterogeneous. There is a fat and ascitic fluid containing right inguinal hernia. Skeletal structures: The skeletal structures are osteopenic. The lumbosacral spine, bony pelvis, and proximal femora appear intact. There is moderate to advanced lumbosacral spondylosis. No lytic or blastic lesions are seen. Soft tissues: There is body wall edema. IMPRESSION: 1. An endotracheal tube is in place. 2. Marked cardiomegaly and cardiac pacemaker. 3. Trace pleural effusions, right larger than left. 4. There is no lobar consolidation or pneumothorax. 5. There is mild aneurysmal dilatation of the ascending thoracic aorta with a stent graft in place as above. 6. There is no evidence of solid organ injury in the abdomen or pelvis on this unenhanced examination. 7. Cirrhotic liver morphology. 8. Small volume of abdominopelvic ascites. 9. There is a 2 cm groundglass focus in the left upper lobe. This is likely on an inflammatory basis. A follow-up chest CT in 3-4 months time is recommended to resolution. 10. Anasarca of the body wall. 11. There are numerous chronic appearing bilateral rib fractures. No definite acute/displaced rib fracture is seen. 12. Additional findings as above. ACT 112: Negative or not required by law. Electronically signed by: Ba Peacock M.D. 07/03/2021 12:30 AM Discharge Plan Visit Data Chief Complaint: Unresponsive Stated Complaint: UNRESPONSIVE ED Provider: Paco Fox Discharge Problem: Multiple organ failure, Acute hyperkalemia, Respiratory failure Patient Disposition: Admitted As Inpatient Discharge Instructions Interventions: ED Discharge Assessment Last Done: 07/03/21 01:59 Discharge Problem: Respiratory failure Qualifiers: Chronicity: acute Respiratory failure complication: hypoxia Qualified Code(s): J96.01 - Acute respiratory failure with hypoxia
--- NOTE | 2021-07-02 23:38 | XRay Report ---
SINGLE VIEW CHEST CLINICAL HISTORY: Respiratory arrest. FINDINGS: An AP, portable, supine chest radiograph is compared to study dated 08/19/2020. An endotrac heal tube has been placed. The tip projects 3 cm above the kimberlee. A 2-lead cardiac pacemaker is unch anged in position. The heart is enlarged. The pulmonary vasculature is noncongested. A stent graft is noted in the thoracic aorta. Chronic interstitial thickening is similar to previous. No airspace con solidation or large pleural effusion is identified. There is no pneumothorax. The skeletal structures are osteopenic. The bony thorax is grossly intact. IMPRESSION: 1. An endotracheal tube has been placed as above. 2. Cardiomegaly and cardiac pacemaker. There is no radiographic evidence of congestive failure. 3. No airspace consolidation or large pleural effusion is identified. ACT 112: Negative or not required by law. Electronically signed by: Ba Peacock M.D. 07/02/2021 11:37 PM
[2021-07-02 23:49] LABS: Base Excess ABG -5.7 mEq/L (-9-1.8); HCO3 ABG 19 mmol/L (19-24); Oxygen Saturation ABG 99.9 % (90-95); PCO2 ABG 35 mmHg (35-46); PO2 ABG 524 mmHg (80-95); pH ABG 7.35 (7.35-7.45)
--- NOTE | 2021-07-03 00:08 | CT Scan Report ---
CT SCAN OF THE BRAIN WITHOUT IV CONTRAST CLINICAL HISTORY: Fall. Change in mental status. COMPARISON STUDY: No priors. TECHNIQUE: Unenhanced axial CT scan of the brain is performed from the vertex to the skull base. A do se lowering technique was utilized adhering to the principles of ALARA. FINDINGS: An endotracheal tube is noted on the supervisor seaming tomogram. Brain parenchyma: There are age-related involutional changes noting moderate subcortical and periven tricular microangiopathic change. There is no hemorrhage, mass effect, or evidence of acute territori al ischemia by CT criteria. Lopez-white matter differentiation is preserved. No extra-axial fluid ted ection is seen. Ventricles, sulci, cisterns: Prominent secondary to involutional change. Intracranial vasculature: There is atherosclerotic calcification of the cavernous carotid and vertebr al arteries. Calvarium: The skeletal structures are osteopenic. No depressed calvarial fracture is identified. Sinuses and mastoids: The visualized paranasal sinuses are clear. The mastoid air cells are well pneu matized. Orbits: The bony orbits are grossly intact. There are bilateral ocular lens implants. IMPRESSION: There is no hemorrhage, mass effect, or evidence of acute territorial ischemia by CT mayte lockwood. ACT 112: Negative or not required by law. Electronically signed by: Ba Peacock M.D. 07/03/2021 12:07 AM
--- NOTE | 2021-07-03 00:13 | CT Scan Report ---
CT CT SCAN OF THE CERVICAL SPINE CLINICAL HISTORY: Fall. Change in mental status. COMPARISON STUDY: No priors. TECHNIQUE: CT scan of the cervical spine is performed from the skull base to the upper thoracic spine . Images are reviewed in the axial, sagittal, and coronal planes. IV contrast was not administered fo r this examination. A dose lowering technique was utilized adhering to the principles of ALARA. FINDINGS: Skeletal structures: The skeletal structures are osteopenic. There is no evidence of fracture or subl uxation involving the cervical spine. Vertebral body height and alignment are maintained. There is mi nimal anterolisthesis at C7-T1. There is mild hyperlordosis. Small anterior osteophytes are seen thro ughout. The odontoid process and lateral masses are intact. The atlantoaxial articulation is preserve d noting productive degenerative change. The spinous processes appear intact. There is mild to modera te multilevel cervical spondylosis. Uncovertebral and facet arthropathy contribute to neural foramina l stenosis at several levels. Intervertebral discs: There is moderate disc space narrowing at all cervical levels between C3-C4 and C6-C7. Central canal: Small posterior disc osteophyte complexes are seen at all levels between C3-C4 and C6- C7. This likely contributes to mild multilevel acquired compromise of the central canal. Soft tissues: The prevertebral and paraspinous soft tissues are within normal limits. There is athero sclerotic calcification of the carotid bulbs. Calvarium: The visualized calvarium at the skull base appears intact. Brain parenchyma: Partially visualized brain parenchyma at the skull base is within normal limits. Sinuses and mastoids: The visualized paranasal sinuses are clear. The mastoid air cells are well pneu matized. Lung apices: An endotracheal tube is in place. Clear as visualized. IMPRESSION: 1. There is no evidence of fracture or subluxation involving the cervical spine. 2. Osteopenia and spondylotic change as above. ACT 112: Negative or not required by law. Electronically signed by: Ba Peacock M.D. 07/03/2021 12:12 AM
[2021-07-03 00:14] LABS: Allen Test POS (Pos)
--- NOTE | 2021-07-03 00:31 | CT Scan Report ---
CT SCAN OF THE CHEST, ABDOMEN, AND PELVIS WITHOUT IV CONTRAST CLINICAL HISTORY: Fall. Cardiac arrest. Change in mental status. COMPARISON STUDY: Chest x-ray dated 07/02/2021. Renal ultrasound dated 08/20/2020. TECHNIQUE: Unenhanced CT scan of the chest, abdomen, and pelvis was performed from the thoracic inlet to the proximal femora. Images are reviewed in the axial, sagittal, and coronal planes. IV contrast was not administered for this examination. Note that the examination is suboptimal without IV contras t. A dose lowering technique was utilized adhering to the principles of ALARA. Examination is degrad ed by motion artifact, as well as by streak artifact from the arms which could not be related above t he chest or abdomen. CT DOSE: 1815.60 mGy.cm FINDINGS: CHEST: Thyroid: Imaged portions of the thyroid gland are normal in size and attenuation. Thoracic aorta: There is atherosclerotic calcification of the thoracic aorta. There is aneurysmal dil atation of the ascending thoracic aorta which measures up to 4.4 cm diameter. A stent graft is presen t from the level of the aortic arch to the distal descending thoracic aorta. The arch demonstrates st andard 3-vessel anatomy. 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 Heart: A cardiac pacemaker is present in the left chest wall. The heart is markedly enlarged and with out pericardial effusion. The coronary arteries and mitral annulus are densely calcified. There is di minished attenuation of the cardiac blood pool as compared to the myocardium suggesting anemia. The m ain pulmonary arteries are dilated suggesting pulmonary artery hypertension. Lungs and pleural spaces: An endotracheal tube is in place and terminates above the kimberlee. There are trace pleural effusions, right larger than left. No lobar consolidation is identified. A 2 cm ground glass focus is seen in the anterior left upper lobe on image #130. Minimal secretions are noted in th e trachea. The central airways appear clear. Scarring/atelectasis is noted at the lung bases. There i s no pneumothorax. Mediastinum: There are scattered subcentimeter mediastinal lymph nodes. No mediastinal hematoma is id entified. Maida: Not well assessed without IV contrast. Axillae: There is no axillary lymphadenopathy. Bony thorax: The skeletal structures are osteopenic. There are chronic appearing bilateral rib fractu res. No acute/displaced rib fracture is clearly seen. Arthritic changes noted in the shoulders. There is a mild chronic appearing inferior endplate compression deformity of T4. No lytic or blastic lesio ns are identified. Soft tissues: There is body wall edema. Scattered foci of intravenous gas are likely related to IV pl acement. ABDOMEN AND PELVIS: Liver: The unenhanced liver is cirrhotic in morphology and heterogeneous in attenuation. There is nod ularity of the hepatic surface contour. There is no intra- or extrahepatic biliary ductal dilatation. Gallbladder: Contracted. Spleen: Normal in size and attenuation. Pancreas: The unenhanced pancreas is moderately atrophic and grossly unremarkable. Adrenal glands: Unremarkable. Kidneys: The kidneys are not well assessed due to streak and motion artifact. The unenhanced kidneys are atrophic and without hydronephrosis. A left renal artery stent is in place. Abdominal vasculature: The abdominal aorta is normal in course and caliber noting advanced atheroscle rotic calcification. Bowel: There is no bowel obstruction. Mild fecal retention is seen throughout the colon. The appendix is not visualized. Peritoneum: There is a small volume of abdominopelvic ascites. No intraperitoneal free air is seen. Lymphadenopathy: None. Pelvic viscera: The bladder is decompressed around a Vidal catheter and not well evaluated. The prost ate gland is enlarged and heterogeneous. There is a fat and ascitic fluid containing right inguinal h ernia. Skeletal structures: The skeletal structures are osteopenic. The lumbosacral spine, bony pelvis, and proximal femora appear intact. There is moderate to advanced lumbosacral spondylosis. No lytic or landy stic lesions are seen. Soft tissues: There is body wall edema. IMPRESSION: 1. An endotracheal tube is in place. 2. Marked cardiomegaly and cardiac pacemaker. 3. Trace pleural effusions, right larger than left. 4. There is no lobar consolidation or pneumothorax. 5. There is mild aneurysmal dilatation of the ascending thoracic aorta with a stent graft in place as above. 6. There is no evidence of solid organ injury in the abdomen or pelvis on this unenhanced examination . 7. Cirrhotic liver morphology. 8. Small volume of abdominopelvic ascites. 9. There is a 2 cm groundglass focus in the left upper lobe. This is likely on an inflammatory basis. A follow-up chest CT in 3-4 months time is recommended to resolution. 10. Anasarca of the body wall. 11. There are numerous chronic appearing bilateral rib fractures. No definite acute/displaced rib fra cture is seen. 12. Additional findings as above. ACT 112: Negative or not required by law. Electronically signed by: Ba Peacock M.D. 07/03/2021 12:30 AM
[2021-07-03] MEDS ORDERED: PROPOFOL BOLUS FROM BAG IV PRN (00:36)
[2021-07-03] MEDS ORDERED: STAT IV Infusion **Titration per Protocol STA (00:36)
[2021-07-03 00:37] LABS: iSTAT Arterial Blood Gas HCO3 19 meg/L (19-24); iSTAT Arterial Blood Gas pCO2 46 mmHg (35-46); iSTAT Arterial Blood Gas pH 7.22 (7.35-7.45); iSTAT Arterial Blood Gas pO2 > 420 mmHg (80-95); iSTAT Carbon Dioxide 20 mmol/L (24-31); iSTAT Hematocrit 38 % (42-52); iSTAT Hemoglobin 12.9 g/dl (14.0-18.0); iSTAT Potassium 6.4 mmol/L (3.3-5.0); iSTAT Sodium 138 mmol/L (135-144)
[2021-07-03] MEDS ORDERED: propofoL 1,000 MG/100 ML VIAL IV SCH (00:45)
[2021-07-03 00:51] LABS: Alanine Aminotransferase 337 U/L (12-78); Albumin Level 3.2 gm/dl (3.4-5.0); Alkaline Phosphatase 135 U/L (45-117); Aspartate Aminotransferase 373 U/L (15-37); Bilirubin,Total 1.8 mg/dl (0.2-1); Blood Urea Nitrogen 124 mg/dl (7-18); Carbon Dioxide 16 mmol/L (21-32); Chloride 114 mmol/L (98-107); Est GFR (African American) 9.4 ml/min; Est GFR (Non-African American) 8.1 ml/min; Glucose 92 mg/dl (70-99); Lipase 212 U/L (73-393); Potassium 6.2 mmol/L (3.5-5.1); Sodium 143 mmol/L (136-145); Total Protein 6.4 gm/dl (6.4-8.2); Troponin I 0.176 ng/ml (0-0.045)
[2021-07-03 00:52] LABS: Acanthocytes 1+; Basophils # (auto) 0.02 K/uL (0-0.2); Basophils % (auto) 0.3 %; Echinocytes 3+; Eosinophils # (auto) 0.01 K/uL (0-0.5); Eosinophils % (auto) 0.2 %; Hematocrit (blood only) 38.6 % (42-52); Hemoglobin 12.5 g/dL (14.0-18.0); Immature Granulocytes # (auto) 0.11 K/uL (0.00-0.02); Immature Granulocytes % (auto) 1.9 %; Lymphocytes # (auto) 0.62 K/uL (1.2-3.4); Lymphocytes % (auto) 10.5 %; Macrocytosis Present; Mean Corpuscular Hemoglobin 36.1 pg (25-34); Mean Corpuscular Hgb Conc 32.4 g/dL (32-36); Mean Corpuscular Volume 111.6 fL (80-100); Monocytes # (auto) 0.45 K/uL (0.11-0.59); Monocytes % (auto) 7.6 %; Neutrophils # (auto) 4.71 K/uL (1.4-6.5); Neutrophils % (auto) 79.5 %; Nucleated RBC # (auto) 0.11 K/uL (0-0); Nucleated RBC % (auto) 1.8 %; Platelet Count 19 K/uL (130-400); Platelet Estimate SIGNIFIC DECREASED (Normal); RDW Coefficient of Variation 15.9 % (11.5-14.5); RDW Standard Deviation 62.8 fL (36.4-46.3); Red Blood Count 3.46 M/uL (4.7-6.1); White Blood Count 5.92 K/uL (4.8-10.8)
[2021-07-03 00:54] LABS: BUN Creatinine Ratio 21.5 (10-20); Calcium > 20.0 mg/dl (8.5-10.1)
--- NOTE | 2021-07-03 01:07 | History & Physical Report ---
Date of Service July 03, 2021 Assessment & Plan (1) Acute hypoxemic respiratory failure: Plan: Secondary to metabolic acidosis from worsening kidney dysfunction likely end- stage kidney disease (Patient not a candidate for dialysis as per outpatient Nephrology office documentation from 3 months ago.) pulmonary embolism as a possible differential for sudden onset chest pain, shortness of breath leading to unresponsiveness chronic systolic heart failure secondary to ischemic cardiomyopathy (17% TTE 2019), patient on the dry side hx CAD status post stent/PVD SSS status post PPM, paced rhythm hypertension, BP on the lower side chronic anemia, hemoglobin at baseline Hyperkalemia secondary to ESRD Abnormal LFTs, new onset thrombocytopenia 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 No further escalation of care in the event of further clinical deterioration. DNR as per patient's prior wishes as per family. Patient's family requesting updates for providers. Ms. Karime Bridges (), contact number [phone] Mr. Juan Bridges (son), contact number [phone] Text document was generated using Pansieve voice recognition software. It may contain grammatical or spelling errors. Kindly contact undersigned for clarification of any documentation item in question. History of Present Illness Chief Complaint: Unresponsiveness as per records Primary Care Provider: Moises Carter MD History obtained from family and records. Unable to obtain history from patient secondary to intubated state. 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 Last confinement August 2020 for decompensated CHF. Patient noted by family to to have progressive decline over the last few weeks. Increasing leg swelling as per family. Patient increasingly tired and weak as per family. Patient refusing to be seen by doctors in the office as per son. Last night, patient yelled out complaining of severe chest pain to his . Patient refused EMS. Patient later noted to be unresponsive. Upon EMS arrival, patient noted to be in respiratory distress with decreased responsiveness. Patient however had a pulse as per report. No CPR done as per report. O2 sats 60s upon arrival at the ER Patient subsequently intubated at the emergency room. ICU provider discussed goals of care with patient family at the ER. No escalation of care or aggressive intervention. Maintain patient on mechanical ventilation until arrival of family from [place] then transition to comfort care as per discussion. Medical History as above Surgical History : Tonsillectomy, cataract surgeries, aneurysm repair Family History : Heart disease, stroke Personal/Social history : Non-smoker, occasional EtOH intake, retired [employer], lives with Allergies Allergy/AdvReac Type Severity Reaction Status Date / Time No Known Allergies Allergy Verified 07/03/21 01:47 Home Medications Medication Instructions Recorded Confirmed Type aspirin 81 mg tablet,delayed 81 mg PO QAM 04/08/20 07/03/21 History release atorvastatin 80 mg tablet 80 mg PO HS 04/08/20 07/03/21 History calcium carbonate 600 mg calcium 600 mg PO QPM 04/08/20 07/03/21 History (1,500 mg) tablet (Calcium) clopidogrel 75 mg tablet (Plavix) 75 mg PO QAM 04/08/20 07/03/21 History multivitamin 1 tab PO QPM 04/08/20 07/03/21 History pantoprazole 40 mg tablet,delayed 40 mg PO QAM 04/08/20 07/03/21 History release vit C 50 mg-E 15 unit-zinc cit 4.5 1 tab PO QPM 04/08/20 07/03/21 History mg-lutein 2.5 mg-zeaxan chew tablet (ZeaVision) amiodarone 200 mg tablet (Pacerone) 200 mg PO DAILY 08/19/20 07/03/21 History metoprolol succinate 25 mg 25 mg PO BID 08/19/20 07/03/21 History tablet,extended release 24 hr (Toprol XL) potassium chloride 20 mEq See Rx Instructions .ROUTE 08/24/20 07/03/21 Rx tablet,extended release .COMPLEX #45 tab levothyroxine 25 mcg tablet 25 mcg PO DAILY 07/03/21 07/03/21 History torsemide 20 mg tablet 20 mg PO QPM PRN 07/03/21 07/03/21 History torsemide 20 mg tablet 40 mg PO QAM 07/03/21 07/03/21 History Past Med/Surg History Medical History Bilateral primary osteoarthritis of knee CAD (coronary artery disease) CHF (congestive heart failure) Chronic kidney disease (CKD) stage G4/A1, severely decreased glomerular filtration rate (GFR) between 15-29 mL/min/1.73 square meter and albuminuria creatinine ratio less than 30 mg/g Degenerative arthritis of knee, bilateral GERD (gastroesophageal reflux disease) Hypertension Ischemic cardiomyopathy Retinal disease Sinus bradycardia Surgical History History of heart artery stent 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 Family History Other Heart disease Hypertension Stroke Social History Smoking Status: Unknown if ever smoked Second Hand Exposure: No; Hx Substance Use: No Preferred Language: French Communication Ability: Effective Client Experience Administrator Required: No Beliefs That Will Affect Care: None marital status: Current Living Situation: Spouse Feels Safe at Home: Yes Assistive Devices: None Review of Systems Review of Systems: Could not be reliably obtained Physical Exam Physical Exam: GENERAL: Sedated, intubated SKIN: Pallor , cool HEENT: Alopecia, pale palpebral conjunctivae, no ptosis, dry buccal mucosa, ET in place NECK : Supple, no tenderness CHEST : Decreased breath sounds, no tenderness HEART : Diminished S1-S2, diastolic murmur ABDOMEN: Some distention, nontender EXTREMITIES : Bilateral LE swelling, no LE tenderness, no other conspicuous deformities noted NEUROLOGIC : Sedated , no facial asymmetry, gait and stance not assessed Results & Data Results & Data ([facility]) Vital Signs (Past 12 Hours) Vital Signs Temp Pulse Resp BP Pulse Ox 07/03/21 00:45 34.5 C L 75 20 108/75 67 L 07/03/21 00:30 34.7 C L 77 20 109/75 66 L 07/03/21 00:10 80 18 107/78 67 L 07/02/21 23:45 92 H 15 119/87 72 L 07/02/21 23:31 103 H 27 H 75 L 07/02/21 23:20 70 11 L 68 L 07/02/21 23:10 82 12 81 L 07/02/21 23:01 74 15 143/95 H 68 L 07/02/21 23:00 34.6 C L Laboratory Results Laboratory Results WBC 5.92 K/uL (4.8-10.8) 07/02/21 23:35 RBC 3.46 M/uL (4.7-6.1) L 07/02/21 23:35 Hgb 12.5 g/dL (14.0-18.0) L 07/02/21 23:35 POC Hgb 12.9 g/dl (14.0-18.0) L 07/03/21 00:20 Hct 38.6 % (42-52) L 07/02/21 23:35 POC Hct 38 % (42-52) L 07/03/21 00:20 MCV 111.6 fL (80-100) H 07/02/21 23:35 MCH 36.1 pg (25-34) H 07/02/21 23:35 MCHC 32.4 g/dL (32-36) 07/02/21 23:35 RDW Std Deviation 62.8 fL (36.4-46.3) H 07/02/21 23:35 RDW Coeff of Zakia 15.9 % (11.5-14.5) H 07/02/21 23:35 Plt Count 19 K/uL (130-400) L* 07/02/21 23:35 Immature Gran % (Auto) 1.9 % 07/02/21 23:35 Neut % (Auto) 79.5 % 07/02/21 23:35 Lymph % (Auto) 10.5 % 07/02/21 23:35 [place] % (Auto) 7.6 % 07/02/21 23:35 Eos % (Auto) 0.2 % 07/02/21 23:35 Baso % (Auto) 0.3 % 07/02/21 23:35 Neut # (Auto) 4.71 K/uL (1.4-6.5) 07/02/21 23:35 Lymph # (Auto) 0.62 K/uL (1.2-3.4) L 07/02/21 23:35 [place] # (Auto) 0.45 K/uL (0.11-0.59) 07/02/21 23:35 Eos # (Auto) 0.01 K/uL (0-0.5) 07/02/21 23:35 Baso # (Auto) 0.02 K/uL (0-0.2) 07/02/21 23:35 Immature Gran # (Auto) 0.11 K/uL (0.00-0.02) H 07/02/21 23:35 Absolute Nucleated RBC 0.11 K/uL (0-0) H 07/02/21 23:35 Nucleated RBC % (auto) 1.8 % 07/02/21 23:35 Platelet Estimate SIGNIFIC DECREASED (Normal) 07/02/21 23:35 Macrocytosis Present 07/02/21 23:35 Echinocytes 3+ 07/02/21 23:35 Acanthocytes (Spur) 1+ 07/02/21 23:35 PT Cancelled 07/02/21 23:35 INR Cancelled 07/02/21 23:35 POC pH 7.22 (7.35-7.45) L 07/03/21 00:20 POC pCO2 46 mmHg (35-46) 07/03/21 00:20 POC pO2 > 420 mmHg (80-95) H 07/03/21 00:20 POC HCO3 19 ej/L (19-24) 07/03/21 00:20 POC Total CO2 20 mmol/L (24-31) L 07/03/21 00:20 POC Base Excess -9.0 ej/L (-9-1.8) 07/03/21 00:20 ABG pH 7.35 (7.35-7.45) 07/02/21 23:35 ABG pCO2 35 mmHg (35-46) 07/02/21 23:35 ABG pO2 524 mmHg (80-95) H 07/02/21 23:35 ABG HCO3 19 mmol/L (19-24) 07/02/21 23:35 POC ABG O2 Sat 100.0 % (90-95) H 07/03/21 00:20 ABG O2 Saturation 99.9 % (90-95) H 07/02/21 23:35 ABG Base Excess -5.7 mEq/L (-9-1.8) 07/02/21 23:35 José Test POS (Pos) 07/02/21 23:35 Barometric Pressure 737.9 mm/Hg 07/02/21 23:35 Oxygen Given 100% 07/02/21 23:35 POC Sodium 138 mmol/L (135-144) 07/03/21 00:20 Sodium 143 mmol/L (136-145) 07/02/21 23:35 POC Potassium 6.4 mmol/L (3.3-5.0) H* 07/03/21 00:20 Potassium 6.2 mmol/L (3.5-5.1) H* 07/02/21 23:35 Chloride 114 mmol/L (98-107) H 07/02/21 23:35 Carbon Dioxide 16 mmol/L (21-32) L 07/02/21 23:35 Anion Gap 14.0 (3-11) H 07/02/21 23:35 BUN 124 mg/dl (7-18) H 07/02/21 23:35 Creatinine 5.82 mg/dl (0.6-1.4) H* 07/02/21 23:35 Est Cr Clr Drug Dosing 9.0 ml/min 07/02/21 23:35 Est GFR ( Amer) 9.4 ml/min 07/02/21 23:35 Est GFR (Non-Af Amer) 8.1 ml/min 07/02/21 23:35 BUN/Creatinine Ratio 21.5 (10-20) H 07/02/21 23:35 Glucose 92 mg/dl (70-99) 07/02/21 23:35 Lactate 10.2 mmol/L (0.4-2.0) H* 07/02/21 23:35 Calcium > 20.0 mg/dl (8.5-10.1) H* 07/02/21 23:35 Magnesium 3.0 mg/dl (1.8-2.4) H 07/02/21 23:35 Total Bilirubin 1.8 mg/dl (0.2-1) H 07/02/21 23:35 Direct Bilirubin mg/dl (0-0.2) 07/02/21 23:35 AST 373 U/L (15-37) H 07/02/21 23:35 ALT 337 U/L (12-78) H 07/02/21 23:35 Alkaline Phosphatase 135 U/L (45-117) H 07/02/21 23:35 Ammonia 64.2 umol/L (11-32) H 07/02/21 23:35 Troponin I 0.176 ng/ml (0-0.045) H* 07/02/21 23:35 Total Protein 6.4 gm/dl (6.4-8.2) 07/02/21 23:35 Albumin 3.2 gm/dl (3.4-5.0) L 07/02/21 23:35 Lipase 212 U/L (73-393) 07/02/21 23:35 Procalcitonin < 0.05 ng/ml (0-0.5) 07/02/21 23:35 COVID-19 Eval Order Covid19 at [facility] 07/02/21 23:40 SARS-CoV-2 (PCR) NEGATIVE (Negative) 07/02/21 23:40 Impressions Chest X-Ray 07/02/21 23:22 SINGLE VIEW CHEST CLINICAL HISTORY: Respiratory arrest. FINDINGS: An AP, portable, supine chest radiograph is compared to study dated 08/19/2020. An endotracheal tube has been placed. The tip projects 3 cm above the kimberlee. A 2-lead cardiac pacemaker is unchanged in position. The heart is enlarged. The pulmonary vasculature is noncongested. A stent graft is noted in the thoracic aorta. Chronic interstitial thickening is similar to previous. No airspace consolidation or large pleural effusion is identified. There is no pneumothorax. The skeletal structures are osteopenic. The bony thorax is grossly intact. IMPRESSION: 1. An endotracheal tube has been placed as above. 2. Cardiomegaly and cardiac pacemaker. There is no radiographic evidence of congestive failure. 3. No airspace consolidation or large pleural effusion is identified. ACT 112: Negative or not required by law. Electronically signed by: Ba Peacock M.D. 07/02/2021 11:[address] 07/02/21 23:23 CT SCAN OF THE BRAIN WITHOUT IV CONTRAST CLINICAL HISTORY: Fall. Change in mental status. COMPARISON STUDY: No priors. TECHNIQUE: Unenhanced axial CT scan of the brain is performed from the vertex to the skull base. A dose lowering technique was utilized adhering to the principles of ALARA. FINDINGS: An endotracheal tube is noted on the roll filler tomogram. Brain parenchyma: There are age-related involutional changes noting moderate subcortical and periventricular microangiopathic change. There is no hemorrhage, mass effect, or evidence of acute territorial ischemia by CT criteria. Lopez- white matter differentiation is preserved. No extra-axial fluid collection is seen. Ventricles, sulci, cisterns: Prominent secondary to involutional change. Intracranial vasculature: There is atherosclerotic calcification of the cavernous carotid and vertebral arteries. Calvarium: The skeletal structures are osteopenic. No depressed calvarial fracture is identified. Sinuses and mastoids: The visualized paranasal sinuses are clear. The mastoid air cells are well pneumatized. Orbits: The bony orbits are grossly intact. There are bilateral ocular lens implants. IMPRESSION: There is no hemorrhage, mass effect, or evidence of acute territorial ischemia by CT criteria. ACT 112: Negative or not required by law. Electronically signed by: Ba Peacock M.D. 07/03/2021 12:07 AM Abdomen/Pelvis CT 07/02/21 23:47 CT SCAN OF THE CHEST, ABDOMEN, AND PELVIS WITHOUT IV CONTRAST CLINICAL HISTORY: Fall. Cardiac arrest. Change in mental status. COMPARISON STUDY: Chest x-ray dated 07/02/2021. Renal ultrasound dated 08/20/2020. TECHNIQUE: Unenhanced CT scan of the chest, abdomen, and pelvis was performed from the thoracic inlet to the proximal femora. Images are reviewed in the axial, sagittal, and coronal planes. IV contrast was not administered for this examination. Note that the examination is suboptimal without IV contrast. A dose lowering technique was utilized adhering to the principles of ALARA. Examination is degraded by motion artifact, as well as by streak artifact from the arms which could not be related above the chest or abdomen. CT DOSE: 1815.60 mGy.cm FINDINGS: CHEST: Thyroid: Imaged portions of the thyroid gland are normal in size and attenuation. Thoracic aorta: There is atherosclerotic calcification of the thoracic aorta. There is aneurysmal dilatation of the ascending thoracic aorta which measures up to 4.4 cm diameter. A stent graft is present from the level of the aortic arch to the distal descending thoracic aorta. The arch demonstrates standard 3-vessel anatomy. 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 Heart: A cardiac pacemaker is present in the left chest wall. The heart is markedly enlarged and without pericardial effusion. The coronary arteries and mitral annulus are densely calcified. There is diminished attenuation of the cardiac blood pool as compared to the myocardium suggesting anemia. The main pulmonary arteries are dilated suggesting pulmonary artery hypertension. Lungs and pleural spaces: An endotracheal tube is in place and terminates above the kimberlee. There are trace pleural effusions, right larger than left. No lobar consolidation is identified. A 2 cm groundglass focus is seen in the anterior left upper lobe on image #130. Minimal secretions are noted in the trachea. The central airways appear clear. Scarring/atelectasis is noted at the lung bases. There is no pneumothorax. Mediastinum: There are scattered subcentimeter mediastinal lymph nodes. No mediastinal hematoma is identified. Maida: Not well assessed without IV contrast. Axillae: There is no axillary lymphadenopathy. Bony thorax: The skeletal structures are osteopenic. There are chronic appearing bilateral rib fractures. No acute/displaced rib fracture is clearly seen. Arthritic changes noted in the shoulders. There is a mild chronic appearing inferior endplate compression deformity of T4. No lytic or blastic lesions are identified. Soft tissues: There is body wall edema. Scattered foci of intravenous gas are likely related to IV placement. ABDOMEN AND PELVIS: Liver: The unenhanced liver is cirrhotic in morphology and heterogeneous in attenuation. There is nodularity of the hepatic surface contour. There is no intra- or extrahepatic biliary ductal dilatation. Gallbladder: Contracted. Spleen: Normal in size and attenuation. Pancreas: The unenhanced pancreas is moderately atrophic and grossly unremarkable. Adrenal glands: Unremarkable. Kidneys: The kidneys are not well assessed due to streak and motion artifact. The unenhanced kidneys are atrophic and without hydronephrosis. A left renal artery stent is in place. Abdominal vasculature: The abdominal aorta is normal in course and caliber noting advanced atherosclerotic calcification. Bowel: There is no bowel obstruction. Mild fecal retention is seen throughout t he colon. The appendix is not visualized. Peritoneum: There is a small volume of abdominopelvic ascites. No intraperitoneal free air is seen. Lymphadenopathy: None. Pelvic viscera: The bladder is decompressed around a Vidal catheter and not well evaluated. The prostate gland is enlarged and heterogeneous. There is a fat and ascitic fluid containing right inguinal hernia. Skeletal structures: The skeletal structures are osteopenic. The lumbosacral spine, bony pelvis, and proximal femora appear intact. There is moderate to advanced lumbosacral spondylosis. No lytic or blastic lesions are seen. Soft tissues: There is body wall edema. IMPRESSION: 1. An endotracheal tube is in place. 2. Marked cardiomegaly and cardiac pacemaker. 3. Trace pleural effusions, right larger than left. 4. There is no lobar consolidation or pneumothorax. 5. There is mild aneurysmal dilatation of the ascending thoracic aorta with a stent graft in place as above. 6. There is no evidence of solid organ injury in the abdomen or pelvis on this unenhanced examination. 7. Cirrhotic liver morphology. 8. Small volume of abdominopelvic ascites. 9. There is a 2 cm groundglass focus in the left upper lobe. This is likely on an inflammatory basis. A follow-up chest CT in 3-4 months time is recommended to resolution. 10. Anasarca of the body wall. 11. There are numerous chronic appearing bilateral rib fractures. No definite acute/displaced rib fracture is seen. 12. Additional findings as above. ACT 112: Negative or not required by law. Electronically signed by: Ba Peacock M.D. 07/03/2021 12:[address] 07/02/21 23:[address] SCAN OF THE CERVICAL SPINE CLINICAL HISTORY: Fall. Change in mental status. COMPARISON STUDY: No priors. TECHNIQUE: CT scan of the cervical spine is performed from the skull base to the upper thoracic spine. Images are reviewed in the axial, sagittal, and coronal planes. IV contrast was not administered for this examination. A dose lowering technique was utilized adhering to the principles of ALARA. FINDINGS: Skeletal structures: The skeletal structures are osteopenic. There is no evidence of fracture or subluxation involving the cervical spine. Vertebral body height and alignment are maintained. There is minimal anterolisthesis at C7-T1. There is mild hyperlordosis. Small anterior osteophytes are seen throughout. The odontoid process and lateral masses are intact. The atlantoaxial articulation is preserved noting productive degenerative change. The spinous processes appear intact. There is mild to moderate multilevel cervical spondylosis. Uncovertebral and facet arthropathy contribute to neural foraminal stenosis at several levels. Intervertebral discs: There is moderate disc space narrowing at all cervical levels between C3-C4 and C6-C7. Central canal: Small posterior disc osteophyte complexes are seen at all levels between C3-C4 and C6-C7. This likely contributes to mild multilevel acquired compromise of the central canal. Soft tissues: The prevertebral and paraspinous soft tissues are within normal limits. There is atherosclerotic calcification of the carotid bulbs. Calvarium: The visualized calvarium at the skull base appears intact. Brain parenchyma: Partially visualized brain parenchyma at the skull base is within normal limits. Sinuses and mastoids: The visualized paranasal sinuses are clear. The mastoid air cells are well pneumatized. Lung apices: An endotracheal tube is in place. Clear as visualized. IMPRESSION: 1. There is no evidence of fracture or subluxation involving the cervical spine. 2. Osteopenia and spondylotic change as above. ACT 112: Negative or not required by law. Electronically signed by: Ba Peacock M.D. 07/03/2021 12:[address] 07/02/21 23:47 CT SCAN OF THE CHEST, ABDOMEN, AND PELVIS WITHOUT IV CONTRAST CLINICAL HISTORY: Fall. Cardiac arrest. Change in mental status. COMPARISON STUDY: Chest x-ray dated 07/02/2021. Renal ultrasound dated 08/20/2020. TECHNIQUE: Unenhanced CT scan of the chest, abdomen, and pelvis was performed from the thoracic inlet to the proximal femora. Images are reviewed in the axial, sagittal, and coronal planes. IV contrast was not administered for this examination. Note that the examination is suboptimal without IV contrast. A dose lowering technique was utilized adhering to the principles of ALARA. Examination is degraded by motion artifact, as well as by streak artifact from the arms which could not be related above the chest or abdomen. CT DOSE: 1815.60 mGy.cm FINDINGS: CHEST: Thyroid: Imaged portions of the thyroid gland are normal in size and attenuation. Thoracic aorta: There is atherosclerotic calcification of the thoracic aorta. There is aneurysmal dilatation of the ascending thoracic aorta which measures up to 4.4 cm diameter. A stent graft is present from the level of the aortic arch to the distal descending thoracic aorta. The arch demonstrates standard 3-vessel anatomy. 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 Heart: A cardiac pacemaker is present in the left chest wall. The heart is markedly enlarged and without pericardial effusion. The coronary arteries and mitral annulus are densely calcified. There is diminished attenuation of the ca rdiac blood pool as compared to the myocardium suggesting anemia. The main pulmonary arteries are dilated suggesting pulmonary artery hypertension. Lungs and pleural spaces: An endotracheal tube is in place and terminates above the kim[place]. There are trace pleural effusions, right larger than left. No lobar consolidation is identified. A 2 cm groundglass focus is seen in the anterior left upper lobe on image #130. Minimal secretions are noted in the trachea. The central airways appear clear. Scarring/atelectasis is noted at the lung bases. There is no pneumothorax. Mediastinum: There are scattered subcentimeter mediastinal lymph nodes. No mediastinal hematoma is identified. Maida: Not well assessed without IV contrast. Axillae: There is no axillary lymphadenopathy. Bony thorax: The skeletal structures are osteopenic. There are chronic appearing bilateral rib fractures. No acute/displaced rib fracture is clearly seen. Arthritic changes noted in the shoulders. There is a mild chronic appearing inferior endplate compression deformity of T4. No lytic or blastic lesions are identified. Soft tissues: There is body wall edema. Scattered foci of intravenous gas are likely related to IV placement. ABDOMEN AND PELVIS: Liver: The unenhanced liver is cirrhotic in morphology and heterogeneous in attenuation. There is nodularity of the hepatic surface contour. There is no int ra- or extrahepatic biliary ductal dilatation. Gallbladder: Contracted. Spleen: Normal in size and attenuation. Pancreas: The unenhanced pancreas is moderately atrophic and grossly unremarkable. Adrenal glands: Unremarkable. Kidneys: The kidneys are not well assessed due to streak and motion artifact. The unenhanced kidneys are atrophic and without hydronephrosis. A left renal artery stent is in place. Abdominal vasculature: The abdominal aorta is normal in course and caliber noting advanced atherosclerotic calcification. Bowel: There is no bowel obstruction. Mild fecal retention is seen throughout the colon. The appendix is not visualized. Peritoneum: There is a small volume of abdominopelvic ascites. No intraperitoneal free air is seen. Lymphadenopathy: None. Pelvic viscera: The bladder is decompressed around a Vidal catheter and not well evaluated. The prostate gland is enlarged and heterogeneous. There is a fat and ascitic fluid containing right inguinal hernia. Skeletal structures: The skeletal structures are osteopenic. The lumbosacral spine, bony pelvis, and proximal femora appear intact. There is moderate to advanced lumbosacral spondylosis. No lytic or blastic lesions are seen. Soft tissues: There is body wall edema. IMPRESSION: 1. An endotracheal tube is in place. 2. Marked cardiomegaly and cardiac pacemaker. 3. Trace pleural effusions, right larger than left. 4. There is no lobar consolidation or pneumothorax. 5. There is mild aneurysmal dilatation of the ascending thoracic aorta with a stent graft in place as above. 6. There is no evidence of solid organ injury in the abdomen or pelvis on this unenhanced examination. 7. Cirrhotic liver morphology. 8. Small volume of abdominopelvic ascites. 9. There is a 2 cm groundglass focus in the left upper lobe. This is likely on an inflammatory basis. A follow-up chest CT in 3-4 months time is recommended to resolution. 10. Anasarca of the body wall. 11. There are numerous chronic appearing bilateral rib fractures. No definite acute/displaced rib fracture is seen. 12. Additional findings as above. ACT 112: Negative or not required by law. Electronically signed by: Ba Peacock M.D. 07/03/2021 12:30 AM Diagnostic Findings EKG as per my interpretation rate 150, paced rhythm
--- NOTE | 2021-07-03 01:26 | Critical Care Consultation ---
Date of Consultation July 03, 2021 Assessment & Plan (1) Multiple organ system failure: Assessment: 85-year-old male with past medical history significant for systolic heart failure with prior EF 17% 08/24, cirrhosis, CKD stage IV who presented to the ER via EMS earlier this evening and found to be in multisystem organ failure. He required emergent intubation in the ER. BMP showed severe electrolyte abnormalities with hyperkalemia, hypercalcemia, anion gap metabolic acidosis, elevated creatinine and BUN, lactate 10.2, elevated LFTs and ammonia. Head CT was negative for acute intracranial process. CT chest and abdomen and pelvis were grossly without acute processes as described above. Plan: As described in HPI, transfer for hemodialysis was offered. However, according to patient's wishes no further aggressive medical management is to be pursued and he was made DNR/DNI with no escalation of care at this time. Per family wishes, we will continue with mechanical ventilation with sedation in the ICU overnight. The patient has a daughter in [place] and they would like her to be at the bedside with plan to withdrawal care in the morning and transition to comfort care, when she arrives. Discontinuing further labs and work-up at this time along with other forms of medical management per family's wishes. CRITICAL CARE TIME - I have personally spent 45 minutes of critical care time in the direct management of this patient. This is a life/limb threatening event. This includes time spent evaluating patient, direct bedside care, chart review, placing orders, interpretation of diagnostic studies, discussion with consultants, patient, and family members, as well as other required patient management activities. This time is exclusive of all separately billable procedures, and teaching time and separate from and in addition to any other critical care service time. (2) CHF (congestive heart failure): (3) Tricuspid regurgitation: (4) Aortic regurgitation: (5) Hypokalemia: (6) Chronic kidney disease (CKD) stage G4/A1, severely decreased glomerular filtration rate (GFR) between 15-29 mL/min/1.73 square meter and albuminuria creatinine ratio less than 30 mg/g: (7) Bilateral primary osteoarthritis of knee: (8) Status post placement of cardiac pacemaker: (9) Tachycardia-bradycardia syndrome: (10) Atrial tachycardia: (11) Hypertension: (12) Ischemic cardiomyopathy: (13) Sinus bradycardia: (14) CAD (coronary artery disease): (15) Atrial fibrillation with rapid ventricular response: (16) Degenerative arthritis of knee, bilateral: (17) Acute renal failure: (18) Electrolyte abnormality: (19) Lactic acidosis: (20) Metabolic acidosis: (21) Thrombocytopenia: (22) Hyperkalemia: (23) Cirrhosis: History of Present Illness History of Present Illness Boni Bridges is a 85-year-old male with past medical history significant for systolic heart failure, CAD, atrial fibrillation, tachybradycardia syndrome (s/p pacemaker), CKD stage IV, aortic regurg, and bilateral arthritis of knee. Patient presented to the emergency department earlier this evening via EMS. Patient had become unresponsive at home and received epinephrine in route to the hospital. He was brought into the emergency department where he was found to be altered mental status and respiratory distress and was emergently intubated. Lab work revealed that the patient was in acute renal failure and had severe electrolyte abnormalities and severe metabolic acidosis. Discussion was held with the family in regards to emergent dialysis which was declined. In our conversation, family stated that the patient had continued to decompensate with his health over the past year and was reported by his to be very depressed as he was previously a very active person. Apparently, he has a living will which states that he would not want aggressive medical therapy including mechanical ventilation/dialysis. I did have a conversation with the patient's and son at the bedside and they did make him DNR/DNI in the event of cardiac arrest. In respect to the patient's wishes, family plans to transition patient to comfort measures once the patient's daughter who lives in [place] is able to visit in the morning. He is being moved to the ICU as he is currently mechanically ventilated, however, they did wish to make him no escalation of care at this time and will defer further medical management. Allergies Allergy/AdvReac Type Severity Reaction Status Date / Time No Known Allergies Allergy Verified 07/03/21 01:47 Home Medications Medication Instructions Recorded Confirmed Type aspirin 81 mg tablet,delayed 81 mg PO QAM 04/08/20 07/03/21 History release atorvastatin 80 mg tablet 80 mg PO HS 04/08/20 07/03/21 History calcium carbonate 600 mg calcium 600 mg PO QPM 04/08/20 07/03/21 History (1,500 mg) tablet (Calcium) clopidogrel 75 mg tablet (Plavix) 75 mg PO QAM 04/08/20 07/03/21 History multivitamin 1 tab PO QPM 04/08/20 07/03/21 History pantoprazole 40 mg tablet,delayed 40 mg PO QAM 04/08/20 07/03/21 History release vit C 50 mg-E 15 unit-zinc cit 4.5 1 tab PO QPM 04/08/20 07/03/21 History mg-lutein 2.5 mg-zeaxan chew tablet (Watertronix) amiodarone 200 mg tablet (Pacerone) 200 mg PO DAILY 08/19/20 07/03/21 History metoprolol succinate 25 mg 25 mg PO BID 08/19/20 07/03/21 History tablet,extended release 24 hr (Toprol XL) potassium chloride 20 mEq See Rx Instructions .ROUTE 08/24/20 07/03/21 Rx tablet,extended release .COMPLEX #45 tab levothyroxine 25 mcg tablet 25 mcg PO DAILY 07/03/21 07/03/21 History torsemide 20 mg tablet 20 mg PO QPM PRN 07/03/21 07/03/21 History torsemide 20 mg tablet 40 mg PO QAM 07/03/21 07/03/21 History Patient History Medical History Bilateral primary osteoarthritis of knee CAD (coronary artery disease) CHF (congestive heart failure) Chronic kidney disease (CKD) stage G4/A1, severely decreased glomerular filtration rate (GFR) between 15-29 mL/min/1.73 square meter and albuminuria creatinine ratio less than 30 mg/g Degenerative arthritis of knee, bilateral GERD (gastroesophageal reflux disease) Hypertension Ischemic cardiomyopathy Retinal disease Sinus bradycardia Surgical History History of heart artery stent 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 Family History Other Heart disease Hypertension Stroke Social History Smoking Status: Unknown if ever smoked Second Hand Exposure: No; Hx Substance Use: No Preferred Language: Barbadian Communication Ability: Effective Tool Carrier Required: No Beliefs That Will Affect Care: None marital status: Current Living Situation: Spouse Feels Safe at Home: Yes Assistive Devices: None Review of Systems Review of Systems: Unobtainable due to cognitive status and Unobtainable due to endotracheal tube Physical Exam Constitutional: + mechanically ventilated Eyes: PERRL, conjunctivae normal, anicteric sclerae ENMT: external ear and nose normal, oropharynx normal Neck: trachea midline, no thyromegaly Respiratory: normal respiratory effort, lungs clear to auscultation Cardiovascular: Heart Sounds: normal S1 and normal S2 Bilateral lower extremity edema, paced rhythm on monitor, extremities cool to touch. +2 radial and pedal pulses bilaterally Gastrointestinal (Abdomen): normal bowel sounds, soft, nontender, no hepatosplenomegaly Musculoskeletal: Unable to assess due to sedation/paralytics Neurologic: Unable to assess due to sedation/paralytics Psychiatric: Unable to assess due to sedation/paralytics Genitourinary: Indwelling Vidal catheter present Results & Data Results & Data ([facility]) Vital Signs (Past 12 Hours) Vital Signs Temp Pulse Resp BP Pulse Ox 07/03/21 00:45 34.5 C L 75 20 108/75 67 L 07/03/21 00:30 34.7 C L 77 20 109/75 66 L 07/03/21 00:10 80 18 107/78 67 L 07/02/21 23:45 92 H 15 119/87 72 L 07/02/21 23:31 103 H 27 H 75 L 07/02/21 23:20 70 11 L 68 L 07/02/21 23:10 82 12 81 L 07/02/21 23:08 103 H 20 67 L 07/02/21 23:01 74 15 143/95 H 68 L 07/02/21 23:00 34.6 C L Diagnostic Findings CT chest, abdomen and pelvis: IMPRESSION: 1. An endotracheal tube is in place. 2. Marked cardiomegaly and cardiac pacemaker. 3. Trace pleural effusions, right larger than left. 4. There is no lobar consolidation or pneumothorax. 5. There is mild aneurysmal dilatation of the ascending thoracic aorta with a stent graft in place as above. 6. There is no evidence of solid organ injury in the abdomen or pelvis on this unenhanced examination. 7. Cirrhotic liver morphology. 8. Small volume of abdominopelvic ascites. 9. There is a 2 cm groundglass focus in the left upper lobe. This is likely on an inflammatory basis. A follow-up chest CT in 3-4 months time is recommended to resolution. 10. Anasarca of the body wall. 11. There are numerous chronic appearing bilateral rib fractures. No definite acute/displaced rib fracture is seen. 12. Additional findings as above. CT head IMPRESSION: There is no hemorrhage, mass effect, or evidence of acute territorial ischemia by CT criteria. Coding Level of Care Code Critical Care 1st 30-74 mins Diagnoses CHF (congestive heart failure) I50.9 Heart failure chronicity: acute Heart failure type: unspecified Tricuspid regurgitation I36.1 Cardiac valve disease etiology: nonrheumatic Aortic regurgitation I35.1 Cardiac valve disease etiology: nonrheumatic Hypokalemia E87.6 Chronic kidney disease (CKD) stage G4/A1, severely decreased glomerular filtration rate (GFR) between 15-29 mL/min/1.73 square meter and albuminuria creatinine ratio less than 30 mg/g N18.4 Bilateral primary osteoarthritis of knee M17.0 Status post placement of cardiac pacemaker Z95.0 Tachycardia-bradycardia syndrome I49.5 Atrial tachycardia I47.1 Hypertension I10 Ischemic cardiomyopathy I25.5 Sinus bradycardia R00.1 CAD (coronary artery disease) I25.10 Atrial fibrillation with rapid ventricular response I48.91 Degenerative arthritis of knee, bilateral M17.0 Acute renal failure N17.9 Electrolyte abnormality E87.8 Lactic acidosis E87.2 Metabolic acidosis E87.2 Thrombocytopenia D69.6 Hyperkalemia E87.5 Cirrhosis K74.60 Multiple organ system failure (1) CHF (congestive heart failure) Heart failure chronicity: acute Heart failure type: unspecified Qualified Code(s): I50.9 - Heart failure, unspecified (2) Aortic regurgitation Cardiac valve disease etiology: nonrheumatic Qualified Code(s): I35.1 - Nonrheumatic aortic (valve) insufficiency (3) Tricuspid regurgitation Cardiac valve disease etiology: nonrheumatic Qualified Code(s): I36.1 - Nonrheumatic tricuspid (valve) insufficiency
[2021-07-03 02:03] LABS: T4 Free Thyroxine 0.56 ng/dl (0.8-1.6)
[2021-07-03] MEDS ORDERED: fentaNYL citrate 100 MCG/2 ML VIAL IV PRN (02:38)
[2021-07-03] MEDS ORDERED: ACETAMINOPHEN 65 ML IV PRN (02:38)
[2021-07-03] MEDS ORDERED: ICU PROTOCOL FOR HYPERGLYCEMIA PRN (02:38)
--- NOTE | 2021-07-03 13:45 | Critical Care Progress Note ---
Date of Service July 03, 2021 Assessment & Plan (1) Acute hypoxemic respiratory failure: (2) Multiple organ failure: (3) Acute hyperkalemia: (4) Respiratory failure: (5) Thrombocytopenia: Plan: --Vent dependent respiratory failure Likely secondary to CHF exacerbation Continue with vent support --EDILSON on CKD with acute hyperkalemia EKG changes appreciated Getting worse Family does not want dialysis --High anion gap metabolic acidosis Secondary to acute renal failure --Thrombocytopenia --History of coronary artery disease Plan: Family aware and wants to pursue palliative care. Patient's and son understand. Patient's daughter is traveling from [place]. Continue with vent support till the family comes in and withdrawal of care to comfort at that time There is a high likelihood patient might not make it past couple of hours. Patient is comfortable and will make sure that he is Please note the above document was generated using voice recognition software. It may contain grammatical, syntax or spelling errors.Any formal questions or concerns about the content, text or information contained within the body of this dictation should be directly addressed to the provider for clarification. Admission and Anticipated Discharge Date Admission Date: July 03, 2021 Subjective Patient seen and examined at bedside. No acute distress, no adverse events. Patient is on the vent Is not on any sedation No gag. Has paced rhythm Review of Systems Review of Systems: Unobtainable due to mental health condition Physical Exam Physical Exam: Constitutional: No acute distress HEENT: Sluggish response to the pupils, no corneal reflex Respiratory system: Decreased air entry bilaterally, no wheeze, no rhonchi, positive crackles bilateral lower lobes CVS: S1-S2 positive, distant heart sounds Abdomen: Soft, nontender, nondistended, positive bowel sounds x4 Extremities: +2 pulses bilaterally radialis/ dorsalis pedis, no cyanosis, +3 pitting edema lower extremity Neuro: No gag, no corneal, very sluggish pupillary response Psych: Unable to assess G/U: Positive Vidal Skin: no rashes, warm and dry Lymphatic: no cervical or axillary lymphadenopathy Results & Data [facility]) Vital Signs (Past 12 Hours) Vital Signs Temp Pulse Pulse Resp BP BP Pulse Ox 07/03/21 11:30 70 20 100 07/03/21 11:19 34.9 C L 70 71/32 L 100 07/03/21 10:19 34.7 C L 70 74/50 L 100 07/03/21 09:19 34.5 C L 70 75/49 L 100 07/03/21 08:19 34.4 C L 71 80/63 L 97 07/03/21 07:30 70 20 96 07/03/21 07:19 34.3 C L 70 88/52 L 97 07/03/21 06:19 34.2 C L 86/51 L 97 07/03/21 05:49 34.2 C L 70 81/46 L 98 07/03/21 05:19 34.1 C L 89/47 L 94 07/03/21 04:49 34.1 C L 73 99/55 L 98 07/03/21 04:19 34.0 C L 70 78/60 L 97 07/03/21 04:06 34.0 C L 70 81/57 L 95 07/03/21 03:50 34.0 C L 134 H 78/45 L 95 07/03/21 03:20 34.0 C L 72 93/58 L 93 07/03/21 02:48 34.1 C L 90 98/77 L 94 07/03/21 02:36 87 102/65 93 07/03/21 02:16 75 07/03/21 02:10 92 H 20 89/66 L 93 07/03/21 02:00 93 H 20 07/03/21 01:45 34.1 C L 70 19 101/69 66 L 07/02/21 23:35 07/02/21 23:35 Coding Level of Care Code 89816 Subseq Hosp Care Lvl 2 Diagnoses Acute hypoxemic respiratory failure J96.01 Multiple organ failure Acute hyperkalemia E87.5 Respiratory failure J96.01 Chronicity: acute Respiratory failure complication: hypoxia Thrombocytopenia D69.6 (1) Respiratory failure Chronicity: acute Respiratory failure complication: hypoxia Qualified Code(s): J96.01 - Acute respiratory failure with hypoxia
--- NOTE | 2021-07-03 18:04 | Communication Note ---
Date of Service: July 03, 2021 Notified by the nursing staff that the patient ceased to breathe. He was terminally extubated shortly before 5pm. On arrival to bedside the patient is m otionless. His eyes are open and his pupils are fixed and not reactive to light bilaterally. Auscultation of his heart and lungs reveals cardiac activity or breath sounds, respectively. He was not responsive to painful physical stimulus. He was pronounced at 5:55pm on 07/03/2021. Family has been notified per nursing staff. Electronic certificate will be completed. DO Kalpesh
--- NOTE | 2021-07-03 18:31 | Discharge Summary ---
Date of Service July 03, 2021 Admission HPI Per Admitting Provider History obtained from family and records. Unable to obtain history from patient secondary to intubated state. 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 Last confinement August 2020 for decompensated CHF. Patient noted by family to to have progressive decline over the last few weeks. Increasing leg swelling as per family. Patient increasingly tired and weak as per family. Patient refusing to be seen by doctors in the office as per son. Last night, patient yelled out complaining of severe chest pain to his . Patient refused EMS. Patient later noted to be unresponsive. Upon EMS arrival, patient noted to be in respiratory distress with decreased responsiveness. Patient however had a pulse as per report. No CPR done as per report. O2 sats 60s upon arrival at the ER Patient subsequently intubated at the emergency room. ICU provider discussed goals of care with patient family at the ER. No escalation of care or aggressive intervention. Maintain patient on mechanical ventilation until arrival of family from [place] then transition to comfort care as per discussion. Medical History as above Surgical History : Tonsillectomy, cataract surgeries, aneurysm repair Family History : Heart disease, stroke Personal/Social history : Non-smoker, occasional EtOH intake, retired [employer], lives with Admission Exam Per Admitting Provider Physical Exam: GENERAL: Sedated, intubated SKIN: Pallor , cool HEENT: Alopecia, pale palpebral conjunctivae, no ptosis, dry buccal mucosa, ET in place NECK : Supple, no tenderness CHEST : Decreased breath sounds, no tenderness HEART : Diminished S1-S2, diastolic murmur ABDOMEN: Some distention, nontender EXTREMITIES : Bilateral LE swelling, no LE tenderness, no other conspicuous deformities noted NEUROLOGIC : Sedated , no facial asymmetry, gait and stance not assessed Principal Diagnosis Multiorgan failure Acute hypoxic respiratory failure Anion gap metabolic acidosis Lactic acidosis Heart failure Cirrhosis Discharge Exam see note Discharge Data Allergies Allergy/AdvReac Type Severity Reaction Status Date / Time No Known Allergies Allergy Verified 07/03/21 01:47 Consultations 07/03/21 00:58 ED Decision to Admit Stat 07/03/21 02:38 Consult Environmental Tech Routine Ordered Studies Laboratory Results WBC 5.92 K/uL (4.8-10.8) 07/02/21 23:35 RBC 3.46 M/uL (4.7-6.1) L 07/02/21 23:35 Hgb 12.5 g/dL (14.0-18.0) L 07/02/21 23:35 POC Hgb 12.9 g/dl (14.0-18.0) L 07/03/21 00:20 Hct 38.6 % (42-52) L 07/02/21 23:35 POC Hct 38 % (42-52) L 07/03/21 00:20 MCV 111.6 fL (80-100) H 07/02/21 23:35 MCH 36.1 pg (25-34) H 07/02/21 23:35 MCHC 32.4 g/dL (32-36) 07/02/21 23:35 RDW Std Deviation 62.8 fL (36.4-46.3) H 07/02/21 23:35 RDW Coeff of Zakia 15.9 % (11.5-14.5) H 07/02/21 23:35 Plt Count 19 K/uL (130-400) L* 07/02/21 23:35 Immature Gran % (Auto) 1.9 % 07/02/21 23:35 Neut % (Auto) 79.5 % 07/02/21 23:35 Lymph % (Auto) 10.5 % 07/02/21 23:35 [place] % (Auto) 7.6 % 07/02/21 23:35 Eos % (Auto) 0.2 % 07/02/21 23:35 Baso % (Auto) 0.3 % 07/02/21 23:35 Neut # (Auto) 4.71 K/uL (1.4-6.5) 07/02/21 23:35 Lymph # (Auto) 0.62 K/uL (1.2-3.4) L 07/02/21 23:35 [place] # (Auto) 0.45 K/uL (0.11-0.59) 07/02/21 23:35 Eos # (Auto) 0.01 K/uL (0-0.5) 08/28/21 23:35 Baso # (Auto) 0.02 K/uL (0-0.2) 07/02/21 23:35 Immature Gran # (Auto) 0.11 K/uL (0.00-0.02) H 07/02/21 23:35 Absolute Nucleated RBC 0.11 K/uL (0-0) H 07/02/21 23:35 Nucleated RBC % (auto) 1.8 % 07/02/21 23:35 Platelet Estimate SIGNIFIC DECREASED (Normal) 07/02/21 23:35 Macrocytosis Present 07/02/21 23:35 Echinocytes 3+ 07/02/21 23:35 Acanthocytes (Spur) 1+ 07/02/21 23:35 PT Cancelled 07/02/21 23:35 INR Cancelled 07/02/21 23:35 POC pH 7.22 (7.35-7.45) L 07/03/21 00:20 POC pCO2 46 mmHg (35-46) 07/03/21 00:20 POC pO2 > 420 mmHg (80-95) H 07/03/21 00:20 POC HCO3 19 ej/L (19-24) 07/03/21 00:20 POC Total CO2 20 mmol/L (24-31) L 07/03/21 00:20 POC Base Excess -9.0 ej/L (-9-1.8) 07/03/21 00:20 ABG pH 7.35 (7.35-7.45) 07/02/21 23:35 ABG pCO2 35 mmHg (35-46) 07/02/21 23:35 ABG pO2 524 mmHg (80-95) H 07/02/21 23:35 ABG HCO3 19 mmol/L (19-24) 07/02/21 23:35 POC ABG O2 Sat 100.0 % (90-95) H 07/03/21 00:20 ABG O2 Saturation 99.9 % (90-95) H 07/02/21 23:35 ABG Base Excess -5.7 mEq/L (-9-1.8) 07/02/21 23:35 José Test POS (Pos) 07/02/21 23:35 Barometric Pressure 737.9 mm/Hg 07/02/21 23:35 Oxygen Given 100% 07/02/21 23:35 POC Sodium 138 mmol/L (135-144) 07/03/21 00:20 Sodium 143 mmol/L (136-145) 07/02/21 23:35 POC Potassium 6.4 mmol/L (3.3-5.0) H* 07/03/21 00:20 Potassium 6.2 mmol/L (3.5-5.1) H* 07/02/21 23:35 Chloride 114 mmol/L (98-107) H 07/02/21 23:35 Carbon Dioxide 16 mmol/L (21-32) L 07/02/21 23:35 Anion Gap 14.0 (3-11) H 07/02/21 23:35 BUN 124 mg/dl (7-18) H 07/02/21 23:35 Creatinine 5.82 mg/dl (0.6-1.4) H* 07/02/21 23:35 Est Cr Clr Drug Dosing 9.0 ml/min 07/02/21 23:35 Est GFR ( Amer) 9.4 ml/min 07/02/21 23:35 Est GFR (Non-Af Amer) 8.1 ml/min 07/02/21 23:35 BUN/Creatinine Ratio 21.5 (10-20) H 07/02/21 23:35 Glucose 92 mg/dl (70-99) 07/02/21 23:35 Lactate 10.2 mmol/L (0.4-2.0) H* 07/02/21 23:35 Calcium > 20.0 mg/dl (8.5-10.1) H* 07/02/21 23:35 Magnesium 3.0 mg/dl (1.8-2.4) H 07/02/21 23:35 Total Bilirubin 1.8 mg/dl (0.2-1) H 07/02/21 23:35 Direct Bilirubin mg/dl (0-0.2) 07/02/21 23:35 AST 373 U/L (15-37) H 07/02/21 23:35 ALT 337 U/L (12-78) H 07/02/21 23:35 Alkaline Phosphatase 135 U/L (45-117) H 07/02/21 23:35 Ammonia 64.2 umol/L (11-32) H 07/02/21 23:35 Troponin I 0.176 ng/ml (0-0.045) H* 07/02/21 23:35 Total Protein 6.4 gm/dl (6.4-8.2) 07/02/21 23:35 Albumin 3.2 gm/dl (3.4-5.0) L 07/02/21 23:35 Lipase 212 U/L (73-393) 07/02/21 23:35 Procalcitonin < 0.05 ng/ml (0-0.5) 07/02/21 23:35 TSH 126.000 uIu/ml (0.300-4.500) H 07/02/21 23:35 Free T4 0.56 ng/dl (0.8-1.6) L 07/02/21 23:35 Nasal Screen MRSA (PCR) Negative (Negative) 07/03/21 03:20 COVID-19 Eval Order Covid19 at [facility] 07/02/21 23:40 SARS-CoV-2 (PCR) NEGATIVE (Negative) 07/02/21 23:40 Impressions Chest X-Ray 07/02/21 23:22 SINGLE VIEW CHEST CLINICAL HISTORY: Respiratory arrest. FINDINGS: An AP, portable, supine chest radiograph is compared to study dated 08/19/2020. An endotracheal tube has been placed. The tip projects 3 cm above the kimberlee. A 2-lead cardiac pacemaker is unchanged in position. The heart is enlarged. The pulmonary vasculature is noncongested. A stent graft is noted in the thoracic aorta. Chronic interstitial thickening is similar to previous. No airspace consolidation or large pleural effusion is identified. There is no pneumothorax. The skeletal structures are osteopenic. The bony thorax is grossly intact. IMPRESSION: 1. An endotracheal tube has been placed as above. 2. Cardiomegaly and cardiac pacemaker. There is no radiographic evidence of congestive failure. 3. No airspace consolidation or large pleural effusion is identified. ACT 112: Negative or not required by law. Electronically signed by: Ba Peacock M.D. 07/02/2021 11:[address] 07/02/21 23:23 CT SCAN OF THE BRAIN WITHOUT IV CONTRAST CLINICAL HISTORY: Fall. Change in mental status. COMPARISON STUDY: No priors. TECHNIQUE: Unenhanced axial CT scan of the brain is performed from the vertex to the skull base. A dose lowering technique was utilized adhering to the principles of ALARA. FINDINGS: An endotracheal tube is noted on the database security expert tomogram. Brain parenchyma: There are age-related involutional changes noting moderate subcortical and periventricular microangiopathic change. There is no hemorrhage, mass effect, or evidence of acute territorial ischemia by CT criteria. Lopez- white matter differentiation is preserved. No extra-axial fluid collection is seen. Ventricles, sulci, cisterns: Prominent secondary to involutional change. Intracranial vasculature: There is atherosclerotic calcification of the cavernous carotid and vertebral arteries. Calvarium: The skeletal structures are osteopenic. No depressed calvarial fracture is identified. Sinuses and mastoids: The visualized paranasal sinuses are clear. The mastoid air cells are well pneumatized. Orbits: The bony orbits are grossly intact. There are bilateral ocular lens implants. IMPRESSION: There is no hemorrhage, mass effect, or evidence of acute territoria l ischemia by CT criteria. ACT 112: Negative or not required by law. Electronically signed by: Ba Peacock M.D. 07/03/2021 12:07 AM Abdomen/Pelvis CT 07/02/21 23:47 CT SCAN OF THE CHEST, ABDOMEN, AND PELVIS WITHOUT IV CONTRAST CLINICAL HISTORY: Fall. Cardiac arrest. Change in mental status. COMPARISON STUDY: Chest x-ray dated 07/02/2021. Renal ultrasound dated 08/20/2020. TECHNIQUE: Unenhanced CT scan of the chest, abdomen, and pelvis was performed from the thoracic inlet to the proximal femora. Images are reviewed in the axial, sagittal, and coronal planes. IV contrast was not administered for this examination. Note that the examination is suboptimal without IV contrast. A dose lowering technique was utilized adhering to the principles of ALARA. Examination is degraded by motion artifact, as well as by streak artifact from the arms which could not be related above the chest or abdomen. CT DOSE: 1815.60 mGy.cm FINDINGS: CHEST: Thyroid: Imaged portions of the thyroid gland are normal in size and attenuation. Thoracic aorta: There is atherosclerotic calcification of the thoracic aorta. There is aneurysmal dilatation of the ascending thoracic aorta which measures up to 4.4 cm diameter. A stent graft is present from the level of the aortic arch to the distal descending thoracic aorta. The arch demonstrates standard 3-vessel anatomy. 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 Heart: A cardiac pacemaker is present in the left chest wall. The heart is markedly enlarged and without pericardial effusion. The coronary arteries and mitral annulus are densely calcified. There is diminished attenuation of the cardiac blood pool as compared to the myocardium suggesting anemia. The main pulmonary arteries are dilated suggesting pulmonary artery hypertension. Lungs and pleural spaces: An endotracheal tube is in place and terminates above the kimberlee. There are trace pleural effusions, right larger than left. No lobar consolidation is identified. A 2 cm groundglass focus is seen in the anterior left upper lobe on image #130. Minimal secretions are noted in the trachea. The central airways appear clear. Scarring/atelectasis is noted at the lung bases. There is no pneumothorax. Mediastinum: There are scattered subcentimeter mediastinal lymph nodes. No mediastinal hematoma is identified. Maida: Not well assessed without IV contrast. Axillae: There is no axillary lymphadenopathy. Bony thorax: The skeletal structures are osteopenic. There are chronic appearing bilateral rib fractures. No acute/displaced rib fracture is clearly seen. Arthritic changes noted in the shoulders. There is a mild chronic appearing inferior endplate compression deformity of T4. No lytic or blastic lesions are identified. Soft tissues: There is body wall edema. Scattered foci of intravenous gas are likely related to IV placement. ABDOMEN AND PELVIS: Liver: The unenhanced liver is cirrhotic in morphology and heterogeneous in attenuation. There is nodularity of the hepatic surface contour. There is no intra- or extrahepatic biliary ductal dilatation. Gallbladder: Contracted. Spleen: Normal in size and attenuation. Pancreas: The unenhanced pancreas is moderately atrophic and grossly unremarkable. Adrenal glands: Unremarkable. Kidneys: The kidneys are not well assessed due to streak and motion artifact. The unenhanced kidneys are atrophic and without hydronephrosis. A left renal artery stent is in place. Abdominal vasculature: The abdominal aorta is normal in course and caliber noting advanced atherosclerotic calcification. Bowel: There is no bowel obstruction. Mild fecal retention is seen throughout the colon. The appendix is not visualized. Peritoneum: There is a small volume of abdominopelvic ascites. No intraperitoneal free air is seen. Lymphadenopathy: None. Pelvic viscera: The bladder is decompressed around a Vidal catheter and not well evaluated. The prostate gland is enlarged and heterogeneous. There is a fat and ascitic fluid containing right inguinal hernia. Skeletal structures: The skeletal structures are osteopenic. The lumbosacral spine, bony pelvis, and proximal femora appear intact. There is moderate to advanced lumbosacral spondylosis. No lytic or blastic lesions are seen. Soft tissues: There is body wall edema. IMPRESSION: 1. An endotracheal tube is in place. 2. Marked cardiomegaly and cardiac pacemaker. 3. Trace pleural effusions, right larger than left. 4. There is no lobar consolidation or pneumothorax. 5. There is mild aneurysmal dilatation of the ascending thoracic aorta with a stent graft in place as above. 6. There is no evidence of solid organ injury in the abdomen or pelvis on this unenhanced examination. 7. Cirrhotic liver morphology. 8. Small volume of abdominopelvic ascites. 9. There is a 2 cm groundglass focus in the left upper lobe. This is likely on an inflammatory basis. A follow-up chest CT in 3-4 months time is recommended to resolution. 10. Anasarca of the body wall. 11. There are numerous chronic appearing bilateral rib fractures. No definite acute/displaced rib fracture is seen. 12. Additional findings as above. ACT 112: Negative or not required by law. Electronically signed by: Ba Peacock M.D. 07/03/2021 12:[address] 07/02/21 23:[address] SCAN OF THE CERVICAL SPINE CLINICAL HISTORY: Fall. Change in mental status. COMPARISON STUDY: No priors. TECHNIQUE: CT scan of the cervical spine is performed from the skull base to the upper thoracic spine. Images are reviewed in the axial, sagittal, and coronal planes. IV contrast was not administered for this examination. A dose lowering technique was utilized adhering to the principles of ALARA. FINDINGS: Skeletal structures: The skeletal structures are osteopenic. There is no evidence of fracture or subluxation involving the cervical spine. Vertebral body height and alignment are maintained. There is minimal anterolisthesis at C7-T1. There is mild hyperlordosis. Small anterior osteophytes are seen throughout. The odontoid process and lateral masses are intact. The atlantoaxial articulation is preserved noting productive degenerative change. The spinous processes appear intact. There is mild to moderate multilevel cervical spondylosis. Uncovertebral and facet arthropathy contribute to neural foraminal stenosis at several levels. Intervertebral discs: There is moderate disc space narrowing at all cervical levels between C3-C4 and C6-C7. Central canal: Small posterior disc osteophyte complexes are seen at all levels between C3-C4 and C6-C7. This likely contributes to mild multilevel acquired compromise of the central canal. Soft tissues: The prevertebral and paraspinous soft tissues are within normal limits. There is atherosclerotic calcification of the carotid bulbs. Calvarium: The visualized calvarium at the skull base appears intact. Brain parenchyma: Partially visualized brain parenchyma at the skull base is within normal limits. Sinuses and mastoids: The visualized paranasal sinuses are clear. The mastoid air cells are well pneumatized. Lung apices: An endotracheal tube is in place. Clear as visualized. IMPRESSION: 1. There is no evidence of fracture or subluxation involving the cervical spine. 2. Osteopenia and spondylotic change as above. ACT 112: Negative or not required by law. Electronically signed by: Ba Peacock M.D. 07/03/2021 12:[address] 07/02/21 23:47 CT SCAN OF THE CHEST, ABDOMEN, AND PELVIS WITHOUT IV CONTRAST CLINICAL HISTORY: Fall. Cardiac arrest. Change in mental status. COMPARISON STUDY: Chest x-ray dated 07/02/2021. Renal ultrasound dated 08/20/2020. TECHNIQUE: Unenhanced CT scan of the chest, abdomen, and pelvis was performed from the thoracic inlet to the proximal femora. Images are reviewed in the axial, sagittal, and coronal planes. IV contrast was not administered for this examination. Note that the examination is suboptimal without IV contrast. A dose lowering technique was utilized adhering to the principles of ALARA. Examination is degraded by motion artifact, as well as by streak artifact from the arms which could not be related above the chest or abdomen. CT DOSE: 1815.60 mGy.cm FINDINGS: CHEST: Thyroid: Imaged portions of the thyroid gland are normal in size and attenuation. Thoracic aorta: There is atherosclerotic calcification of the thoracic aorta. There is aneurysmal dilatation of the ascending thoracic aorta which measures up to 4.4 cm diameter. A stent graft is present from the level of the aortic arch to the distal descending thoracic aorta. The arch demonstrates standard 3-vessel anatomy. 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 Heart: A cardiac pacemaker is present in the left chest wall. The heart is markedly enlarged and without pericardial effusion. The coronary arteries and mitral annulus are densely calcified. There is diminished attenuation of the cardiac blood pool as compared to the myocardium suggesting anemia. The main pulmonary arteries are dilated suggesting pulmonary artery hypertension. Lungs and pleural spaces: An endotracheal tube is in place and terminates above the kimberlee. There are trace pleural effusions, right larger than left. No lobar consolidation is identified. A 2 cm groundglass focus is seen in the anterior left upper lobe on image #130. Minimal secretions are noted in the trachea. The central airways appear clear. Scarring/atelectasis is noted at the lung bases. There is no pneumothorax. Mediastinum: There are scattered subcentimeter mediastinal lymph nodes. No mediastinal hematoma is identified. Maida: Not well assessed without IV contrast. Axillae: There is no axillary lymphadenopathy. Bony thorax: The skeletal structures are osteopenic. There are chronic appearing bilateral rib fractures. No acute/displaced rib fracture is clearly seen. Arthritic changes noted in the shoulders. There is a mild chronic appearing inferior endplate compression deformity of T4. No lytic or blastic lesions are identified. Soft tissues: There is body wall edema. Scattered foci of intravenous gas are likely related to IV placement. ABDOMEN AND PELVIS: Liver: The unenhanced liver is cirrhotic in morphology and heterogeneous in attenuation. There is nodularity of the hepatic surface contour. There is no intra- or extrahepatic biliary ductal dilatation. Gallbladder: Contracted. Spleen: Normal in size and attenuation. Pancreas: The unenhanced pancreas is moderately atrophic and grossly unremarkable. Adrenal glands: Unremarkable. Kidneys: The kidneys are not well assessed due to streak and motion artifact. The unenhanced kidneys are atrophic and without hydronephrosis. A left renal artery stent is in place. Abdominal vasculature: The abdominal aorta is normal in course and caliber noting advanced atherosclerotic calcification. Bowel: There is no bowel obstruction. Mild fecal retention is seen throughout the colon. The appendix is not visualized. Peritoneum: There is a small volume of abdominopelvic ascites. No intraperitoneal free air is seen. Lymphadenopathy: None. Pelvic viscera: The bladder is decompressed around a Vidal catheter and not well evaluated. The prostate gland is enlarged and heterogeneous. There is a fat and ascitic fluid containing right inguinal hernia. Skeletal structures: The skeletal structures are osteopenic. The lumbosacral spine, bony pelvis, and proximal femora appear intact. There is moderate to advanced lumbosacral spondylosis. No lytic or blastic lesions are seen. Soft tissues: There is body wall edema. IMPRESSION: 1. An endotracheal tube is in place. 2. Marked cardiomegaly and cardiac pacemaker. 3. Trace pleural effusions, right larger than left. 4. There is no lobar consolidation or pneumothorax. 5. There is mild aneurysmal dilatation of the ascending thoracic aorta with a stent graft in place as above. 6. There is no evidence of solid organ injury in the abdomen or pelvis on this unenhanced examination. 7. Cirrhotic liver morphology. 8. Small volume of abdominopelvic ascites. 9. There is a 2 cm groundglass focus in the left upper lobe. This is likely on an inflammatory basis. A follow-up chest CT in 3-4 months time is recommended to resolution. 10. Anasarca of the body wall. 11. There are numerous chronic appearing bilateral rib fractures. No definite acute/displaced rib fracture is seen. 12. Additional findings as above. ACT 112: Negative or not required by law. Electronically signed by: Ba Peacock M.D. 07/03/2021 12:30 AM Hospital Course (1) Multiple organ failure: (2) Acute hypoxemic respiratory failure: (3) Cirrhosis: (4) Thrombocytopenia: (5) Metabolic acidosis: (6) Lactic acidosis: (7) Electrolyte abnormality: (8) Acute renal failure: (9) CHF (congestive heart failure): (10) Comfort measures only status: And the patient was an 85-year-old man with a history significant of systolic heart failure, cirrhosis, stage IV kidney disease who presented to the ER via EMS found to be in multisystem organ failure. He required emergent intubation in the ER. BMP showed several electrolyte abnormalities that were severe with hyperkalemia, hypercalcemia, anion gap metabolic acidosis, elevated creatinine and BUN and a lactate of 10.2. He also had elevated LFTs and ammonia. Head CT was performed and negative for acute intracranial process. CT chest and abdomen pelvis were grossly without acute processes. A transfer for hemodialysis was offered however according to the patient's wishes no further aggressive medical management was to be pursued and he was made a DNR/DNI with no escalation of care at this point. Per his family's wishes he was continued on mechanical ventilation with sedation in the ICU overnight. The patient has a daughter in [place] that would like to be at the bedside with the plan to withdraw care the following day. He remains sedated on propofol overnight and continued with vent support until approximately 4:45 PM the following day. After terminal extubation was performed he within about an hour. exam was performed. [facility] was contacted as the patient had within 24 hours of the admission and no autopsy was mandated. Total Time Total Time Spent Total Time Spent (In Minutes): 60 Discharge Plan Discharge Items Patient Disposition: Discharge Diagnosis: Multiorgan failure Acute hypoxic respiratory failure Anion gap metabolic acidosis Lactic acidosis Heart failure Cirrhosis Addtl Attending Provider Instructions: n/a
[2021-07-03] MEDS ORDERED: CALCIUM CHLORIDE 10% 10 ML SYR IV ONE ×2 (18:36)
[2021-07-03] MEDS ORDERED: SODIUM BICARB 8.4% INJ 50 MEQ/50 ML SYR IV ONE (18:36)
[2021-07-03] MEDS ORDERED: ROCURONIUM BROMIDE 10 MG/ML 5 ML VIAL IV ONE (18:36)
[2021-07-03] MEDS ORDERED: ETOMIDATE 2 MG/ML 20 ML VIAL IV ONE (18:36)
[2021-07-03] MEDS ORDERED: SODIUM CHLORIDE 0.9% 10ML FLUSH IV ONE (18:36)
--- NOTE | 2021-07-04 06:00 | Electrocardiogram Report ---
Test Reason : Blood Pressure : / mmHG Vent. Rate : 149 BPM Atrial Rate : 074 BPM P-R Int : 400 ms QRS Dur : 092 ms QT Int : 198 ms P-R-T Axes : 002 000 007 degrees QTc Int : 311 ms Suspect unspecified pacemaker failure Ventricular-paced rhythm Abnormal ECG When compared with ECG of 19-AUG-2020 17:07, Ventricular pacing has replaced atrial pacing Confirmed by Jake Ji ([id number]) on 07/04/2021 6:00:04 AM Referred By: REFERRED SELF Confirmed By:Jake Ji
--- NOTE | 2021-07-04 06:01 | Electrocardiogram Report ---
Test Reason : Blood Pressure : / mmHG Vent. Rate : 179 BPM Atrial Rate : 179 BPM P-R Int : 000 ms QRS Dur : 096 ms QT Int : 092 ms P-R-T Axes : 000 264 000 degrees QTc Int : 158 ms AV sequential or dual chamber electronic pacemaker Abnormal ECG When compared with ECG of 02-JUL-2021 23:09, QRS duration has decreased Confirmed by Jake Ji ([id number]) on 07/04/2021 6:01:30 AM Referred By: REFERRED SELF Confirmed By:Jake Ji
--- NOTE | 2021-07-14 08:27 | Coding Query ---
To promote full compliance with coding requirements relating to patient care, provider participation is requested in all cases of microcomputer support specialist uncertainty. Please assist us with the question(s) below: Coding Question(s): The diagnosis(es) below was documented in the early record, then subsequently fell off all further documentation on Discharge Summary. Please indicate if it is still a possible diagnosis or ruled out. Physician's Response(s): ESRD (documented on the H&P) ( x ) Diagnosed and POA ( ) Diagnosed and not POA ( ) Ruled out ( ) Other (please specify) CHF EXACERBATION (documented on the 07/03 Critical Care Progress Note) ( ) Diagnosed and POA ( ) Diagnosed and not POA ( ) Ruled out ( x ) Other (please specify)-I dont see where this was diagnosed. The critical care note said that he had a history of chronic systolic heart failure also mentioning patient on the dry side. Furthermore, a chest xray confirmed no evidence of congestive failure or large pleural effusions. POSSIBLE PULMONARY EMBOLISM (documented on H&P) ( x ) Diagnosed and POA- PE a possible cause for sudden onset chest pain and shortness of breath, but not proven ( ) Diagnosed and not POA ( ) Ruled out ( ) Other (please specify) MTDD
== END 2021-07-03 18:37 | disposition expired | DRG 208 ==
LOC: ED 22:57 → 1E 07-03 01:11
DX: I73.9 Peripheral vascular disease, unspecified; Z79.02 Long term (current) use of antithrombotics/antiplatelets; I48.91 Unspecified atrial fibrillation; K76.1 Chronic passive congestion of liver; E03.9 Hypothyroidism, unspecified; J96.01 Acute respiratory failure with hypoxia; I26.99 Other pulmonary embolism without acute cor pulmonale; Z82.49 Family history of ischemic heart disease and other diseases of the circulatory system; R41.82 Altered mental status, unspecified; Z51.5 Encounter for palliative care; Z79.890 Hormone replacement therapy; Z95.0 Presence of cardiac pacemaker; K21.9 Gastro-esophageal reflux disease without esophagitis; N18.6 End stage renal disease; E87.5 Hyperkalemia; I13.2 Hypertensive heart and chronic kidney disease with heart failure and with stage 5 chronic kidney disease, or end stage renal disease; Z79.899 Other long term (current) drug therapy; N17.9 Acute kidney failure, unspecified; I25.10 Atherosclerotic heart disease of native coronary artery without angina pectoris; D69.59 Other secondary thrombocytopenia; Z95.5 Presence of coronary angioplasty implant and graft; E83.52 Hypercalcemia; I49.5 Sick sinus syndrome; E78.5 Hyperlipidemia, unspecified; I50.22 Chronic systolic (congestive) heart failure; Z66 Do not resuscitate; E87.2 Acidosis; I25.5 Ischemic cardiomyopathy; E87.6 Hypokalemia; Z79.82 Long term (current) use of aspirin